=== PATIENT | male | born 1940 | race African-American/Black ===

== ENCOUNTER 2016-06-29 18:22 | Observation (INO) | payer OTHER ==
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
[2016-06-29] MEDS ORDERED: ALBUTEROL SO4 2.5/IPRATROPIUM 0.5 INH SOL 3 ML VIAL.NEB. NEB ONE ×6 (20:17→21:43)
[2016-06-29 20:39] LABS: BASOPHIL 0.9 % (0-2.0); EOSINOPHIL 2.6 % (0-4.5); MCH 33.5 pg (25.7-33.7); MEAN CELL VOLUME 101.6 fl (80-96); MEAN PLT VOLUME 7.7 fl (7.5-11.1); NEUTROPHILS 57.2 % (42.8-82.8); PLATELET COUNT 296 K/MM3 (134-434); RDW 13.7 % (11.9-15.9); WHITE BLOOD COUNT 5.4 K/mm3 (4.0-10.0)
[2016-06-29 21:01] LABS: INR 1.53 (0.82-1.09)
[2016-06-29 21:35] LABS: ALBUMIN 3.2 g/dl (3.4-5.0); CALCIUM 9.1 mg/dL (8.5-10.1); CREATININE 1.5 mg/dL (0.7-1.3)
[2016-06-29 21:36] LABS: BILIRUBIN,TOTAL 0.4 mg/dL (0.2-1.0); TOT PROT 6.7 g/dl (6.4-8.2)
[2016-06-29] MEDS ORDERED: DOXYCYCLINE INJECTION 100 MG in DEXTROSE 5%-WATER - 100 ML IVPB ONE (21:36)
[2016-06-29] MEDS ORDERED: predniSONE 20 MG TABLET (UD) PO ONE (21:36)
[2016-06-29] MEDS ORDERED: predniSONE 20 MG TABLET (UD) ONE (21:42)
[2016-06-29] MEDS ORDERED: DOXYCYCLINE HYCLATE 100 MG VIAL ONE (21:43)
[2016-06-29 22:36] LABS: HIV 1 & 2 AB NEGATIVE; HIV 1 AGp24 NEGATIVE
--- NOTE | 2016-06-30 00:31 | PN ---
<AnaNoelle beltran - Last Filed: 06/30/16 00:31> Teaching Attending Note Name of Resident: Janey Woodard <KalebamandaRosario townsend - Last Filed: 06/30/16 02:19> Teaching Attending Note Name of Resident: Janey Woodard ATTENDING PHYSICIAN STATEMENT I saw and evaluated the patient. I reviewed the resident's note and discussed the case with the resident. I agree with the resident's findings and plan as documented. SUBJECTIVE: 76 year old male, complaining of a productive cough with yellow sputum, loss of appetite and chills for 4 days. The patient had flu vaccine in March and pneumococcal vaccine. The patient smokes 1-2 cigarettes daily but hasn't smoked in the last 2 weeks. The patient denies wheezing, chest pain, palpitations, nausea, vomiting, diarrhea, dysuria, or sick contacts. PMH: History significant for asthma/COPD, DVT (LLE, 2013), colon CA, enlarged prostate and cigarette use (2 daily, 40 year use). OBJECTIVE: Last Vital Signs Temp Pulse Resp BP Pulse Ox 99.2 F 129 H 24 101/60 95 06/29/16 18:24 06/29/16 23:04 06/29/16 23:04 06/29/16 23:09 06/29/16 23:04 GENERAL: Awake, alert, and fully oriented, in no acute distress, cachectic, talking in full sentences HEENT: Atraumatic. PERRLA, EOMI. Moist mucosa. No JVD LUNGS: No distress, speaks full sentences, clear to auscultation bilaterally HEART: Regular rate and rhythm, normal S1 and S2, no murmurs, rubs or gallops, peripheral pulses normal and equal bilaterally. ABDOMEN: Soft, nontender, normoactive bowel sounds. No guarding, no rebound. No masses EXTREMITIES: Normal inspection, Normal range of motion, no edema. No clubbing or cyanosis. NEUROLOGICAL: Cranial nerves II through XII grossly intact. Normal speech, normal gait, no focal sensorimotor deficits SKIN: Warm, Dry, normal turgor, no rashes or lesions noted, no cyanosis CBCD WBC 5.4 K/mm3 (4.0-10.0) D 06/29/16 19:53 RBC 3.72 M/mm3 (4.00-5.60) L 06/29/16 19:53 Hgb 12.5 GM/dL (11.7-16.9) 06/29/16 19:53 Hct 37.8 % (35.4-49) 06/29/16 19:53 MCV 101.6 fl (80-96) H 06/29/16 19:53 MCHC 33.0 g/dl (32.0-35.9) 06/29/16 19:53 RDW 13.7 % (11.9-15.9) 06/29/16 19:53 Plt Count 296 K/MM3 (134-434) D 06/29/16 19:53 MPV 7.7 fl (7.5-11.1) 06/29/16 19:53 CMP Sodium 141 mmol/L (136-145) 06/29/16 19:53 Potassium 4.5 mmol/L (3.5-5.1) 06/29/16 19:53 Chloride 104 mmol/L (98-107) 06/29/16 19:53 Carbon Dioxide 30 mmol/L (21-32) 06/29/16 19:53 Anion Gap 7 (8-16) L 06/29/16 19:53 BUN 19 mg/dL (7-18) H 06/29/16 19:53 Creatinine 1.5 mg/dL (0.7-1.3) H D 06/29/16 19:53 Creat Clearance w eGFR 45.62 (>60) 06/29/16 19:53 Calcium 9.1 mg/dL (8.5-10.1) 06/29/16 19:53 Total Bilirubin 0.4 mg/dL (0.2-1.0) 06/29/16 19:53 AST 17 U/L (15-37) 06/29/16 19:53 ALT 19 U/L (12-78) 06/29/16 19:53 Alkaline Phosphatase 86 U/L (45-117) 06/29/16 19:53 Total Protein 6.7 g/dl (6.4-8.2) 06/29/16 19:53 Albumin 3.2 g/dl (3.4-5.0) L 06/29/16 19:53 Chest X-Ray Impression: No significant interval change or acute lung disease is present. ASSESSMENT AND PLAN: 1.) COPD exacerbation -prednisone 40 mg daily -duoneb Q 6 hours PRN -Ceftriaxone 1 g daily 2.) Chronic smoking -smoking cessation counseling given -continue home meds Documentation prepared by Rosario Cartagena, acting as medical donation professional for Noelle Ellison M.D.
[2016-06-30] MEDS ORDERED: ALBUTEROL SO4 0.083% IH SOL 2.5 MG/3 ML VIAL.NEB. NEB PRN (01:30)
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
[2016-06-30] MEDS ORDERED: methylPREDNISolone NA SUCC 40 MG/1 ML VIAL IVPB SCH (06:00)
[2016-06-30] MEDS: ALBUTEROL SO4 2.5/IPRATROPIUM 0.5 INH SOL 3 ML VIAL.NEB. NEB SCH ×3 (07:55→23:35)
[2016-06-30] MEDS: TAMSULOSIN HCL 0.4 MG CAP.ER.24H (FP) PO SCH (08:57)
[2016-06-30] MEDS: SODIUM CHLORIDE 1,000 ML IV SCH ×2 (08:57→16:52)
[2016-06-30] MEDS: predniSONE 20 MG TABLET (UD) PO SCH (09:05)
[2016-06-30] MEDS ORDERED: predniSONE 20 MG TABLET (UD) ONE (09:45)
[2016-06-30] MEDS ORDERED: CEFTRIAXONE 50 ML ONE (09:52)
[2016-06-30] MEDS ORDERED: CEFTRIAXONE 1 GM in DEXTROSE 5%-WATER - 50 ML IVPB SCH (10:00)
[2016-06-30] MEDS ORDERED: RIVAROXABAN 15 MG TABLET PO SCH (10:00)
[2016-06-30] MEDS ORDERED: predniSONE 10 MG TABLET (UD) PO SCH (10:00)
[2016-06-30] MEDS ORDERED: cefTRIAXone 1 GM/50 ML BAG (PRE-DOCKED) IVPB SCH (10:00)
--- NOTE | 2016-06-30 10:58 | EKG ---
Test Reason : Blood Pressure : / mmHG Vent. Rate : 118 BPM Atrial Rate : 118 BPM P-R Int : 124 ms QRS Dur : 072 ms QT Int : 314 ms P-R-T Axes : 080 082 080 degrees QTc Int : 440 ms SINUS TACHYCARDIA BIATRIAL ENLARGEMENT POOR R WAVE PROGRESSION PULMONARY DISEASE PATTERN ABNORMAL ECG WHEN COMPARED WITH ECG OF 31-DEC-2013 10:15, VENT. RATE HAS INCREASED BY 54 BPM Confirmed by ADDISON RIVAS MD ([id number]) on 06/30/2016 10:58:20 AM Referred By: Confirmed By:ADDISON RIVAS MD
[2016-06-30 12:20] VITALS: BMI 17.2
[2016-06-30] MEDS ORDERED: ALBUTEROL SO4 2.5/IPRATROPIUM 0.5 INH SOL 3 ML VIAL.NEB. NEB ONE (12:21)
--- NOTE | 2016-06-30 13:38 | MSN ---
Progress Note (SOAP) - Subjective Chief Complaint: Productive cough for 3-4 Days History of Present Illness: Patient has had a productive cough for the past 3-4 days. He is Complaining that he is coughing up yellow sputum and that he has had chills and sweats for the past 3-4 days. He states that he had a fever in the last 3-4 days but did not measure the temperature. he has tried taking OTC ibuprofen and cough suppressant to no avail. He came to the ED and when he heard he had an irregular EKG he felt as though he could not breathe. the SOB came on suddenly and dissipated slowly. He has had a headache and some dizziness due to his coughing spells, and has felt some Shortness of breath going less than 20 ft this week, however prior to this week he was not having these complaints. He has no CP, NVD, Constipation, or edema. - Current Medications Current Medications: Active Medications Albuterol/Ipratropium (Duoneb -) 1 amp NEB QIDR [facility] Last Admin: 06/30/16 12:24 Dose: 1 amp Ceftriaxone Sodium (Rocephin 1gm Ivpb (Pre-Docked)) 1 gm IVPB DAILY [facility] Last Admin: 06/30/16 10:00 Dose: 1 gm Sodium Chloride (Normal Saline -) 1,000 mls @ 75 mls/hr IV ASDIR [facility] Last Admin: 06/30/16 08:57 Dose: 75 mls/hr Prednisone (Deltasone -) 40 mg PO DAILY [facility] Last Admin: 06/30/16 09:05 Dose: 40 mg Rivaroxaban (Xarelto -) 15 mg PO BID [facility] Last Admin: 06/30/16 09:05 Dose: 15 mg Tamsulosin HCl (Flomax -) 0.4 mg PO DAILY@0830 [facility] Last Admin: 06/30/16 08:57 Dose: 0.4 mg - Objective Vital Signs: Vital Signs Temperature 98.2 F 06/30/16 12:09 Pulse Rate 86 06/30/16 12:09 Respiratory Rate 18 06/30/16 12:09 Blood Pressure 113/67 06/30/16 12:09 O2 Sat by Pulse Oximetry (%) 98 06/30/16 12:09 Constitutional: Yes: Well Nourished, No Distress, Calm Eyes: Yes: WNL, Conjunctiva Clear, EOM Intact HENT: Yes: WNL, Atraumatic, Normocephalic Neck: Yes: WNL, Supple, Trachea Midline Cardiovascular: Yes: Tachycardia, S1, S2 Respiratory: Yes: Cough, Wheezes Gastrointestinal: Yes: WNL, Normal Bowel Sounds, Soft Musculoskeletal: Yes: WNL Extremities: Yes: WNL Peripheral Pulses WNL: Yes Peripheral Pulses: Left Radial: 2+, Right Radial: 2+, Left Doralis Pedis: 2+, Right Dorsalis Pedis: 2+ Edema: No Integumentary: Yes: WNL Neurological: Yes: WNL, Alert, Oriented ...Motor Strength: Yes: WNL Psychiatric: Yes: WNL Assessment/Plan 76 year old man w/ hx of COPD, asthma, colon cancer, DVT and BPH presents with acute COPD exacerbation being admitted for observation. COPD/asthma -Nebulizer, O2 PRN -ceftriaxone -prednisone -IV fluids -EKG -PFTs -Incentive Spirometry MAYANK -Fluids -UA -Follow FeNa BPH -Cont. Flomax Smoking -Quit 2 weeks ago -Patches prn DVT -Cont. Xarelto
[2016-06-30] MEDS ORDERED: ALBUTEROL SO4 2.5/IPRATROPIUM 0.5 INH SOL 3 ML VIAL.NEB. NEB PRN (14:20)
--- NOTE | 2016-06-30 14:47 | PN ---
Teaching Attending Note Name of Resident: Tavares Gandhi ATTENDING PHYSICIAN STATEMENT I saw and evaluated the patient. I reviewed the resident's note and discussed the case with the resident. I agree with the resident's findings and plan as documented. SUBJECTIVE: no fever or chills, wheezing is better , denies SOB . cough has improved . OBJECTIVE: NAD , AAOx3 CV : RRR. Lungs : scattered wheezes , no crackles . ABd :soft, NT, ND , nl BS , old surgical scars Ext : no edema or erythema ASSESSMENT AND PLAN: 76 y/o man with h/o COPD , DVT in 2013 , and other medical problems who presented with SOB and was found to have acute COPD exacerbation. 1- Acute COPD exacerbation: rapid flu NEg . sx imporved after Nebs but pt became slightly tachycardic . - cont NEbs , Add PRN Nebs - cont prednisone , can swallow - resume advair - no evidence of PNA on cxray , Abx for anti-inflammatory effect . will change ctx to Amoxi 2- MAYANK : probably pre-renal in etiology due to decreased po intake and resp loss - cont gentle hydration - FENA 3- Sinus tachycardia : likely due to volume depletion, resp distress and ALbuterol Nebs - IVF hydration - monitor 4- h/o DVT: will clarify why he has been on xarelto since 2013. ? recurrent , ? unprovoked. - tty to reach his PCP 5- DVT px : on xarelto need to confirm his home meds
--- NOTE | 2016-06-30 15:49 | PN ---
Physical Exam: SUBJECTIVE: Patient seen and examined. Feels better than when he arrived. continues to cough and have shortness of breath. Denies chest pain, fevers, difficulty breathing. OBJECTIVE: Vital Signs Period Temp Pulse Resp BP Sys/Valdes Pulse Ox Last 24 Hr 98.2 F-98.4 F 78-90 18-20 109-130/67-80 97-99 GENERAL: The patient is awake, alert, and fully oriented, in no acute distress. HEAD: Normal with no signs of trauma. EYES: extraocular movements intact, sclera anicteric, conjunctiva clear. ENT: Ears normal, nares patent, oropharynx clear without exudates, moist mucous membranes. NECK: Trachea midline, full range of motion, supple. no LAD LUNGS: Breath sounds equal, bilateral wheezes, no crackles, no accessory muscle use. HEART: S1, S2 without murmur ABDOMEN: Soft, nontender. EXTREMITIES: no edema. NEUROLOGICAL: Normal speech, able to speak in full sentences without difficulty PSYCH: Normal mood, normal affect. Active Medications Generic Name Dose Route Start Last Admin Trade Name Freq PRN Reason Stop Dose Admin Albuterol/Ipratropium 1 amp 06/30/16 06:00 06/30/16 12:24 Duoneb - NEB 1 amp QIDR BRANDY Administration Albuterol/Ipratropium 1 amp 06/30/16 14:20 Duoneb - NEB Q4H PRN SHORTNESS OF BREATH Azithromycin 500 mg 07/01/16 10:00 Zithromax - PO DAILY BRANDY Sodium Chloride 1,000 mls @ 75 mls/hr 06/30/16 01:45 06/30/16 16:52 Normal Saline - IV 75 mls/hr ASDIR BRANDY Administration Prednisone 40 mg 06/30/16 10:00 06/30/16 09:05 Deltasone - PO 40 mg DAILY BRANDY Administration Rivaroxaban 20 mg 07/01/16 10:00 Xarelto - PO DAILY BRANDY Fluticasone/Salmeterol 1 puff 06/30/16 22:00 Advair 100mcg/50mcg - IH BID BRANDY Tamsulosin HCl 0.4 mg 06/30/16 08:30 06/30/16 08:57 Flomax - PO 0.4 mg DAILY@0830 BRANDY Administration Microbiology 06/30/16 19:53 Nasopharyngeal Swab Respiratory Virus Panel - Preliminary - pending 06/29/16 19:53 Nasopharyngeal Swab Influenza Types A,B Antigen (HORACE) - Final (negative) 06/29/2016 Blood cultures pending. CBC, BMP 06/29/16 19:53 06/29/16 19:53 Home medications confirmed from [facility], fax of list in chart. ASSESSMENT/PLAN: 76 yr old man with COPD, history of smoking, history of DVT presents with shortness of breath placed in observation for COPD exacerbation. - likley COPD exacerbation triggered by viral syndrome. - chest xray 06/29 without infiltrate or effusion, afebrile, without leukocytosis unlikley to be pna. #Acute COPD exacerbation - Prednisone 40 mg qdaily po --start 06/30, day 1 - Duonebs 1 amp 4hrn PRN/ ASDR - advair 1 puff BID - Zithromax 500mg po daily -- start 06/30, day 1 # Acute kidney injury (Cr elevated to 1.5, baseline 1.2) - FeNa 0.3, lubna prerenal due to poor po intake and insensible loss of increased respiration - NS @ 75ml/hr - repeat BMP in the morning #History of DVT(2013) - obtain further history - Xarelto 20mg po daily #history of smoking - offer nicotine patch if craving to smoke - offer counseling on smoking cessation and information at discharge #Diet - regular #DVT prophylaxis - on xarelto #Dispo: if symptomatically improved tomorrow, likely d/c home with prednisone taper and f/u with PCP. Visit type - Emergency Visit Emergency Visit: No - New Patient This patient is new to me today: Yes Date on this admission: 06/30/16 - Critical Care Critical Care patient: No - Discharge Referral Referred to [facility] No
[2016-06-30] MEDS ORDERED: PT OWN MED DRAWER 7, Y5N ONE (22:39)
[2016-06-30] MEDS: FLUTICASONE/SALMETEROL 100 MCG/50 MCG DISKUS IH SCH (22:52)
[2016-07-01] MEDS: SODIUM CHLORIDE 1,000 ML IV SCH (06:32)
[2016-07-01] MEDS: ALBUTEROL SO4 2.5/IPRATROPIUM 0.5 INH SOL 3 ML VIAL.NEB. NEB SCH ×2 (06:50→11:08)
[2016-07-01] MEDS ORDERED: AMOXICILLIN 500 MG CAPSULE (FP) PO SCH (08:00)
[2016-07-01] MEDS: TAMSULOSIN HCL 0.4 MG CAP.ER.24H (FP) PO SCH (08:40)
[2016-07-01] MEDS ORDERED: AZITHROMYCIN 250 MG TABLET (FP) PO SCH (10:00)
[2016-07-01] MEDS ORDERED: RIVAROXABAN 20 MG TABLET PO SCH (10:00)
[2016-07-01] MEDS: FLUTICASONE/SALMETEROL 100 MCG/50 MCG DISKUS IH SCH (10:22)
[2016-07-01] MEDS: predniSONE 20 MG TABLET (UD) PO SCH (10:23)
[2016-07-01 12:02] LABS: CALCIUM 8.6 mg/dL (8.5-10.1); CREATININE 0.8 mg/dL (0.7-1.3)
--- NOTE | 2016-07-01 13:08 | DS ---
Physical Examination Vital Signs: Vital Signs Temperature 98.3 F 07/01/16 09:00 Pulse Rate 90 07/01/16 09:00 Respiratory Rate 20 07/01/16 09:00 Blood Pressure 133/78 07/01/16 09:00 O2 Sat by Pulse Oximetry (%) 94 L 07/01/16 08:00 Findings/Remarks: No fever or chills, no CP. SOB is better. cough this am which resolved Constitutional: Yes: No Distress, Thin HENT: Yes: Atraumatic, Normocephalic Cardiovascular: Yes: Regular Rate and Rhythm, S1, S2 Respiratory: Yes: Regular, Other (scattered wheezing , imporved form before , good air entry) Gastrointestinal: Yes: Normal Bowel Sounds, Soft Extremities: No: Erythema Edema: No Labs: CBC, BMP 07/01/16 08:20 Discharge Summary Reason For Visit: ACUTE EXACERBATION COPD Current Active Problems Acute exacerbation of chronic obstructive pulmonary disease (COPD) (Acute) Hospital Course: D/C diagnoses : 1- acute COPD exacerbation 2- MAYANK : pr-erenal Hospital course 76 y/o man with h/o COPD , DVT in 2013 , and other medical problems who presented with SOB and was found to have acute COPD exacerbation on admission due to wheezing . he had no evidence of PNA on cxray . he was admitted and treated with breathing treatments and po steroids . his sx improved . he had RVP sent and the results are still pending he is to be dc on steroids taper and to resume his home inhalers which he has and needed no refills . he was also found to have MAYANK , probably prerenal due to volume depletion. he was given IVF and his Cr and BUM improved . He was found slightly tachy, due to his respo distress but thie resolved with treatment He was asked to chek with his PCP as he has been on xarelto x 2 yrs for DVT . Microbiology 06/29/16 19:53 Blood Culture - Preliminary Blood - Peripheral Venous NO GROWTH OBTAINED AFTER 24 HOURS, INCUBATION TO CONTINUE FOR 4 DAYS. 06/29/16 19:53 Blood Culture - Preliminary Blood - Peripheral Venous NO GROWTH OBTAINED AFTER 24 HOURS, INCUBATION TO CONTINUE FOR 4 DAYS. 06/30/16 19:53 Respiratory Virus Panel - Preliminary Nasopharyngeal Swab dc home today f/u With PCP Condition: Improved - Instructions Diet, Activity, Other Instructions: please follow with your primary care doctor in 1 week take prednisone taper as prescribed use your inhalers Check with your PCP on the reason behind xarelto for prolonged period of time keep hydrated Referrals: Margo Felipe MD [Primary Care Provider] - 1 Week Disposition: HOME - Home Medications Comprehensive Discharge Medication List: Ambulatory Orders Albuterol Sulfate Inhaler - [Ventolin HFA Inhaler -] 2 inh PO Q4H PRN 06/30/16 Alfuzosin HCl [Alfuzosin HCl ER] 10 mg PO DAILY 06/30/16 Fluticasone/Salmeterol [Advair 250-50 Diskus] 1 each IH BID 06/30/16 Ipratropium/Albuterol Sulfate [Combivent Respimat Inhal [place]] 4 gm IH BID 06/30 Montelukast Na [Singulair -] 10 mg PO HS 06/30/16 Rivaroxaban [Xarelto -] 20 mg PO DAILY 06/30/16 Prednisone [Deltasone -] 40 mg PO ASDIR #26 tablet 07/01/16 This patient is new to me today: No Emergency Visit: Yes ED Registration Date: 06/30/16 Care time: The patient presented to the Emergency Department on the above date and was hospitalized for further evaluation of their emergent condition. Critical Care patient: No - Discharge Referral Referred to [facility] No
[2016-07-01 15:20] VITALS: BP 137/88; PULSE 109; TEMP 97.4
== END 2016-07-01 15:35 | disposition home or self-care (01) ==
LOC: JER 18:22 → JERBED 06-30 01:13 → J5S 06-30 15:24
PROVIDERS: ADMIT Internal Medicine; ATTEND Internal Medicine
DX: J44.1 Chronic obstructive pulmonary disease with (acute) exacerbation (principal); N17.9 Acute kidney failure, unspecified; N40.0 Benign prostatic hyperplasia without lower urinary tract symptoms; R00.0 Tachycardia, unspecified; F17.200 Nicotine dependence, unspecified, uncomplicated; Z86.718 Personal history of other venous thrombosis and embolism; Z85.038 Personal history of other malignant neoplasm of large intestine
CPT/HCPCS: 36415; 71020-TC; 80048; 80053; 82570; 84300; 85025; 85610; 87040; 87254; 87389; 87804; 93005; 93010; 94640; 99285-25; G0378

== ENCOUNTER 2016-12-12 07:05 | Day surgery (SDC) | payer OTHER ==
[2016-12-08 17:12] VITALS: BMI 18.6
--- NOTE | 2016-12-12 05:56 | HP ---
History & Physical Update - History History: No Change - Physical Physical: No Change - Assessment Assessment: No Change - Plan Plan: No Change
[2016-12-12 06:56] VITALS: TEMP 98.2
[~2016-12-12 07:05] MED LIST: CYCLOPENTOLATE HCL 1% OPHTH SOLN 2 ML BOTTLE OD ONE; CYCLOPENTOLATE HCL 1% OPHTH SOLN 2 ML BOTTLE OP SCH; MOXIFLOXACIN HCL 0.5% OPHTHALMIC 3 ML BOTTLE OD ONE; MOXIFLOXACIN HCL 0.5% OPHTHALMIC 3 ML BOTTLE OP SCH; PHENYLEPHRINE 2.5% OPHTH SOLN 15 ML BOTTLE OD ONE; PHENYLEPHRINE 2.5% OPHTH SOLN 15 ML BOTTLE OP SCH; TOBRAMYCIN/DEXAMETHASONE OPHTH. OINTMENT 1 TUBE TP ONE; TROPICAMIDE 1% OPHTH SOLN 15 ML BOTTLE OD ONE; TROPICAMIDE 1% OPHTH SOLN 15 ML BOTTLE OP SCH
[2016-12-12] MEDS ORDERED: TROPICAMIDE 1% OPHTH SOLN 15 ML BOTTLE OD ONE ×2 (07:10→07:15)
[2016-12-12] MEDS ORDERED: PHENYLEPHRINE 2.5% OPHTH SOLN 15 ML BOTTLE OD ONE ×2 (07:10→07:15)
[2016-12-12] MEDS ORDERED: CYCLOPENTOLATE HCL 1% OPHTH SOLN 2 ML BOTTLE OD ONE ×2 (07:10→07:15)
[2016-12-12] MEDS ORDERED: MOXIFLOXACIN HCL 0.5% OPHTHALMIC 3 ML BOTTLE OD ONE ×2 (07:10→07:15)
[2016-12-12] MEDS ORDERED: TOBRAMYCIN/DEXAMETHASONE OPHTH. OINTMENT 1 TUBE ONE (07:21)
[2016-12-12] MEDS ORDERED: EPINEPHrine/PF 1 MG/1 ML (1:1,000) AMPULE ONE (07:21)
[2016-12-12] MEDS ORDERED: BSS (NA/CA/MG/K) BALANCED SALT SOLUTION OPHTH SOLN 15 ML BOTTLE ONE (07:22)
[2016-12-12] MEDS ORDERED: POVIDONE-IODINE 5% OPHTHALMIC PREP 30 ML SOLUTION ONE (07:22)
[2016-12-12] MEDS ORDERED: LIDOCAINE HCL/PF 2% SDV 5ML VIAL ONE ×2 (07:22→07:53)
[2016-12-12] MEDS ORDERED: LIDOCAINE HCL/PF 1% SDV 5ML VIAL ONE (07:22)
[2016-12-12] MEDS ORDERED: BUPIVACAINE HCL/PF 0.75% 10 ML VIAL ONE (07:24)
[2016-12-12] MEDS ORDERED: TETRACAINE 0.5% OPHTH SOLN 2 ML BOTTLE ONE (07:24)
[2016-12-12] MEDS ORDERED: PROPOFOL 20 ML ONE (07:53)
[2016-12-12] MEDS ORDERED: SUCCINYLCHOLINE CHLORIDE 200 MG/10 ML VIAL ONE (07:54)
[2016-12-12] MEDS ORDERED: MIDAZOLAM HCL 2 MG/2 ML SINGLE DOSE VIAL ONE (07:54)
[2016-12-12] MEDS ORDERED: TETRACAINE 0.5% HCL 0.6ML DROPPER.BOTTLE TP ONE (08:00)
[2016-12-12] MEDS ORDERED: LIDOCAINE HCL/PF 2% SDV 5ML VIAL PNB ONE (08:08)
[2016-12-12] MEDS ORDERED: BUPIVACAINE HCL/PF 0.75% 10 ML VIAL RB ONE (08:10)
[2016-12-12] MEDS ORDERED: LIDOCAINE HCL 1% PRESERVATIVE FREE - 30ML VIAL IO ONE (08:22)
[2016-12-12] MEDS ORDERED: CHONDROITIN SU A/HYALUR SOD 1 KIT IO ONE (08:23)
[2016-12-12] MEDS ORDERED: TRYPAN BLUE 0.5 ML DISP.SYRIN IO ONE (08:25)
[2016-12-12] MEDS ORDERED: ACETYLCHOLINE 1:100 INTRA-OCUL 20 MG/2 ML KIT IO ONE (08:52)
[2016-12-12] MEDS ORDERED: TOBRAMYCIN/DEXAMETHASONE OPHTH. OINTMENT 1 TUBE TP ONE (08:57)
[2016-12-12] MEDS ORDERED: FLUMAZENIL 0.5 MG/5 ML VIAL ONE (08:59)
[2016-12-12] MEDS ORDERED: TRYPAN BLUE 0.5 ML DISP.SYRIN ONE (09:08)
[2016-12-12] MEDS ORDERED: ACETYLCHOLINE 1:100 INTRA-OCUL 20 MG/2 ML KIT ONE (09:09)
[2016-12-12 09:55] VITALS: BP 114/67; PULSE 88
--- NOTE | 2016-12-12 15:11 | OP ---
DATE OF OPERATION: 12/12/2016 SURGEON: Selvin Diallo MD PREOPERATIVE DIAGNOSIS: Cataract, right eye. OPERATION: Phacoemulsification and intraocular lens implantation, right eye. POSTOPERATIVE DIAGNOSIS: Cataract, right eye. ANESTHESIA: Local with intravenous sedation. COMPLICATIONS: None. BLOOD LOSS: None. SPECIMEN: None. BRIEF HISTORY: The patient is a 76-year-old man with a past medical history of COPD, who presented with decreased vision in the right eye down to 20/50+ due to a 1+ nuclear sclerotic lens with dense anterior cortical changes. After the risks, benefits, and alternatives to cataract surgery were discussed with the patient, he presented to surgery for the right eye. DESCRIPTION OF PROCEDURE: The patient was brought to the operating room and administered retrobulbar block after receiving intravenous sedation. He was then prepped and draped in the usual sterile fashion. An eyelid speculum was inserted in the right eye. A paracentesis made in the anterior chamber was inflated with nonpreserved lidocaine. This was followed by injection of air, trypan blue dye, and Viscoat due to the poor red reflex due to the dense anterior cortical changes. A groove was made in the temporal clear cornea which was tunneled forward with a crescent blade. The anterior chamber was entered with a 2.75 keratome. The cystotome was used to make an incision in the center of the capsule, and a continuous curvilinear capsulorrhexis was created. The lens was hydrodissected until it was found to rotate freely within the capsular bag. After hydrodissection, there was significant constriction of the pupil and along with iris prolapse due to the constriction of the pupil down to less than 4 mm and the iris determined to place iris hooks around the iris in order to enlarge and stabilize the iris. This was done with 5 iris hooks without incident. Phacoemulsification was then used to remove the lens in its entirety. Irrigation and aspiration were used to remove residual cortical material. The anterior chamber and capsular bag were re-inflated with Provisc, and an 18.5-diopter SN60WF AcrySof intraocular lens was injected into the capsular bag using the Martin injector. The lens was dialed into place using a [place] hook. Irrigation and aspiration were used to remove residual Viscoelastic. The wound was stromally hydrated. The 5 previously placed iris hooks were removed without incident. Miochol was injected into the eye due to persistent iris adherence to the wound. The pupil was found to constrict round. There was no further iris prolapse and no iris at the wound. The eyelid speculum was removed from the eye, and TobraDex ointment and a patch and shield were placed over the right eye. The patient was transferred to the recovery room in stable condition and will follow up tomorrow. Kari WILHELM/[id number]
== END 2016-12-12 09:58 | disposition home or self-care (01) ==
LOC: JASU-SURG 07:05
PROVIDERS: ATTEND Ophthalmology
PROC: 08RJ3JZ Replacement of Right Lens with Synthetic Substitute, Percutaneous Approach (ICD-10-PCS; principal; 2016-12-12 08:00)
DX: H25.11 Age-related nuclear cataract, right eye (principal); R29.2 Abnormal reflex

== ENCOUNTER 2017-02-13 08:40 | Day surgery (SDC) | payer OTHER ==
[2017-02-12 13:36] VITALS: BMI 18.3
[~2017-02-13 08:40] MED LIST changes: -CYCLOPENTOLATE HCL 1% OPHTH SOLN 2 ML BOTTLE OD ONE; -CYCLOPENTOLATE HCL 1% OPHTH SOLN 2 ML BOTTLE OP SCH; -MOXIFLOXACIN HCL 0.5% OPHTHALMIC 3 ML BOTTLE OD ONE; -PHENYLEPHRINE 2.5% OPHTH SOLN 15 ML BOTTLE OD ONE; -PHENYLEPHRINE 2.5% OPHTH SOLN 15 ML BOTTLE OP SCH; -TROPICAMIDE 1% OPHTH SOLN 15 ML BOTTLE OD ONE; -TROPICAMIDE 1% OPHTH SOLN 15 ML BOTTLE OP SCH
[2017-02-13 08:58] VITALS: TEMP 97.5
[2017-02-13] MEDS ORDERED: LIDOCAINE HCL/PF 2% SDV 5ML VIAL ONE (08:59)
[2017-02-13] MEDS ORDERED: LIDOCAINE HCL/PF 1% SDV 5ML VIAL ONE (08:59)
[2017-02-13] MEDS: CYCLOPENTOLATE HCL 1% OPHTH SOLN 2 ML BOTTLE OP SCH ×3 (09:00→09:30)
[2017-02-13] MEDS: TROPICAMIDE 1% OPHTH SOLN 15 ML BOTTLE OP SCH ×3 (09:00→09:30)
[2017-02-13] MEDS ORDERED: TRYPAN BLUE 0.5 ML DISP.SYRIN ONE (09:00)
[2017-02-13] MEDS: PHENYLEPHRINE 2.5% OPHTH SOLN 15 ML BOTTLE OP SCH ×3 (09:00→09:30)
[2017-02-13] MEDS ORDERED: MIDAZOLAM HCL 2 MG/2 ML SINGLE DOSE VIAL ONE (10:47)
[2017-02-13] MEDS ORDERED: TETRACAINE 0.5% OPHTH SOLN 2 ML BOTTLE OS ONE (10:50)
[2017-02-13] MEDS ORDERED: BUPIVACAINE HCL/PF 0.75% 10 ML VIAL RB ONE (10:57)
[2017-02-13] MEDS ORDERED: LIDOCAINE HCL/PF 2% SDV 5ML VIAL INF ONE (10:57)
[2017-02-13] MEDS ORDERED: POVIDONE-IODINE 5% OPHTHALMIC PREP 30 ML SOLUTION OS ONE (10:59)
[2017-02-13] MEDS ORDERED: LIDOCAINE HCL 1% PRESERVATIVE FREE - 30ML VIAL IO ONE (11:09)
[2017-02-13] MEDS ORDERED: BSS (NA/CA/MG/K) BALANCED SALT SOLUTION OPHTH SOLN 15 ML BOTTLE OS ONE (11:09)
[2017-02-13] MEDS ORDERED: TRYPAN BLUE 0.5 ML DISP.SYRIN IO ONE (11:09)
[2017-02-13] MEDS ORDERED: CHONDROITIN SU A/HYALUR SOD 1 KIT IO ONE (11:09)
[2017-02-13] MEDS ORDERED: EPINEPHrine/PF 1 MG/1 ML (1:1,000) AMPULE SQ ONE (11:16)
[2017-02-13] MEDS ORDERED: TOBRAMYCIN/DEXAMETHASONE OPHTH. OINTMENT 1 TUBE TP ONE (11:31)
[2017-02-13 12:44] VITALS: BP 133/75; PULSE 79
--- NOTE | 2017-02-13 17:17 | OP ---
DATE OF OPERATION: 02/13/2017 SURGEON: Selvin Dang MD PREOPERATIVE DIAGNOSIS: Cataract, left eye. OPERATION: Phacoemulsification and intraocular lens implantation, left eye. POSTOPERATIVE DIAGNOSIS: Cataract, left eye. ANESTHESIA: Local with intravenous sedation. COMPLICATIONS: None. BLOOD LOSS: None. SPECIMEN: None. BRIEF HISTORY: The patient is a 76-year-old man with a past medical history of asthma, who presented with decreased vision in the left eye down to 20/40 due to a 1+ nuclear sclerotic lens with dense anterior cortical changes and a posterior subcapsular cataract. After the risks, benefits, and alternatives to cataract surgery were discussed with the patient, he consented to surgery for the left eye. DESCRIPTION OF PROCEDURE: The patient was brought to the operating room and administered retrobulbar block after receiving intravenous sedation. He was then prepped and draped in the usual sterile fashion, and an eyelid speculum was inserted in the left eye. A paracentesis was made, and the anterior chamber was inflated with nonpreserved lidocaine. This was followed by injection of air, trypan blue dye, and Viscoat due to the dense anterior cortical changes. A groove was made in the superotemporal clear cornea which was tunneled forward with a crescent blade. The anterior chamber was entered with a 2.75 keratome. The cystotome was used to make an incision in the center of the capsule, and a continuous curvilinear capsulorrhexis was created. The lens was hydrodissected until it was found to rotate freely within the capsular bag. Phacoemulsification was then used to remove the lens in its entirety. Irrigation and aspiration were used to remove residual cortical material. The anterior chamber and capsular bag were re-inflated with Provisc, and a 19.0-diopter SN60WF AcrySof intraocular lens was injected into the capsular bag using the [place] injector. The lens was dialed into place using a Sinskey hook. Irrigation and aspiration were used to remove residual Viscoelastic. The wound was stromally hydrated until it was found to be watertight and the eye was at an appropriate pressure. The eyelid speculum was removed from the eye, and TobraDex ointment and a patch and shield were placed over the left eye. The patient was transferred to the recovery room in stable condition and will follow up tomorrow. SELVIN DANG M.D. [id number]
== END 2017-02-13 12:44 | disposition home or self-care (01) ==
LOC: JASU-SURG 08:40
PROVIDERS: ATTEND Ophthalmology
PROC: 08RK3JZ Replacement of Left Lens with Synthetic Substitute, Percutaneous Approach (ICD-10-PCS; principal; 2017-02-13 10:30)
DX: H25.12 Age-related nuclear cataract, left eye (principal)

== ENCOUNTER 2017-08-19 10:54 | Emergency (ER) | payer OTHER ==
[2017-08-19 11:03] VITALS: BP 135/77; PULSE 94; TEMP 97.8; BMI 18.3
--- NOTE | 2017-08-19 12:03 | PDOC ---
History of Present Illness - General Chief Complaint: Edema Stated Complaint: SWOLLEN LEG Time Seen by Provider: 08/19/17 11:42 History Source: Patient Exam Limitations: No Limitations - History of Present Illness Initial Comments: 77 yo M history COPD/asthma, prior DVT presents with LLE swelling x2 weeks. Denies fever, chills. He has been trying to elevate the leg for some relief, but when it did not resolve, he presented for evaluation. No recent trauma. No cp, SOB. Past History - Past Medical History Allergies/Adverse Reactions: Allergies Allergy/AdvReac Type Severity Reaction Status Date / Time No Known Drug Allergies Allergy Verified 08/19/17 10:59 Home Medications: Ambulatory Orders Ipratropium/Albuterol Sulfate [Combivent Respimat Inhal [place]] 4 gm IH PRN PRN 06/30/16 Montelukast Na [Singulair -] 10 mg PO HS 06/30/16 Ascorbic Acid [Vitamin C -] 1 tab PO DAILY 02/12/17 Budesonide/Formeterol Fumarate [SYMBICORT 80/4.5mcg -] 1 inh PO PRN PRN Multivit-Min36/Iron/Folic Acid [Geritol Complete Tablet] 1 tab PO DAILY Rivaroxaban [Xarelto -] 15 mg PO BID #42 tab 08/19/17 Rivaroxaban [Xarelto -] 20 mg PO DAILY #7 tablet 08/19/17 Anemia: No Asthma: Yes Cancer: Yes (Yes - Colon cancer 11 y ago) Cardiac Disorders: No CVA: No COPD: Yes CHF: No Dementia: No Diabetes: No GI Disorders: No Disorders: Yes (ENLARGED PROSTATE) HTN: No Hypercholesterolemia: No Liver Disease: No Seizures: No Thyroid Disease: No Other medical history: dvt lle - Surgical History Abdominal Surgery: Yes (Benign tumor removed from stomach) - Immunization History Immunization Up to Date: Yes - Suicide/Smoking/Psychosocial Hx Smoking History: Former smoker Have you smoked in the past 12 months: Yes Number of Cigarettes Smoked Daily: 2 Information on smoking cessation initiated: No 'Breaking Loose' booklet given: 06/30/16 Hx Alcohol Use: Yes (social) Drug/Substance Use Hx: No Substance Use Type: Alcohol Hx Substance Use Treatment: No Review of Systems - Review of Systems Able to Perform ROS?: Yes Comments:: GENERAL/CONSTITUTIONAL: No fever or chills. No weakness. HEAD, EYES, EARS, NOSE AND THROAT: No change in vision. No ear pain or discharge. No sore throat. CARDIOVASCULAR: No chest pain or shortness of breath. RESPIRATORY: No cough, wheezing, or hemoptysis. GASTROINTESTINAL: No nausea, vomiting, diarrhea or constipation. GENITOURINARY: No dysuria, frequency, or change in urination. MUSCULOSKELETAL: No joint or muscle swelling or pain. No neck or back pain. +L ankle swelling. SKIN: No rash NEUROLOGIC: No headache, vertigo, loss of consciousness, or change in strength/ sensation. ENDOCRINE: No increased thirst. No abnormal weight change. HEMATOLOGIC/LYMPHATIC: No anemia, easy bleeding, or history of blood clots. ALLERGIC/IMMUNOLOGIC: No hives or skin allergy. *Physical Exam - Vital Signs Last Vital Signs Temp Pulse Resp BP Pulse Ox 97.8 F 94 H 18 135/77 97 08/19/17 11:00 08/19/17 11:00 08/19/17 11:00 08/19/17 11:08/19/17 11:00 - Physical Exam Comments: GENERAL: Awake, alert, and fully oriented, in no acute distress HEAD: No signs of trauma EYES: PERRLA, EOMI, sclera anicteric, conjunctiva clear ENT: Auricles normal inspection, hearing grossly normal, nares patent, oropharynx clear without exudates. Moist mucosa NECK: Normal ROM, supple, no lymphadenopathy, JVD, or masses LUNGS: Breath sounds equal, clear to auscultation bilaterally. No wheezes, and no crackles HEART: Regular rate and rhythm, normal S1 and S2, no murmurs, rubs or gallops ABDOMEN: Soft, nontender, normoactive bowel sounds. No guarding, no rebound. No masses EXTREMITIES: Normal range of motion, 2+ pitting edema to L mid-vogt. No clubbing or cyanosis. No cords, erythema, or tenderness NEUROLOGICAL: Cranial nerves II through XII grossly intact. Normal speech, normal gait SKIN: Warm, Dry, normal turgor, no rashes or lesions noted. Medical Decision Making - Medical Decision Making 08/19/17 12:03 Pt with prior history of DVT, was treated with Xarelto. Will obtain doppler and reassess. 08/19/17 13:13 Discussed sono results with patient at bedside. He states he is unsure how long he was on Xarelto previously, but that his PMD eventually took him off because he had been on it "too long". He has appointment with PMD on 09/07. I advised him that he will have to f/u for continued prescription, as he will have to be on the xarelto for at least a few months, but may need to be on it long-term due to second DVT. *DC/Admit/Observation/Transfer Diagnosis at time of Disposition: DVT (deep venous thrombosis) Qualifiers: DVT location: lower extremity Affected thrombotic vein of extremity: unspecified vein of extremity Chronicity: acute Laterality: left Qualified Code( s): I82.402 - Acute embolism and thrombosis of unspecified deep veins of left lower extremity - Discharge Dispostion Disposition: HOME Condition at time of disposition: Stable Admit: No - Prescriptions Prescriptions: Rivaroxaban [Xarelto -] 15 mg PO BID #42 tab Rivaroxaban [Xarelto -] 20 mg PO DAILY #7 tablet - Referrals Referrals: Ruby Dinero [Primary Care Provider] - - Patient Instructions - Post Discharge Activity
[2017-08-19] MEDS ORDERED: RIVAROXABAN 15 MG TABLET PO ONE (13:13)
== END 2017-08-19 13:40 | disposition home or self-care (01) ==
LOC: JER 10:54
DX: I82.402 Acute embolism and thrombosis of unspecified deep veins of left lower extremity (principal); J45.909 Unspecified asthma, uncomplicated; J44.9 Chronic obstructive pulmonary disease, unspecified; N40.0 Benign prostatic hyperplasia without lower urinary tract symptoms; Z86.718 Personal history of other venous thrombosis and embolism; Z87.891 Personal history of nicotine dependence; Z85.038 Personal history of other malignant neoplasm of large intestine
CPT/HCPCS: 93971-TC; 99281-25

== ENCOUNTER 2017-11-24 16:17 | Emergency (ER) | payer OTHER ==
[2017-11-24 16:23] VITALS: TEMP 98; BMI 17.8
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
[2017-11-24] MEDS ORDERED: SODIUM CHLORIDE 1,000 ML IV STA (17:09)
--- NOTE | 2017-11-24 17:10 | PDOC ---
History of Present Illness - General Chief Complaint: Urinary Problem Stated Complaint: PAIN Time Seen by Provider: 11/24/17 17:06 - History of Present Illness Initial Comments: 11/24/17 17:22 77 year old male with a hx of asthma, COPD, colorectal cancer, DVT on xarelto ( 2 weeks) presents to the ED for hematuria. He reports going to [facility] on (2 days ago) for urinary retention and being discharged with a workman catheter. He reports that he woke up this morning with suprapubic pain and blood in his workman bag. He was told to see his PCP for evaluation for workman removal but has not yet gone. Denies chest pain, SOB, nausea, vomiting, diarrhea. PMD: Dr. Mueller at [address] [place] [address] SMOKE: none DRINK: none DRUGS: none Allergies: NKDA 11/24/17 17:27 Past History - Past Medical History Allergies/Adverse Reactions: Allergies Allergy/AdvReac Type Severity Reaction Status Date / Time No Known Drug Allergies Allergy Verified 11/24/17 16:23 Home Medications: Ambulatory Orders Ipratropium/Albuterol Sulfate [Combivent Respimat 20-100 Mcg] 4 gm IH PRN PRN Montelukast Na [Singulair -] 10 mg PO HS 06/30/16 Ascorbic Acid [Vitamin C -] 1 tab PO DAILY 02/12/17 Budesonide/Formeterol Fumarate [SYMBICORT 80/4.5mcg -] 1 inh PO PRN PRN Multivit-Min36/Iron/Folic Acid [Geritol Complete Tablet] 1 tab PO DAILY Rivaroxaban [Xarelto -] 15 mg PO BID #42 tab 08/19/17 Rivaroxaban [Xarelto -] 20 mg PO DAILY #7 tablet 08/19/17 Cephalexin [Keflex] 500 mg PO Q12H 5 Days #10 capsule 11/24/17 Anemia: No Asthma: Yes Cancer: Yes (Yes - Colon cancer 11 y ago) Cardiac Disorders: No CVA: No COPD: Yes CHF: No Dementia: No Diabetes: No GI Disorders: No Disorders: Yes (ENLARGED PROSTATE) HTN: No Hypercholesterolemia: No Liver Disease: No Seizures: No Thyroid Disease: No - Surgical History Abdominal Surgery: Yes (Benign tumor removed from stomach) - Immunization History Immunization Up to Date: Yes - Suicide/Smoking/Psychosocial Hx Smoking History: Former smoker Have you smoked in the past 12 months: Yes Number of Cigarettes Smoked Daily: 2 If you are a former smoker, when did you quit?: 2017 Information on smoking cessation initiated: No 'Breaking Loose' booklet given: 06/30/16 Hx Alcohol Use: Yes (social) Drug/Substance Use Hx: No Substance Use Type: Alcohol Hx Substance Use Treatment: No Review of Systems - Review of Systems Able to Perform ROS?: Yes Constitutional: No: Fever, Weakness Respiratory: No: Shortness of Breath Cardiac (ROS): No: Chest Pain ABD/GI: No: Abdominal Distended, Constipated, Diarrhea, Nausea, Vomiting : Yes: Hematuria *Physical Exam - Vital Signs Last Vital Signs Temp Pulse Resp BP Pulse Ox 98 F 111 H 20 140/102 97 11/24/17 16:19 11/24/17 16:19 11/24/17 16:19 11/24/17 16:19 11/24/17 16:19 - Physical Exam Comments: GENERAL: A&Ox3, no acute distress EYES: PERRLA, EOMI ENT: Moist mucus membranes NECK: No JVD LUNGS: CTA, no wheezes HEART: RRR, no murmurs ABDOMEN: Soft, nontender, BS present : suprapubic tenderness noted, workman bag in place draining dark blood urine MUSCULOSKELETAL: No CVA Tenderness EXTREMITIES: 2+ pulses, no edema. NEUROLOGICAL: Cranial nerves II-XII intact. ED Treatment Course - LABORATORY CBC & Chemistry Diagram: 11/24/17 18:13 11/24/17 18:55 Medical Decision Making - Medical Decision Making 11/24/17 18:05 77 year old male with a hx of asthma, COPD, colorectal cancer, DVT on xarelto ( 2 weeks) presents to the ED for hematuria. Assessment/Plan: patient likely has clots in bladder causing discomfort - likely bleeding 2/2 xarelto + trauma vs BPH -CBC to r/o anemia -CMP to r/o postobstructive uropathy -1x fluid bolus -replace workman and attach bladder irrigation -collect UA/Uculture after CBI finishes Dispo -if bleeding resolves post-CBI and there is no renal dysfunction + H&H stable, can likely D/C home vs observation 11/24/17 19:32 -patient re-evaluated after 1 bag of CBI finished. Feels slightly improved compared to initial presentation -will close CBI, let urine naturally drain and collect UA/U culture before restarting CBI -will continue to observe 11/24/17 20:55 -CBI clamped, draining light pink urine, unlikely overtly bleeding -Patient feels clinically improved -labs wnl -will observe for 1 hour and likely DC home *DC/Admit/Observation/Transfer Diagnosis at time of Disposition: Hematuria - Discharge Dispostion Disposition: HOME Condition at time of disposition: Improved Decision to Admit order: No - Prescriptions Prescriptions: Cephalexin [Keflex] 500 mg PO Q12H 5 Days #10 capsule - Referrals Referrals: Mehdi Kc MD., MD [Staff Physician] - 2 Days - Patient Instructions Additional Instructions: You were seen in the emergency department for blood in your urine. We have replaced your workman catheter and irrigated your bladder. Please continue your home medications as before Prescriptions -Cephalexin 500mg every 12 hours (twice a day) for 5 days Please pick this up from [facility] Referrals -Please make an appointment with Dr. Kc, the urologist on Sunday for further evaluation -Please make an appointment with your primary care physician within 1 week of discharge If you experience fevers, chills, nausea, vomiting, diarrhea, or increased bleeding in your urine, please return to the emergency room for evaluation - Post Discharge Activity
[2017-11-24] MEDS ORDERED: ACETAMINOPHEN 500 MG TABLET (FP) PO ONE (17:12)
[2017-11-24] MEDS ORDERED: LIDOCAINE HCL 2% JELLY 10 ML CARTRIDGE UR ONE (17:23)
[2017-11-24] MEDS ORDERED: LIDOCAINE HCL 2% JELLY 10 ML CARTRIDGE ONE (17:26)
[2017-11-24 18:20] LABS: WHITE BLOOD COUNT 5.1 K/mm3 (4.0-10.0)
[2017-11-24 18:26] LABS: BASO % 0.8 % (0-2.0); EOS % 4.4 % (0-4.5); HEMATOCRIT 41.3 % (35.4-49); HEMOGLOBIN 13.8 GM/dL (11.7-16.9); LYMPH % 37.9 % (8-40); MCH 34.1 pg (25.7-33.7); MCHC 33.5 g/dl (32.0-35.9); MEAN CELL VOLUME 101.9 fl (80-96); MEAN PLT VOLUME 8.5 fl (7.5-11.1); MONO % 8.5 % (3.8-10.2); NEUT % 48.4 % (42.8-82.8); PLATELET COUNT 217 K/MM3 (134-434); RBC 4.05 M/mm3 (4.00-5.60); RDW 14.7 % (11.9-15.9)
[2017-11-24 18:31] LABS: INR 1.62 (0.82-1.09); PROTHROMBIN TIME (PATIENT) 18.3 SEC (9.7-13.0)
[2017-11-24] MEDS ORDERED: ACETAMINOPHEN 325 MG TABLET (FP) ONE (19:04)
[2017-11-24 20:27] LABS: ALBUMIN 3.5 g/dl (3.4-5.0); ANION GAP 9 (8-16); BLOOD UREA NITROGEN 17 mg/dL (7-18); CALCIUM 9.1 mg/dL (8.5-10.1); CHLORIDE 113 mmol/L (98-107); CO2 25 mmol/L (21-32); CREATININE 1.2 mg/dL (0.7-1.3); GLUCOSE,RANDOM 98 mg/dL (74-106); SGOT/AST 20 U/L (15-37); SGPT/ALT 22 U/L (12-78); SODIUM 147 mmol/L (136-145)
[2017-11-24 20:29] LABS: ALK PHOS 83 U/L (45-117); BILIRUBIN,TOTAL 0.5 mg/dL (0.2-1.0); TOT PROT 6.8 g/dl (6.4-8.2)
[2017-11-24] MEDS ORDERED: CEPHALEXIN MONOHYDRATE 500 MG CAPSULE (UD) PO ONE (22:18)
[2017-11-24] MEDS ORDERED: CEPHALEXIN MONOHYDRATE 500 MG CAPSULE (UD) ONE (22:29)
[2017-11-24 23:05] LABS: URINE APPEARANCE SLCLOUDY; URINE BILIRUBIN NEGATIVE (<2.0 mg/dL); URINE BLOOD 3+ (NEGATIVE); URINE COLOR YELLOW; URINE GLUCOSE (UA) NEGATIVE (NEGATIVE); URINE KETONE NEGATIVE (NEGATIVE); URINE LEUK ESTERASE 2+ (NEGATIVE); URINE NITRITE NEGATIVE (NEGATIVE); URINE PROTEIN 2+ (NEGATIVE); URINE UROBILINOGEN NEGATIVE mg/dL (0.2-1.0)
[2017-11-24 23:12] LABS: URINE HYALINE CAST 2 /lpf; URINE MUCUS RARE; YEAST RARE
[2017-11-24 23:26] VITALS: BP 147/91; PULSE 81
== END 2017-11-24 23:52 | disposition home or self-care (01) ==
LOC: JER 16:17
PROC: 3E0337Z Introduction of Electrolytic and Water Balance Substance into Peripheral Vein, Percutaneous Approach (ICD-10-PCS; principal; 2017-11-24)
PROC: 0T2BX0Z Change Drainage Device in Bladder, External Approach (ICD-10-PCS; 2017-11-24)
DX: R31.9 Hematuria, unspecified (principal); J44.9 Chronic obstructive pulmonary disease, unspecified; I82.4Z9 Acute embolism and thrombosis of unspecified deep veins of unspecified distal lower extremity; N40.0 Benign prostatic hyperplasia without lower urinary tract symptoms; Z85.038 Personal history of other malignant neoplasm of large intestine; Z87.891 Personal history of nicotine dependence
CPT/HCPCS: 36415; 80053; 81003; 81015; 85025; 85610; 86850; 86900; 86901; 87086; 99283-25; J7030

== ENCOUNTER 2017-11-26 10:40 | Emergency (ER) | payer OTHER ==
[2017-11-26 10:46] VITALS: BMI 18.1
[2017-11-26 12:53] LABS: BASO % 0.8 % (0-2.0); EOS % 2.6 % (0-4.5); HEMATOCRIT 37.3 % (35.4-49); HEMOGLOBIN 12.4 GM/dL (11.7-16.9); MCH 33.9 pg (25.7-33.7); MCHC 33.2 g/dl (32.0-35.9); MEAN CELL VOLUME 101.9 fl (80-96); MEAN PLT VOLUME 8.1 fl (7.5-11.1); NEUT % 68.6 % (42.8-82.8); PLATELET COUNT 212 K/MM3 (134-434); RBC 3.66 M/mm3 (4.00-5.60); RDW 14.3 % (11.9-15.9); WHITE BLOOD COUNT 5.2 K/mm3 (4.0-10.0)
[2017-11-26 13:08] LABS: URINE APPEARANCE CLOUDY; URINE BILIRUBIN NEGATIVE (<2.0 mg/dL); URINE BLOOD 3+ (NEGATIVE); URINE COLOR AMBER; URINE GLUCOSE (UA) 1+ (NEGATIVE); URINE KETONE 1+ (NEGATIVE); URINE LEUK ESTERASE TRACE (NEGATIVE); URINE NITRITE NEGATIVE (NEGATIVE); URINE PROTEIN 2+ (NEGATIVE); URINE UROBILINOGEN NEGATIVE mg/dL (0.2-1.0)
[2017-11-26 13:22] LABS: ALBUMIN 3.3 g/dl (3.4-5.0); ANION GAP 7 (8-16); BILIRUBIN,TOTAL 0.6 mg/dL (0.2-1.0); BLOOD UREA NITROGEN 16 mg/dL (7-18); CALCIUM 8.8 mg/dL (8.5-10.1); CHLORIDE 111 mmol/L (98-107); CO2 26 mmol/L (21-32); GLUCOSE,RANDOM 85 mg/dL (74-106); SGOT/AST 17 U/L (15-37); SGPT/ALT 22 U/L (12-78); SODIUM 144 mmol/L (136-145); TOT PROT 6.5 g/dl (6.4-8.2)
[2017-11-26 13:23] LABS: ALK PHOS 77 U/L (45-117)
[2017-11-26 13:23] LABS: URINE MUCUS RARE; YEAST MODERATE
--- NOTE | 2017-11-26 13:27 | PDOC ---
"History of Present Illness - General Chief Complaint: Urinary Problem Stated Complaint: URINARY PROBLEM Time Seen by Provider: 11/26/17 11:29 Past History - Past Medical History Allergies/Adverse Reactions: Allergies Allergy/AdvReac Type Severity Reaction Status Date / Time No Known Drug Allergies Allergy Verified 11/26/17 10:46 Home Medications: Ambulatory Orders Ipratropium/Albuterol Sulfate [Combivent Respimat 20-100 Mcg] 2 puff IH QID Montelukast Na [Singulair -] 10 mg PO HS 06/30/16 Ascorbic Acid [Vitamin C -] 1 tab PO DAILY 02/12/17 Budesonide/Formeterol Fumarate [SYMBICORT 80/4.5mcg -] 2 inh PO QID 02/12/17 Multivit-Min36/Iron/Folic Acid [Geritol Complete Tablet] 1 tab PO DAILY Rivaroxaban [Xarelto -] 15 mg PO BID #42 tab 08/19/17 Cephalexin [Keflex] 500 mg PO Q12H 5 Days #10 capsule 11/24/17 Alfuzosin HCl [Uroxatral] 10 mg PO DAILY 11/26/17 Tamsulosin HCl [Flomax] 0.4 mg PO DAILY 11/26/17 Anemia: No Asthma: Yes Cancer: Yes (Yes - Colon cancer 11 y ago) Cardiac Disorders: No CVA: No COPD: Yes CHF: No Dementia: No Diabetes: No GI Disorders: No Disorders: Yes (ENLARGED PROSTATE) HTN: No Hypercholesterolemia: No Liver Disease: No Seizures: No Thyroid Disease: No - Surgical History Abdominal Surgery: Yes (Benign tumor removed from stomach) - Immunization History Immunization Up to Date: Yes - Suicide/Smoking/Psychosocial Hx Smoking History: Unknown if ever smoked Have you smoked in the past 12 months: No Number of Cigarettes Smoked Daily: 2 If you are a former smoker, when did you quit?: 2017 Information on smoking cessation initiated: No 'Breaking Loose' booklet given: 06/30/16 Hx Alcohol Use: No Drug/Substance Use Hx: No Substance Use Type: Alcohol Hx Substance Use Treatment: No *Physical Exam - Vital Signs Last Vital Signs Temp Pulse Resp BP Pulse Ox 97.7 F 105 H 19 140/91 98 11/26/17 10:43 11/26/17 10:43 11/26/17 10:43 11/26/17 10:43 11/26/17 10:43 ED Treatment Course - LABORATORY CBC & Chemistry Diagram: 11/26/17 12:40 11/26/17 12:40 - ADDITIONAL ORDERS Additional order review: Laboratory Results 11/26/17 11/26/17 12:45 12:40 Sodium 144 Potassium 4.0 Chloride 111 H Carbon Dioxide 26 Anion Gap 7 L BUN 16 Creatinine 1.0 Creat Clearance w eGFR > 60 Random Glucose 85 Calcium 8.8 Total Bilirubin 0.6 AST 17 ALT 22 Alkaline Phosphatase 77 Total Protein 6.5 Albumin 3.3 L Urine Color Bing Urine Appearance Cloudy Urine pH 6.0 Ur Specific Arjay 1.024 Urine Protein 2+ H Urine Glucose (UA) 1+ H Urine Ketones 1+ H Urine Blood 3+ H Urine Nitrite Negative Urine Bilirubin Negative Urine Urobilinogen Negative Ur Leukocyte Esterase Trace Urine WBC (Auto) 728 Urine RBC (Auto) 4005 Urine Mucus Rare Urine Yeast Moderate 11/26/17 12:40 RBC 3.66 L MCV 101.9 H MCHC 33.2 RDW 14.3 MPV 8.1 Neutrophils % 68.6 D Lymphocytes % 21.0 D Monocytes % 7.0 Eosinophils % 2.6 Basophils % 0.8 *DC/Admit/Observation/Transfer Diagnosis at time of Disposition: DVT (deep venous thrombosis) Qualifiers: DVT location: lower extremity Affected thrombotic vein of extremity: unspecified lower extremity distal vein Chronicity: unspecified Laterality: right Qualified Code(s): I82.4Z1 - Acute embolism and thrombosis of unspecified deep veins of right distal lower extremity Hematuria Qualifiers: Hematuria type: gross Qualified Code(s): R31.0 - Gross hematuria UTI (urinary tract infection) Qualifiers: Urinary tract infection type: acute cystitis Hematuria presence: with hematuria Qualified Code(s): N30.01 - Acute cystitis with hematuria - Discharge Dispostion Disposition: HOME Condition at time of disposition: Stable Decision to Admit order: No - Referrals Referrals: Ruben Floyd MD [Staff Physician] - Hernando Fowler MD [Staff Physician] - Mely Pyle MD [Staff Physician] - Kraig Schuster MD [Staff Physician] - - Patient Instructions Printed Discharge Instructions: DI for Hematuria, DI for Urinary Tract Infection (UTI) Additional Instructions: You have a urinary tract infection as well as blood in the urine. Please drink plenty of fluids. Continue to take your Xaralto as previously prescribed for your blood clot in your leg. You may still have blood in the urine, however, it is more important that you take the medication so the blood clot doesn't move. Please picker/puller the Keflex that was prescribed to on your last visit and start taking it. Please follow-up with your primary care doctor. Please follow up with urology multiple phone numbers provided for you below is the [facility] outpatient clinic Return to the emergency department if you have a blocked catheter, fevers, chills, lightheadedness, weakness or any changes in your symptoms. Location | Hours of Operation Sunday through Sunday from 8 AM to 5 PM [facility] ([facility]) [address] [place] [id number] (Directions) - Post Discharge Activity"
[2017-11-26] MEDS ORDERED: CEFTRIAXONE 1 GM/50 ML BAG ONE (13:43)
[2017-11-26] MEDS ORDERED: ACETAMINOPHEN INJECTION 100 ML IVPB ONE (13:43)
[2017-11-26] MEDS ORDERED: CEFTRIAXONE 1,000 MG in DEXTROSE 5%-WATER - 50 ML IVPB ONE (13:59)
[2017-11-26] MEDS ORDERED: ACETAMINOPHEN 1000 MG/100 ML VIAL (NON FORMULARY) IVPB ONE (13:59)
[2017-11-26 16:20] VITALS: TEMP 98
[2017-11-26 17:26] VITALS: BP 134/75; PULSE 84
== END 2017-11-26 17:26 | disposition home or self-care (01) ==
LOC: JER 10:40
PROC: 3E03329 Introduction of Other Anti-infective into Peripheral Vein, Percutaneous Approach (ICD-10-PCS; principal; 2017-11-26)
PROC: 3E033NZ Introduction of Analgesics, Hypnotics, Sedatives into Peripheral Vein, Percutaneous Approach (ICD-10-PCS; 2017-11-26)
DX: N39.0 Urinary tract infection, site not specified (principal); R31.0 Gross hematuria; I82.4Z1 Acute embolism and thrombosis of unspecified deep veins of right distal lower extremity
CPT/HCPCS: 36415; 80053; 81003; 81015; 85025; 87086; 96365; 96375; 99282-25; J0131

== ENCOUNTER 2017-12-01 11:19 | Emergency (ER) | payer OTHER ==
[2017-12-01 11:23] VITALS: BP 136/93; PULSE 113; BMI 18.1
--- NOTE | 2017-12-01 12:06 | PDOC ---
History of Present Illness - General Chief Complaint: Urinary Problem Stated Complaint: BLEEDING Time Seen by Provider: 12/01/17 11:42 Past History - Past Medical History Allergies/Adverse Reactions: Allergies Allergy/AdvReac Type Severity Reaction Status Date / Time No Known Drug Allergies Allergy Verified 12/01/17 11:23 Home Medications: Ambulatory Orders Ipratropium/Albuterol Sulfate [Combivent Respimat 20-100 Mcg] 2 puff IH QID Montelukast Na [Singulair -] 10 mg PO HS 06/30/16 Ascorbic Acid [Vitamin C -] 1 tab PO DAILY 02/12/17 Budesonide/Formeterol Fumarate [SYMBICORT 80/4.5mcg -] 2 inh PO QID 02/12/17 Multivit-Min36/Iron/Folic Acid [Geritol Complete Tablet] 1 tab PO DAILY Rivaroxaban [Xarelto -] 15 mg PO BID #42 tab 08/19/17 Cephalexin [Keflex] 500 mg PO Q12H 5 Days #10 capsule 11/24/17 Alfuzosin HCl [Uroxatral] 10 mg PO DAILY 11/26/17 Tamsulosin HCl [Flomax] 0.4 mg PO DAILY 11/26/17 Anemia: No Asthma: Yes Cancer: Yes (Yes - Colon cancer 11 y ago) Cardiac Disorders: No CVA: No COPD: Yes CHF: No DVT: No Dementia: No Diabetes: No GI Disorders: No Disorders: Yes (ENLARGED PROSTATE) HTN: No Hypercholesterolemia: No Liver Disease: No Seizures: No Thyroid Disease: No - Surgical History Abdominal Surgery: Yes (Benign tumor removed from stomach) - Immunization History Immunization Up to Date: Yes - Suicide/Smoking/Psychosocial Hx Smoking History: Unknown if ever smoked Have you smoked in the past 12 months: No Number of Cigarettes Smoked Daily: 2 If you are a former smoker, when did you quit?: 2017 'Breaking Loose' booklet given: 06/30/16 Hx Alcohol Use: No Drug/Substance Use Hx: No Substance Use Type: Alcohol Hx Substance Use Treatment: No *Physical Exam - Vital Signs Last Vital Signs Temp Pulse Resp BP Pulse Ox 113 H 20 136/93 99 12/01/17 11:21 12/01/17 11:21 12/01/17 11:21 12/01/17 11:21 ED Treatment Course - LABORATORY CBC & Chemistry Diagram: 12/01/17 13:30 12/01/17 13:30 *DC/Admit/Observation/Transfer Diagnosis at time of Disposition: Hematuria Qualifiers: Hematuria type: unspecified type Qualified Code(s): R31.9 - Hematuria, unspecified - Discharge Dispostion Disposition: HOME Condition at time of disposition: Stable Decision to Admit order: No - Referrals Referrals: Karin Flood MD [Primary Care Provider] - - Patient Instructions Printed Discharge Instructions: DI for Hematuria Additional Instructions: Please drink plenty of fluids. Continue your antibiotics as prescribed. Continue to take your Xaralto as previously prescribed for your blood clot in your leg. You may still have blood in the urine, however, it is more important that you take the medication so the blood clot doesn't move. Keep your appointment with your urologist for Sunday Please follow-up with your primary care doctor. Return to the emergency department if you have a blocked catheter, fevers, chills, lightheadedness, weakness or any changes in your symptoms. - Post Discharge Activity
--- NOTE | 2017-12-01 12:21 | PDOC ---
*Physical Exam - Vital Signs Last Vital Signs Temp Pulse Resp BP Pulse Ox 113 H 20 136/93 99 12/01/17 11:21 12/01/17 11:21 12/01/17 11:21 12/01/17 11:21 ED Treatment Course - LABORATORY CBC & Chemistry Diagram: 12/01/17 13:30 12/01/17 13:30 Medical Decision Making - Medical Decision Making 12/01/17 12:20 Pt seen by the Advanced Practice Provider under my direct supervision Ancillary studies reviewed I agree with plan as outlined by the Advanced Practice Provider ADRIA Barragan *DC/Admit/Observation/Transfer Diagnosis at time of Disposition: Hematuria - Discharge Dispostion Disposition: HOME Condition at time of disposition: Stable - Referrals Referrals: Karin Flood MD [Primary Care Provider] - - Patient Instructions Printed Discharge Instructions: DI for Hematuria Additional Instructions: Please drink plenty of fluids. Continue your antibiotics as prescribed. Continue to take your Xaralto as previously prescribed for your blood clot in your leg. You may still have blood in the urine, however, it is more important that you take the medication so the blood clot doesn't move. Keep your appointment with your urologist for Sunday Please follow-up with your primary care doctor. Return to the emergency department if you have a blocked catheter, fevers, chills, lightheadedness, weakness or any changes in your symptoms. - Post Discharge Activity
[2017-12-01 14:27] LABS: BASO % 1.2 % (0-2.0); EOS % 4.9 % (0-4.5); HEMATOCRIT 36.7 % (35.4-49); HEMOGLOBIN 12.5 GM/dL (11.7-16.9); LYMPH % 35.2 % (8-40); MCH 34.4 pg (25.7-33.7); MCHC 33.9 g/dl (32.0-35.9); MEAN CELL VOLUME 101.3 fl (80-96); MEAN PLT VOLUME 8.7 fl (7.5-11.1); MONO % 7.9 % (3.8-10.2); NEUT % 50.8 % (42.8-82.8); PLATELET COUNT 259 K/MM3 (134-434); RBC 3.62 M/mm3 (4.00-5.60); RDW 13.8 % (11.9-15.9)
[2017-12-01 14:40] LABS: URINE APPEARANCE TURBID; URINE BILIRUBIN NEGATIVE (<2.0 mg/dL); URINE GLUCOSE (UA) 1+ (NEGATIVE); URINE KETONE TRACE (NEGATIVE); URINE LEUK ESTERASE NEGATIVE (NEGATIVE); URINE NITRITE NEGATIVE (NEGATIVE); URINE UROBILINOGEN NEGATIVE mg/dL (0.2-1.0)
[2017-12-01 14:41] LABS: INR 1.97 (0.82-1.09); PROTHROMBIN TIME (PATIENT) 22.3 SEC (9.7-13.0)
[2017-12-01 14:52] LABS: URINE COLOR RED; URINE PROTEIN 2+ (NEGATIVE)
[2017-12-01 14:56] LABS: ALBUMIN 3.5 g/dl (3.4-5.0); ALK PHOS 81 U/L (45-117); ANION GAP 6 (8-16); BILIRUBIN,TOTAL 0.4 mg/dL (0.2-1.0); BLOOD UREA NITROGEN 13 mg/dL (7-18); CALCIUM 9.2 mg/dL (8.5-10.1); CHLORIDE 105 mmol/L (98-107); CO2 30 mmol/L (21-32); GLUCOSE,RANDOM 81 mg/dL (74-106); POTASSIUM 3.7 mmol/L (3.5-5.1); SGOT/AST 26 U/L (15-37); SGPT/ALT 30 U/L (12-78); SODIUM 141 mmol/L (136-145)
== END 2017-12-01 18:56 | disposition home or self-care (01) ==
LOC: JER 11:19
DX: R31.9 Hematuria, unspecified (principal); N40.0 Benign prostatic hyperplasia without lower urinary tract symptoms; J44.9 Chronic obstructive pulmonary disease, unspecified; J45.909 Unspecified asthma, uncomplicated; Z85.038 Personal history of other malignant neoplasm of large intestine
CPT/HCPCS: 36415; 76856-TC; 80053; 81003; 81015; 85025; 85610; 99281-25

== ENCOUNTER 2018-10-16 05:30 | Observation (INO) | payer OTHER ==
[2018-10-16] MEDS ORDERED: ALBUTEROL SO4 2.5/IPRATROPIUM 0.5 INH SOL 3 ML VIAL.NEB. NEB ONE ×4 (05:33→16:13)
[2018-10-16] MEDS ORDERED: RAPID SEQUENCE INTUBATION KIT NR ONE (05:35)
--- NOTE | 2018-10-16 05:54 | PDOC ---
History of Present Illness - General Chief Complaint: Respiratory Distress Stated Complaint: DIFFICULTY BREATHING Time Seen by Provider: 10/16/18 05:51 - History of Present Illness Initial Comments: 10/16/18 05:51 The patient is a 78 year old male with a PMH of COPD, Asthma, [place] CA, DVT ( on Xarelto) who was BIBEMS for shortness of breath after running out of his home oxygen tank. As per EMS patient was discharged from [facility] for COPD exacerbation earlier today. At presentation patient is on CPAP, breathing with accessory muscle use and history taking is limited. NKDA PMD: Dr. Baker Past History - Past Medical History Allergies/Adverse Reactions: Allergies Allergy/AdvReac Type Severity Reaction Status Date / Time No Known Drug Allergies Allergy Verified 10/16/18 05:48 Home Medications: Ambulatory Orders Ipratropium/Albuterol Sulfate [Combivent Respimat 20-100 Mcg] 2 puff IH QID Montelukast Na [Singulair -] 10 mg PO HS 06/30/16 Budesonide/Formeterol Fumarate [SYMBICORT 80/4.5mcg -] 2 inh PO QID 02/12/17 Rivaroxaban [Xarelto] 15 mg PO BID #42 tab 08/19/17 Tamsulosin HCl [Flomax] 0.4 mg PO BID 11/26/17 Anemia: No Asthma: Yes Cancer: Yes (Yes - Colon cancer 11 y ago) Cardiac Disorders: No CVA: No COPD: Yes CHF: No DVT: No Dementia: No Diabetes: No GI Disorders: No Disorders: Yes (ENLARGED PROSTATE) HTN: No Hypercholesterolemia: No Liver Disease: No Seizures: No Thyroid Disease: No - Surgical History Abdominal Surgery: Yes (Benign tumor removed from stomach) - Immunization History Immunization Up to Date: Yes - Suicide/Smoking/Psychosocial Hx Smoking History: Never smoked Have you smoked in the past 12 months: No Number of Cigarettes Smoked Daily: 2 If you are a former smoker, when did you quit?: 2017 Information on smoking cessation initiated: No 'Breaking Loose' booklet given: 06/30/16 Hx Alcohol Use: No Drug/Substance Use Hx: No Substance Use Type: Alcohol Hx Substance Use Treatment: No Review of Systems - Review of Systems Able to Perform ROS?: Yes Constitutional: No: Chills, Fever HEENTM: No: Blurred Vision, Recent change in vision Respiratory: Yes: Shortness of Breath Cardiac (ROS): No: Chest Pain, Lightheadedness, Palpitations, Syncope ABD/GI: No: Constipated, Diarrhea, Nausea, Vomiting *Physical Exam - Vital Signs Last Vital Signs Temp Pulse Resp BP Pulse Ox 96.5 F L 139 H 42 H 174/116 H 91 L 10/16/18 05:30 10/16/18 05:30 10/16/18 05:30 10/16/18 05:30 10/16/18 05:30 - Physical Exam Comments: 10/16/18 19:24 Awake, alert, on CPAP, speaking full sentences Respiratory: Scattered rhonci, accessory muscle use CV: S1, S2, no M/R/G Abdomen: midline abdominal scar, soft, no TTP Extremity: 2+ DP pulses, no edema ED Treatment Course - LABORATORY CBC & Chemistry Diagram: 10/16/18 06:00 10/16/18 06:00 Medical Decision Making - Medical Decision Making 10/16/18 05:53 78 year old male in respiratory distress following no home O2. Tachypneic (42) , Tachycardic (139), Hypertensive (174/116) at presentation. Patient speaking full sentences however accessory muscle use. Will treat as COPD exacerbation vs. Asthma. Also consider PNA. Consider DVT, PE as patient has h/o DVT, however less likely will refrain from CTA at this time. 10/16/18 05:55 Respiratory @ bedside. Bipap. Solumedrol, Duo-Nebs 10/16/18 09:11 Labs, CXR, ABG pending Patient signed out to Dr. Carranza (Attending) for further evaluation. *DC/Admit/Observation/Transfer Diagnosis at time of Disposition: COPD exacerbation - Discharge Dispostion Condition at time of disposition: Stable - Referrals - Patient Instructions - Post Discharge Activity
[2018-10-16 06:11] LABS: HEMATOCRIT 39.1 % (35.4-49); HEMOGLOBIN 13.1 GM/dL (11.7-16.9); MCH 33.8 pg (25.7-33.7); MCHC 33.5 g/dl (32.0-35.9); PLATELET COUNT 328 K/MM3 (134-434); RBC 3.87 M/mm3 (4.00-5.60); RDW 14.1 % (11.9-15.9)
[2018-10-16 06:24] LABS: INR 1.71 (0.83-1.09); PROTHROMBIN TIME (PATIENT) 20.3 SEC (9.7-13.0)
[2018-10-16 06:56] LABS: ALBUMIN 3.1 g/dl (3.4-5.0); ALK PHOS 83 U/L (45-117); ANION GAP 5 MMOL/L (8-16); BILIRUBIN,TOTAL 0.4 mg/dL (0.2-1); BLOOD UREA NITROGEN 22 mg/dL (7-18); CALCIUM 9.3 mg/dL (8.5-10.1); CHLORIDE 102 mmol/L (98-107); CO2 31 mmol/L (21-32); CREATININE 0.9 mg/dL (0.55-1.3); GLUCOSE,RANDOM 122 mg/dL (74-106); MAGNESIUM 2.3 mg/dL (1.8-2.4); N-TERMINAL BNP 123.5 pg/ml (5-450); PHOSPHOROUS 2.7 mg/dL (2.5-4.9); POTASSIUM 4.5 mmol/L (3.5-5.1); SGOT/AST 27 U/L (15-37); SGPT/ALT 37 U/L (13-61); SODIUM 138 mmol/L (136-145); TOT PROT 7.1 g/dl (6.4-8.2)
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
[2018-10-16 07:23] LABS: ARTERIAL BLD GAS O2 SATURATION 92.7 % (95-98); ARTERIAL BLOOD GAS BASE EXCESS 7.1 meq/l (-2-2); ARTERIAL BLOOD GAS PCO2 41.2 mmHg (35-45); ARTERIAL BLOOD GAS PO2 63.9 mmHg (80-105); ARTERIAL BLOOD GAS pH 7.49 (7.35-7.45)
[2018-10-16] MEDS ORDERED: methylPREDNISolone NA SUCC 125 MG/2 ML VIAL IVPUSH ONE (07:32)
[2018-10-16] MEDS ORDERED: SODIUM CHLORIDE 0.9% 500 ML INFUS.BAG IV ONE (07:37)
--- NOTE | 2018-10-16 07:37 | PDOC ---
*Physical Exam - Vital Signs Last Vital Signs Temp Pulse Resp BP Pulse Ox 98.1 F 107 H 22 H 120/95 99 10/16/18 06:38 10/16/18 06:38 10/16/18 06:38 10/16/18 06:38 10/16/18 06:38 ED Treatment Course - LABORATORY CBC & Chemistry Diagram: 10/16/18 06:00 10/16/18 06:00 - ADDITIONAL ORDERS Additional order review: Laboratory Results 10/16/18 10/16/18 10/16/18 07:00 06:00 06:00 WBC RBC Hgb Hct MCV MCH MCHC RDW Plt Count MPV PT with INR INR Anticoagulation Therapy No Result Required. Puncture Site Right radial ABG pH 7.49 H ABG pCO2 at Pt Temp 41.2 ABG pO2 at Pt Temp 63.9 L ABG HCO3 30.8 H ABG O2 Sat (Measured) 92.7 L ABG O2 Content 18.6 ABG Base Excess 7.1 H Emmanuel Test No Result Required. O2 Delivery Device Bipap Oxygen Flow Rate 35% Vent Mode S/t Vent Rate No Result Required. Mechanical Rate No Result Required. Pressure Support Vent 14/7 Sodium Potassium Chloride Carbon Dioxide Anion Gap BUN Creatinine Creat Clearance w eGFR Random Glucose Lactic Acid 2.2 H* Calcium Phosphorus Magnesium Total Bilirubin AST ALT Alkaline Phosphatase Troponin I < 0.02 B-Natriuretic Peptide Total Protein Albumin 10/16/18 10/16/18 10/16/18 06:00 06:00 06:00 WBC 6.0 RBC 3.87 L Hgb 13.1 Hct 39.1 MCV 101.0 H MCH 33.8 H MCHC 33.5 RDW 14.1 Plt Count 328 D MPV 8.0 PT with INR 20.30 H INR 1.71 H Anticoagulation Therapy Puncture Site ABG pH ABG pCO2 at Pt Temp ABG pO2 at Pt Temp ABG HCO3 ABG O2 Sat (Measured) ABG O2 Content ABG Base Excess Emmanuel Test O2 Delivery Device Oxygen Flow Rate Vent Mode Vent Rate Mechanical Rate Pressure Support Vent Sodium 138 Potassium 4.5 Chloride 102 Carbon Dioxide 31 Anion Gap 5 L BUN 22 H Creatinine 0.9 Creat Clearance w eGFR 81.82 Random Glucose 122 H Lactic Acid Calcium 9.3 Phosphorus 2.7 Magnesium 2.3 Total Bilirubin 0.4 AST 27 ALT 37 Alkaline Phosphatase 83 Troponin I B-Natriuretic Peptide 123.5 Total Protein 7.1 Albumin 3.1 L 10/16/18 06:00 RBC 3.87 L MCV 101.0 H MCHC 33.5 RDW 14.1 MPV 8.0 - Medications Given in the ED: ED Medications Discontinued Medications Generic Name Dose Route Start Last Admin Trade Name Bart PRN Reason Stop Dose Admin Albuterol/Ipratropium 3 amp 10/16/18 05:44 10/16/18 05:53 Duoneb - NEB 10/16/18 05:45 3 amp ONCE ONE Administration Medical Decision Making - Medical Decision Making 10/16/18 07:36 78 y/o M with PMH of DVT on Xaralto, hematuria, BPH, asthma, COPD, colorectal ca , presenting with SOB c/w COPD exacerbation, s/p running out of his home O2. PCP: Dr. Luna initial VS reviewed, hypoxic, tachycardic and mildly hypertensive. Patient arrived on CPAP via EMS in moderate to severe distress On reevaluation by previous attending after therapy patient is much calmer, with decreased work of breathing Signed out at 7AM from Dr Lloyd pending labs/ABG and CXR s/p DuoNebs x3, additional Iv solumedrol for COPD Remains on bipap 35% O2, much more comfortable, no respiratory distress repeat VS normalizing, downtrending HR and RR, SpO2 99% on the bipap Labs reviewed, wnl ABG normal PH and mild Co2 retention c/w baseline Copd without acute derangements and appropriate compensation. Trop neg, EKG_as documented, sinus tachy at 121bpm, rate related changes, nonspecific T wave abnormalities. CXR_copd findings, no edema, ptx effusion or infiltrate Lactic mildly elevated 2.2, give gentle fluids. This is most likely from Albuterol administration and demand admit tele for copd [facility] hospitalist, admit to Dr Farnsworth 10/16/18 07:37 10/16/18 08:49 10/16/18 08:52 10/16/18 09:21 *DC/Admit/Observation/Transfer Diagnosis at time of Disposition: COPD exacerbation - Discharge Dispostion Condition at time of disposition: Guarded Decision to Admit order: Yes Decision to Admit order Date/Time: 10/16/18 08:55 Decision to Admit Order Category Date Time Status Decision to Admit to Hospital Routine Admission 10/16/18 08:55 Active 10/16/18 08:56 - Referrals Referrals: Karin Flood MD [Primary Care Provider] - - Patient Instructions - Post Discharge Activity
[2018-10-16] MEDS ORDERED: methylPREDNISolone NA SUCC 125 MG/2 ML VIAL ONE (07:41)
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
[2018-10-16 10:31] LABS: EPI CELLS 1.4 /HPF (0-5/HPF); PH,URINE 6.5 (5.0-8.0); URINE APPEARANCE CLEAR; URINE BACTERIA 11.8 /hpf (NEGATIVE); URINE BILIRUBIN NEGATIVE (NEGATIVE); URINE CASTS 1 /lpf (0-8); URINE COLOR YELLOW; URINE GLUCOSE (UA) NEGATIVE (NEGATIVE); URINE KETONE 1+ (NEGATIVE); URINE LEUK ESTERASE NEGATIVE (NEGATIVE); URINE NITRITE NEGATIVE (NEGATIVE); URINE PROTEIN NEGATIVE (NEGATIVE); URINE RBC 2 /hpf (0-4); URINE WBC 1 /hpf (0-5)
--- NOTE | 2018-10-16 10:34 | EKG ---
Test Reason : Blood Pressure : / mmHG Vent. Rate : 121 BPM Atrial Rate : 121 BPM P-R Int : 126 ms QRS Dur : 066 ms QT Int : 298 ms P-R-T Axes : 084 083 079 degrees QTc Int : 423 ms SINUS TACHYCARDIA RIGHT ATRIAL ENLARGEMENT BORDERLINE ECG WHEN COMPARED WITH ECG OF 29-JUN-2016 22:26, NO SIGNIFICANT CHANGE WAS FOUND Confirmed by MUKESH MAHARAJ, BRITTANY ([id number]) on 10/16/2018 10:33:54 AM Referred By: Dusty RODRIGUEZ Confirmed By:BRITTANY MAYORGA MD
[2018-10-16 11:08] LABS: ARTERIAL BLD GAS O2 SATURATION 95.6 % (95-98); ARTERIAL BLOOD GAS BASE EXCESS 4.9 meq/l (-2-2); ARTERIAL BLOOD GAS PCO2 40.8 mmHg (35-45); ARTERIAL BLOOD GAS PO2 95.8 mmHg (80-105); ARTERIAL BLOOD GAS pH 7.46 (7.35-7.45)
[2018-10-16 11:14] LABS: ALLENS TEST POSITIVE
[2018-10-16] MEDS ORDERED: TAMSULOSIN HCL 0.4 MG CAP ONE (11:20)
[2018-10-16] MEDS: TAMSULOSIN HCL 0.4 MG CAP PO SCH ×2 (11:27→23:00)
[2018-10-16] MEDS: ALBUTEROL SO4 2.5/IPRATROPIUM 0.5 INH SOL 3 ML VIAL.NEB. NEB SCH ×2 (11:33→16:17)
[2018-10-16] MEDS: BUDESONIDE/FORMETEROL FUMARATE 80/4.5 mcg INHALER IH SCH (11:54)
[2018-10-16] MEDS: RIVAROXABAN 15 MG TABLET PO SCH ×2 (11:55→23:00)
--- NOTE | 2018-10-16 14:58 | PN ---
Teaching Attending Note Name of Resident: Caren Foster ATTENDING PHYSICIAN STATEMENT I saw and evaluated the patient. I reviewed the resident's note and discussed the case with the resident. I agree with the resident's findings and plan as documented. SUBJECTIVE:78yo M [facility] PMH DVT on xarelto, BPH, colorectal ca and COPD recently started on home O2 presenting with SOB after running out of his home O2. he felt tachypnic at home and called 911. he was discharged yesterday from [facility] with new oxygen tank after being treated for PNA. is unclear how the tank works and how much supplemental oxygen he was supposed to be getting. denies Cp,SOB, fver, chills, cough, N/v/C/D he was at [facility] for 5 days and treated with abx and steroids but not discharged on any new medications. was given only oxygen. has long standing COPD which he is following a pulmonogist in [place] OBJECTIVE: Last Vital Signs Temp Pulse Resp BP Pulse Ox 98.1 F 93 H 21 H 111/72 99 10/16/18 06:38 10/16/18 14:49 10/16/18 14:49 10/16/18 14:49 10/16/18 14:49 General tachypnic CV S1 S2 RRR no murmur Lungs decreased breth sounds,. no wheezing or crackles. poor inspiratory effort ABdomen soft NT/ND Extremiteis no pedal edema ASSESSMENT AND PLAN: 78yo M [facility] PMH DVT on xarelto, BPH, colorectal ca and COPD recently started on home O2 presenting with SOB after running out of his home O2 1. Acute on chronic respiratory failure- due to running out of supplemental oxygen. currently 91% on bipap. received solumedrol 125mcg and breathing treatments. ABG done. will titrate down to nasal cannula as tolerated. nothing seen on CXR. will hold any further steroids or abx treatment. cont home inhalers /singulair. check pre and post to determine oxygen requirements. d/w SW about setting up home O2 2. DVT on xarelto- had DVT 2013 and placed on intermediate anticoagulation however pt is currently on treatment dosing (BID) and not maintenance will need to confirm with PMD 3. BPH- flomax 4. colorectal cancer 5. DVT ppx- xarelto 6. will monitor overnight if remains stable will d/c in AM
[2018-10-16] MEDS ORDERED: MONTELUKAST NA 10 MG TABLET PO SCH (22:00)
[2018-10-17] MEDS: ALBUTEROL SO4 2.5/IPRATROPIUM 0.5 INH SOL 3 ML VIAL.NEB. NEB SCH ×3 (07:03→16:04)
[2018-10-17 07:45] LABS: BASO % 0.4 % (0-2.0); EOS % 0.5 % (0-4.5); HEMATOCRIT 35.8 % (35.4-49); LYMPH % 33.3 % (8-40); MCHC 33.6 g/dl (32.0-35.9); MEAN CELL VOLUME 101.2 fl (80-96); MEAN PLT VOLUME 7.9 fl (7.5-11.1); MONO % 10.1 % (3.8-10.2); NEUT % 55.7 % (42.8-82.8); PLATELET COUNT 268 K/MM3 (134-434); RBC 3.54 M/mm3 (4.00-5.60); WHITE BLOOD COUNT 5.3 K/mm3 (4.0-10.0)
[2018-10-17 07:48] LABS: INR 1.99 (0.83-1.09); PROTHROMBIN TIME (PATIENT) 23.6 SEC (9.7-13.0)
[2018-10-17 07:51] LABS: ACTIVATED PTT 32.1 SECONDS (25.2-36.5)
[2018-10-17] MEDS ORDERED: ALBUTEROL SO4 2.5/IPRATROPIUM 0.5 INH SOL 3 ML VIAL.NEB. NEB SCH (08:00)
[2018-10-17 08:17] LABS: ALBUMIN 2.8 g/dl (3.4-5.0); ALK PHOS 69 U/L (45-117); ANION GAP 4 MMOL/L (8-16); BILIRUBIN,TOTAL 0.4 mg/dL (0.2-1); BLOOD UREA NITROGEN 21 mg/dL (7-18); CALCIUM 8.9 mg/dL (8.5-10.1); CHLORIDE 105 mmol/L (98-107); CO2 33 mmol/L (21-32); CREATININE 0.9 mg/dL (0.55-1.3); GLUCOSE,RANDOM 93 mg/dL (74-106); MAGNESIUM 2.4 mg/dL (1.8-2.4); PHOSPHOROUS 2.6 mg/dL (2.5-4.9); POTASSIUM 4.5 mmol/L (3.5-5.1); SGOT/AST 21 U/L (15-37); SGPT/ALT 34 U/L (13-61); SODIUM 142 mmol/L (136-145); TOT PROT 6.2 g/dl (6.4-8.2)
[2018-10-17] MEDS: BUDESONIDE/FORMETEROL FUMARATE 80/4.5 mcg INHALER IH SCH ×2 (10:03)
[2018-10-17] MEDS: RIVAROXABAN 15 MG TABLET PO SCH (10:04)
[2018-10-17] MEDS: TAMSULOSIN HCL 0.4 MG CAP PO SCH (10:04)
[2018-10-17] MEDS ORDERED: PT OWN MED DRAWER 7, Y5N ONE (11:07)
--- NOTE | 2018-10-17 11:35 | PN ---
Teaching Attending Note Name of Resident: Alvarez Mina ATTENDING PHYSICIAN STATEMENT I saw and evaluated the patient. I reviewed the resident's note and discussed the case with the resident. I agree with the resident's findings and plan as documented. SUBJECTIVE:c/o tachypnea after ambulating with PT. states at rest he had no issues and slept well over night. denies Cp, SOB, fever, chills, cough, N/V/C/D states he was doing pulmonary Rehab earlier this year at a [facility] facility OBJECTIVE: Last Vital Signs Temp Pulse Resp BP Pulse Ox 98.6 F 93 H 22 H 104/67 96 10/17/18 10:00 10/17/18 10:00 10/17/18 10:00 10/17/18 10:10/17/18 08:00 General tachypnic CV S1 S2 RRR no murmur Lungs decreased breath sounds,. no wheezing or crackles. poor inspiratory effort ABdomen soft NT/ND Extremiteis no pedal edema ASSESSMENT AND PLAN: 78yo M wtih PMH DVT on xarelto, BPH, colorectal ca and COPD recently started on home O2 presenting with SOB after running out of his home O2 1. Acute on chronic respiratory failure- due to running out of supplemental oxygen. remains tachypnea after exertion. will give solumedrol 60mg and breathing treatment and re-assess. may require slow steroid taper. will get records from hospital to see what was treated. no infiltrate on CXR. will need to consider CT chest if remains tachypnic. low concern for PE given already on anticoagulation. cont home inhalers/singulair. check pre and post to determine oxygen requirements. d/w SW about setting up home O2 2. DVT on xarelto- had DVT 2013 and placed on [employer] anticoagulation however pt is currently on treatment dosing (BID) and not maintenance will need to confirm with PMD 3. BPH- flomax 4. colorectal cancer 5. DVT ppx- xarelto
[2018-10-17] MEDS ORDERED: methylPREDNISolone NA SUCC 40 MG/1 ML VIAL IVPUSH ONE (11:45)
--- NOTE | 2018-10-17 14:47 | DS ---
Physical Exam: SUBJECTIVE: Patient seen and examined at bedside this morning. He endorses improvement of his shortness of breath with nasal canula. He denies subjective fevers, chills, shortness of breath, cough, chest pain, palpitations, abdominal pain, nausea, vomiting. OBJECTIVE: Vital Signs Period Temp Pulse Resp BP Sys/Valdes Pulse Ox Last 24 Hr 97.2 F-98.7 F 72-110 20-24 97-129/65-75 94-99 PHYSICAL EXAM GENERAL: The patient is awake, alert, and fully oriented, in no acute distress. HEAD: Normal with no signs of trauma. EYES: PERRL, extraocular movements intact, sclera anicteric, conjunctiva clear. ENT: Ears normal, nares patent, oropharynx clear without exudates, moist mucous membranes. NECK: Trachea midline, full range of motion, supple. LUNGS: Breath sounds equal, clear to auscultation bilaterally. No wheezes, no crackles. No accessory muscle use. HEART: Regular rate and rhythm, S1, S2 without murmur, rub or gallop. ABDOMEN: Soft, nontender, nondistended, normoactive bowel sounds x4 quadrants. No guarding, no rebound. no hepatomegaly palpated. EXTREMITIES: 2+ radial ,dorsalis pedis pulses, warm, well-perfused. No lower extremity edema. NEUROLOGICAL: Cranial nerves II through XII grossly intact. Normal speech. PSYCH: Normal mood, normal affect upon my encounter. SKIN: Warm, dry. LABS Laboratory Results - last 24 hr 10/17/18 10/17/18 10/17/18 06:38 06:38 06:38 WBC 5.3 RBC 3.54 L Hgb 12.0 Hct 35.8 MCV 101.2 H MCH 34.0 H MCHC 33.6 RDW 14.0 Plt Count 268 MPV 7.9 Absolute Neuts (auto) 3.0 Neutrophils % 55.7 Lymphocytes % 33.3 Monocytes % 10.1 Eosinophils % 0.5 D Basophils % 0.4 Nucleated RBC % 0 PT with INR 23.60 H INR 1.99 H PTT (Actin FS) 32.1 Sodium 142 Potassium 4.5 Chloride 105 Carbon Dioxide 33 H Anion Gap 4 L BUN 21 H Creatinine 0.9 Creat Clearance w eGFR 81.82 Random Glucose 93 Calcium 8.9 Phosphorus 2.6 Magnesium 2.4 Total Bilirubin 0.4 AST 21 ALT 34 Alkaline Phosphatase 69 Total Protein 6.2 L Albumin 2.8 L TSH 0.74 HOSPITAL COURSE: Date of Admission:10/16/18 Date of Discharge: 10/17/18 Patient is a 78 year old male with history of COPD (recently started on home oxygen) DVT on xarelto, colorectal cancer, presented with complaint of shortness of breath. Patient endorsed that he ran out of his home oxygen leading to his shortness of breath. ABG upon admission showed patient was alkalotic, without CO2 retention. Lactic acidosis of 2.2 resolved to 1.8. Repeat ABG showed improvement of alkalosis, and improved oxygen saturation. Patient was discharged home with home oxygen. Provided contact information of surgical supply to obtain refill of oxygen supply. Patient discharged home to follow up with primary care provider. Minutes to complete discharge: 37 Discharge Summary Reason For Visit: CHRONIC OBST COPD W ACUTE EXACERBATION Current Active Problems COPD exacerbation (Acute) Condition: Stable - Instructions Diet, Activity, Other Instructions: You were admitted to the hospital due to shortness of breath. You were reinstated on your home oxygen, and your oxygen saturation was monitored closely. You are being discharged home. Continue taking your home medications as directed. We have worked closely with the renal social worker to ensure you will have home oxygen upon discharge. Take Medrol dose pack as directed: Day 1: 8mg before breakfast, 4mg after lunch, 4mg after dinner, and 8mg at bedtime Day 2: 4mg before breakfast, 4mg after lunch, 4mg after dinner, and 8mg at bedtime Day 3: 4mg before breakfast, 4mg after lunch, 4mg after dinner, and 4mg at bedtime Day 4: 4mg before breakfast, 4mg after lunch, and 4mg at bedtime Day 5: 4mg before breakfast, and 4mg at bedtime Day 6: 4mg before breakfast. Follow up with your primary care physician within two- three days after discharge. Discuss your Xarelto dose with your primary care physician at your appointment. Return to the nearest Emergency Department if you experience worsening symptoms , subjective fevers, chills, shortness of breath, chest pain, palpitations, abdominal pain, nausea, vomiting. Referrals: Karin Flood MD [Primary Care Provider] - 10/18/18 Disposition: HOME - Home Medications Comprehensive Discharge Medication List: Ambulatory Orders Ipratropium/Albuterol Sulfate [Combivent Respimat 20-100 Mcg] 2 puff IH QID Montelukast Na [Singulair -] 10 mg PO HS 06/30/16 Budesonide/Formeterol Fumarate [SYMBICORT 80/4.5mcg -] 2 inh PO QID 02/12/17 Rivaroxaban [Xarelto] 15 mg PO BID #42 tab 08/19/17 Tamsulosin HCl [Flomax] 0.4 mg PO BID 11/26/17 Methylprednisolone [Medrol Dose Bro] 4 mg PO ASDIR #21 tablet 10/17/18 This patient is new to me today: Yes Date on this admission: 10/17/18 Emergency Visit: No Critical Care patient: No - Discharge Referral [facility]erred to [facility] No
[2018-10-17 18:06] VITALS: BP 112/72; PULSE 94; TEMP 98.6
== END 2018-10-17 18:35 | disposition home or self-care (01) ==
LOC: JER 05:30 → JERBED 08:55 → J4W 17:44
PROVIDERS: ADMIT Internal Medicine; ATTEND Internal Medicine
PROC: 3E033NZ Introduction of Analgesics, Hypnotics, Sedatives into Peripheral Vein, Percutaneous Approach (ICD-10-PCS; principal; 2018-10-16)
PROC: 3E0337Z Introduction of Electrolytic and Water Balance Substance into Peripheral Vein, Percutaneous Approach (ICD-10-PCS; 2018-10-16)
PROC: 3E0F7GC Introduction of Other Therapeutic Substance into Respiratory Tract, Via Natural or Artificial Opening (ICD-10-PCS; 2018-10-16)
DX: J96.21 Acute and chronic respiratory failure with hypoxia (principal); E87.2 Acidosis; J44.1 Chronic obstructive pulmonary disease with (acute) exacerbation; N40.0 Benign prostatic hyperplasia without lower urinary tract symptoms; I82.409 Acute embolism and thrombosis of unspecified deep veins of unspecified lower extremity; Z85.038 Personal history of other malignant neoplasm of large intestine; Z99.81 Dependence on supplemental oxygen
CPT/HCPCS: 36415; 36600; 71045-TC-FY; 80053; 81003; 82803; 83605; 83735; 83880; 84100; 84443; 84484; 85025; 85027; 85610; 85730; 87040; 93005; 93010; 94640; 94660; 94761; 96374; 96376; 97116-GP; 97161-GP; 99285-25; G0378

== ENCOUNTER 2018-10-17 19:25 | Observation (INO) | payer OTHER ==
[2018-10-17] MEDS ORDERED: ALBUTEROL SO4 2.5/IPRATROPIUM 0.5 INH SOL 3 ML VIAL.NEB. NEB ONE ×2 (19:37→19:39)
--- NOTE | 2018-10-17 19:50 | PDOC ---
History of Present Illness - General Stated Complaint: SHORTNESS OF BREATH Time Seen by Provider: 10/17/18 19:27 History Source: Patient Exam Limitations: No Limitations - History of Present Illness Initial Comments: 10/17/18 19:47 78M with PMH of COPD (started home oxygen yesterday), PNA, DVT (LL-2013), Colon cancer, BPH, benign gastric mass, who presents after being recently discharged for worsening SOB. The patient states that he was supposed to receive a home O2 tank and was not discharged in time to pick it up. When he got to his house, he felt panicked and became SOB. He denies CP, fever, chills, worsening cough or sputum production, nausea, or vomiting. Past History - Past Medical History Allergies/Adverse Reactions: Allergies Allergy/AdvReac Type Severity Reaction Status Date / Time No Known Drug Allergies Allergy Verified 10/16/18 05:48 Home Medications: Ambulatory Orders Ipratropium/Albuterol Sulfate [Combivent Respimat 20-100 Mcg] 2 puff IH QID Montelukast Na [Singulair -] 10 mg PO HS 06/30/16 Budesonide/Formeterol Fumarate [SYMBICORT 80/4.5mcg -] 2 inh PO QID 02/12/17 Rivaroxaban [Xarelto] 15 mg PO BID #42 tab 08/19/17 Tamsulosin HCl [Flomax] 0.4 mg PO BID 11/26/17 Methylprednisolone [Medrol Dose Bro] 4 mg PO ASDIR #21 tablet 10/17/18 Anemia: No Asthma: Yes Cancer: Yes (Yes - Colon cancer 11 y ago) Cardiac Disorders: No CVA: No COPD: Yes CHF: No DVT: No Dementia: No Diabetes: No GI Disorders: No Disorders: Yes (ENLARGED PROSTATE) HTN: No Hypercholesterolemia: No Liver Disease: No Seizures: No Thyroid Disease: No - Surgical History Abdominal Surgery: Yes (Benign tumor removed from stomach) - Immunization History Td Vaccination: Yes TDAP Vaccination: Yes Immunization Up to Date: Yes - Suicide/Smoking/Psychosocial Hx Smoking History: Never smoked Have you smoked in the past 12 months: No Number of Cigarettes Smoked Daily: 2 If you are a former smoker, when did you quit?: 2016 'Breaking Loose' booklet given: 01/13/17 Hx Alcohol Use: No Drug/Substance Use Hx: No Substance Use Type: Alcohol Hx Substance Use Treatment: No Review of Systems - Review of Systems Able to Perform ROS?: Yes Comments:: 10/17/18 21:13 GENERAL/CONSTITUTIONAL: No fever or chills. No weakness. HEAD, EYES, EARS, NOSE AND THROAT: No change in vision. No ear pain or discharge. No sore throat. CARDIOVASCULAR: No chest pain, palpitations, or lightheadedness. RESPIRATORY: + for SOB. No cough, wheezing, or hemoptysis. GASTROINTESTINAL: No nausea, vomiting, diarrhea, constipation, or abdominal pain. GENITOURINARY: No dysuria, frequency, hematuria, or change in urination. MUSCULOSKELETAL: No joint or muscle swelling or pain. No neck or back pain. SKIN: No rash or lesions. NEUROLOGIC: No headache, numbness, tingling, focal weakness, loss of consciousness, or change in strength/sensation. Is the patient limited Khmer proficient: No *Physical Exam - Physical Exam Comments: 10/17/18 21:18 GENERAL: Well developed, well nourished. Awake and alert. In moderate distress. HEENT: Normocephalic, atraumatic. Hearing grossly normal. Moist mucous membranes. PERRLA, EOMI. No conjunctival pallor. Sclera are non-icteric. NECK: Supple. Full ROM. No JVD. Retractions present. CARDIOVASCULAR: Tachycardic with regular rhythm. No murmurs, rubs, or gallops. PULMONARY: Moderate respiratory distress with suprasternal retractions. Diffuse rales in all lung narvaez. ABDOMINAL: Soft. Non-tender. Non-distended. No rebound or guarding. GENITOURINARY: No CVA tenderness bilaterally. MUSCULOSKELETAL: Normal range of motion at all joints. No bony deformities or tenderness. EXTREMITIES: No cyanosis. No clubbing. No edema. No calf tenderness or swelling. SKIN: Warm and dry. Normal capillary refill. No rashes. No jaundice. NEUROLOGICAL: Alert, awake, appropriate. Cranial nerves 2-12 grossly intact. Normal speech. Gait is normal without ataxia. PSYCHIATRIC: Cooperative. Good eye contact. Appropriate mood and affect. ED Treatment Course - LABORATORY CBC & Chemistry Diagram: 10/17/18 20:09 10/17/18 20:09 - RADIOLOGY Radiology Studies Ordered: Category Date Time Status CHEST X-RAY PORTABLE* [RAD] Stat Radiology 10/17/18 19:37 Ordered Medical Decision Making - Medical Decision Making 10/17/18 21:19 78M with a PMH of COPD, recently discharged from our facility, presenting in respiratory distress with diffuse rales and retractions. Pt started on bipap with nebs and steroids. Treating for COPD exacerbation. Trop negative. WBC negative but neutrophilia noted. Will admit for COPD exacerbation with close f/ u with social work. Hospitalist microblogged for admission. 10/17/18 21:[address] Millan for admission. *DC/Admit/Observation/Transfer Diagnosis at time of Disposition: Acute exacerbation of chronic obstructive pulmonary disease (COPD) - Discharge Dispostion Condition at time of disposition: Guarded Decision to Admit order: Yes - Referrals - Patient Instructions - Post Discharge Activity
[2018-10-17] MEDS ORDERED: methylPREDNISolone NA SUCC 125 MG/2 ML VIAL IVPUSH ONE (20:01)
[2018-10-17 20:09] VITALS: BMI 47.4
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
[2018-10-17 20:32] LABS: BASO % 0.3 % (0-2.0); HEMATOCRIT 38.5 % (35.4-49); HEMOGLOBIN 12.5 GM/dL (11.7-16.9); LYMPH % 10.9 % (8-40); MCH 33.4 pg (25.7-33.7); MCHC 32.6 g/dl (32.0-35.9); MEAN CELL VOLUME 102.7 fl (80-96); MEAN PLT VOLUME 7.7 fl (7.5-11.1); MONO % 3.7 % (3.8-10.2); NEUT % 85.1 % (42.8-82.8); PLATELET COUNT 309 K/MM3 (134-434); RBC 3.75 M/mm3 (4.00-5.60); RDW 14.3 % (11.9-15.9); WHITE BLOOD COUNT 4.4 K/mm3 (4.0-10.0)
[2018-10-17] MEDS ORDERED: methylPREDNISolone NA SUCC 125 MG/2 ML VIAL ONE (20:33)
[2018-10-17 20:52] LABS: VENOUS PC02 60.2 mmHg (41-51); VENOUS PH 7.36 (7.31-7.41)
[2018-10-17 20:53] LABS: INR 1.35 (0.83-1.09); VENOUS PO2 28.7 mmHg (30-40)
[2018-10-17 20:58] LABS: ALBUMIN 3.1 g/dl (3.4-5.0); ALK PHOS 81 U/L (45-117); ANION GAP 5 MMOL/L (8-16); BILIRUBIN,TOTAL 0.3 mg/dL (0.2-1); BLOOD UREA NITROGEN 22 mg/dL (7-18); CALCIUM 9.3 mg/dL (8.5-10.1); CHLORIDE 103 mmol/L (98-107); CO2 33 mmol/L (21-32); GLUCOSE,RANDOM 173 mg/dL (74-106); POTASSIUM 5.1 mmol/L (3.5-5.1); SGOT/AST 38 U/L (15-37); SGPT/ALT 55 U/L (13-61); SODIUM 141 mmol/L (136-145); TOT PROT 6.9 g/dl (6.4-8.2)
[2018-10-17 21:28] LABS: ANISOCYTOSIS 1+; MACROCYTOSIS 1+; PLATELET ESTIMATE ADEQUATE
--- NOTE | 2018-10-17 21:47 | PN ---
Teaching Attending Note Name of Resident: Derrek Khan ATTENDING PHYSICIAN STATEMENT I saw and evaluated the patient. I reviewed the resident's note and discussed the case with the resident. I agree with the resident's findings and plan as documented. SUBJECTIVE: Seen and examined; please see resident note for further historical documentation. Briefly, this is a 78 y/o male who was discharged from the medicine service yesterday. Per DCS, he was sent home on a steroid taper after recieving IV steroids for acute hypoxic respiratory failure; he was recently started on O2 when he washosptalized in [place] and treated for PNA; he was seen here shortly after. During that admit there was mention in note of maybe needing CT scan done if dyspnea persists so will order. Was in pulmonary rehab before. He states that he was supposed to receive a home O2 tank and was not discharged in time to pick it up; he developed shortness of breath at home and thus comes in here. Was initially on BiPap and was weaned to NC while in the ER. He is afebrile without a white count; there are infiltrates on his CXR but given that he was recently treated for pneumonia this could be residual findings so we should compare to the old studies. 10 sys ROS done and negative aside from HPI PMH, PSH, FH, SH reviewed Home Medications Medication Instructions Recorded Ipratropium/Albuterol Sulfate 2 puff IH QID 06/30/16 [Combivent Respimat 20-100 Mcg] Montelukast Na [Singulair -] 10 mg PO HS 06/30/16 Budesonide/Formeterol Fumarate 2 inh PO QID 02/12/17 [SYMBICORT 80/4.5mcg -] Rivaroxaban [Xarelto] 15 mg PO BID #42 tab 08/19/17 Tamsulosin HCl [Flomax] 0.4 mg PO BID 11/26/17 Methylprednisolone [Medrol Dose 4 mg PO ASDIR #21 tablet 10/17/18 Bro] OBJECTIVE: VS, labs, imaging reviewed NAD, AAO, resting comfortably in bed NC AT EOMI PERRLA Diffuse wheezes with prolonged E time; w/ sym exp RRR to slight tachy with no linnea mgr NT ND +BS CN2-12 wnl, no fnd Normal mood, appropriate behavior CT reviewed and old studies from previous hospitalization pending to compare the anatomy of the infiltrates; he is seen to have acute bronchial inflammation and interval development of posterior bibasilar infiltrates EKG reviewed CXR reviewed ASSESSMENT AND PLAN: Patient presents 24 hours after discharge for shortness of breath; he was discharged home on O2 but it was not available when he got home so he came back to the hospital with SOB and appears to be in a COPD exacerbation 1) Acute COPD Exacerbation with documented history of asthma -Off BiPap; on O2 via NC. Titrate as needed; approaching 2L. -ATC duonebs with PRN albuterol; consider pulmonary consult -Got IV steroids in ER. He is at his baseline now. Should he decompensate further can switch back to IV but will keep him on his taper for now. -Followup OP for PFTs. Consider referral to pulmonary rehab. -Given the hx Asthma in chart can give a Mg infusion and continue monteleukast. 2) BPH -Continue flomax 3) DVT on Xarelto -Continue home meds; no acute issues 4) Benign Gastric Mass -Followup OP 5) Infiltrates on CT -Compare to old studies from his prior OSH hospitalization before treating for PNA; he was recently treated for pneumonia and these infiltrates can take some time to clear Full Code
[2018-10-17] MEDS ORDERED: ALBUTEROL SO4 0.083% IH SOL 2.5 MG/3 ML VIAL.NEB. NEB PRN (22:21)
[2018-10-17] MEDS ORDERED: AZITHROMYCIN IVPB 500 MG in DEXTROSE 5%-WATER - 250 ML IVPB SCH (22:23)
[2018-10-17] MEDS ORDERED: RIVAROXABAN 15 MG TABLET PO SCH (22:30)
--- NOTE | 2018-10-17 22:45 | HP ---
CHIEF COMPLAINT: SOB PCP: HISTORY OF PRESENT ILLNESS: Patient is a 78 y/o M w/ PMHx COPD (started on home O2 this week), DVT on Xarelto, colon Ca, BPH, benign gastric mass, had been d/c earlier today after resolution of COPD exacerbation, p/w severe dyspnea. Had arrived home following discharge too late to obtain home O2, at which point he became panicked and developed SOB, then called EMS. Has no complaints otherwise. HR 199 RR 25 on arrival in ED; ED provider via signout states patient had severe diffuse retraction, wheezes, rales upon initial evaluation. Labs unremarkable. Ed provided duonebs x 5, flomax, solumedrol 125, and Xarelto. Placed on BiPAP and stabilized, transitioned to O2 by NC by time of encounter and saturating to 97% Recent Travel: None PAST MEDICAL HISTORY: As per HPI PAST SURGICAL HISTORY: colon resection Social History: Smokin-30 pack year history quit at least 10 years ago Alcohol: socially Drugs: no Family History: Allergies No Known Drug Allergies Allergy (Verified 10/16/18 05:48) HOME MEDICATIONS: Home Medications Medication Instructions Recorded Ipratropium/Albuterol Sulfate 2 puff IH QID 06/30/16 [Combivent Respimat 20-100 Mcg] Montelukast Na [Singulair -] 10 mg PO HS 06/30/16 Budesonide/Formeterol Fumarate 2 inh PO QID 02/12/17 [SYMBICORT 80/4.5mcg -] Rivaroxaban [Xarelto] 15 mg PO BID #42 tab 08/19/17 Tamsulosin HCl [Flomax] 0.4 mg PO BID 11/26/17 Methylprednisolone [Medrol Dose 4 mg PO ASDIR #21 tablet 10/17/18 Bro] REVIEW OF SYSTEMS As per HPI PHYSICAL EXAMINATION Vital Signs - 24 hr 10/17/18 10/17/18 20:00 20:03 Temperature 98.9 F Pulse Rate 119 H Respiratory 25 H Rate Blood Pressure 138/86 O2 Sat by Pulse 98 Oximetry (%) GENERAL: A@Ox3, NAD, slightly cachectic HEENT: NC/AT, EOMI, PERRLA, MMM, temporal wasting NECK: Normal range of motion, supple without lymphadenopathy, JVD, or masses. LUNGS: diffuse wheezing, minimal bibasilar coarse rales HEART: tachycardic no m/r/g ABDOMEN: +bs, soft, NT, ND EXTREMITIES: 2+ pulses, warm, well-perfused. No calf tenderness. No peripheral edema. NEUROLOGICAL: office director, motor, sensory systems w/o focal deficit PSYCHIATRIC: Cooperative. Good eye contact. Appropriate mood and affect. SKIN: Warm, dry, normal turgor, no rashes or lesions noted, normal capillary refill. Laboratory Results - last 24 hr 10/17/18 10/17/18 10/17/18 20:09 20:09 20:09 WBC 4.4 RBC 3.75 L Hgb 12.5 Hct 38.5 MCV 102.7 H MCH 33.4 MCHC 32.6 RDW 14.3 Plt Count 309 MPV 7.7 Absolute Neuts (auto) 3.7 Neutrophils % 85.1 H D Neutrophils % (Manual) 86.0 H Lymphocytes % 10.9 D Lymphocytes % (Manual) 10.0 Monocytes % 3.7 L Monocytes % (Manual) 4 Eosinophils % 0.0 D Basophils % 0.3 Nucleated RBC % 0 Hypochromia 1+ Platelet Estimate Adequate Platelet Comment Slt plt clumping Anisocytosis 1+ Macrocytosis 1+ PT with INR 16.00 H INR 1.35 H VBG pH 7.36 POC VBG pCO2 60.2 H POC VBG pO2 28.7 L VBG HCO3 33.1 H VBG O2 Sat (Nevaeh) 44.3 L VBG Base Excess 6.4 H Sodium Potassium Chloride Carbon Dioxide Anion Gap BUN Creatinine Creat Clearance w eGFR Random Glucose Calcium Total Bilirubin AST ALT Alkaline Phosphatase Creatine Kinase Troponin I Total Protein Albumin 10/17/18 20:09 WBC RBC Hgb Hct MCV MCH MCHC RDW Plt Count MPV Absolute Neuts (auto) Neutrophils % Neutrophils % (Manual) Lymphocytes % Lymphocytes % (Manual) Monocytes % Monocytes % (Manual) Eosinophils % Basophils % Nucleated RBC % Hypochromia Platelet Estimate Platelet Comment Anisocytosis Macrocytosis PT with INR INR VBG pH POC VBG pCO2 POC VBG pO2 VBG HCO3 VBG O2 Sat (Nevaeh) VBG Base Excess Sodium 141 Potassium 5.1 Chloride 103 Carbon Dioxide 33 H Anion Gap 5 L BUN 22 H Creatinine 1.0 Creat Clearance w eGFR 72.46 Random Glucose 173 H Calcium 9.3 Total Bilirubin 0.3 AST 38 H ALT 55 Alkaline Phosphatase 81 Creatine Kinase 46 Troponin I < 0.02 Total Protein 6.9 Albumin 3.1 L ASSESSMENT/PLAN: 78 y/o M w/ PMHx COPD (started on home O2 this week), DVT on Xarelto, colon Ca, BPH, benign gastric mass, had been d/c earlier today after resolution of COPD exacerbation, p/w severe dyspnea #A: -COPD exacerbation -unclear how respiratory status declined from AM discharge #P -consider pulmonary consult -solumedrol 60 q6 -duonebs standing, albuterol PRN -azithromycin -incentive spirometer -O2 by NC, titrate to maintain saturation appropriately -f/u chest CT -will need PFTs and assessment for pulmonary rehab upon d/c -restarted home symbicort, Xarelto, singulair, flomax -no IVF -f/u BMP, Mg, Phos -regular diet -Xarelto for DVT PPx -IV PTx for GI PPx -full code -observe on telemetry Visit type - Emergency Visit Emergency Visit: Yes ED Registration Date: 10/17/18 Care time: The patient presented to the Emergency Department on the above date and was hospitalized for further evaluation of their emergent condition. - New Patient This patient is new to me today: Yes Date on this admission: 10/17/18 - Critical Care Critical Care patient: No
[2018-10-17] MEDS ORDERED: AZITHROMYCIN IVPB 500 MG/250 ML BAG IVPB ONE ×2 (23:29→23:31)
[2018-10-18] MEDS ORDERED: MAGNESIUM SULF 50% (8.12 MEQ/2 ML-1 GM VIAL) IVPB ONE (00:08)
[2018-10-18] MEDS ORDERED: ALBUTEROL SO4 0.083% IH SOL 2.5 MG/3 ML VIAL.NEB. NEB ONE (03:11)
[2018-10-18] MEDS ORDERED: methylPREDNISolone NA SUCC 125 MG/2 ML VIAL IVPUSH SCH (04:00)
[2018-10-18] MEDS ORDERED: ALBUTEROL SO4 2.5/IPRATROPIUM 0.5 INH SOL 3 ML VIAL.NEB. NEB ONE ×3 (04:01→16:10)
[2018-10-18] MEDS: ALBUTEROL SO4 2.5/IPRATROPIUM 0.5 INH SOL 3 ML VIAL.NEB. NEB SCH ×4 (05:30→16:12)
[2018-10-18 05:43] LABS: BASO % 0.5 % (0-2.0); HEMATOCRIT 34.3 % (35.4-49); HEMOGLOBIN 11.5 GM/dL (11.7-16.9); LYMPH % 14.6 % (8-40); MCH 33.9 pg (25.7-33.7); MCHC 33.4 g/dl (32.0-35.9); MEAN CELL VOLUME 101.5 fl (80-96); MEAN PLT VOLUME 7.6 fl (7.5-11.1); MONO % 3.4 % (3.8-10.2); NEUT % 81.5 % (42.8-82.8); PLATELET COUNT 282 K/MM3 (134-434); RBC 3.38 M/mm3 (4.00-5.60); WHITE BLOOD COUNT 4.8 K/mm3 (4.0-10.0)
[2018-10-18 06:07] LABS: ANION GAP 4 MMOL/L (8-16); BLOOD UREA NITROGEN 20 mg/dL (7-18); CALCIUM 8.5 mg/dL (8.5-10.1); CHLORIDE 106 mmol/L (98-107); CO2 30 mmol/L (21-32); CREATININE 0.8 mg/dL (0.55-1.3); GLUCOSE,RANDOM 168 mg/dL (74-106); MAGNESIUM 2.7 mg/dL (1.8-2.4); PHOSPHOROUS 2.7 mg/dL (2.5-4.9); POTASSIUM 4.4 mmol/L (3.5-5.1); SODIUM 140 mmol/L (136-145)
[2018-10-18] MEDS ORDERED: TAMSULOSIN HCL 0.4 MG CAP PO SCH (08:30)
[2018-10-18] MEDS ORDERED: TAMSULOSIN HCL 0.4 MG CAP ONE (08:40)
[2018-10-18] MEDS ORDERED: methylPREDNISolone 4 MG TABLET PO SCH (10:00)
[2018-10-18] MEDS ORDERED: BUDESONIDE/FORMETEROL FUMARATE 80/4.5 mcg INHALER IH SCH (10:00)
[2018-10-18] MEDS ORDERED: RIVAROXABAN 20 MG TABLET PO SCH (10:00)
--- NOTE | 2018-10-18 10:43 | EKG ---
Test Reason : Blood Pressure : / mmHG Vent. Rate : 116 BPM Atrial Rate : 116 BPM P-R Int : 120 ms QRS Dur : 066 ms QT Int : 298 ms P-R-T Axes : 084 083 085 degrees QTc Int : 414 ms SINUS TACHYCARDIA BIATRIAL ENLARGEMENT ABNORMAL ECG WHEN COMPARED WITH ECG OF 16-OCT-2018 06:01, NO SIGNIFICANT CHANGE WAS FOUND Confirmed by ADDISON RIVAS MD ([id number]) on 10/18/2018 10:42:29 AM Referred By: Confirmed By:ADDISON RIVAS MD
[2018-10-18 11:34] LABS: ANISOCYTOSIS 0; MACROCYTOSIS 1+; PLATELET ESTIMATE NORMAL
--- NOTE | 2018-10-18 13:05 | PN ---
Teaching Attending Note Name of Resident: Alvarez Mina ATTENDING PHYSICIAN STATEMENT I saw and evaluated the patient. I reviewed the resident's note and discussed the case with the resident. I agree with the resident's findings and plan as documented. SUBJECTIVE:asymptomatic. denies CP, SOB, fever, chills, cough, N/V/C/D OBJECTIVE: Last Vital Signs Temp Pulse Resp BP Pulse Ox 97.6 F 98 H 20 113/77 97 10/18/18 11:34 10/18/18 11:34 10/18/18 11:34 10/18/18 11:34 10/18/18 11:34 General NAD, bitemporal wasting, prominent clavicles and ribs, thin extremiteis CV S1 S2 RRR no murmur Lungs decreased breath sounds,. no wheezing or crackles. ABdomen soft NT/ND Extremiteis no pedal edema ASSESSMENT AND PLAN: 78yo M wtih PMH DVT on xarelto, BPH, colorectal ca and COPD recently started on home O2 presenting with SOB after running out of his home O2 1. Acute on chronic respiratory failure- due to running out of supplemental oxygen. when he returned home yesterday panicked about his oxygen and . reports from [facility] obtained and was d/c on azithromycin which appears he was not taking. reviewed CT chest here and although has infiltrates has nothing that suggest PNA (afebrile, no leukocytosis or change in cough). will d/c on azithromycin and steroid taper. supplemental oxygen to be given prior to discharge with concentrator. discussed with him going for pulmonary rehab. agreeable to outpaient facility but does not want LIA. encouraged close pulm follow up. 2. DVT on xarelto- had DVT 2013. will reduce to 20mg daily. follow up with PMD on dosing change. 3. BPH- flomax 4. colorectal cancer 5. DVT ppx- xarelto 6. d/c home with VNS and pulm rehab as outpatient
--- NOTE | 2018-10-18 13:13 | DS ---
Physical Exam: SUBJECTIVE: Patient seen and examined at bedside this morning. Patient states he was unable to get in contact with oxygen supply company yesterday evening. He endorses improvement of his shortness of breath with nasal canula. He denies subjective fevers, chills, shortness of breath, cough, chest pain, palpitations , abdominal pain, nausea, vomiting. OBJECTIVE: Vital Signs Period Temp Pulse Resp BP Sys/Valdes Pulse Ox Last 24 Hr 97.6 F-98.9 F 83-119 16-25 112-138/71-86 97-100 PHYSICAL EXAM GENERAL: The patient is awake, alert, and fully oriented, in no acute distress. HEAD: Normal with no signs of trauma. EYES: PERRL, extraocular movements intact, sclera anicteric, conjunctiva clear. ENT: Oropharynx clear without exudates, moist mucous membranes. NECK: Trachea midline, full range of motion, supple. LUNGS: Breath sounds equal, clear to auscultation bilaterally. No wheezes, no crackles. No accessory muscle use. HEART: Regular rate and rhythm, S1, S2 without murmur, rub or gallop. ABDOMEN: Soft, nontender, nondistended, normoactive bowel sounds x4 quadrants. No guarding, no rebound. no hepatomegaly palpated. EXTREMITIES: 2+ radial, dorsalis pedis pulses, warm, well-perfused. No lower extremity edema. NEUROLOGICAL: Cranial nerves II through XII grossly intact. Normal speech. PSYCH: Normal mood, normal affect upon my encounter. SKIN: Warm, dry. LABS Laboratory Results - last 24 hr 10/17/18 10/17/18 10/17/18 20:09 20:09 20:09 WBC 4.4 RBC 3.75 L Hgb 12.5 Hct 38.5 MCV 102.7 H MCH 33.4 MCHC 32.6 RDW 14.3 Plt Count 309 MPV 7.7 Absolute Neuts (auto) 3.7 Neutrophils % 85.1 H D Neutrophils % (Manual) 86.0 H Band Neutrophils % Lymphocytes % 10.9 D Lymphocytes % (Manual) 10.0 Monocytes % 3.7 L Monocytes % (Manual) 4 Eosinophils % 0.0 D Eosinophils % (Manual) Basophils % 0.3 Basophils % (Manual) Myelocytes % (Man) Promyelocytes % (Man) Blast Cells % (Manual) Nucleated RBC % 0 Metamyelocytes Hypochromia 1+ Platelet Estimate Adequate Platelet Comment Slt plt clumping Polychromasia Poikilocytosis Anisocytosis 1+ Microcytosis Macrocytosis 1+ PT with INR 16.00 H INR 1.35 H VBG pH 7.36 POC VBG pCO2 60.2 H POC VBG pO2 28.7 L VBG HCO3 33.1 H VBG O2 Sat (Nevaeh) 44.3 L VBG Base Excess 6.4 H Sodium Potassium Chloride Carbon Dioxide Anion Gap BUN Creatinine Creat Clearance w eGFR Random Glucose Calcium Phosphorus Magnesium Total Bilirubin AST ALT Alkaline Phosphatase Creatine Kinase Troponin I Total Protein Albumin Influenza A (Rapid) Influenza B (Rapid) 10/17/18 10/18/18 10/18/18 20:09 00:21 05:30 WBC 4.8 RBC 3.38 L Hgb 11.5 L Hct 34.3 L MCV 101.5 H MCH 33.9 H MCHC 33.4 RDW 14.0 Plt Count 282 MPV 7.6 Absolute Neuts (auto) 3.9 Neutrophils % 81.5 Neutrophils % (Manual) 84.9 H Band Neutrophils % 2.0 Lymphocytes % 14.6 D Lymphocytes % (Manual) 11.1 Monocytes % 3.4 L Monocytes % (Manual) 2 L Eosinophils % 0.0 Eosinophils % (Manual) 0.0 Basophils % 0.5 Basophils % (Manual) 0.0 Myelocytes % (Man) 0 Promyelocytes % (Man) 0 Blast Cells % (Manual) 0 Nucleated RBC % 0 Metamyelocytes 0 Hypochromia 0 Platelet Estimate Normal Platelet Comment Polychromasia 0 Poikilocytosis 0 Anisocytosis 0 Microcytosis 0 Macrocytosis 1+ PT with INR INR VBG pH POC VBG pCO2 POC VBG pO2 VBG HCO3 VBG O2 Sat (Nevaeh) VBG Base Excess Sodium 141 Potassium 5.1 Chloride 103 Carbon Dioxide 33 H Anion Gap 5 L BUN 22 H Creatinine 1.0 Creat Clearance w eGFR 72.46 Random Glucose 173 H Calcium 9.3 Phosphorus Magnesium Total Bilirubin 0.3 AST 38 H ALT 55 Alkaline Phosphatase 81 Creatine Kinase 46 Troponin I < 0.02 Total Protein 6.9 Albumin 3.1 L Influenza A (Rapid) Negative Influenza B (Rapid) Negative 10/18/18 05:30 WBC RBC Hgb Hct MCV MCH MCHC RDW Plt Count MPV Absolute Neuts (auto) Neutrophils % Neutrophils % (Manual) Band Neutrophils % Lymphocytes % Lymphocytes % (Manual) Monocytes % Monocytes % (Manual) Eosinophils % Eosinophils % (Manual) Basophils % Basophils % (Manual) Myelocytes % (Man) Promyelocytes % (Man) Blast Cells % (Manual) Nucleated RBC % Metamyelocytes Hypochromia Platelet Estimate Platelet Comment Polychromasia Poikilocytosis Anisocytosis Microcytosis Macrocytosis PT with INR INR VBG pH POC VBG pCO2 POC VBG pO2 VBG HCO3 VBG O2 Sat (Nevaeh) VBG Base Excess Sodium 140 Potassium 4.4 Chloride 106 Carbon Dioxide 30 Anion Gap 4 L BUN 20 H Creatinine 0.8 Creat Clearance w eGFR 93.74 Random Glucose 168 H Calcium 8.5 Phosphorus 2.7 Magnesium 2.7 H Total Bilirubin AST ALT Alkaline Phosphatase Creatine Kinase Troponin I Total Protein Albumin Influenza A (Rapid) Influenza B (Rapid) HOSPITAL COURSE: Date of Admission:10/17/18 Date of Discharge: 10/18/18 Patient is a 78 year old male with history of COPD (recently started on home oxygen) DVT on xarelto, colorectal cancer, presented with complaint of shortness of breath. Patient was discharged the day prior with home oxygen, however upon arriving home, he states that he was unable to get in contact with oxygen supply company which prompted him to return to the hospital. He was treated with steroids, nebulizer treatments, and supplemental oxygen. CT chest showed mild concentric wall thickening, with bibasilar infiltrates. His home Xarelto was decreased to 20mg daily. Portable oxygen tank was delivered to hospital, and transport arranged for patient to go home with portable oxygen. Patient was provided with contact information for oxygen supply company. Patient discharged home with Azithromycin, and Medrol dose pack. To follow up with his primary care physician, and hub cutter apprentice. Discussed regarding pulmonary rehab. Minutes to complete discharge: 35 Discharge Summary Reason For Visit: ACUTE EXACERBATION OF CHRONIC OBSTRUCTIVE Condition: Improved - Instructions Diet, Activity, Other Instructions: You were admitted to the hospital due to shortness of breath. You were given oxygen, breathing treatment, and steroids which significantly improved your breathing. You are being discharged home with home oxygen. Be sure to call the medical supply ([facility] ext [phone]. Ivis Bautista) to request additional delivery of your oxygen supply. Continue taking your home medications as directed. You were previously started on antibiotic Azithromycin. Continue taking Azithromycin 500mg daily for 5 days. We have changed your Xarelto dose to 20mg daily. Continue taking your steroid taper (Medrol dose- pack) as directed: Day 1: 8mg before breakfast, 4mg after lunch, 4mg after dinner, and 8mg at bedtime Day 2: 4mg before breakfast, 4mg after lunch, 4mg after dinner, and 8mg at bedtime Day 3: 4mg before breakfast, 4mg after lunch, 4mg after dinner, and 4mg at bedtime Day 4: 4mg before breakfast, 4mg after lunch, and 4mg at bedtime Day 5: 4mg before breakfast, and 4mg at bedtime Day 6: 4mg before breakfast. Follow up with your primary care physician within two- three days after discharge. Discuss your medication changes with your primary care physician at your follow up appointment. Follow up with pulmonary rehab as outpatient. Please see provided information. In addition, follow up with your hub cutter apprentice. A referral has been provided. Maintain your home oxygen at 2-3 Liters. Return to the nearest Emergency Department if you experience worsening symptoms , subjective fevers, chills, shortness of breath, chest pain, palpitations, abdominal pain, nausea, vomiting, lightheadedness, loss of consciousness, fall, or trauma. Referrals: [facility] [Provider Group] Timothy Wilburn MD [Staff Physician] - Disposition: HOME - Home Medications Comprehensive Discharge Medication List: Ambulatory Orders Ipratropium/Albuterol Sulfate [Combivent Respimat 20-100 Mcg] 2 puff IH QID Montelukast Na [Singulair -] 10 mg PO HS 06/30/16 Budesonide/Formeterol Fumarate [SYMBICORT 80/4.5mcg -] 2 inh PO QID 02/12/17 Tamsulosin HCl [Flomax -] 0.4 mg PO BID 11/26/17 Azithromycin [Zithromax] 500 mg PO DAILY 5 Days #5 tablet 10/18/18 Methylprednisolone [Medrol Dose Bro] 4 mg PO ASDIR #21 tablet 10/18/18 Rivaroxaban [Xarelto -] 20 mg PO DAILY 30 Days #30 tablet 10/18/18 This patient is new to me today: No Emergency Visit: Yes ED Registration Date: 10/17/18 Care time: The patient presented to the Emergency Department on the above date and was hospitalized for further evaluation of their emergent condition. Critical Care patient: No - Discharge Referral Referred to [facility] No
[2018-10-18 15:48] VITALS: BP 108/77; PULSE 92; TEMP 98
[2018-10-18] MEDS ORDERED: MONTELUKAST NA 10 MG TABLET PO SCH (22:00)
== END 2018-10-18 17:20 | disposition home or self-care (01) ==
LOC: JER 19:25 → JERBED 21:28
PROVIDERS: ADMIT Internal Medicine; ATTEND Internal Medicine
PROC: 3E03329 Introduction of Other Anti-infective into Peripheral Vein, Percutaneous Approach (ICD-10-PCS; principal; 2018-10-17)
PROC: 3E0333Z Introduction of Anti-inflammatory into Peripheral Vein, Percutaneous Approach (ICD-10-PCS; 2018-10-17)
PROC: 3E033GC Introduction of Other Therapeutic Substance into Peripheral Vein, Percutaneous Approach (ICD-10-PCS; 2018-10-17)
PROC: 3E0F7GC Introduction of Other Therapeutic Substance into Respiratory Tract, Via Natural or Artificial Opening (ICD-10-PCS; 2018-10-17)
DX: J44.1 Chronic obstructive pulmonary disease with (acute) exacerbation (principal); J96.20 Acute and chronic respiratory failure, unspecified whether with hypoxia or hypercapnia; N40.0 Benign prostatic hyperplasia without lower urinary tract symptoms; Z99.81 Dependence on supplemental oxygen; I82.409 Acute embolism and thrombosis of unspecified deep veins of unspecified lower extremity; Z85.038 Personal history of other malignant neoplasm of large intestine; R91.8 Other nonspecific abnormal finding of lung field
CPT/HCPCS: 36415; 71045-TC-FY; 71250-TC; 80048; 80053; 82550; 82803; 83735; 84100; 84484; 85025; 85610; 87633; 87804; 93005; 93010; 94640; 96374; 96375; 99283-25; G0378

== ENCOUNTER 2019-05-29 07:09 | Emergency (ER) | payer OTHER ==
--- NOTE | 2019-05-29 07:36 | PDOC ---
Attending Attestation - Resident Resident Name: Doug Skelton - HPI HPI: 05/29/19 08:40 Pt presents to the ED complaining of urinary retentiuon since 12 am this morning. Denies fever, nausea or vomiting or abdominal pain. - Physicial Exam PE: 05/29/19 08:49 Agree with residnt exam. patient is alert and oriented and in no acute distress. Lungs are clear. Abodmen is soft, non tender, non distended without guarding or rebound. Workman in place with 350 cc clear urine. - Medical Decision Making 05/29/19 08:54 Pt presents to the ED complaining of urinary retention. Resolved after placement of the workman. Will discharge home with leg bag and urology follow up.
[2019-05-29 08:00] VITALS: TEMP 97.7; BMI 17.6
[2019-05-29] MEDS ORDERED: ALBUTEROL SO4 2.5/IPRATROPIUM 0.5 INH SOL 3 ML VIAL.NEB. NEB ONE ×2 (08:34→08:53)
--- NOTE | 2019-05-29 08:34 | PDOC ---
History of Present Illness - General Chief Complaint: Urinary Problem Stated Complaint: URINARY RETENTION,DEHYDRATION Time Seen by Provider: 05/29/19 07:35 History Source: Patient Exam Limitations: No Limitations - History of Present Illness Initial Comments: 05/29/19 08:33 78M with a PMH of COPD (started home oxygen yesterday), PNA, DVT (LL-2013), Colon cancer, BPH, benign gastric mass who presents to the ER with complaints of inability to urinate. Pt states he last urinated at 0030 today. He denies dysuria, hematuria, when he urinated last. Admits to suprapubic abdominal pain and states he had this before and needed a catheter. Denies fever, chills, nausea, vomiting. Past History - Past Medical History Allergies/Adverse Reactions: Allergies Allergy/AdvReac Type Severity Reaction Status Date / Time No Known Drug Allergies Allergy Verified 05/29/19 07:30 Home Medications: Ambulatory Orders Ipratropium/Albuterol Sulfate [Combivent Respimat 20-100 Mcg] 2 puff IH QID Budesonide/Formeterol Fumarate [SYMBICORT 160/4.5mcg -] 1 inh PO BID 05/29/19 Montelukast Sodium [Singulair] 10 mg PO HS 05/29/19 Primidone 1 tab PO DAILY 05/29/19 Rivaroxaban [Xarelto] 1 tab PO ASDIR 05/29/19 Anemia: No Asthma: Yes Cancer: Yes (Yes - Colon cancer 11 y ago) Cardiac Disorders: No CVA: No COPD: Yes CHF: No DVT: No Dementia: No Diabetes: No GI Disorders: No Disorders: Yes (ENLARGED PROSTATE) HTN: No Hypercholesterolemia: No Liver Disease: No Seizures: No Thyroid Disease: No - Surgical History Abdominal Surgery: Yes (Benign tumor removed from stomach) - Immunization History Td Vaccination: Yes TDAP Vaccination: Yes Immunization Up to Date: Yes - Psycho Social/Smoking Cessation Hx Smoking History: Unknown if ever smoked Have you smoked in the past 12 months: No Number of Cigarettes Smoked Daily: 2 If you are a former smoker, when did you quit?: 2016 'Breaking Loose' booklet given: 06/30/16 Hx Alcohol Use: No Drug/Substance Use Hx: No Substance Use Type: Alcohol Hx Substance Use Treatment: No Review of Systems - Review of Systems Able to Perform ROS?: Yes Comments:: 05/29/19 08:35 GENERAL/CONSTITUTIONAL: No fever or chills. No weakness. HEAD, EYES, EARS, NOSE AND THROAT: No change in vision. No ear pain or discharge. No sore throat. CARDIOVASCULAR: No chest pain, palpitations, or lightheadedness. RESPIRATORY: No cough, wheezing, shortness of breath, or hemoptysis. GASTROINTESTINAL: No abdominal pain, nausea, vomiting, diarrhea, or constipation. GENITOURINARY: + for urinary retention. No dysuria, frequency, or hematuria. MUSCULOSKELETAL: No joint or muscle swelling or pain. No neck or back pain. SKIN: No rash or lesions. NEUROLOGIC: No headache, numbness, tingling, focal weakness, loss of consciousness, or change in strength/sensation. Is the patient limited Tajik proficient: No *Physical Exam - Vital Signs Last Vital Signs Temp Pulse Resp BP Pulse Ox 97.7 F 103 H 22 H 155/78 95 05/29/19 07:28 05/29/19 07:28 05/29/19 07:28 05/29/19 07:28 05/29/19 07:28 - Physical Exam 05/29/19 08:35 GENERAL: Well developed, well nourished. Awake and alert. No acute distress. HEENT: Normocephalic, atraumatic. Hearing grossly normal. Moist mucous membranes. PERRLA, EOMI. No conjunctival pallor. Sclera are non-icteric. NECK: Supple. Full ROM. CARDIOVASCULAR: Regular rate and rhythm. No murmurs, rubs, or gallops. PULMONARY: No evidence of respiratory distress. Coarse lung sounds bilaterally. ABDOMINAL: Soft. Non-tender. Non-distended. No rebound or guarding. GENITOURINARY: No CVA tenderness bilaterally. MUSCULOSKELETAL: Normal range of motion at all joints. No bony deformities or tenderness. EXTREMITIES: No cyanosis. No clubbing. No edema. No calf tenderness or swelling. SKIN: Warm and dry. Normal capillary refill. No rashes. No jaundice. NEUROLOGICAL: Alert, awake, appropriate. Cranial nerves 2-12 grossly intact. Normal speech. Gait is normal without ataxia. PSYCHIATRIC: Cooperative. Good eye contact. Appropriate mood and affect. Medical Decision Making - Medical Decision Making 05/29/19 08:35 78M with a PMH of BPH, hematuria, DVT, who presents to the ER with urinary retention since around midnight last night. Cunningham placed with 400cc's of urine drained. Will give duonebs for coarse lung sounds and reassess. 05/29/19 08:53 Pt requesting a different urologist. Will give referral to Dr. Floyd and d/c with PCP f/u. Discharge - Discharge Information Problems reviewed: Yes Clinical Impression/Diagnosis: Urinary retention due to benign prostatic hyperplasia Condition: Good Disposition: HOME - Admission No - Follow up/Referral Referrals: Karin Flood MD [Primary Care Provider] - Mely Pyle MD [Staff Physician] - - Patient Discharge Instructions Patient Printed Discharge Instructions: How to Care for Your Cunningham Catheter -- Male Additional Instructions: Please follow up with your primary care doctor and urologist within the week. Please return to the ER if you have any signs or symptoms of chest pain, shortness of breath, uncontrollable fever, chills, nausea, vomiting, numbness, tingling, or weakness in any part of your body, changes in vision, or slurred speech. Please return to the ER if symptoms persist, worsen, or new symptoms arise. - Post Discharge Activity
[2019-05-29 09:10] LABS: EPI CELLS 0.7 /HPF (0-5/HPF); HYALINE CASTS 0 /lpf (0-8); PH,URINE 5.5 (5.0-8.0); URINE APPEARANCE CLEAR; URINE BACTERIA 0.5 /hpf (NEGATIVE); URINE BILIRUBIN NEGATIVE (NEGATIVE); URINE COLOR YELLOW; URINE GLUCOSE (UA) NEGATIVE (NEGATIVE); URINE KETONE NEGATIVE (NEGATIVE); URINE LEUK ESTERASE NEGATIVE (NEGATIVE); URINE NITRITE NEGATIVE (NEGATIVE); URINE PROTEIN NEGATIVE (NEGATIVE); URINE RBC 1 /hpf (0-4); URINE UROBILINOGEN 0.2 mg/dL (0.2-1.0); URINE WBC 1 /hpf (0-5)
[2019-05-29 09:44] VITALS: BP 115/78; PULSE 78
== END 2019-05-29 09:44 | disposition home or self-care (01) ==
LOC: JER 07:09
PROC: 0T9B70Z Drainage of Bladder with Drainage Device, Via Natural or Artificial Opening (ICD-10-PCS; principal; 2019-05-29)
PROC: 3E0F7GC Introduction of Other Therapeutic Substance into Respiratory Tract, Via Natural or Artificial Opening (ICD-10-PCS; 2019-05-29)
DX: N40.1 Benign prostatic hyperplasia with lower urinary tract symptoms (principal); R33.8 Other retention of urine; R31.9 Hematuria, unspecified; Z86.718 Personal history of other venous thrombosis and embolism; J44.9 Chronic obstructive pulmonary disease, unspecified; Z85.038 Personal history of other malignant neoplasm of large intestine
CPT/HCPCS: 81003; 87086; 99282-25

== ENCOUNTER 2019-06-01 12:46 | Emergency (ER) | payer OTHER ==
[2019-06-01 13:25] VITALS: TEMP 98.4; BMI 17.9
--- NOTE | 2019-06-01 14:44 | PDOC ---
History of Present Illness - General Chief Complaint: Shortness of Breath Stated Complaint: SOB/URINARY RETENTION Time Seen by Provider: 06/01/19 14:27 - History of Present Illness Initial Comments: 06/01/19 14:43 HPI: 78 y/o M with a PMH of COPD (recently started home O2), DVT (), Colon cancer s/p partial bowel resection, BPH w/ urinary retention, benign gastric mass who presents to the ER with problems with his workman. Patient initially presented 4 days ago with acute urinary retention and had a 16 Fr workman placed. He reports that a 1 day after it was placed, he started noticing himself urinating around the workman. He states that he had a similar issue with a workman 2 -3 yrs ago and he "came into the ED and got it fixed". He also reports some discomfort when he urinates, but denies hematuria. Denies any abdominal pain, flank pain, n/v. PMHx: as noted above ROS: as noted SHx: Denies tobacco use; occasional alcohol use; no rec drugs Allergies: NKDA ROS: GENERAL/CONSTITUTIONAL: No fever or chills. No weakness. HEAD, EYES, EARS, NOSE AND THROAT: No change in vision. No ear pain or discharge. No sore throat. CARDIOVASCULAR: No chest pain RESPIRATORY: No cough, wheezing, or hemoptysis. GASTROINTESTINAL: No nausea, vomiting, diarrhea or constipation. GENITOURINARY: +dysuria; no frequency, or change in urination. MUSCULOSKELETAL: No joint or muscle swelling or pain. No neck or back pain. SKIN: No rash NEUROLOGIC: No headache, vertigo, loss of consciousness, or change in strength/ sensation. ENDOCRINE: No increased thirst. No abnormal weight change HEMATOLOGIC/LYMPHATIC: No anemia, easy bleeding, or history of blood clots. ALLERGIC/IMMUNOLOGIC: No hives or skin allergy. PE: GENERAL: Awake, alert, and fully oriented, no acute distress HEAD: No signs of trauma, normocephalic, atraumatic EYES: EOMI, sclera anicteric, conjunctiva clear ENT: Auricles normal inspection, hearing grossly normal, nares patent, oropharynx clear without exudates. Moist mucosa NECK: Normal ROM, no lymphadenopathy LUNGS: No increased work of breathing, symmetrical chest rise, clear to auscultation bilaterally, no wheezes, crackles or rhonchi HEART: Regular rate and rhythm, normal S1 and S2, no murmurs, peripheral pulses 2+ and equal bilaterally. ABDOMEN: Soft, nondistended, nontender, normoactive bowel sounds. No guarding, no rebound. No masses. No CVAT : workman in place, no blood at the meatus, workman integrity intact MUSCULOSKELETAL: Normal inspection, FROM NEUROLOGICAL: Cranial nerves II through XII grossly intact. Normal speech, normal gait, no focal sensorimotor deficits SKIN: Warm, Dry, normal turgor, no rashes or lesions noted Past History - Past Medical History Allergies/Adverse Reactions: Allergies Allergy/AdvReac Type Severity Reaction Status Date / Time No Known Drug Allergies Allergy Verified 06/01/19 18:50 Home Medications: Ambulatory Orders Ipratropium/Albuterol Sulfate [Combivent Respimat 20-100 Mcg] 2 puff IH QID Budesonide/Formeterol Fumarate [SYMBICORT 160/4.5mcg -] 1 inh PO BID 05/29/19 Montelukast Sodium [Singulair] 10 mg PO HS 05/29/19 Primidone 1 tab PO DAILY 05/29/19 Rivaroxaban [Xarelto] 1 tab PO ASDIR 05/29/19 Sulfamethoxazole/Trimethoprim [Bactrim Ds -] 1 tab PO BID #20 tablet 06/01/19 Anemia: No Asthma: Yes Cancer: Yes (Yes - Colon cancer 11 y ago) Cardiac Disorders: No CVA: No COPD: Yes CHF: No DVT: No Dementia: No Diabetes: No GI Disorders: No Disorders: Yes (ENLARGED PROSTATE) HTN: No Hypercholesterolemia: No Liver Disease: No Seizures: No Thyroid Disease: No - Surgical History Abdominal Surgery: Yes (Benign tumor removed from stomach) - Immunization History Td Vaccination: Yes TDAP Vaccination: Yes Immunization Up to Date: Yes - Psycho Social/Smoking Cessation Hx Smoking History: Never smoked Have you smoked in the past 12 months: No Number of Cigarettes Smoked Daily: 2 If you are a former smoker, when did you quit?: 2017 Information on smoking cessation initiated: No 'Breaking Loose' booklet given: 06/30/16 Hx Alcohol Use: No Drug/Substance Use Hx: No Substance Use Type: Alcohol Hx Substance Use Treatment: No *Physical Exam - Vital Signs Last Vital Signs Temp Pulse Resp BP Pulse Ox 98.4 F 110 H 22 H 145/99 98 06/01/19 13:22 06/01/19 13:28 06/01/19 13:28 06/01/19 13:22 06/01/19 13:28 Medical Decision Making - Medical Decision Making 06/01/19 16:46 78 y/o M with a PMH of COPD (recently started home O2), DVT (), Colon cancer s/p partial bowel resection, BPH w/ urinary retention, benign gastric mass who presents to the ER with urinating around the workman tube. Initial HR 110 , AF. PE with intact workman in the meatus, no evidence of trauma, no blood at the meatus, large meatal opening. -ua, ucx -will upsize workman 06/01/19 18:59 UA positive; will treat with bactrim x10 days script sent to pharmacy discussed with patient results and emphasized need for followup with urologist; he understands and will take abx; questions answered 06/01/19 19:05 initial reports of SOB with patient were discussed and patient reports he is not having SOB. He is SOB at baseline and he denies any change or increase in symptoms. Denies any fever, chest pain, palpitations, change in chronic cough. He reports taking his COPD meds prior to arrival to ED. Discharge - Discharge Information Problems reviewed: Yes Clinical Impression/Diagnosis: UTI (urinary tract infection), Workman catheter problem Condition: Improved Disposition: HOME - Additional Discharge Information Prescriptions: Sulfamethoxazole/Trimethoprim [Bactrim Ds -] 1 tab PO BID #20 tablet - Follow up/Referral - Patient Discharge Instructions Patient Printed Discharge Instructions: DI for Urinary Tract Infection (UTI), How to Care for Your Workman Catheter -- Male Additional Instructions: Additional Instructions: Please return to the emergency department with any new or worsening symptoms or concerns. Please follow up with your primary care physician and your urologist this week. Call the office tomorrow morning and schedule an appointment for workman followup. It is vital that you see your urologist in a timely fashion because prolonged workman use may carry risks. Please take Bactrim twice a day for 10 days; a script has been sent to your pharmacy - Post Discharge Activity
[2019-06-01 18:31] LABS: HYALINE CASTS 29 /lpf (0-8); URINE APPEARANCE TURBID; URINE BILIRUBIN NEGATIVE (NEGATIVE); URINE COLOR YELLOW; URINE GLUCOSE (UA) NEGATIVE (NEGATIVE); URINE KETONE NEGATIVE (NEGATIVE); URINE LEUK ESTERASE 2+ (NEGATIVE); URINE NITRITE POSITIVE (NEGATIVE); URINE PROTEIN 1+ (NEGATIVE); URINE RBC 479 /hpf (0-4); URINE WBC 254 /hpf (0-5)
[2019-06-01] MEDS ORDERED: CEPHALEXIN MONOHYDRATE 500 MG CAPSULE (UD) PO ONE (18:51)
[2019-06-01 18:52] VITALS: BP 142/88; PULSE 102
[2019-06-01] MEDS ORDERED: SULFAMETHOXAZOLE/TRIMETHOPRIM 800MG/160MG D.S. TABLET PO ONE (18:57)
--- NOTE | 2019-06-01 22:52 | PDOC ---
Documentation entered by Rico Harris SCRIBE, acting as scribe for Prince Arriaga MD. Prince Arriaga MD: This documentation has been prepared by the Steven ch Nirvannie, SCRIBE, under my direction and personally reviewed by me in its entirety. I confirm that the documentation accurately reflects all work, treatment, procedures, and medical decision making performed by me. Attending Attestation - Resident Resident Name: WyattJovani - ED Attending Attestation I have performed the following: I have examined & evaluated the patient, The case was reviewed & discussed with the resident, I agree w/resident's findings & plan, Exceptions are as noted - HPI HPI: 06/01/19 16:38 The patient is a 78 year old male, with a significant past medical history of COPD (on home O2), BPH, DVT (LLE, 14), colon cancer, benign gastric mass, pneumonia, who presents to the emergency department with leaking around his workman catheter. Pt was seen here for urinary retention 05/29 and had a workman placed. He has not followed up with urology yet, did not call for appt yet. Of note, pt also reported SOB to triage nurse for 2 days but states he has been SOB for many years with recent improvement in sxs 2/2 recent availability of home O2. Denies cough, pleuritic CP, LE edema or calf pain. He denies any recent dysuria or hematuria. He denies any recent fevers, chills, headache or dizziness. He denies any recent nausea, vomiting, diarrhea or constipation. Allergies: NKDA - Physicial Exam PE: 06/01/19 22:45 AGree with resident exam - Medical Decision Making 06/01/19 22:46 78yo M recent placement of iindwelling workman 2/2 retention presents to the ED with leaking of urine around workman catheter. Workman sized up to 18F with resolution of leaking Pt later reporting dysuria, so UA sent to lab, consistent with possible UTI WIll treat with bactrim BID Initial vitals with tachycardia, hypoxia, but pt was off home O2 during check While on 2.5L (home O2) HR and O2 sat normalized Pt reports feeling well. Will call urology for f/u appt He is clinically stable and well appearing for DC home I discussed the physical exam findings, ancillary test results and final diagnoses with the patient. I answered all of the patient's questions. The patient was satisfied with the care received and felt comfortable with the discharge plan and treatment plan. The patient will call their primary care physician within 24 hours to arrange follow-up and will return to the Emergency Department with any new, persistent or worsening symptoms.
== END 2019-06-01 19:10 | disposition home or self-care (01) ==
LOC: JER 12:46
DX: T83.9XXA Unspecified complication of genitourinary prosthetic device, implant and graft, initial encounter (principal); N39.0 Urinary tract infection, site not specified; J44.9 Chronic obstructive pulmonary disease, unspecified; Z86.718 Personal history of other venous thrombosis and embolism; Z85.038 Personal history of other malignant neoplasm of large intestine; Z87.891 Personal history of nicotine dependence; K92.9 Disease of digestive system, unspecified; N40.0 Benign prostatic hyperplasia without lower urinary tract symptoms
CPT/HCPCS: 81003; 87086; 87186; 99282-25

== ENCOUNTER 2019-06-03 13:23 | Emergency (ER) | payer OTHER ==
--- NOTE | 2019-06-03 13:29 | PDOC ---
Rapid Medical Evaluation Time Seen by Provider: 06/03/19 13:27 Medical Evaluation: Allergies Allergy/AdvReac Type Severity Reaction Status Date / Time No Known Drug Allergies Allergy Verified 06/01/19 18:50 06/03/19 13:27 I have performed a brief in-person evaluation of this patient. The patient presents with a chief complaint of: leaking workman, placed 2 days ago Pertinent physical exam findings: well appearing I have ordered the following: nothing The patient will proceed to the ED for further evaluation. Discharge Disposition - Diagnosis Workman catheter problem - Referrals - Patient Instructions - Post Discharge Activity
[2019-06-03 13:31] VITALS: TEMP 98; BMI 18.6
--- NOTE | 2019-06-03 14:24 | PDOC ---
History of Present Illness - General Chief Complaint: Urinary Catheter Problem Stated Complaint: workman cateter problem Time Seen by Provider: 06/03/19 13:27 History Source: Patient Exam Limitations: Clinical Condition - History of Present Illness Travel History: No Initial Comments: 06/03/19 14:24 Patient with past medical history of BPH, urinary retention multiple comorbidities presented with complaint of leaking around urinary catheter. Patient had multiple visit with catheter problem in the past few weeks and replaced every time and patient come back few days later with complaint of leaking. Patient was advised to follow-up with urology but has not followed up with urology and reporting he could not get appointment urology until June. Patient reported every time he urinates, he feels leaking around the catheter. Patient also reports tingling sensation with urination. Patient was diagnosed with a UTI 2 days ago last visit with catheter problem and discharged home with Bactrim antibiotics but patient reportedly has not picked up from the pharmacy yet. Denies fevers, chills, body aches or back pains. Denies nausea or vomiting. Denies any other symptoms Timing/Duration: reports: intermittent Quality: reports: other (urinary leaking from catheter) Alleviating Factors: improves with: Voiding Past History - Past Medical History Allergies/Adverse Reactions: Allergies Allergy/AdvReac Type Severity Reaction Status Date / Time No Known Drug Allergies Allergy Verified 06/01/19 18:50 Home Medications: Ambulatory Orders Ipratropium/Albuterol Sulfate [Combivent Respimat 20-100 Mcg] 2 puff IH QID Budesonide/Formeterol Fumarate [SYMBICORT 160/4.5mcg -] 1 inh PO BID 05/29/19 Montelukast Sodium [Singulair] 10 mg PO HS 05/29/19 Primidone 1 tab PO DAILY 05/29/19 Rivaroxaban [Xarelto] 1 tab PO ASDIR 05/29/19 Sulfamethoxazole/Trimethoprim [Bactrim Ds -] 1 tab PO BID #20 tablet 06/01/19 Anemia: No Asthma: Yes Cancer: Yes (Yes - Colon cancer 11 y ago) Cardiac Disorders: No CVA: No COPD: Yes CHF: No DVT: No Dementia: No Diabetes: No GI Disorders: No Disorders: Yes (ENLARGED PROSTATE) HTN: No Hypercholesterolemia: No Liver Disease: No Seizures: No Thyroid Disease: No - Surgical History Abdominal Surgery: Yes (Benign tumor removed from stomach) - Immunization History Td Vaccination: Yes TDAP Vaccination: Yes Immunization Up to Date: Yes - Psycho Social/Smoking Cessation Hx Smoking History: Never smoked Have you smoked in the past 12 months: No Number of Cigarettes Smoked Daily: 2 If you are a former smoker, when did you quit?: 2017 'Breaking Loose' booklet given: 06/30/16 Hx Alcohol Use: No Drug/Substance Use Hx: No Substance Use Type: Alcohol Hx Substance Use Treatment: No Review of Systems - Review of Systems Able to Perform ROS?: Yes Is the patient limited [place] proficient: No Constitutional: No: Chills, Fever, Malaise HEENTM: No: Symptoms Reported, See HPI, Eye Pain, Blurred Vision, Tearing, Recent change in vision, Double Vision, Cataracts, Ear Pain, Ocular Prothesis, Ear Discharge, Nose Pain, Nose Congestion, Tinnitus, Nose Bleeding, Hearing Loss , Throat Pain, Throat Swelling, Mouth Pain, Dental Problems, Difficulty Swallowing, Mouth Swelling, Other Respiratory: No: Symptoms reported, See HPI, Cough, Orthopnea, Shortness of Breath, SOB with Exertion, SOB at Rest, Stridor, Wheezing, Productive cough, Hemoptysis, Other Cardiac (ROS): No: Symptoms Reported, See HPI, Chest Pain, Edema, Irregular Heart Rate, Lightheadedness, Palpitations, Syncope, Chest Tightness, Other ABD/GI: No: Symptoms Reported, Nausea, Vomiting, Abdominal cramping : Yes: Symptoms Reported, See HPI, Incontinence (leaking around urinary catheter). No: Hematuria, Testicular Mass, Testicular Swelling, Testicular Pain , Other Musculoskeletal: No: Symptoms Reported All Other Systems: Reviewed and Negative *Physical Exam - Vital Signs Last Vital Signs Temp Pulse Resp BP Pulse Ox 98 F 117 H 18 117/77 98 06/03/19 13:26 06/03/19 13:26 06/03/19 13:26 06/03/19 13:26 06/03/19 13:26 - Physical Exam General Appearance: Yes: Nourished, Appropriately Dressed. No: Apparent Distress HEENT: positive: Normal ENT Inspection Respiratory/Chest: negative: Respiratory Distress, Accessory Muscle Use Gastrointestinal/Abdominal: positive: Normal Bowel Sounds. negative: Tender Male Genitalia: positive: normal genitalia, other (small opening to lower gland of penis with 18 gauge workman cathether in place. mild moisture to scrotum from wet urine. no active leaking from catheter. small amount of urine in workman bag) . negative: discharge, testicular tenderness, testicular mass, epididymus tender, hematuria Musculoskeletal: positive: Normal Inspection. negative: CVA Tenderness Extremity: positive: Normal Inspection Integumentary: positive: Normal Color Neurologic: positive: Fully Oriented, Normal Mood/Affect, Normal Response Medical Decision Making - Medical Decision Making 06/03/19 14:26 Patient with past medical of BPH, urinary retention multiple comorbidities presented with complaint of leaking around urinary catheter. Patient had multiple visit with catheter problem in the past few weeks and replaced every time and patient come back few days later with complaint of leaking. Patient was advised to follow-up with urology but has not followed up with urology and reporting he could not get appointment urology until June. Patient reported every time he urinates, he feels leaking around the catheter. Patient also reports tingling sensation with urination. Patient was diagnosed with a UTI 2 days ago last visit with catheter problem and discharged home with Bactrim antibiotics but patient reportedly has not picked up from the pharmacy yet. Denies fevers, chills, body aches or back pains. Denies nausea or vomiting. Denies any other symptoms Exam significant for small physiological opening to lower aspect of glans of penis with Workman catheter in place and small amount of urine in catheter bag. Small amount of clear moisture to scrotum and lower shaft of penis with urine smell which is indication of urine leak. 18-gauge catheter in place and draining well. Patient urinary leak likely caused by abnormal opening to lower glans of penis. Urinary catheter will be replaced with a 20-gauge catheter to see if will solve the problem with urology follow-up 06/03/19 14:43 Called and spoke to urologist front desk manager Dr. Stratton who advised patient needs to be followed up in the clinic for suprapubic catheter. Plan discussed with patient and patient agrees with plan and 20-gauge catheter placed under sterile condition. Patient stable for discharge 06/03/19 15:25 Patient able to pass swallow voiding without urinary catheter as attempt to replace 20-gauge catheter had no drawback and was removed. Patient able to void twice without catheter. Patient stable for discharge with urology follow- up Discharge - Discharge Information Problems reviewed: Yes Clinical Impression/Diagnosis: Urinary retention due to benign prostatic hyperplasia Workman catheter problem Qualifiers: Encounter type: subsequent encounter Qualified Code(s): T83.9XXD - Unspecified complication of genitourinary prosthetic device, implant and graft, subsequent encounter Condition: Stable Disposition: HOME - Admission No - Follow up/Referral Referrals: Hernando Fowler MD [Staff Physician] - Ruben Floyd MD [Staff Physician] - - Patient Discharge Instructions Patient Printed Discharge Instructions: DI for Urinary Retention in Men Additional Instructions: Keep using Workman. Take prescribed antibiotics from last visit. Follow-up with referring urology as he might be able to give you an early appointment or you can called Dr. Floyd office who agrees to see you to fix the problem - Post Discharge Activity
[2019-06-03] MEDS ORDERED: LIDOCAINE HCL 2% JELLY 10 ML CARTRIDGE ONE (15:08)
[2019-06-03 16:09] VITALS: BP 116/74; PULSE 110
== END 2019-06-03 15:36 | disposition home or self-care (01) ==
LOC: JERFT 13:23
PROC: 0T9B70Z Drainage of Bladder with Drainage Device, Via Natural or Artificial Opening (ICD-10-PCS; principal; 2019-06-03)
DX: T83.9XXD Unspecified complication of genitourinary prosthetic device, implant and graft, subsequent encounter (principal); N40.0 Benign prostatic hyperplasia without lower urinary tract symptoms; R33.9 Retention of urine, unspecified; Z87.891 Personal history of nicotine dependence; J44.9 Chronic obstructive pulmonary disease, unspecified; I25.2 Old myocardial infarction
CPT/HCPCS: 99282-25

== ENCOUNTER 2019-06-07 00:32 | Emergency (ER) | payer OTHER ==
[2019-06-07 00:43] VITALS: TEMP 98.7; BMI 21.4
--- NOTE | 2019-06-07 01:01 | PDOC ---
History of Present Illness - General Chief Complaint: Urinary Problem Stated Complaint: UNABLE TO URINATE Time Seen by Provider: 06/07/19 01:00 - History of Present Illness Initial Comments: 06/07/19 01:01 78 y/o M with a PMH of COPD (recently started home O2), DVT (LL-2013), Colon cancer s/p partial bowel resection, BPH w/ urinary retention, benign gastric mass who presents to the ER with urinary retention. He reports that yesterday he has urinary incontinence and now has urinary retention.The patient has presented repeatedly with the same complaints over the past few weeks because his workman repeatedly leaks. He follows with Dr. Floyd and will be seeing him in June for suprapubic catheter placement. The patient has also had a recent UTI. ROS GENERAL/CONSTITUTIONAL: No fever or chills. No weakness. CARDIOVASCULAR: No chest pain or shortness of breath RESPIRATORY: No cough, wheezing, or hemoptysis. GASTROINTESTINAL: No nausea, vomiting, diarrhea or constipation. GENITOURINARY: + change in urination. MUSCULOSKELETAL: No joint or muscle swelling or pain. No neck or back pain. SKIN: No rash NEUROLOGIC: No headache, vertigo, loss of consciousness, or change in strength/ sensation. ENDOCRINE: No increased thirst. No abnormal weight change PE GENERAL: Awake, alert, and fully oriented, in no acute distress HEAD: No signs of trauma, normocephalic, atraumatic EYES: EOMI, sclera anicteric, conjunctiva clear ENT: oropharynx clear without exudates. Moist mucosa NECK: Normal ROM, supple LUNGS: No distress, speaks full sentences, clear to auscultation bilaterally HEART: Regular rate and rhythm, normal S1 and S2, no murmurs, rubs or gallops, peripheral pulses normal and equal bilaterally. ABDOMEN: Soft, nontender. No guarding, no rebound. No masses EXTREMITIES : Normal inspection, Normal range of motion, no edema. No clubbing or cyanosis. NEUROLOGICAL: Cranial nerves II through XII grossly intact. Normal speech, no focal sensorimotor deficits SKIN: Warm, Dry, normal turgor, no rashes or lesions noted MDM DDX including but not limited to: urinary retnetion 2/2 BPH vs uti ED Course: Plan to place workman catheter ua, ucx - treat as indicated Encourage patient to follow up with Dr. Mariel Palmer, PGY2 Emergency Medicine Past History - Past Medical History Allergies/Adverse Reactions: Allergies Allergy/AdvReac Type Severity Reaction Status Date / Time No Known Drug Allergies Allergy Verified 06/07/19 00:41 Home Medications: Ambulatory Orders Ipratropium/Albuterol Sulfate [Combivent Respimat 20-100 Mcg] 2 puff IH QID Budesonide/Formeterol Fumarate [SYMBICORT 160/4.5mcg -] 1 inh PO BID 05/29/19 Montelukast Sodium [Singulair] 10 mg PO HS 05/29/19 Primidone 1 tab PO DAILY 05/29/19 Rivaroxaban [Xarelto] 1 tab PO ASDIR 05/29/19 Sulfamethoxazole/Trimethoprim [Bactrim Ds -] 1 tab PO BID #20 tablet 06/01/19 Cephalexin [Keflex] 500 mg PO BID #14 capsule 06/04/19 Anemia: No Asthma: Yes Cancer: Yes (Yes - Colon cancer 11 y ago) Cardiac Disorders: No CVA: No COPD: Yes CHF: No DVT: No Dementia: No Diabetes: No GI Disorders: No Disorders: Yes (ENLARGED PROSTATE) HTN: No Hypercholesterolemia: No Liver Disease: No Seizures: No Thyroid Disease: No - Surgical History Abdominal Surgery: Yes (Benign tumor removed from stomach) - Immunization History Td Vaccination: Yes TDAP Vaccination: Yes Immunization Up to Date: Yes - Psycho Social/Smoking Cessation Hx Smoking History: Unknown if ever smoked Have you smoked in the past 12 months: No Number of Cigarettes Smoked Daily: 2 If you are a former smoker, when did you quit?: 2017 Information on smoking cessation initiated: No 'Breaking Loose' booklet given: 06/30/16 Hx Alcohol Use: No Drug/Substance Use Hx: No Substance Use Type: Alcohol Hx Substance Use Treatment: No *Physical Exam - Vital Signs Last Vital Signs Temp Pulse Resp BP Pulse Ox 98.7 F 111 H 22 H 163/96 99 06/07/19 00:41 06/07/19 00:41 06/07/19 00:41 06/07/19 00:41 06/07/19 00:41 Discharge - Discharge Information Problems reviewed: Yes Clinical Impression/Diagnosis: Urinary retention due to benign prostatic hyperplasia Condition: Stable Disposition: HOME - Admission No - Follow up/Referral - Patient Discharge Instructions Patient Printed Discharge Instructions: DI for Urinary Retention in Men Additional Instructions: You were seen in the ED for complaints of urinary retention In the ED you were provided a workman and had a urine test which showed There does not appear to be an acute need for immediate hospitalization. You are advised to follow up with your Primary Care Physician within 1 week. Please follow up with Dr. Floyd within 1 week. Return to the ED immediately if you experience worsening retention, abdominal pain, fevers, blood in the urine or any other concerning symptoms. - Post Discharge Activity
--- NOTE | 2019-06-07 01:11 | PDOC ---
Documentation entered by Rico Harris SCRIBE, acting as scribe for Liberty Carranza MD. Liberty Carranza MD: This documentation has been prepared by the Steven ch Nirvannie, SCRIBE, under my direction and personally reviewed by me in its entirety. I confirm that the documentation accurately reflects all work, treatment, procedures, and medical decision making performed by me. Attending Attestation - Resident Resident Name: Katherine Palmer - ED Attending Attestation I have performed the following: I have examined & evaluated the patient, The case was reviewed & discussed with the resident, I agree w/resident's findings & plan, Exceptions are as noted - HPI HPI: 06/07/19 01:25 PMH of COPD (recently started home O2), DVT (), Colon cancer s/p partial bowel resection, BPH w/ urinary retention, benign gastric mass who presents to the ER with urinary retention x 1 day starting yesterday / h/o frequent urinary retention requiring workman and c/b leaking around site planned for management, suprapubic catheter with Dr Justus Lopez on 06/27/19 - Physicial Exam PE: 06/07/19 01:10 Agree with the resident's HPI and PE as documented in the electronic medical record. NAD, well appearing, EOMI, PERRL, nl conjunctiva, anicteric; neck supple. lungs clear, RRR, abdomen soft, midline surg scar, +suprapubic tenderness and fullness palp bladder. external genitalia wnl, normal testicular lie, no scrotal swelling or tenderness.. no rebound, guarding. Back nontender. MCCABE x4, no focal neuro deficits. No peripheral edema. normal color for ethnicity, WWP. 06/07/19 01:26 - Medical Decision Making 06/07/19 01:10 Vital Signs Temp Pulse Resp BP Pulse Ox 98.7 F 111 H 22 H 163/96 99 06/07/19 00:41 06/07/19 00:41 06/07/19 00:41 06/07/19 00:41 06/07/19 00:41 Vital signs notable for tachycardia, mildly hypertensive likely due to the urinary retention. Workman catheter to be placed. check UA/culture leg bag recheck vitals after workman placement f/u urology, Dr Corcoran for definitive management of BPH and frequent urinary retention. 06/07/19 01:27 06/07/19 01:28
--- NOTE | 2019-06-07 01:45 | PDOC ---
Medical Decision Making - Medical Decision Making Pt signed out to me by Dr. Palmer, see prior note. 78 y/o M with a PMH of COPD (recently started home O2), DVT (), Colon cancer s/p partial bowel resection, BPH w/ urinary retention, benign gastric mass who presented to the ED for urinary retention. He reports that yesterday he has urinary incontinence and now has urinary retention. The patient has presented repeatedly with the same complaints over the past few weeks because his workman repeatedly leaks. He follows with Dr. Floyd and will be seeing him in June for suprapubic catheter placement. The patient has also had a recent UTI. Initial Vital Signs Temp Pulse Resp BP Pulse Ox 98.7 F 111 H 22 H 163/96 99 06/07/19 00:41 06/07/19 00:41 06/07/19 00:41 06/07/19 00:41 06/07/19 00:41 Afebrile. Tachycardic. Tachypneic. Hypertensive. No hypoxia on room air. Labs ordered: UA/UC Imaging ordered: none Medications ordered: none Workman replaced. 06/07/19 02:41 Laboratory Last Values Urine Color Yellow 06/07/19 01:35 Urine Appearance Clear 06/07/19 01:35 Urine pH 5.0 (5.0-8.0) 06/07/19 01:35 Ur Specific [place] 1.011 (1.010-1.035) 06/07/19 01:35 Urine Protein Negative (NEGATIVE) 06/07/19 01:35 Urine Glucose (UA) Negative (NEGATIVE) 06/07/19 01:35 Urine Ketones 1+ (NEGATIVE) H 06/07/19 01:35 Urine Blood Trace (NEGATIVE) 06/07/19 01:35 Urine Nitrite Negative (NEGATIVE) 06/07/19 01:35 Urine Bilirubin Negative (NEGATIVE) 06/07/19 01:35 Urine Urobilinogen 0.2 mg/dL (0.2-1.0) 06/07/19 01:35 Ur Leukocyte Esterase Trace (NEGATIVE) 06/07/19 01:35 Urine WBC (Auto) 2 /hpf (0-5) 06/07/19 01:35 Urine RBC (Auto) 7 /hpf (0-4) 06/07/19 01:35 Urine Casts (Auto) 4 /lpf (0-8) 06/07/19 01:35 U Epithel Cells (Auto) 1.9 /HPF (0-5/HPF) 06/07/19 01:35 Urine Bacteria (Auto) 0.3 /hpf (NEGATIVE) 06/07/19 01:35 Negative for UTI. WBC <5 Pt is already on treatment, to continue. Pt discharged with leg bag, advised to F/U with urology. Discharge - Discharge Information Problems reviewed: Yes Clinical Impression/Diagnosis: Urinary retention due to benign prostatic hyperplasia Condition: Improved Disposition: HOME - Admission No - Follow up/Referral - Patient Discharge Instructions Patient Printed Discharge Instructions: DI for Urinary Retention in Men, How to Care for Your Workman Catheter -- Male Additional Instructions: You were seen in the ED for complaints of urinary retention In the ED you were provided a workman and had a urine test which showed no urinary tract infection. Continue taking the medications prescribed to you. There does not appear to be an acute need for immediate hospitalization. You are advised to follow up with your Primary Care Physician within 1 week. Please follow up with Dr. Floyd within 3 days. Return to the ED immediately if you experience worsening retention, abdominal pain, fevers, blood in the urine or any other concerning symptoms. - Post Discharge Activity
[2019-06-07 01:56] LABS: EPI CELLS 1.9 /HPF (0-5/HPF); HYALINE CASTS 4 /lpf (0-8); URINE APPEARANCE CLEAR; URINE BACTERIA 0.3 /hpf (NEGATIVE); URINE BILIRUBIN NEGATIVE (NEGATIVE); URINE COLOR YELLOW; URINE GLUCOSE (UA) NEGATIVE (NEGATIVE); URINE KETONE 1+ (NEGATIVE); URINE LEUK ESTERASE TRACE (NEGATIVE); URINE NITRITE NEGATIVE (NEGATIVE); URINE PROTEIN NEGATIVE (NEGATIVE); URINE RBC 7 /hpf (0-4); URINE UROBILINOGEN 0.2 mg/dL (0.2-1.0); URINE WBC 2 /hpf (0-5)
[2019-06-07 03:18] VITALS: BP 157/89; PULSE 100
== END 2019-06-07 03:15 | disposition home or self-care (01) ==
LOC: JER 00:32
PROC: 0T9B70Z Drainage of Bladder with Drainage Device, Via Natural or Artificial Opening (ICD-10-PCS; principal; 2019-06-07)
DX: N40.1 Benign prostatic hyperplasia with lower urinary tract symptoms (principal); R33.8 Other retention of urine; J44.9 Chronic obstructive pulmonary disease, unspecified; Z99.81 Dependence on supplemental oxygen; J45.998 Other asthma; Z85.038 Personal history of other malignant neoplasm of large intestine; Z86.718 Personal history of other venous thrombosis and embolism; Z79.01 Long term (current) use of anticoagulants
CPT/HCPCS: 81003; 87086; 99283-25

== ENCOUNTER 2020-01-02 09:04 | Inpatient (IN) | payer OTHER ==
[2020-01-02 09:10] VITALS: BMI 16.5
--- NOTE | 2020-01-02 09:25 | PDOC ---
History of Present Illness - General Chief Complaint: Wound Stated Complaint: Wound Time Seen by Provider: 01/02/20 09:14 History Source: Patient, Old Records - History of Present Illness Initial Comments: 01/02/20 09:26 79y M with PMH of COPD (on 2L O2), DVT on Xarelto, colon Ca, BPH, benign gastric mass presenting to the ER today for L great toe pain. Pt states he noticed "a black spot" on the toe nail around 1 week ago. He picked the spot off and since then the top half of the nail fell off and he noticed drainage. He has pain to the area and cannot put pressure on the plantar aspect of the toe. Foot is more swollen. Denies fever, chills, chest pain, sob, n/v/d, abdominal pain, back pain, injury, IV drug use. He went to his PMD today and was told to come to the ER. 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 Dr. Rush PMD: PMH: see hpi PSH: Meds: see med rec Allergies: nkda Social: quit smoking 8y ago Past History - Medical History Allergies/Adverse Reactions: Allergies Allergy/AdvReac Type Severity Reaction Status Date / Time No Known Drug Allergies Allergy Verified 01/02/20 09:10 Home Medications: Ambulatory Orders Budesonide/Formeterol Fumarate [SYMBICORT 160/4.5mcg -] 1 inh PO BID 05/29/19 Rivaroxaban [Xarelto] 1 tab PO BID 05/29/19 Ipratropium/Albuterol Sulfate [Combivent Respimat 20-100 Mcg] 2 inh IN BID 01/02/20 Tamsulosin HCl 0.4 mg PO DAILY 01/02/20 Tiotropium Lanexa [Spiriva Respimat] 1 inh IN BID 01/02/20 Anemia: No Asthma: Yes Cancer: Yes (Yes - Colon cancer 11 y ago) Cardiac Disorders: No CVA: No COPD: Yes CHF: No DVT: No Dementia: No Diabetes: No GI Disorders: No Disorders: Yes (ENLARGED PROSTATE) HTN: No Hypercholesterolemia: No Liver Disease: No Seizures: No Thyroid Disease: No - Surgical History Abdominal Surgery: Yes (Benign tumor removed from stomach) - Immunization History Td Vaccination: Yes TDAP Vaccination: Yes Immunization Up to Date: Yes - Psycho-Social/Smoking History Smoking History: Former smoker Have you smoked in the past 12 months: No Number of Cigarettes Smoked Daily: 2 If you are a former smoker, when did you quit?: 2017 Information on smoking cessation initiated: No 'Breaking Loose' booklet given: 06/30/16 - Substance Abuse Hx (Audit-C & DAST Scrn) How often the patient has a drink containing alcohol: Never Score: In Men: 4 or > Positive; In Women: 3 or > Positive: 0 Screen Result (Pos requires Nsg. Audit-10AR): Negative In the last yr the pt used illegal drug/Rx for NonMed reason: No Score: Yes response is considered Positive: 0 Screen Result (Positive result requires Nsg. DAST-10): Negative Review of Systems - Review of Systems Constitutional: No: Symptoms Reported HEENTM: No: Symptoms Reported Respiratory: No: Symptoms reported Cardiac (ROS): No: Symptoms Reported ABD/GI: No: Symptoms Reported : No: Symptoms Reported Musculoskeletal: Yes: See HPI Integumentary: Yes: See HPI *Physical Exam - Vital Signs Last Vital Signs Temp Pulse Resp BP Pulse Ox 98.1 F 105 H 26 H 133/89 99 01/02/20 09:06 01/02/20 09:06 01/02/20 09:06 01/02/20 09:06 01/02/20 09:06 - Physical Exam General Appearance: Yes: Appropriately Dressed, Thin. No: Apparent Distress HEENT: positive: EOMI, FRANKIE. negative: Scleral Icterus (R), Scleral Icterus (L) Neck: positive: Trachea midline. negative: Supple, Lymphadenopathy (L) Respiratory/Chest: positive: Lungs Clear, Normal Breath Sounds Cardiovascular: positive: Regular Rhythm, Regular Rate, S1, S2. negative: Edema, JVD, Murmur Vascular Pulses: Dorsalis-Pedis (R): 1+, Doralis-Pedis (L): 1+ Gastrointestinal/Abdominal: positive: Normal Bowel Sounds, Flat, Soft. negative: Tender Musculoskeletal: negative: CVA Tenderness, Vertebral Tenderness Extremity: positive: Normal Capillary Refill, Tender (L great toe tenderness), Other (L great toe nail has distal half removed, with underlying redness and area of expressed purulence. swelling around toe and foot. mild erythema, no warmth, no crepitus. R foot normal. 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 vitals show tachycardia, afebrile exam notable for L great toe with distal half of nail removed, swelling of foot. mild erythema, no warmth, not cold. R foot normal, no swelling. concern for infection given tenderness and swelling. ddx also includes venous inufficiency, arterial occlusion. although pt is on Xarelto -labs, cultures, esr, crp -abx. cxr does not show any subq air or fb. will admit for possible osteomyelitis. Discharge - Discharge Information Problems reviewed: Yes Clinical Impression/Diagnosis: Foot infection Condition: Good - Admission Yes - Follow up/Referral - Patient Discharge Instructions - Post Discharge Activity
[2020-01-02] MEDS ORDERED: ACETAMINOPHEN 325 MG TABLET (FP) PO ONE (09:45)
[2020-01-02 10:25] LABS: INR 2.04 (0.83-1.09); PROTHROMBIN TIME (PATIENT) 24.2 SEC (9.7-13.0)
[2020-01-02 10:27] LABS: ACTIVATED PTT 44.7 SECONDS (25.2-36.5)
[2020-01-02] MEDS ORDERED: ACETAMINOPHEN 325 MG TABLET (FP) ONE (10:31)
[2020-01-02 10:53] LABS: ALBUMIN 3.6 g/dl (3.4-5.0); ALK PHOS 92 U/L (45-117); ANION GAP 2 MMOL/L (8-16); BILIRUBIN,TOTAL 0.4 mg/dL (0.2-1); BLOOD UREA NITROGEN 17.2 mg/dL (7-18); CALCIUM 9.8 mg/dL (8.5-10.1); CHLORIDE 106 mmol/L (98-107); CO2 33 mmol/L (21-32); CREATININE 1.1 mg/dL (0.55-1.3); GLUCOSE,RANDOM 101 mg/dL (74-106); SGOT/AST 29 U/L (15-37); SGPT/ALT 30 U/L (13-61); SODIUM 141 mmol/L (136-145); TOT PROT 7.3 g/dl (6.4-8.2)
--- NOTE | 2020-01-02 11:06 | PDOC ---
Documentation entered by Rico Harris SCRIBE, acting as scribe for Ernesto Ortiz MD. Ernesto Ortiz MD: This documentation has been prepared by the Steven ch Nirvannie, SCRIBE, under my direction and personally reviewed by me in its entirety. I confirm that the documentation accurately reflects all work, treatment, procedures, and medical decision making performed by me. Attending Attestation - Resident Resident Name: LucretiaRadha - ED Attending Attestation I have performed the following: I have examined & evaluated the patient, The case was reviewed & discussed with the resident, I agree w/resident's findings & plan, Exceptions are as noted - HPI HPI: 01/02/20 10:50 The patient is a 79 year old male with a significant past medical history of COPD (2L supplemental O2), DVT (on Xarelto), colon cancer, BPH, benign gastric mass who presents to the ED with 1.5 weeks of pain and swelling to the left great toe. As per patient, his symptoms onset as a black spot to the toe the progressed to the nail falling off with minimal drainage to the dorsum of the left great toe. Patient notes decreased ability to walk secondary to pain. He denies any fevers, chills, nausea, or vomiting. Allergies: NKDA Primary Care Physician: Dr. Flood - Physicial Exam PE: 01/02/20 10:50 Exam: Vitals: Triage Vital signs reviewed General Appearance: no acute distress, well nourished well developed, Head: Atraumatic, normocephalic Cardiac: Regular rate and rhythm, no murmurs, no rubs, no gallops, Lungs: Clear to auscultation bilateral, good air movement bilaterally, Extremities: Full range of motion to all extremities, no cyanosis or clubbing. Skin: +Warmth and edema to the left great toe with 1/2 nail bed fallen off. Warm and dry, no petechiae Neuro: AOX3; Cranial Nerves 2-12 grossly intact Psych: normal mood, normal affect - Medical Decision Making 01/02/20 13:25 Moderate to severe left toe pain COPD or chronically on steroids partially immunocompromised concern for underlying osteomyelitis We will treat with Vanco Zolisandran admit to medicine for further work-up and management. Discharge - Discharge Information Problems reviewed: Yes Clinical Impression/Diagnosis: Foot infection - Follow up/Referral - Patient Discharge Instructions - Post Discharge Activity
[2020-01-02 11:26] LABS: BASO % 1.2 % (0-2.0); EOS % 6.8 % (0-4.5); HEMATOCRIT 38.4 % (35.4-49); HEMOGLOBIN 12.6 GM/dL (11.7-16.9); LYMPH % 31.6 % (8-40); MCH 32.3 pg (25.7-33.7); MCHC 32.8 g/dl (32.0-35.9); MEAN CELL VOLUME 98.3 fl (80-96); MEAN PLT VOLUME 9.4 fl (7.5-11.1); MONO % 7.8 % (3.8-10.2); NEUT % 52.6 % (42.8-82.8); PLATELET COUNT 214 K/MM3 (134-434); RDW 15.1 % (11.9-15.9); WHITE BLOOD COUNT 3.2 K/mm3 (4.0-10.0)
[2020-01-02] MEDS ORDERED: VANCOMYCIN 1 GM in D5W (PRE-DOCKED) 1,000 MG/250 ML IVPB ONE (11:50)
[2020-01-02] MEDS ORDERED: PIPERACILLIN/TAZOB 3.375 GM 3.375 GM in DEXTROSE 5%-WATER - 50 ML IVPB ONE (11:50)
[2020-01-02] MEDS ORDERED: PIPERACILLIN/TAZOB 3.375 GM 3.375 GM/50 ML BAG IVPB ONE (12:24)
[2020-01-02] MEDS ORDERED: VANCOMYCIN 1 GRAM (PRE-DOCKED) 1,000 MG/250 ML BAG IVPB ONE (12:24)
--- NOTE | 2020-01-02 13:02 | PN ---
Teaching Attending Note Name of Resident: Everardo West ATTENDING PHYSICIAN STATEMENT I saw and evaluated the patient. I reviewed the resident's note and discussed the case with the resident. I agree with the resident's findings and plan as documented. SUBJECTIVE: Left foot pain and swelling OBJECTIVE: Vital Signs Temperature 98.1 F 01/02/20 09:06 Pulse Rate 105 H 01/02/20 09:06 Respiratory Rate 26 H 01/02/20 09:06 Blood Pressure 133/89 01/02/20 09:06 O2 Sat by Pulse Oximetry (%) 99 01/02/20 09:06 General: Elderly man, comfortable, not in distress HEENT mucous membranes moist, no anemia, no jaundice, PERRLA, no nystagmus Neck: No JVD, supple, no bruit, thyroid palpably normal, normal carotid pulsations. Chest: Nontender, clear to auscultation bilaterally/bilateral wheezing/bilateral basal rales. CVS: S1-S2 regular no murmur/gallop/rub Abdomen: Nondistended, soft, bowel sounds present. 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 , no gross motor sensory deficit CBC,CMP WBC 3.2 K/mm3 (4.0-10.0) L 01/02/20 09:46 RBC 3.90 M/mm3 (4.00-5.60) L 01/02/20 09:46 Hgb 12.6 GM/dL (11.7-16.9) 01/02/20 09:46 Hct 38.4 % (35.4-49) 01/02/20 09:46 MCV 98.3 fl (80-96) H 01/02/20 09:46 MCH 32.3 pg (25.7-33.7) 01/02/20 09:46 MCHC 32.8 g/dl (32.0-35.9) 01/02/20 09:46 RDW 15.1 % (11.9-15.9) 01/02/20 09:46 Plt Count 214 K/MM3 (134-434) D 01/02/20 09:46 MPV 9.4 fl (7.5-11.1) D 01/02/20 09:46 Absolute Neuts (auto) 1.7 K/mm3 (1.5-8.0) 01/02/20 09:46 Neutrophils % 52.6 % (42.8-82.8) D 01/02/20 09:46 Lymphocytes % 31.6 % (8-40) D 01/02/20 09:46 Monocytes % 7.8 % (3.8-10.2) D 01/02/20 09:46 Eosinophils % 6.8 % (0-4.5) H D 01/02/20 09:46 Basophils % 1.2 % (0-2.0) 01/02/20 09:46 Nucleated RBC % 0 % (0-0) 01/02/20 09:46 ESR 67 mm/hr (0-20) H 01/02/20 09:46 Sodium 141 mmol/L (136-145) 01/02/20 09:46 Potassium 5.0 mmol/L (3.5-5.1) 01/02/20 09:46 Chloride 106 mmol/L (98-107) 01/02/20 09:46 Carbon Dioxide 33 mmol/L (21-32) H 01/02/20 09:46 Anion Gap 2 MMOL/L (8-16) L 01/02/20 09:46 BUN 17.2 mg/dL (7-18) 01/02/20 09:46 Creatinine 1.1 mg/dL (0.55-1.3) 01/02/20 09:46 Est GFR (CKD-EPI)AfAm 74.13 01/02/20 09:46 Est GFR (CKD-EPI)NonAf 63.96 01/02/20 09:46 Random Glucose 101 mg/dL (74-106) 01/02/20 09:46 Calcium 9.8 mg/dL (8.5-10.1) 01/02/20 09:46 Total Bilirubin 0.4 mg/dL (0.2-1) 01/02/20 09:46 AST 29 U/L (15-37) 01/02/20 09:46 ALT 30 U/L (13-61) 01/02/20 09:46 Alkaline Phosphatase 92 U/L (45-117) 01/02/20 09:46 Troponin I < 0.02 ng/ml (0.00-0.05) 01/02/20 09:46 C-Reactive Protein 0.5 MG/DL (0.00-0.3) H 01/02/20 09:46 Total Protein 7.3 g/dl (6.4-8.2) 01/02/20 09:46 Albumin 3.6 g/dl (3.4-5.0) 01/02/20 09:46 Chest x-ray: No acute pathology X-ray left foot 3 view: No fracture or dislocation, bunion formation first MTP ASSESSMENT AND PLAN: 79 years old man friend history of COPD emphysema on home O2 2 L home CA colon, DVT on Xarelto, benign gastric mass protruding to ED for evaluation of left great toe pain and swelling and redness that he started 1 week ago greatly worsen Active issues: 1. Left foot cellulitis less osteomyelitis: ESR 67, podiatry consult, continue cefazolin 1 g q. 8 hourly follow-up wound and blood cultures. Wound culture 2. COPD: Chronic hypercarbia/on home O2 continue oxygen inhalation continue Symbicort and Spiriva Combivent 2 puffs as needed for shortness of breath. 3 history of DVT: Continue Xarelto. 4. Severe malnutrition: BMI 16.5 most likely due to chronic COPD nutrition consult 5. History of colon cancer in remission 6. Bilateral lower extremity poor circulation we will follow-up lower extremity arterial ultrasound to rule out, consider vascular consult. Patient is on full dose anticoagulation Discussed with resident
--- NOTE | 2020-01-02 13:09 | HP ---
CHIEF COMPLAINT: persistent Left first toe pain PCP: Aleena HISTORY OF PRESENT ILLNESS: 79M w/ pmh of COPD(home 2L O2), h/o LLE DVT(2ys prior; on Xarelto), colorectal CA(resolved 20ys prior), BPH, ?gastric mass(benign) presents to [facility] with complaint of persistent Left first toe pain. States that 2 1/2 weeks prior, noticed a black discoloration of the tip of the nail Left first toe. After a few days that part of the nail fell off without any manipulation. He went to his regular Screen Printing Supervisor(Dr Ellis, which he sees for chronic plantar calluses) on 12/30/2019. Was given Augmentin and instructed to go the hospital if the pain does not resolve. Thinks pain is 9/10, sharp in nature. Has had scant clear drainage. Denies pus. Has not tried to smell the wound. Pain has inhibited some of his walking. Usually walks 1-2 blocks before getting tired. Denies cramping in BLE when walking. Denies fever, chills. ER course was notable for: (1) Tmax 98.1F, HR 105 (2) WBC 3.2, CRP 0.5, ESR 67 (3) CXR: negative acute pathology (4) XR foot: negative fracture, neg subluxation (5) acetaminophen, zosyn, vancomycin Recent Travel: denies PAST MEDICAL HISTORY: as above PAST SURGICAL HISTORY: colon ca surgery 20ys prior Social History: Smoking: stopped 8ys prior(used to smoke 1/2 ppd) Alcohol: wine with dinner Drugs: denies Allergies No Known Drug Allergies Allergy (Verified 01/02/20 09:10) HOME MEDICATIONS: Home Medications Medication Instructions Recorded Budesonide/Formeterol Fumarate 1 inh PO BID 05/29/19 [SYMBICORT 160/4.5mcg -] Rivaroxaban [Xarelto] 1 tab PO ASDIR 05/29/19 Ipratropium/Albuterol Sulfate 2 inh IN BID 01/02/20 [Combivent Respimat 20-100 Mcg] Tiotropium [place] [Spiriva 1 inh IN BID 01/02/20 Respimat] REVIEW OF SYSTEMS CONSTITUTIONAL: Absent: fever, chills, diaphoresis, generalized weakness, malaise, loss of appetite, weight change HEENT: Absent: rhinorrhea, nasal congestion, throat pain, throat swelling, difficulty swallowing, mouth swelling, ear pain, eye pain, visual changes CARDIOVASCULAR: Absent: chest pain, syncope, palpitations, irregular heart rate, li ghtheadedness, peripheral edema RESPIRATORY: Absent: cough, shortness of breath, dyspnea with exertion, orthopnea, wheezing, stridor, hemoptysis GASTROINTESTINAL: Absent: abdominal pain, abdominal distension, nausea, vomiting, diarrhea, constipation, melena, hematochezia GENITOURINARY: Absent: dysuria, frequency, urgency, hesitancy, hematuria, flank pain, genital pain MUSCULOSKELETAL: LLE foot first toe wound, Foot swelling Absent: myalgia, arthralgia, joint swelling, back pain, neck pain SKIN: Absent: rash, itching, pallor HEMATOLOGIC/IMMUNOLOGIC: Absent: easy bleeding, easy bruising, lymphadenopathy, frequent infections ENDOCRINE: Absent: unexplained weight gain, unexplained weight loss, heat intolerance, cold intolerance NEUROLOGIC: Absent: headache, focal weakness or paresthesias, dizziness, unsteady gait, seizure, mental status changes, bladder or bowel incontinence PSYCHIATRIC: Absent: anxiety, depression, suicidal or homicidal ideation, hallucinations. PHYSICAL EXAMINATION Vital Signs - 24 hr 01/01/ 09:06 Temperature 98.1 F Pulse Rate 105 H Respiratory 26 H Rate Blood Pressure 133/89 O2 Sat by Pulse 99 Oximetry (%) GENERAL: Awake, alert, and fully oriented. Thin-appearing HEAD: NC/AT EYES: sclera anicteric, conjunctiva clear. No lid lag. EARS, NOSE, THROAT: Moist mucous membranes. NECK: Normal range of motion, supple without lymphadenopathy, JVD, or masses. LUNGS: Breath sounds equal, mild crackles bilaterally. No accessory muscle use. Uses 2L NC HEART: Regular rate and rhythm, normal S1 and S2 without murmur, rub or gallop. ABDOMEN: Midline well-healed surgical scar. Soft, nontender, nondistended, no guarding, no rebound. MUSCULOSKELETAL: Normal range of motion at all joints. No bony deformities or tenderness. UPPER EXTREMITIES: 2+ pulses, warm, well-perfused. No cyanosis. No clubbing. No peripheral edema. LOWER EXTREMITIES: weak 1+ pulses of DPs and PTs. Cool extremities. No peripheral edema. Left first toe with half nail bed exposed, with tender bed. No active drainage. Tenderness in distal half of L first toe. Mild purpura mottling of 5th digits b/l. Sensation intact throughout b/l feet. Nail beds are slightly clubbed NEUROLOGICAL: Normal speech. PSYCHIATRIC: Cooperative. Good eye contact. Appropriate mood and affect. SKIN: Warm, dry, normal turgor, no rashes or lesions noted, normal capillary refill. Laboratory Results - last 24 hr 01/02/20 01/02/20 01/02/20 09:46 09:46 09:46 WBC RBC Hgb Hct MCV MCH MCHC RDW Plt Count MPV Absolute Neuts (auto) Neutrophils % Lymphocytes % Monocytes % Eosinophils % Basophils % Nucleated RBC % ESR 67 H PT with INR 24.20 H INR 2.04 H PTT (Actin FS) 44.7 H Sodium 141 Potassium 5.0 Chloride 106 Carbon Dioxide 33 H Anion Gap 2 L BUN 17.2 Creatinine 1.1 Est GFR (CKD-EPI)AfAm 74.13 Est GFR (CKD-EPI)NonAf 63.96 Random Glucose 101 Calcium 9.8 Total Bilirubin 0.4 AST 29 ALT 30 Alkaline Phosphatase 92 Troponin I < 0.02 C-Reactive Protein 0.5 H Total Protein 7.3 Albumin 3.6 01/02/20 09:46 WBC 3.2 L RBC 3.90 L Hgb 12.6 Hct 38.4 MCV 98.3 H MCH 32.3 MCHC 32.8 RDW 15.1 Plt Count 214 D MPV 9.4 D Absolute Neuts (auto) 1.7 Neutrophils % 52.6 D Lymphocytes % 31.6 D Monocytes % 7.8 D Eosinophils % 6.8 H D Basophils % 1.2 Nucleated RBC % 0 ESR PT with INR INR PTT (Actin FS) Sodium Potassium Chloride Carbon Dioxide Anion Gap BUN Creatinine Est GFR (CKD-EPI)AfAm Est GFR (CKD-EPI)NonAf Random Glucose Calcium Total Bilirubin AST ALT Alkaline Phosphatase Troponin I C-Reactive Protein Total Protein Albumin ASSESSMENT/PLAN: 79M w/ pmh of COPD(home 2L O2), h/o LLE DVT(2ys prior; on Xarelto), colorectal CA(resolved 20ys prior), BPH, ?gastric mass(benign) presents to [facility] with complaint of persistent Left first toe pain. States that 2 1/2 weeks prior, noticed a black discoloration of the tip of the left foot first nail which eventually fell off. Patient had a wound with persistent pain so he presented to the ED. ED wanted patient admitted for Left foot, first toe cellulitis with possible osteomyelitis. Physical Exam w/o signs of obvious infection(warmth, redness), but notable for cool extremities. Admitted for toe cellulitis, w/ probable underlying PAD. #Left foot First toe nail bed wound --possible cellulitis; unlikely OM as wound is very superficial #cool BLE --possible > Tmax 98.1F, HR 105 > WBC 3.2, CRP 0.5, ESR 67 > XR foot: negative fracture, neg subluxation - PT eval - BLE arterial doppler --pending - pain control: acetaminophen, and tramadol PRN - abx regimen: --ED: sp zosyn + vanc --current: cefazolin d1 - Podiatry Consult(Sandro): --recs pending - consider vascular consult if significant PAD from arterial dopplers #h/o LLE DVT - cw xarelto #COPD - cw home 2L O2 - cw symbicort, spiriva, combivent - duonebs prn FEN - no mIVF - regular diet DVT PPX - xarelto Family Medical History Family Hx Cancer: Mother (colon cancer) Visit type - Emergency Visit Emergency Visit: Yes ED Registration Date: 01/02/20 Care time: The patient presented to the Emergency Department on the above date and was hospitalized for further evaluation of their emergent condition. - New Patient This patient is new to me today: Yes Date on this admission: 01/03/20 - Critical Care Critical Care patient: No ATTENDING PHYSICIAN STATEMENT I saw and evaluated the patient. I reviewed the resident's note and discussed the case with the resident. I agree with the resident's findings and plan as documented. SUBJECTIVE: OBJECTIVE: ASSESSMENT AND PLAN:
[2020-01-02] MEDS ORDERED: CEFAZOLIN 1 GM/D5W 1 GM/50 ML BAG IVPB SCH (14:45)
[2020-01-02] MEDS ORDERED: ALBUTEROL SO4 2.5/IPRATROPIUM 0.5 INH SOL 3 ML VIAL.NEB. NEB PRN (17:13)
[2020-01-02] MEDS ORDERED: RIVAROXABAN 15 MG TABLET PO SCH (18:00)
[2020-01-02] MEDS ORDERED: ceFAZolin SODIUM 1 GM VIAL ONE (21:48)
[2020-01-02] MEDS ORDERED: DEXTROSE 5%-WATER - 50 ML IVPB ONE (21:48)
[2020-01-02] MEDS: BUDESONIDE/FORMETEROL FUMARATE 160/4.5 mcg INHALER IH SCH (21:50)
[2020-01-02] MEDS: RIVAROXABAN 15 MG TABLET PO SCH (21:50)
[2020-01-02] MEDS: CEFAZOLIN 1 GM in DEXTROSE 5%-WATER - 50 ML IVPB SCH (21:50)
[2020-01-02] MEDS ORDERED: IPRATROPIUM IN SCH (22:00)
[2020-01-02] MEDS ORDERED: ALBUTEROL SULFATE IN SCH (22:00)
[2020-01-02] MEDS: traMADol HCL 50 MG TABLET PO PRN (22:11)
[2020-01-03] MEDS: ACETAMINOPHEN 325 MG TABLET (FP) PO PRN ×3 (01:29→21:47)
[2020-01-03] MEDS ORDERED: DEXTROSE 5%-WATER - 50 ML IVPB ONE ×3 (06:00→21:09)
[2020-01-03] MEDS ORDERED: ceFAZolin SODIUM 1 GM VIAL ONE ×3 (06:00→21:09)
[2020-01-03] MEDS: CEFAZOLIN 1 GM in DEXTROSE 5%-WATER - 50 ML IVPB SCH ×3 (06:26→21:46)
[2020-01-03 07:39] LABS: HEMATOCRIT 33.5 % (35.4-49); HEMOGLOBIN 10.9 GM/dL (11.7-16.9); MCHC 32.4 g/dl (32.0-35.9); MEAN CELL VOLUME 98.6 fl (80-96); MEAN PLT VOLUME 8.7 fl (7.5-11.1); PLATELET COUNT 182 K/MM3 (134-434); RDW 14.9 % (11.9-15.9); WHITE BLOOD COUNT 3.9 K/mm3 (4.0-10.0)
[2020-01-03 08:18] LABS: BILIRUBIN,TOTAL 0.4 mg/dL (0.2-1); BLOOD UREA NITROGEN 15.6 mg/dL (7-18); CALCIUM 8.9 mg/dL (8.5-10.1); MAGNESIUM 1.9 mg/dL (1.8-2.4); PHOSPHOROUS 3.4 mg/dL (2.5-4.9); POTASSIUM 4.5 mmol/L (3.5-5.1); TOT PROT 5.9 g/dl (6.4-8.2)
[2020-01-03] MEDS: traMADol HCL 50 MG TABLET PO PRN ×2 (08:19→16:56)
[2020-01-03] MEDS: TAMSULOSIN HCL 0.4 MG CAP PO SCH (10:00)
[2020-01-03] MEDS ORDERED: TIOTROPIUM BROMIDE 2.5 MCG (SPIRIVA) RESPIMAT INHALER IH SCH (10:00)
[2020-01-03] MEDS: RIVAROXABAN 15 MG TABLET PO SCH ×2 (10:00→21:46)
[2020-01-03] MEDS: BUDESONIDE/FORMETEROL FUMARATE 160/4.5 mcg INHALER IH SCH ×2 (10:00→21:48)
[2020-01-03] MEDS ORDERED: ENOXAPARIN NA (PORCINE) 40 MG/0.4 ML DISP.SYRIN SQ SCH (10:00)
--- NOTE | 2020-01-03 13:15 | CONSULT ---
Consult - text type - Consultation Consultation Note: 79M w/ pmh of COPD(home 2L O2), h/o LLE DVT(2ys prior; on Xarelto), colorectal CA(resolved 20ys prior), BPH, ?gastric mass(benign) presents to [facility] with complaint of persistent Left first toe pain. States that 2 1/2 weeks prior, noticed a black discoloration of the tip of the nail Left first toe. After a few days that part of the nail fell off without any manipulation. He went to his regular Instrument Tech(Dr Ellis, which he sees for chronic plantar calluses) on 12/16. Was given Augmentin and instructed to go the hospital if the pain does not resolve. Pain has continued; is not relieved by pain medication. Smoked 1/2 PPD x 20 + years; does not smoke anymorem. Vasc: Feet cool to touch, non palp pedal pulses derm; rigth foot 5th digit duskiness noted, left hallux minimal duskiness noted, no open wounds, no erythema, no edema, POP to the left hallux, no sigsn of acute infection A: 79 y/o male with PAD and likely small vessel disease. Evaluated and reviewed no podiatric intervention at this time needs vascular f/u possible HBOT to help improve oxygenation is early stages of ischemia Will loosely follow; can likely follow as outpatient
--- NOTE | 2020-01-03 15:07 | EKG ---
Test Reason : Blood Pressure : / mmHG Vent. Rate : 088 BPM Atrial Rate : 088 BPM P-R Int : 140 ms QRS Dur : 068 ms QT Int : 338 ms P-R-T Axes : 084 083 082 degrees QTc Int : 408 ms NORMAL SINUS RHYTHM BIATRIAL ENLARGEMENT EARLY REPOLARIZATION ABNORMAL ECG WHEN COMPARED WITH ECG OF 17-OCT-2018 19:38, EARLY REPOL PATTERN NOW PRESENT Confirmed by RANDY RODRIGUEZ MD ([id number]) on 01/03/2020 3:07:18 PM Referred By: Confirmed By:RANDY RODRIGUEZ MD
--- NOTE | 2020-01-03 17:30 | PN ---
Teaching Attending Note Name of Resident: Jay Jovel ATTENDING PHYSICIAN STATEMENT I saw and evaluated the patient. I reviewed the resident's note and discussed the case with the resident. I agree with the resident's findings and plan as documented. SUBJECTIVE: Complains of L great toe discomfort and discoloration R 5th toe. No fever/chills. OBJECTIVE: Afebrile, Hemodynamically Stable. Last Vital Signs Temp Pulse Resp BP Pulse Ox 98.2 F 67 20 142/72 100 01/03/20 10:01/03/20 10:01/03/20 10:00 01/03/20 10:01/03/20 10:00 HEENT - Atraumatic, Normocephalic. Heart - S1, S2, RRR Lungs - clear to auscultation Abdomen - Soft, non-tender. Bowel Sounds normal. Extremities - L Great Toe nail bed ulcer with surrounding erythema/tenderness. R 5th toe discoloration. Extremities cool, weak pulses. Neuro - AAO x 3. Tone/Power normal. Laboratory Results - last 24 hr 01/03/20 01/03/20 06:38 06:38 WBC 3.9 L RBC 3.40 L Hgb 10.9 L Hct 33.5 L MCV 98.6 H MCH 32.0 MCHC 32.4 RDW 14.9 Plt Count 182 MPV 8.7 Sodium 140 Potassium 4.5 Chloride 108 H Carbon Dioxide 28 Anion Gap 4 L BUN 15.6 Creatinine 1.0 Est GFR (CKD-EPI)AfAm 83.18 Est GFR (CKD-EPI)NonAf 71.77 Random Glucose 93 Calcium 8.9 Phosphorus 3.4 Magnesium 1.9 Total Bilirubin 0.4 AST 17 ALT 21 Alkaline Phosphatase 72 Total Protein 5.9 L Albumin 3.0 L TSH 0.80 D Current Medications Generic Name Dose Route Start Last Admin Trade Name Freq PRN Reason Stop Dose Admin Acetaminophen 650 mg 01/02/20 22:01 01/03/20 10:09 Tylenol - PO 650 mg Q6H PRN Administration PAIN LEVEL 4 - 6 Budesonide/Formoterol Fumarate 2 puff 01/02/20 22:00 01/03/20 10:00 Symbicort 160/4.5mcg - IH 2 puff BID BRANDY Administration Cefazolin Sodium 1 gm/ 50 mls @ 100 mls/hr 01/02/20 22:00 01/03/20 14:31 Dextrose IVPB 100 mls/hr Q8H BRANDY Administration Non-Formulary Medication 2 inh 01/02/20 22:00 Ipratropium/Albuterol Sulfate IN BID BRANDY Rivaroxaban 15 mg 01/02/20 22:00 01/03/20 10:00 Xarelto PO 15 mg BID BRANDY Administration Tamsulosin HCl 0.4 mg 01/03/20 10:00 01/03/20 10:00 Flomax - PO 0.4 mg DAILY BRANDY Administration Tramadol HCl 50 mg 01/02/20 22:01 01/03/20 16:56 Ultram - PO 50 mg Q8H PRN Administration PAIN LEVEL 7 - 10 Home Medications Medication Instructions Recorded Budesonide/Formeterol Fumarate 1 inh PO BID 05/29/19 [SYMBICORT 160/4.5mcg -] Rivaroxaban [Xarelto] 1 tab PO BID 05/29/19 Ipratropium/Albuterol Sulfate 2 inh IN BID 01/02/20 [Combivent Respimat 20-100 Mcg] Tamsulosin HCl 0.4 mg PO DAILY 01/02/20 Tiotropium [place] [Spiriva 1 inh IN BID 01/02/20 Respimat] ASSESSMENT AND PLAN: 79 year old male with history of CRF sec to COPD (on 2L home O2), Hx LLE DVT (on Xarelto), remote Hx Colorectal Ca, BPH, presented with L great toe pain/ulcer/tenderness, referred to ED by Podiatry if no improvement on Augmentin. 1. Acute Cellulitis L Great toe (associated with nailbed ulcer ?malignancy) No acute findings on Foot Xray Blood Cx pending Afebrile Started on Cefazolin ID/Podiatry/Vascular Sx consulted. 2. PAD Bilateral foot coolness and R 5th toe discoloration - Arterial Duplex LEs shos decreased biphasic flow. Vascular Surgery consulted. 3. Hx LLE DVT - on Xarelto. Will hold in event Podiatry recommends acute intervention. 4. CRF sec to COPD on 2L O2 no evidence of acute exacerbation Continue Spiriva, Synbicort, DuoNebs PRN. 5. BPH - continue Tamsulosin. 6. Mild Macrocytosis - will send B12/Folate levels DVT Px - Xarelto.
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
--- NOTE | 2020-01-04 04:45 | PN ---
Physical Exam: SUBJECTIVE: Patient seen and examined at bedside. The patient reported 9/10 sharp pain from his left 1st toe with no pus. The patient also denies any fever/chills. The patient also reported that his right 5th toe is significantly gucci than the other toes. OBJECTIVE: Vital Signs Period Temp Pulse Resp BP Sys/Valdes Pulse Ox Last 24 Hr 98.0 F-98.2 F 67-100 18-20 102-142/60-72 97-100 GENERAL: The patient is awake, alert, and fully oriented, in no acute distress. HEAD: Normal with no signs of trauma. EYES: Extraocular movements intact. No ptosis. ENT: Ears normal, nares patent, oropharynx clear without exudates, moist mucous membranes. NECK: Trachea midline, full range of motion, supple. LUNGS: Breath sounds equal, clear to auscultation bilaterally, no wheezes, no crackles, no accessory muscle use. HEART: Regular rate and rhythm, S1, S2 without murmur, rub or gallop. ABDOMEN: Soft, nontender, nondistended, normoactive bowel sounds, no guarding, no rebound, no masses. EXTREMITIES: weak pulses in his feet, mildly cold, no edema. Left 1st big toe with an ulcer and distal half of the toenail fallen off. Right 5th toe significantly gucci than the other toes on the foot. NEUROLOGICAL: Normal speech, gait not observed. PSYCH: Normal mood, normal affect. SKIN: Warm, dry, normal turgor, no rashes or lesions noted Laboratory Results - last 24 hr 01/02/20 01/03/20 01/03/20 12:00 06:38 06:38 WBC 3.9 L RBC 3.40 L Hgb 10.9 L Hct 33.5 L MCV 98.6 H MCH 32.0 MCHC 32.4 RDW 14.9 Plt Count 182 MPV 8.7 Sodium 140 Potassium 4.5 Chloride 108 H Carbon Dioxide 28 Anion Gap 4 L BUN 15.6 Creatinine 1.0 Est GFR (CKD-EPI)AfAm 83.18 Est GFR (CKD-EPI)NonAf 71.77 Random Glucose 93 Calcium 8.9 Phosphorus 3.4 Magnesium 1.9 Total Bilirubin 0.4 AST 17 ALT 21 Alkaline Phosphatase 72 Total Protein 5.9 L Albumin 3.0 L TSH 0.80 D COVID-19 (YANNICK) Not detected Active Medications Generic Name Dose Route Start Last Admin Trade Name Freq PRN Reason Stop Dose Admin Acetaminophen 650 mg 01/02/20 22:01 01/03/20 21:47 Tylenol - PO 650 mg Q6H PRN Administration PAIN LEVEL 4 - 6 Budesonide/Formoterol Fumarate 2 puff 01/02/20 22:00 01/03/20 21:48 Symbicort 160/4.5mcg - IH 2 puff BID BRANDY Administration Cefazolin Sodium 1 gm/ 50 mls @ 100 mls/hr 01/02/20 22:00 01/03/20 21:46 Dextrose IVPB 100 mls/hr Q8H BRANDY Administration Non-Formulary Medication 2 inh 01/02/20 22:00 Ipratropium/Albuterol Sulfate IN BID BRANDY Rivaroxaban 15 mg 01/02/20 22:00 01/03/20 21:46 Xarelto PO 15 mg BID BRANDY Administration Tamsulosin HCl 0.4 mg 01/03/20 10:00 01/03/20 10:00 Flomax - PO 0.4 mg DAILY BRANDY Administration Tramadol HCl 50 mg 01/02/20 22:01 01/03/20 16:56 Ultram - PO 50 mg Q8H PRN Administration PAIN LEVEL 7 - 10 ASSESSMENT/PLAN: 79 year old male patient with past medical history of COPD on 2 lpm home oxygen, History of DVT in LLE, BPH, who presented to the ED with significant pain from his left 1st toe. 1. Cellulitis of Left 1st toe with ulcer vs cancer - The patient is taking Cefazolin - ID, Podiatry, and Vascular surgery consulted - WBC 3.9 - Temp 98.0F - Blood cultures pending 2. Possible avascular necrosis of right 5th toe secondary to Peripheral Artery Disease - right 5th toe looks significantly gucci than the other toes - Vascular surgery consulted 3. Macrocytosis - MCV 98.6 - Vitamin B12 and Folate Labs 4. BPH - The patient is taking Tamsulosin 5. COPD on 2 lpm home oxygen - The patient is taking Ipratropium/Albuterol and Symbicort DVT PPx - Xarelto Visit type - Emergency Visit Emergency Visit: Yes ED Registration Date: 01/02/20 Care time: The patient presented to the Emergency Department on the above date and was hospitalized for further evaluation of their emergent condition. - New Patient This patient is new to me today: Yes Date on this admission: 01/04/20 - Critical Care Critical Care patient: No - Discharge Referral Referred to [facility] No ATTENDING PHYSICIAN STATEMENT I saw and evaluated the patient. I reviewed the resident's note and discussed the case with the resident. I agree with the resident's findings and plan as documented. SUBJECTIVE: OBJECTIVE: ASSESSMENT AND PLAN:
[2020-01-04] MEDS ORDERED: ceFAZolin SODIUM 1 GM VIAL ONE ×3 (06:17→21:20)
[2020-01-04] MEDS ORDERED: DEXTROSE 5%-WATER - 50 ML IVPB ONE ×3 (06:18→21:20)
[2020-01-04] MEDS: CEFAZOLIN 1 GM in DEXTROSE 5%-WATER - 50 ML IVPB SCH ×3 (06:54→21:43)
[2020-01-04 09:06] LABS: HEMATOCRIT 36.7 % (35.4-49); HEMOGLOBIN 11.9 GM/dL (11.7-16.9); MCHC 32.4 g/dl (32.0-35.9); MEAN CELL VOLUME 98.7 fl (80-96); MEAN PLT VOLUME 9.4 fl (7.5-11.1); PLATELET COUNT 202 K/MM3 (134-434); RBC 3.72 M/mm3 (4.00-5.60); WHITE BLOOD COUNT 4.4 K/mm3 (4.0-10.0)
[2020-01-04] MEDS: RIVAROXABAN 15 MG TABLET PO SCH ×2 (09:06→21:43)
[2020-01-04] MEDS: traMADol HCL 50 MG TABLET PO PRN ×2 (09:06→17:01)
[2020-01-04] MEDS: TAMSULOSIN HCL 0.4 MG CAP PO SCH (09:06)
[2020-01-04] MEDS: BUDESONIDE/FORMETEROL FUMARATE 160/4.5 mcg INHALER IH SCH ×2 (09:08→21:43)
[2020-01-04 09:34] LABS: PHOSPHOROUS 3.4 mg/dL (2.5-4.9)
[2020-01-04 11:10] LABS: BLOOD UREA NITROGEN 13.2 mg/dL (7-18); CALCIUM 9.2 mg/dL (8.5-10.1); CREATININE 1.1 mg/dL (0.55-1.3); POTASSIUM 4.3 mmol/L (3.5-5.1)
[2020-01-04] MEDS: ACETAMINOPHEN 325 MG TABLET (FP) PO PRN ×2 (11:31→20:14)
--- NOTE | 2020-01-04 15:44 | PN ---
Progress Note (short form) - Note Progress Note: SUBJECTIVE: Some improvement in L great toe discomfort. Ongoing discoloration R 5th toe. No fever/chills. OBJECTIVE: Afebrile, Hemodynamically Stable. Last Vital Signs Temp Pulse Resp BP Pulse Ox 97.8 F 73 18 107/65 100 01/04/20 12:00 01/04/20 12:00 01/04/20 12:00 01/04/20 12:00 01/04/20 12:00 Heart - S1, S2, RRR Lungs - clear to auscultation Abdomen - Soft, non-tender. Bowel Sounds normal. Extremities - Small L Great Toe nail bed ulcer with surrounding erythema/tenderness. R 5th toe discoloration. Extremities cool, weak pulses. Neuro - AAO x 3. Tone/Power normal. Laboratory Results - last 24 hr 01/02/20 01/04/20 01/04/20 12:00 07:03 07:03 WBC 4.4 RBC 3.72 L Hgb 11.9 Hct 36.7 MCV 98.7 H MCH 32.0 MCHC 32.4 RDW 15.0 Plt Count 202 MPV 9.4 Sodium 139 Potassium 4.3 Chloride 105 Carbon Dioxide 29 Anion Gap 5 L BUN 13.2 Creatinine 1.1 Est GFR (CKD-EPI)AfAm 74.13 Est GFR (CKD-EPI)NonAf 63.96 POC Glucometer Random Glucose 92 Calcium 9.2 Phosphorus 3.4 Magnesium 2.0 Vitamin B12 360 COVID-19 (YANNICK) Not detected 01/04/20 10:49 WBC RBC Hgb Hct MCV MCH MCHC RDW Plt Count MPV Sodium Potassium Chloride Carbon Dioxide Anion Gap BUN Creatinine Est GFR (CKD-EPI)AfAm Est GFR (CKD-EPI)NonAf POC Glucometer 136 Random Glucose Calcium Phosphorus Magnesium Vitamin B12 COVID-19 (YANNICK) Current Medications Generic Name Dose Route Start Last Admin Trade Name Freq PRN Reason Stop Dose Admin Acetaminophen 650 mg 01/02/20 22:01 01/04/20 11:31 Tylenol - PO 650 mg Q6H PRN Administration PAIN LEVEL 4 - 6 Budesonide/Formoterol Fumarate 2 puff 01/02/20 22:00 01/04/20 09:08 Symbicort 160/4.5mcg - IH 2 puff BID BRANDY Administration Cefazolin Sodium 1 gm/ 50 mls @ 100 mls/hr 01/02/20 22:00 01/04/20 13:52 Dextrose IVPB 100 mls/hr Q8H BRANDY Administration Non-Formulary Medication 2 inh 01/02/20 22:00 Ipratropium/Albuterol Sulfate IN BID BRANDY Rivaroxaban 15 mg 01/02/20 22:00 01/04/20 09:06 Xarelto PO 15 mg BID BRANDY Administration Tamsulosin HCl 0.4 mg 01/03/20 10:00 01/04/20 09:06 Flomax - PO 0.4 mg DAILY BRANDY Administration Tramadol HCl 50 mg 01/02/20 22:01 01/04/20 09:06 Ultram - PO 50 mg Q8H PRN Administration PAIN LEVEL 7 - 10 Home Medications Medication Instructions Recorded Budesonide/Formeterol Fumarate 1 inh PO BID 05/29/19 [SYMBICORT 160/4.5mcg -] Rivaroxaban [Xarelto] 1 tab PO BID 05/29/19 Ipratropium/Albuterol Sulfate 2 inh IN BID 01/02/20 [Combivent Respimat 20-100 Mcg] Tamsulosin HCl 0.4 mg PO DAILY 01/02/20 Tiotropium [place] [Spiriva 1 inh IN BID 01/02/20 Respimat] ASSESSMENT AND PLAN: 79 year old male with history of CRF sec to COPD (on 2L home O2), Hx LLE DVT (on Xarelto), remote Hx Colorectal Ca, BPH, presented with L great toe pain/ulcer/tenderness, referred to ED by Podiatry if no improvement on Augmentin. 1. Acute Cellulitis L Great toe (associated with nailbed ulcer) No acute findings on Foot Xray Blood Cx negative Afebrile Seen by ID - recommend continuing Cefazolin Seen by Podiatry - recommend no intervention/Vascular evaluation/possible HBOT. 2. PAD Bilateral foot coolness and R 5th toe discoloration - Arterial Duplex LEs shows decreased biphasic flow. Discussed with Dr. Valdez (Vascular Surgery) - recommend CTA Aorta with runoff, requested. 3. Hx LLE DVT - on Xarelto. Resumed. 4. CRF sec to COPD on 2L O2 No evidence of acute exacerbation Continue Spiriva, Synbicort, DuoNebs PRN. 5. BPH - continue Tamsulosin. 6. Mild Macrocytosis - B12 borderline at 360. Supplemented. Folate requested. DVT Px - Xarelto. Visit type - Emergency Visit Emergency Visit: Yes ED Registration Date: 01/02/20 Care time: The patient presented to the Emergency Department on the above date and was hospitalized for further evaluation of their emergent condition. - New Patient This patient is new to me today: No - Critical Care Critical Care patient: No - Discharge Referral Referred to [facility] No
--- NOTE | 2020-01-04 21:27 | PN ---
Progress Note, Physician History of Present Illness: Pt is alert, afebrile. Without new complaints. Has toe pain but less swelling. - Current Medication List Current Medications: Active Medications Acetaminophen (Tylenol -) 650 mg PO Q6H PRN PRN Reason: PAIN LEVEL 4 - 6 Last Admin: 01/04/20 20:14 Dose: 650 mg Documented by: Budesonide/Formoterol Fumarate (Symbicort 160/4.5mcg -) 2 puff IH BID [facility] Last Admin: 01/04/20 09:08 Dose: 2 puff Documented by: Cyanocobalamin (Vitamin B12 -) 1,000 mcg PO DAILY [facility] Cefazolin Sodium 1 gm/ (Dextrose) 50 mls @ 100 mls/hr IVPB Q8H [facility] Last Admin: 01/04/20 13:52 Dose: 100 mls/hr Documented by: Non-Formulary Medication (Ipratropium/Albuterol Sulfate) 2 inh IN BID [facility] Rivaroxaban (Xarelto) 15 mg PO BID [facility] Last Admin: 01/04/20 09:06 Dose: 15 mg Documented by: Tamsulosin HCl (Flomax -) 0.4 mg PO DAILY [facility] Last Admin: 01/04/20 09:06 Dose: 0.4 mg Documented by: Tramadol HCl (Ultram -) 50 mg PO Q8H PRN PRN Reason: PAIN LEVEL 7 - 10 Last Admin: 01/04/20 17:01 Dose: 50 mg Documented by: - Objective Vital Signs: Vital Signs Temperature 98.5 F 01/04/20 17:53 Pulse Rate 74 01/04/20 17:53 Respiratory Rate 20 01/04/20 17:53 Blood Pressure 112/65 01/04/20 17:53 O2 Sat by Pulse Oximetry (%) 100 01/04/20 12:00 Constitutional: Yes: No Distress, Calm Cardiovascular: Yes: Regular Rate and Rhythm Respiratory: Yes: Regular Gastrointestinal: Yes: Normal Bowel Sounds, Soft Wound/Incision: Yes: Other (Lt 1st toe less swollen/no erythema, no d/c Rt 5th toe dark b/l feet cool to touch) Neurological: Yes: Alert, Oriented Labs: CBC, BMP 01/04/20 07:03 01/04/20 07:03 INR, PTT INR 2.04 (0.83-1.09) H 01/02/20 09:46 Laboratory Last Values WBC 4.4 K/mm3 (4.0-10.0) 01/04/20 07:03 RBC 3.72 M/mm3 (4.00-5.60) L 01/04/20 07:03 Hgb 11.9 GM/dL (11.7-16.9) 01/04/20 07:03 Hct 36.7 % (35.4-49) 01/04/20 07:03 MCV 98.7 fl (80-96) H 01/04/20 07:03 MCH 32.0 pg (25.7-33.7) 01/04/20 07:03 MCHC 32.4 g/dl (32.0-35.9) 01/04/20 07:03 RDW 15.0 % (11.9-15.9) 01/04/20 07:03 Plt Count 202 K/MM3 (134-434) 01/04/20 07:03 MPV 9.4 fl (7.5-11.1) 01/04/20 07:03 Absolute Neuts (auto) 1.7 K/mm3 (1.5-8.0) 01/02/20 09:46 Neutrophils % 52.6 % (42.8-82.8) D 01/02/20 09:46 Lymphocytes % 31.6 % (8-40) D 01/02/20 09:46 Monocytes % 7.8 % (3.8-10.2) D 01/02/20 09:46 Eosinophils % 6.8 % (0-4.5) H D 01/02/20 09:46 Basophils % 1.2 % (0-2.0) 01/02/20 09:46 Nucleated RBC % 0 % (0-0) 01/02/20 09:46 ESR 67 mm/hr (0-20) H 01/02/20 09:46 PT with INR 24.20 SEC (9.7-13.0) H 01/02/20 09:46 INR 2.04 (0.83-1.09) H 01/02/20 09:46 PTT (Actin FS) 44.7 SECONDS (25.2-36.5) H 01/02/20 09:46 Sodium 139 mmol/L (136-145) 01/04/20 07:03 Potassium 4.3 mmol/L (3.5-5.1) 01/04/20 07:03 Chloride 105 mmol/L (98-107) 01/04/20 07:03 Carbon Dioxide 29 mmol/L (21-32) 01/04/20 07:03 Anion Gap 5 MMOL/L (8-16) L 01/04/20 07:03 BUN 13.2 mg/dL (7-18) 01/04/20 07:03 Creatinine 1.1 mg/dL (0.55-1.3) 01/04/20 07:03 Est GFR (CKD-EPI)AfAm 74.13 01/04/20 07:03 Est GFR (CKD-EPI)NonAf 63.96 01/04/20 07:03 POC Glucometer 136 UNITS (80-120) 01/04/20 10:49 Random Glucose 92 mg/dL (74-106) 01/04/20 07:03 Calcium 9.2 mg/dL (8.5-10.1) 01/04/20 07:03 Phosphorus 3.4 mg/dL (2.5-4.9) 01/04/20 07:03 Magnesium 2.0 mg/dL (1.8-2.4) 01/04/20 07:03 Total Bilirubin 0.4 mg/dL (0.2-1) 01/03/20 06:38 AST 17 U/L (15-37) 01/03/20 06:38 ALT 21 U/L (13-61) 01/03/20 06:38 Alkaline Phosphatase 72 U/L (45-117) 01/03/20 06:38 Troponin I < 0.02 ng/ml (0.00-0.05) 01/02/20 09:46 C-Reactive Protein 0.5 MG/DL (0.00-0.3) H 01/02/20 09:46 Total Protein 5.9 g/dl (6.4-8.2) L 01/03/20 06:38 Albumin 3.0 g/dl (3.4-5.0) L 01/03/20 06:38 Vitamin B12 360 pg/ml (193-986) 01/04/20 07:03 TSH 0.80 uIU/ml (0.358-3.74) D 01/03/20 06:38 COVID-19 (YANNICK) Not detected (Not Detected) 01/02/20 12:00 Microbiology 01/02/20 09:46 Blood - Peripheral Venous Blood Culture - Preliminary NO GROWTH OBTAINED AFTER 48 HOURS, INCUBATION TO CONTINUE FOR 3 DAYS. 01/02/20 09:46 Blood - Peripheral Venous Blood Culture - Preliminary NO GROWTH OBTAINED AFTER 48 HOURS, INCUBATION TO CONTINUE FOR 3 DAYS. - ....Imaging Other: Pending Assessment/Plan Lt toe pain/ swelling/cellulitis PAD - toes on feet tender/cool to touch COPD Ex-Smoker BPH Hx of Colon CA s/p resection -- cont. Cefazolin, plan switch to PO antibiotics if continues to improve -- CTA done- f/u results -- Vascular following
[2020-01-05] MEDS: traMADol HCL 50 MG TABLET PO PRN ×3 (04:18→22:33)
[2020-01-05] MEDS ORDERED: DEXTROSE 5%-WATER - 50 ML IVPB ONE ×3 (06:33→21:14)
[2020-01-05] MEDS ORDERED: ceFAZolin SODIUM 1 GM VIAL ONE ×3 (06:33→21:13)
[2020-01-05] MEDS: CEFAZOLIN 1 GM in DEXTROSE 5%-WATER - 50 ML IVPB SCH ×3 (06:53→22:34)
[2020-01-05] MEDS: RIVAROXABAN 15 MG TABLET PO SCH ×2 (09:31→22:34)
[2020-01-05] MEDS: CYANOCOBALAMIN 1,000 MCG TABLET (FP) PO SCH (09:32)
[2020-01-05] MEDS: ACETAMINOPHEN 325 MG TABLET (FP) PO PRN (09:32)
[2020-01-05] MEDS: TAMSULOSIN HCL 0.4 MG CAP PO SCH (09:32)
[2020-01-05] MEDS: BUDESONIDE/FORMETEROL FUMARATE 160/4.5 mcg INHALER IH SCH ×2 (09:38→22:34)
--- NOTE | 2020-01-05 10:55 | PN ---
Progress Note, Physician History of Present Illness: patient doing well leg looking better - Current Medication List Current Medications: Active Medications Acetaminophen (Tylenol -) 650 mg PO Q6H PRN PRN Reason: PAIN LEVEL 4 - 6 Last Admin: 01/05/20 09:32 Dose: 650 mg Documented by: Budesonide/Formoterol Fumarate (Symbicort 160/4.5mcg -) 2 puff IH BID [facility] Last Admin: 01/05/20 09:38 Dose: 2 puff Documented by: Cyanocobalamin (Vitamin B12 -) 1,000 mcg PO DAILY [facility] Last Admin: 01/05/20 09:32 Dose: 1,000 mcg Documented by: Cefazolin Sodium 1 gm/ (Dextrose) 50 mls @ 100 mls/hr IVPB Q8H [facility] Last Admin: 01/05/20 06:53 Dose: 100 mls/hr Documented by: Non-Formulary Medication (Ipratropium/Albuterol Sulfate) 2 inh IN BID [facility] Rivaroxaban (Xarelto) 15 mg PO BID [facility] Last Admin: 01/05/20 09:31 Dose: 15 mg Documented by: Tamsulosin HCl (Flomax -) 0.4 mg PO DAILY [facility] Last Admin: 01/05/20 09:32 Dose: 0.4 mg Documented by: Tramadol HCl (Ultram -) 50 mg PO Q8H PRN PRN Reason: PAIN LEVEL 7 - 10 Last Admin: 01/05/20 04:18 Dose: 50 mg Documented by: - Objective Vital Signs: Vital Signs Temperature 98.5 F 01/05/20 09:00 Pulse Rate 76 01/05/20 09:00 Respiratory Rate 20 01/05/20 09:00 Blood Pressure 112/75 01/05/20 09:00 O2 Sat by Pulse Oximetry (%) 100 01/05/20 09:00 Constitutional: Yes: No Distress, Calm Cardiovascular: Yes: S1, S2 Respiratory: Yes: Regular, CTA Bilaterally Gastrointestinal: Yes: Normal Bowel Sounds, Soft Musculoskeletal: Yes: WNL Extremities: Yes: Erythema (improved), Other ((Lt 1st toe less swollen/no erythema, no d/c Rt 5th toe dark b/l feet cool to touch)) Wound/Incision: Yes: Clean/Dry Neurological: Yes: Alert, Oriented Psychiatric: Yes: Alert, Oriented Labs: CBC, BMP 01/04/20 07:03 01/04/20 07:03 INR, PTT INR 2.04 (0.83-1.09) H 01/02/20 09:46 Assessment/Plan Assessment/Plan Lt toe pain/ swelling/cellulitis PAD - toes on feet tender/cool to touch COPD Ex-Smoker BPH Hx of Colon CA s/p resection vascular has seen the patient if cleared from vascular can switch to oral augmentin for 5 ralf days 500 mg po bid
--- NOTE | 2020-01-05 12:54 | PN ---
Progress Note (short form) - Note Progress Note: Vascular Surgery Pt seen and examined. Cellulitis of left great toe getting better. pt has palpable pulses in both feet. CTA shows mild disease in both legs. Pt can follow up in vascular clinic. No need for any intervention right now. Van Valdez DO
[2020-01-05 13:17] LABS: HEMATOCRIT 37.4 % (35.4-49); HEMOGLOBIN 12.2 GM/dL (11.7-16.9); MCH 32.4 pg (25.7-33.7); MCHC 32.6 g/dl (32.0-35.9); MEAN CELL VOLUME 99.4 fl (80-96); MEAN PLT VOLUME 8.5 fl (7.5-11.1); PLATELET COUNT 220 K/MM3 (134-434); RBC 3.76 M/mm3 (4.00-5.60); WHITE BLOOD COUNT 4.7 K/mm3 (4.0-10.0)
[2020-01-05 14:01] LABS: BLOOD UREA NITROGEN 17.7 mg/dL (7-18); CALCIUM 9.7 mg/dL (8.5-10.1); PHOSPHOROUS 3.6 mg/dL (2.5-4.9); POTASSIUM 3.8 mmol/L (3.5-5.1)
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
--- NOTE | 2020-01-05 16:58 | ECHO ---
Version: 1 Name: GEOFFREY GARCÍA Exam: Adult Echocardiogram Study Date: 01/05/2020, 4:09 PM Age: 79 Years MMode/2D Measurements & Calculations IVSd: 1.14 cm LVIDs: 2.6 cm LVIDd: 3.9 cm LVPWd: 1.17 cm LVOT diam: 1.83 cm Ao root diam: 2.21 cm LA dimension: 3.1 cm Doppler Measurements & Calculations TR max dagmar: 209.6 cm/sec TR max P.6 mmHg Left Ventricle The left ventricle is not well visualized. The left ventricle is normal in size. The left ventricula r ejection fraction is normal. Ejection Fraction = 60-65%. Right Ventricle The right ventricle is not well visualized. The right ventricular systolic function is normal. Atria The left atrium is not well visualized. Right atrium not well visualized. Mitral Valve The mitral valve is not well visualized. Tricuspid Valve The tricuspid valve is not well visualized. Aortic Valve The aortic valve is not well visualized. Great Vessels The aortic root is not well visualized. Tech Comments TDS and limited study. Patient very thin. All views obtained from subcostal position. Summary Statements Technically limited. Only subcostal views Grossly normal LV systolic function.RV likely normal function, Nodular calcification of AV. Myla Quintanilla 01/05/2020, 4:57 PM Ordering Physician: Chance Maldonado Referring Physician: CHANCE MALDONADO Performed By: Dafne Cespedes
--- NOTE | 2020-01-05 18:09 | PN ---
Physical Exam: SUBJECTIVE: Patient seen and examined at bedside. The patient reports that his whole foot hurts. He denies chest pain, palpitations, shortness of breath, or abdominal pain. The left 1st big toe and right 5th toe does not appear significantly better or worse compared to yesterday. OBJECTIVE: Vital Signs Period Temp Pulse Resp BP Sys/Valdes Pulse Ox Last 24 Hr 98.3 F-98.5 F 76-95 20-20 98-151/61-96 96-100 GENERAL: The patient is awake, alert, and fully oriented, in no acute distress. HEAD: Normal with no signs of trauma. EYES: Extraocular movements intact. No ptosis. ENT: Ears normal, nares patent, oropharynx clear without exudates, moist mucous membranes. NECK: Trachea midline, full range of motion, supple. LUNGS: Breath sounds equal, clear to auscultation bilaterally, no wheezes, no crackles, no accessory muscle use. HEART: Regular rate and rhythm, S1, S2 without murmur, rub or gallop. ABDOMEN: Soft, nontender, nondistended, normoactive bowel sounds, no guarding, no rebound, no masses. EXTREMITIES: weak but palpable pulses in both feet, warm, well-perfused, no edema. NEUROLOGICAL: Normal speech, gait not observed. PSYCH: Normal mood, normal affect. SKIN: Warm, dry, normal turgor, no rashes or lesions noted Laboratory Results - last 24 hr 01/05/20 01/05/20 13:05 13:05 WBC 4.7 RBC 3.76 L Hgb 12.2 Hct 37.4 MCV 99.4 H MCH 32.4 MCHC 32.6 RDW 16.0 H Plt Count 220 MPV 8.5 Sodium 140 Potassium 3.8 Chloride 102 Carbon Dioxide 33 H Anion Gap 5 L BUN 17.7 Creatinine 1.0 Est GFR (CKD-EPI)AfAm 83.18 Est GFR (CKD-EPI)NonAf 71.77 Random Glucose 102 Calcium 9.7 Phosphorus 3.6 Magnesium 2.0 Serum Folate 9 Active Medications Generic Name Dose Route Start Last Admin Trade Name Freq PRN Reason Stop Dose Admin Acetaminophen 650 mg 01/02/20 22:01 01/05/20 09:32 Tylenol - PO 650 mg Q6H PRN Administration PAIN LEVEL 4 - 6 Budesonide/Formoterol Fumarate 2 puff 01/02/20 22:00 01/05/20 09:38 Symbicort 160/4.5mcg - IH 2 puff BID BRANDY Administration Cyanocobalamin 1,000 mcg 01/05/20 10:00 01/05/20 09:32 Vitamin B12 - PO 1,000 mcg DAILY BRANDY Administration Cefazolin Sodium 1 gm/ 50 mls @ 100 mls/hr 01/02/20 22:00 01/05/20 14:06 Dextrose IVPB 100 mls/hr Q8H BRANDY Administration Non-Formulary Medication 2 inh 01/02/20 22:00 Ipratropium/Albuterol Sulfate IN BID BRANDY Rivaroxaban 15 mg 01/02/20 22:00 01/05/20 09:31 Xarelto PO 15 mg BID BRANDY Administration Tamsulosin HCl 0.4 mg 01/03/20 10:00 01/05/20 09:32 Flomax - PO 0.4 mg DAILY BRANDY Administration Tramadol HCl 50 mg 01/02/20 22:01 01/05/20 14:32 Ultram - PO 50 mg Q8H PRN Administration PAIN LEVEL 7 - 10 ASSESSMENT/PLAN: 79 year old male patient with past medical history of COPD on 2 lpm home oxygen, History of DVT in LLE, BPH, who presented to the ED with significant pain from his left 1st toe. 1. Cellulitis of Left 1st toe with ulcer vs cancer - The patient is taking Cefazolin - WBC 4.7 - Temp 98.5F - Blood cultures pending but still show no growth - Vascular recommended no intervention right now. 2. 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 Cardiology responded will follow up with TTE, but no further plan for inpatient intervention. - The patient is already on Xarelto for a DVT. - Vascular recommended no intervention right now. 3. Macrocytosis - MCV 98.6 - Vitamin B12 normal at 360 - Folate Labs normal at 9 4. BPH - The patient is taking Tamsulosin 5. COPD on 2 lpm home oxygen - The patient is taking Ipratropium/Albuterol and Symbicort DVT PPx - Xarelto Visit type - Emergency Visit Emergency Visit: Yes ED Registration Date: 01/02/20 Care time: The patient presented to the Emergency Department on the above date and was hospitalized for further evaluation of their emergent condition. - New Patient This patient is new to me today: No - Critical Care Critical Care patient: No - Discharge Referral Referred to [facility] Med P.C.: No - Medication Review Med list reviewed for High Risk Meds patients 65 and older: Yes ATTENDING PHYSICIAN STATEMENT I saw and evaluated the patient. I reviewed the resident's note and discussed the case with the resident. I agree with the resident's findings and plan as documented. SUBJECTIVE: OBJECTIVE: ASSESSMENT AND PLAN:
--- NOTE | 2020-01-05 18:31 | PN ---
Teaching Attending Note Name of Resident: Jay Jovel ATTENDING PHYSICIAN STATEMENT I saw and evaluated the patient. I reviewed the resident's note and discussed the case with the resident. I agree with the resident's findings and plan as documented. SUBJECTIVE: Some improvement in L great toe discomfort. Ongoing discoloration R 5th toe. No fever/chills. No CP/palpitations OBJECTIVE: Afebrile, Hemodynamically Stable. Cachectic.Muscle wasting. Last Vital Signs Temp Pulse Resp BP Pulse Ox 98.5 F 95 H 20 151/96 96 01/05/20 17:45 01/05/20 17:45 01/05/20 17:45 01/05/20 17:45 01/05/20 17:45 Heart - S1, S2, RRR Lungs - clear to auscultation Abdomen - Soft, non-tender. Bowel Sounds normal. Extremities - Small L Great Toe nail bed ulcer with surrounding erythema/tenderness. R 5th toe discoloration. Extremities cool, weak pulses. Neuro - AAO x 3. Tone/Power normal. Laboratory Results - last 24 hr 01/05/20 01/05/20 13:05 13:05 WBC 4.7 RBC 3.76 L Hgb 12.2 Hct 37.4 MCV 99.4 H MCH 32.4 MCHC 32.6 RDW 16.0 H Plt Count 220 MPV 8.5 Sodium 140 Potassium 3.8 Chloride 102 Carbon Dioxide 33 H Anion Gap 5 L BUN 17.7 Creatinine 1.0 Est GFR (CKD-EPI)AfAm 83.18 Est GFR (CKD-EPI)NonAf 71.77 Random Glucose 102 Calcium 9.7 Phosphorus 3.6 Magnesium 2.0 Serum Folate 9 Current Medications Generic Name Dose Route Start Last Admin Trade Name Freq PRN Reason Stop Dose Admin Acetaminophen 650 mg 01/02/20 22:01 01/05/20 09:32 Tylenol - PO 650 mg Q6H PRN Administration PAIN LEVEL 4 - 6 Budesonide/Formoterol Fumarate 2 puff 01/02/20 22:00 01/05/20 09:38 Symbicort 160/4.5mcg - IH 2 puff BID BRANDY Administration Cyanocobalamin 1,000 mcg 01/05/20 10:00 01/05/20 09:32 Vitamin B12 - PO 1,000 mcg DAILY BRANDY Administration Cefazolin Sodium 1 gm/ 50 mls @ 100 mls/hr 01/02/20 22:00 01/05/20 14:06 Dextrose IVPB 100 mls/hr Q8H BRANDY Administration Non-Formulary Medication 2 inh 01/02/20 22:00 Ipratropium/Albuterol Sulfate IN BID BRANDY Rivaroxaban 15 mg 01/02/20 22:00 01/05/20 09:31 Xarelto PO 15 mg BID BRANDY Administration Tamsulosin HCl 0.4 mg 01/03/20 10:00 01/05/20 09:32 Flomax - PO 0.4 mg DAILY BRANDY Administration Tramadol HCl 50 mg 01/02/20 22:01 01/05/20 14:32 Ultram - PO 50 mg Q8H PRN Administration PAIN LEVEL 7 - 10 Home Medications Medication Instructions Recorded Budesonide/Formeterol Fumarate 1 inh PO BID 05/29/19 [SYMBICORT 160/4.5mcg -] Rivaroxaban [Xarelto] 1 tab PO BID 05/29/19 Ipratropium/Albuterol Sulfate 2 inh IN BID 01/02/20 [Combivent Respimat 20-100 Mcg] Tamsulosin HCl 0.4 mg PO DAILY 01/02/20 Tiotropium [place] [Spiriva 1 inh IN BID 01/02/20 Respimat] Cefpodoxime Proxetil [Vantin -] 200 mg PO BID 7 Days #14 tablet 01/05/20 ASSESSMENT AND PLAN: 79 year old male with history of 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 1. Acute Cellulitis L Great toe (associated with nailbed ulcer) No acute findings on Foot Xray Blood Cx negative Afebrile Seen by ID - recommend transitioning from Cefazolin to Augmentin 500mg BID on discharge for 5 additional days. Seen by Podiatry - recommend no intervention/Vascular evaluation/possible HBOT. Seen by Vascular Surgery - recommend out-patient follow up at Vascular Clinic. 2. PAD Bilateral foot coolness and R 5th toe discoloration - Arterial Duplex LEs shows decreased biphasic flow. CTA wth Runoff shows moderate diffuse atherosclerosis, 3.5cm distal AAA, focal stenosis celiac trunk, Hepatic Steatosis, Dilated Pancreatic Duct, Multifocal mild stenosis bilateral LEs. Discussed with Dr. Valdez (Vascular Surgery) - recommend no immediate intervention, for out-patient follow up. Awaiting Echo to exclude LV thrombus as source of emboli to R 5th toe causing discoloration. Continue Eliquis Cardiology consulted for eval regarding possibility of cardiac origin of emboli. Discharge pending Echo and Cardio eval. 3. Hx LLE DVT - on Xarelto. 4. CRF sec to COPD on 2L O2 No evidence of acute exacerbation Continue Spiriva, Synbicort, DuoNebs PRN. 5. BPH - continue Tamsulosin. 6. Mild Macrocytosis - B12 borderline at 360 - Supplemented. 7. 3.5cm distal AAA, incidental finding on CT - for out-patient Vascular sx follow up. 8. Dilated Pancreatic Duct. Asymptomatic. LFTs ok. For out-patient GI referral. 9. Moderate Protein Calorie Malnutrition - low BMI, cachectic. Recommend Ensure supplementation. DVT Px - Xarelto.
[2020-01-05] MEDS ORDERED: TIOTROPIUM BROMIDE 2.5 MCG (SPIRIVA) RESPIMAT INHALER IH ONE (21:31)
[2020-01-06] MEDS: ACETAMINOPHEN 325 MG TABLET (FP) PO PRN ×2 (03:35→14:54)
[2020-01-06] MEDS ORDERED: DEXTROSE 5%-WATER - 50 ML IVPB ONE ×2 (05:29→14:51)
[2020-01-06] MEDS ORDERED: ceFAZolin SODIUM 1 GM VIAL ONE ×2 (05:29→14:51)
[2020-01-06] MEDS: CEFAZOLIN 1 GM in DEXTROSE 5%-WATER - 50 ML IVPB SCH ×2 (05:48→14:53)
[2020-01-06] MEDS: traMADol HCL 50 MG TABLET PO PRN (08:15)
[2020-01-06 08:18] VITALS: TEMP 98.2
[2020-01-06 08:49] LABS: HEMATOCRIT 34.2 % (35.4-49); HEMOGLOBIN 11.3 GM/dL (11.7-16.9); MCH 32.9 pg (25.7-33.7); MEAN CELL VOLUME 99.8 fl (80-96); PLATELET COUNT 191 K/MM3 (134-434); RBC 3.42 M/mm3 (4.00-5.60); RDW 15.3 % (11.9-15.9); WHITE BLOOD COUNT 3.7 K/mm3 (4.0-10.0)
[2020-01-06 09:22] LABS: BLOOD UREA NITROGEN 16.3 mg/dL (7-18); CALCIUM 9.3 mg/dL (8.5-10.1); POTASSIUM 4.2 mmol/L (3.5-5.1)
[2020-01-06] MEDS: CYANOCOBALAMIN 1,000 MCG TABLET (FP) PO SCH (09:52)
[2020-01-06] MEDS: RIVAROXABAN 15 MG TABLET PO SCH (09:52)
[2020-01-06] MEDS: TAMSULOSIN HCL 0.4 MG CAP PO SCH (09:52)
[2020-01-06] MEDS: BUDESONIDE/FORMETEROL FUMARATE 160/4.5 mcg INHALER IH SCH (09:53)
--- NOTE | 2020-01-06 10:21 | PN ---
Progress Note, Physician History of Present Illness: pt seen and examined today in nad. no overnight events. no new complaints. cont discomfort LLE. No pain or numbness RLE - Current Medication List Current Medications: Active Medications Acetaminophen (Tylenol -) 650 mg PO Q6H PRN PRN Reason: PAIN LEVEL 4 - 6 Last Admin: 01/06/20 03:35 Dose: 650 mg Documented by: Budesonide/Formoterol Fumarate (Symbicort 160/4.5mcg -) 2 puff IH BID [facility] Last Admin: 01/06/20 09:53 Dose: 2 puff Documented by: Cyanocobalamin (Vitamin B12 -) 1,000 mcg PO DAILY [facility] Last Admin: 01/06/20 09:52 Dose: 1,000 mcg Documented by: Cefazolin Sodium 1 gm/ (Dextrose) 50 mls @ 100 mls/hr IVPB Q8H [facility] Last Admin: 01/06/20 05:48 Dose: 100 mls/hr Documented by: Non-Formulary Medication (Ipratropium/Albuterol Sulfate) 2 inh IN BID [facility] Rivaroxaban (Xarelto) 15 mg PO BID [facility] Last Admin: 01/06/20 09:52 Dose: 15 mg Documented by: Tamsulosin HCl (Flomax -) 0.4 mg PO DAILY [facility] Last Admin: 01/06/20 09:52 Dose: 0.4 mg Documented by: Tramadol HCl (Ultram -) 50 mg PO Q8H PRN PRN Reason: PAIN LEVEL 7 - 10 Last Admin: 01/06/20 08:15 Dose: 50 mg Documented by: - Objective Vital Signs: Vital Signs Temperature 98.2 F 01/06/20 08:17 Pulse Rate 76 01/06/20 08:17 Respiratory Rate 20 01/06/20 09:00 Blood Pressure 127/77 01/06/20 08:17 O2 Sat by Pulse Oximetry (%) 98 01/06/20 09:00 Constitutional: Yes: No Distress, Calm Eyes: Yes: Conjunctiva Clear, EOM Intact, PERRL HENT: Yes: Atraumatic, Normocephalic Neck: Yes: Supple, Trachea Midline Cardiovascular: Yes: Regular Rate and Rhythm, S1, S2. No: Bradycardia, Tachycardia, Pulse Irregular, Bruit, JVD, Gallop, Murmur, Rub, S3, S4, Varicosities Respiratory: Yes: Regular, CTA Bilaterally. No: Rales, Rhonchi, Wheezes Gastrointestinal: Yes: Normal Bowel Sounds, Soft. No: Distention, Tenderness Extremities: Yes: Cool Edema: No Peripheral Pulses WNL: No Neurological: Yes: Alert, Oriented Psychiatric: Yes: Alert, Oriented Labs: CBC, BMP 01/06/20 06:28 01/06/20 06:28 INR, PTT INR 2.04 (0.83-1.09) H 01/02/20 09:46 - ....Imaging Chest X-ray: Report Reviewed, Image Reviewed EKG: Report Reviewed, Image Reviewed Other: Report Reviewed, Image Reviewed Assessment/Plan 79 year old man with pmh COPD on home O2, LLE DVT on Xarelto, h/o colon cancer, bph admitted with LLE toe pain and ulcer treated for cellulitis. during admission noted to have discoloration and coolness of R 5th toe which raised suspicion of possible embolic events. 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 Vascular evaluated pt but felt no inpatient intervention was need. denies any history of arrhythmia. no chest pain or sob. no palpitations. PAD -concern raised for possible embolic events -CTA aorta noted with both soft and calcified plaque involving infrarenal aorta as well as thoracoabdominal aortic aneursym -if indeed an embolic event, more likely it is from this plaque than from an intracardiac thrombus -additionally pt is already on Xarelto for history of DVT -a [place] would be low yield as it would be unlikely to identify a thrombus and it would not change the treatment plan as pt is already on Xarelto -Vascular evaluation appreciated, no plan for further inpatient intervention -echo was TDS, grossly normal LV/RV -no additional inpatient cardiac work up is needed at this time.
--- NOTE | 2020-01-06 11:37 | PN ---
Progress Note, Physician History of Present Illness: stable main complaint leg pain says 01/25 - Current Medication List Current Medications: Active Medications Acetaminophen (Tylenol -) 650 mg PO Q6H PRN PRN Reason: PAIN LEVEL 4 - 6 Last Admin: 01/06/20 03:35 Dose: 650 mg Documented by: Budesonide/Formoterol Fumarate (Symbicort 160/4.5mcg -) 2 puff IH BID [facility] Last Admin: 01/06/20 09:53 Dose: 2 puff Documented by: Cyanocobalamin (Vitamin B12 -) 1,000 mcg PO DAILY [facility] Last Admin: 01/06/20 09:52 Dose: 1,000 mcg Documented by: Cefazolin Sodium 1 gm/ (Dextrose) 50 mls @ 100 mls/hr IVPB Q8H [facility] Last Admin: 01/06/20 05:48 Dose: 100 mls/hr Documented by: Non-Formulary Medication (Ipratropium/Albuterol Sulfate) 2 inh IN BID [facility] Rivaroxaban (Xarelto) 15 mg PO BID [facility] Last Admin: 01/06/20 09:52 Dose: 15 mg Documented by: Tamsulosin HCl (Flomax -) 0.4 mg PO DAILY [facility] Last Admin: 01/06/20 09:52 Dose: 0.4 mg Documented by: Tramadol HCl (Ultram -) 50 mg PO Q8H PRN PRN Reason: PAIN LEVEL 7 - 10 Last Admin: 01/06/20 08:15 Dose: 50 mg Documented by: - Objective Vital Signs: Vital Signs Temperature 98.2 F 01/06/20 08:17 Pulse Rate 76 01/06/20 08:17 Respiratory Rate 20 01/06/20 09:00 Blood Pressure 127/77 01/06/20 08:17 O2 Sat by Pulse Oximetry (%) 98 01/06/20 09:00 Constitutional: Yes: Calm, Mild Distress, Thin Cardiovascular: Yes: S1, S2 Respiratory: Yes: Regular, CTA Bilaterally Gastrointestinal: Yes: Normal Bowel Sounds, Soft Musculoskeletal: Yes: WNL Extremities: Yes: Other Wound/Incision: Yes: Other (cellulitis improving) Neurological: Yes: Alert, Oriented Psychiatric: Yes: Alert, Oriented Labs: CBC, BMP 01/06/20 06:28 01/06/20 06:28 INR, PTT INR 2.04 (0.83-1.09) H 01/02/20 09:46 Assessment/Plan Assessment/Plan Lt toe pain/ swelling/cellulitis PAD - toes on feet tender/cool to touch COPD Ex-Smoker BPH Hx of Colon CA s/p resection continue current mgmt abx as planned
--- NOTE | 2020-01-06 14:10 | PN ---
Teaching Attending Note Name of Resident: Everardo West ATTENDING PHYSICIAN STATEMENT I saw and evaluated the patient. I reviewed the resident's note and discussed the case with the resident. I agree with the resident's findings and plan as documented. SUBJECTIVE: Seen and examined at bedside. Patient reports pain in toe is greatly improved. Patient is able to walk. Be switched to Augmentin 500 mg twice daily for an additional 5 days of treatment. Patient can follow-up with podiatry and vascular as an outpatient for further management. OBJECTIVE: Last Vital Signs Temp Pulse Resp BP Pulse Ox 98.2 F 76 20 127/77 98 01/06/20 08:17 01/06/20 08:17 01/06/20 09:00 01/06/20 08:17 01/06/20 09:00 PE: per resident note Labs/Imaging: reviewed ASSESSMENT AND PLAN: 79 year old male with history of 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 Patient was found to have acute cellulitis of the left great toe associated with a nailbed ulcer. Patient was treated with IV cefazolin with improvement will be discharged on p.o. Augmentin for an additional 5 days. Vascular work-up of the right lower extremity showed 3.5 cm distal AAA, focal stenosis of the celiac trunk, and an echocardiogram which did not show a cardiac origin of emboli. Patient can continue his home Xarelto and will follow-up with podiatry and vascular surgery for additional evaluation and management. He is medically cleared for discharge.
--- NOTE | 2020-01-06 14:23 | DS ---
Physical Exam: SUBJECTIVE: Patient seen and examined at bedside. The patient reports that his left big toe still hurts, and that the pain extends to his whole left foot. The patient's right 5th toe is still discolored. The patient denies fever/chills, shortness of breath, diarrhea, and constipation. OBJECTIVE: Vital Signs Period Temp Pulse Resp BP Sys/Valdes Pulse Ox Last 24 Hr 98.2 F-98.5 F 74-95 20-22 97-151/59-96 96-100 PHYSICAL EXAM GENERAL: The patient is awake, alert, and fully oriented, in no acute distress. HEAD: Normal with no signs of trauma. EYES: Extraocular movements intact. ENT: Ears normal, nares patent, oropharynx clear without exudates, moist mucous membranes. NECK: Trachea midline, full range of motion, supple. LUNGS: Breath sounds equal, clear to auscultation bilaterally, no wheezes, no crackles, no accessory muscle use. HEART: Regular rate and rhythm, S1, S2 without murmur, rub or gallop. ABDOMEN: Soft, nontender, nondistended, normoactive bowel sounds, no guarding, no rebound, no masses. EXTREMITIES: Weak but palpable pulses in both feet. Feet mildly cold. Right 5th toe discolored. Left 1st toe with only half a toe nail and an ulcer under the nail. NEUROLOGICAL: Normal speech, gait not observed. PSYCH: Normal mood, normal affect. SKIN: Right 5th toe discolored. Left 1st toe with only half a toe nail and an ulcer under the nail. LABS Laboratory Results - last 24 hr 01/06/20 01/06/20 06:28 06:28 WBC 3.7 L RBC 3.42 L Hgb 11.3 L Hct 34.2 L MCV 99.8 H MCH 32.9 MCHC 33.0 RDW 15.3 Plt Count 191 MPV 9.0 Sodium 139 Potassium 4.2 Chloride 102 Carbon Dioxide 31 Anion Gap 5 L BUN 16.3 Creatinine 1.0 Est GFR (CKD-EPI)AfAm 83.18 Est GFR (CKD-EPI)NonAf 71.77 Random Glucose 90 Calcium 9.3 HOSPITAL COURSE: Date of Admission:01/02/20 79 year old male patient with past medical history of COPD on 2 lpm home oxygen, History of DVT in LLE, BPH, who presented to the ED referred from Podiatry with significant pain from his left 1st toe and black discoloration of his right 5th toe. The patient was first given IV Zosyn and IV Vancomycin when he was in the ED. He was then placed on IV Cefazolin from 01/01 until discharge on 01/05 with improvement, and then discharged with PO Augmentin for 5 more days. Vascular workup during the patient's hospital stay revealed a 3.5 cm distal AAA and focal stenosis of the celiac trunk. An ECHO did not find an embolic source for the patient's condition. A Duplex Arterial Ultrasound found decreased bilateral flow bilaterally. The patient was instructed to follow up with vascular surgery and podiatry outpatient. A CT scan also found a dilated pancreatic duct, and the patient was instructed to follow up regarding this finding with outpatient gastroenterology. Date of Discharge: 01/06/20 Minutes to complete discharge: 41 Discharge Summary Problems reviewed: Yes Reason For Visit: FOOT SWELLING,CELLULITIS,OSTEMYELITIS Condition: Stable - Instructions Diet, Activity, Other Instructions: You were admitted to the hospital with left big toe pain. While you were in the hospital, you were evaluated with lab work, blood work, and imaging including x- rays. You were found to have some narrow blood vessels in your leg and an infection of your left big toe. You were treated with medications including antibiotics. Imaging Findings While you were at the hospital, we found the following: A CAT scan of your abdomen found an outpouching of the big blood vessel in your belly called the abdominal aorta. Please follow up with the vascular surgeon regarding this finding. The CAT scan of your abdomen also found that the duct of your pancreas is big. Please follow up with the olive picker regarding this finding. There were no notable abnormal findings in your echocardiogram. Medications Please take all of your medications as prescribed. Please START taking the antibiotic Amoxicillin-Clavunate[AUGMENTIN] 500mg every 12 hours (twice a day) for five days from 01/06/2020 to 01/10/2020 for your left big toe infection. Follow ups Please follow up with your primary care physician Dr. Karin Arango within 1 week. Please follow up with the product inspection coordinator Dr. Naun Prado within 1 week regarding your feet. Please follow up with the vascular surgeon Dr. Van Valdez within 1 week regarding your narrow blood vessels in your foot, and increased size of the aorta. Please follow up with the olive picker Dr. Kit Bo within 1 week regarding the duct of your pancreas that is big. If you experience worsening symptoms, chest pain, difficulty breathing, abdominal pain, or worsening of your condition, please come to the emergency room or call 911. Referrals: Naun Prado MD [Staff Physician] - 1 Week (possible HBOT to improve oxygenation per Dr. Waldrop's note) Kit Bo MD [Staff Physician] - 1 Week (Pancreatic duct borderline size 3mm on Aorta w/ Runoff CTA) Karin Flood MD [Primary Care Provider] - aVn Valdez MD [Non Staff, Medical] - 1 Week (Peripheral Artery Disease. 3.8cm Fusiform Aneurysm on CT A/P.) Disposition: HOME - Home Medications Comprehensive Discharge Medication List: Ambulatory Orders Budesonide/Formeterol Fumarate [SYMBICORT 160/4.5mcg -] 1 inh PO BID 05/29/19 Rivaroxaban [Xarelto] 1 tab PO BID 05/29/19 Ipratropium/Albuterol Sulfate [Combivent Respimat 20-100 Mcg] 2 inh IN BID 01/02/20 Tamsulosin HCl 0.4 mg PO DAILY 01/02/20 Tiotropium [place] [Spiriva Respimat] 1 inh IN BID 01/02/20 Amoxicillin/Potassium Clav [Augmentin 500-125 Tablet] 1 each PO BID #10 tablet 01/06/20 This patient is new to me today: No Emergency Visit: Yes ED Registration Date: 01/02/20 Care time: The patient presented to the Emergency Department on the above date and was hospitalized for further evaluation of their emergent condition. Critical Care patient: No - Discharge Referral Referred to [facility] Med P.C.: No ATTENDING PHYSICIAN STATEMENT I saw and evaluated the patient. I reviewed the resident's note and discussed the case with the resident. I agree with the resident's findings and plan as documented. SUBJECTIVE: OBJECTIVE: ASSESSMENT AND PLAN:
[2020-01-06 15:20] VITALS: BP 112/70; PULSE 82
[2020-01-06] MEDS ORDERED: TIOTROPIUM BROMIDE 2.5 MCG (SPIRIVA) RESPIMAT INHALER IH ONE (21:31)
== END 2020-01-06 15:57 | disposition home or self-care (01) | DRG 603 ==
LOC: JER 09:04 → JERBED 11:52 → J8W 16:50
PROVIDERS: ADMIT Internal Medicine; ATTEND Internal Medicine
DX: L03.116 Cellulitis of left lower limb (principal); E44.0 Moderate protein-calorie malnutrition; J96.10 Chronic respiratory failure, unspecified whether with hypoxia or hypercapnia; R64 Cachexia; I73.9 Peripheral vascular disease, unspecified; J44.9 Chronic obstructive pulmonary disease, unspecified; N40.0 Benign prostatic hyperplasia without lower urinary tract symptoms; D75.89 Other specified diseases of blood and blood-forming organs
CPT/HCPCS: 36415; 71045-TC-FY; 73630-TC-LT; 75635-TC; 80048; 80053; 82607; 82746; 82962; 83735; 84100; 84443; 84484; 85025; 85027; 85610; 85651; 85730; 86140; 87040; 93005; 93010; 93306-TC; 93925-TC; 97116-GP; 97161-GP; 99285-25; Q9967; U0003

== ENCOUNTER 2020-02-03 10:15 | Inpatient (IN) | payer OTHER ==
--- NOTE | 2020-02-03 10:34 | PDOC ---
History of Present Illness - General Chief Complaint: Wound Stated Complaint: WOUND CARE Time Seen by Provider: 02/03/20 10:33 History Source: Patient Exam Limitations: No Limitations - History of Present Illness Initial Comments: 02/03/20 10:34 HPI: This is a 79 y/o male with a PMH of COPD on 2L home o2, LLE DVT on xarelto, and wound care for LLE great toe ulcer and discoloration presenting to the ED for admission from wound care because of increased pain in his toe. He was supposed to follow-up with Dr. Valdez for an outpatient angio. Dr. Valdez will see him while hes in the hospital instead. Patient denies fever/chills, N/V, chest pain, SOB, abdominal pain. ROS: GENERAL/CONSTITUTIONAL: No fever/chills. No weakness. CARDIOVASCULAR: No chest pain or shortness of breath. RESPIRATORY: No cough, wheezing, or hemoptysis. GASTROINTESTINAL: No nausea, vomiting, diarrhea or constipation. MUSCULOSKELETAL: Pain in left great toe. NEUROLOGIC: No headache, loss of consciousness, or change in strength/sensation. HEMATOLOGIC/LYMPHATIC: No anemia, easy bleeding, or history of blood clots. ALLERGIC/IMMUNOLOGIC: No hives or skin allergy. PMH: COPD on 2L home o2, LLE DVT on xarelto, and wound care for LLE great toe ulcer Meds: Xarelto, Allergies: KNDA PE: GENERAL: Awake, alert, and fully oriented, in no acute distress. Patient laying in bed conversing normally. On nasal cannula. HEAD: No signs of trauma EYES: PERRLA, EOMI NECK: Normal ROM, supple, no lymphadenopathy, JVD, or masses LUNGS: Breath sounds equal, expiratory wheezes bilaterally. HEART: Regular rate and rhythm, normal S1 and S2, no murmurs, rubs or gallops ABDOMEN: Soft, nontender, normoactive bowel sounds. No guarding EXTREMITIES: Left great toe discolored and missing half of nail, left leg and foot cold. NEUROLOGICAL: Cranial nerves II through XII grossly intact. Normal speech. No focal neurological deficits. SKIN: Warm, Dry, normal turgor, no rashes or lesions noted. MDM: 02/03/20 15:14 This is a 79 y/o male with a PMH of COPD on 2L home o2, LLE DVT on xarelto, and wound care for LLE great toe ulcer and discoloration presenting to the ED due to increased pain in toe. He will be admitted for pre-op labs and a vascular procedure tomorrow with Dr. Valdez. - CBC - CMP - Type and screen - PT/PTT - CXR - Covid - Left foot Xray 02/03/20 15:40 - Hb 8.3 down from ~11 at the end of december - Will do guiac - Guiac negative - Tylenol for pain 02/03/20 16:31 - Spoke with Dr. Valdez who will evaluate patient while hes in the hospital - Pt admitted to med/surg Past History - Medical History Allergies/Adverse Reactions: Allergies Allergy/AdvReac Type Severity Reaction Status Date / Time No Known Drug Allergies Allergy Verified 02/03/20 10:19 Home Medications: Ambulatory Orders Budesonide/Formeterol Fumarate [SYMBICORT 160/4.5mcg -] 1 inh PO BID 05/29/19 Rivaroxaban [Xarelto] 15 mg PO BID 05/29/19 Ipratropium/Albuterol Sulfate [Combivent Respimat 20-100 Mcg] 2 inh IN BID 01/02/20 Tamsulosin HCl 0.4 mg PO DAILY 01/02/20 Montelukast Sodium [Singulair] 10 mg PO DAILY 02/04/20 Primidone [Mysoline -] 100 mg PO DAILY 02/04/20 Anemia: No Asthma: Yes Cancer: Yes (Yes - Colon cancer 11 y ago) Cardiac Disorders: No CVA: No COPD: Yes CHF: No DVT: No Dementia: No Diabetes: No GI Disorders: No Disorders: Yes (ENLARGED PROSTATE) HTN: No Hypercholesterolemia: No Liver Disease: No Seizures: No Thyroid Disease: No - Surgical History Abdominal Surgery: Yes (Benign tumor removed from stomach) Appendectomy: No Cardiac Surgery: No Cholecystectomy: No Lung Surgery: No Neurologic Surgery: No - Immunization History Td Vaccination: Yes TDAP Vaccination: Yes Immunization Up to Date: Yes - Psycho-Social/Smoking History Smoking History: Never smoked Have you smoked in the past 12 months: No Number of Cigarettes Smoked Daily: 2 If you are a former smoker, when did you quit?: 8 yesrs ago 'Breaking Loose' booklet given: 06/30/16 - Substance Abuse Hx (Audit-C & DAST Scrn) How often the patient has a drink containing alcohol: Never Score: In Men: 4 or > Positive; In Women: 3 or > Positive: 0 Screen Result (Pos requires Nsg. Audit-10AR): Negative In the last yr the pt used illegal drug/Rx for NonMed reason: No Score: Yes response is considered Positive: 0 Screen Result (Positive result requires Nsg. DAST-10): Negative *Physical Exam - Vital Signs Last Vital Signs Temp Pulse Resp BP Pulse Ox 97.5 F L 96 H 20 134/88 100 02/03/20 10:19 02/03/20 10:19 02/03/20 10:19 02/03/20 10:19 02/03/20 10:19 ED Treatment Course - LABORATORY CBC & Chemistry Diagram: 02/04/20 17:10 02/04/20 07:00 Discharge - Discharge Information Problems reviewed: Yes Clinical Impression/Diagnosis: Toe ulcer Qualifiers: Laterality: left Non-pressure ulcer stage: unspecified non-pressure ulcer stage Qualified Code(s): L97.529 - Non-pressure chronic ulcer of other part of left foot with unspecified severity - Follow up/Referral - Patient Discharge Instructions - Post Discharge Activity
[2020-02-03] MEDS ORDERED: ACETAMINOPHEN 1000 MG/100 ML VIAL (NON FORMULARY) IVPB ONE (12:43)
[2020-02-03] MEDS ORDERED: ACETAMINOPHEN INJECTION 100 ML IVPB ONE (12:53)
--- NOTE | 2020-02-03 13:39 | PDOC ---
Documentation entered by Monique Grajeda SCRIBE, acting as scribe for Ernesto Ortiz MD. Ernesto Ortiz MD: This documentation has been prepared by the Taras ch Brenda, SCRIBE, under my direction and personally reviewed by me in its entirety. I confirm that the documentation accurately reflects all work, treatment, procedures, and medical decision making performed by me. Attending Attestation - Resident Resident Name: Shilpi Aly - ED Attending Attestation I have performed the following: I have examined & evaluated the patient, The case was reviewed & discussed with the resident, I agree w/resident's findings & plan, Exceptions are as noted - HPI HPI: 02/03/20 17:32 This is a 79 y/o male with a PMH of COPD on 2L home o2, LLE DVT on xarelto, and wound care for LLE great toe ulcer and discoloration presenting to the ED for admission for a vascular procedure tomorrow with Dr. Valdez. Patient denies fever/chills, N/V, chest pain, SOB, abdominal pain. - Physicial Exam PE: 02/03/20 17:32 Vitals: Triage Vital signs reviewed General Appearance: No acute distress, well nourished well developed, Head: Atraumatic, Cardiac: Regular rate and rhythym, no murmurs, no rubs, no gallops, Lungs: Clear to auscultation bilateral, good air movement bilaterally, Abdomen: Soft, non distended, normal bowel sounds, non tender to palpation Extremities: Left toe with necrotic ulcer surrounding redness warm to touch Psych: Normal mood, normal affect - Medical Decision Making 02/03/20 17:32 toe ulcer with dark eschar Sent to ED for admission We will start Estee Jackson Admit to medicine for further management with vascular consultation Discharge - Discharge Information Problems reviewed: Yes Clinical Impression/Diagnosis: Toe ulcer Qualifiers: Laterality: left Non-pressure ulcer stage: unspecified non-pressure ulcer stage Qualified Code(s): L97.529 - Non-pressure chronic ulcer of other part of left foot with unspecified severity - Follow up/Referral - Patient Discharge Instructions - Post Discharge Activity
[2020-02-03] MEDS ORDERED: VANCOMYCIN 1,000 MG in DEXTROSE 5%-WATER - 250 ML IVPB ONE (13:41)
[2020-02-03] MEDS ORDERED: PIPERACILLIN/TAZOB 3.375 GM 3.375 GM in DEXTROSE 5%-WATER - 50 ML IVPB ONE (13:41)
[2020-02-03] MEDS ORDERED: VANCOMYCIN 1 GRAM (PRE-DOCKED) 1,000 MG/250 ML BAG IVPB ONE (13:51)
[2020-02-03] MEDS ORDERED: PIPERACILLIN/TAZOB 3.375 GM 3.375 GM/50 ML BAG IVPB ONE ×2 (13:51→23:13)
--- NOTE | 2020-02-03 15:08 | EKG ---
Test Reason : Blood Pressure : / mmHG Vent. Rate : 112 BPM Atrial Rate : 112 BPM P-R Int : 128 ms QRS Dur : 068 ms QT Int : 308 ms P-R-T Axes : 087 085 082 degrees QTc Int : 420 ms SINUS TACHYCARDIA BIATRIAL ENLARGEMENT SEPTAL INFARCT , AGE UNDETERMINED ABNORMAL ECG WHEN COMPARED WITH ECG OF 02-JAN-2020 10:35, NO SIGNIFICANT CHANGE WAS FOUND Confirmed by Antelmo Yuan MD ([id number]) on 02/03/2020 3:07:30 PM Referred By: Confirmed By:Antelmo Yuan MD
[2020-02-03 15:24] LABS: BASO % 0.9 % (0-2.0); EOS % 9.9 % (0-4.5); HEMATOCRIT 25.1 % (35.4-49); HEMOGLOBIN 8.3 GM/dL (11.7-16.9); LYMPH % 26.9 % (8-40); MCH 32.4 pg (25.7-33.7); MEAN CELL VOLUME 98.2 fl (80-96); MEAN PLT VOLUME 7.9 fl (7.5-11.1); MONO % 8.9 % (3.8-10.2); NEUT % 53.4 % (42.8-82.8); PLATELET COUNT 296 K/MM3 (134-434); RBC 2.56 M/mm3 (4.00-5.60); RDW 14.7 % (11.9-15.9)
[2020-02-03 15:28] LABS: INR 2.19 (0.83-1.09)
[2020-02-03 15:31] LABS: ACTIVATED PTT 45.2 SECONDS (25.2-36.5)
[2020-02-03 15:42] LABS: BLOOD UREA NITROGEN 17.8 mg/dL (7-18); CREATININE 1.3 mg/dL (0.55-1.3); POTASSIUM 3.6 mmol/L (3.5-5.1)
[2020-02-03 15:43] LABS: BILIRUBIN,TOTAL 0.6 mg/dL (0.2-1); TOT PROT 6.1 g/dl (6.4-8.2)
--- NOTE | 2020-02-03 16:44 | PN ---
Teaching Attending Note Name of Resident: Jessica Torres ATTENDING PHYSICIAN STATEMENT I saw and evaluated the patient. I reviewed the resident's note and discussed the case with the resident. I agree with the resident's findings and plan as documented. SUBJECTIVE: 79 year old AAM with known history of PAD, COPD on 2L home oxygen, LLE DVT on xarelto, and wound care for LLE great toe ulcer and discoloration presenting to the ED for admission for a vascular procedure tomorrow with Dr. Valdez. OBJECTIVE: Ext; left great toe with blackish eschar at the tip of the left great toe and extending to the posterior and superior portion of the left great toe. There is mild soft tissue discoloration of skin surrounding the eschar. ASSESSMENT AND PLAN: 1. Painful and Ischemic left great toe - antibiotics IV - to consider ID consultation - cautious use of narcotics (if needed) for pain control - MRI vs. triple phase bone scan to assess for osteo - consult Dr Valdez (vascular) - need to determine from Vascular surgery if need hold Xarelto in near future for a procedure 2. COPD, stable - cont home oxygen 3. LLE DVT on Xarelto 4. DVT prophylaxis - on Xarelto (#3) DW Dr Almendarez. Agree with history, exam and plans of care.
--- NOTE | 2020-02-03 18:15 | HP ---
CHIEF COMPLAINT: Black Toe PCP: Cait Stern HISTORY OF PRESENT ILLNESS: 79 y/o M PMHx PAD, COPD (2L Home O2), LLE DVT (on Xarelto), Colorectal Ca (in remission for 20 years), BPH Presents from home with worsening pain over Left great toe wound. Patient was recently discharged in December from [facility] with 5 days of PO Augmentin for the same wound after completing a course of IV Cefazolin, At this time an arterial Duplex found decreased b/l Flow. Since then patient has followed with wound care however today the Left Great toe became intense. He is unable to describe it but says it was 10/10 prompting him to vist [facility]. The ED started the patient on IV Vanco/Zosyn and discussed the case with Dr. Valdez who is aware and will come see the patient. PHYSICAL EXAMINATION Vital Signs - 24 hr 02/03/20 02/03/20 10:19 13:06 Temperature 97.5 F L 98.2 F Pulse Rate 96 H Pulse Rate [ 52 L Left] Respiratory 20 Rate Blood Pressure 134/88 Blood Pressure 130/61 [Left] O2 Sat by Pulse 100 96 Oximetry (%) GENERAL: A&Ox3, NAD HEAD: NCAT EYES: PERRL, EOMI ENT: MMM NECK: No JVD LUNGS: Diminished breath sounds at the bases, Wheezes in the upper lobes, no crackles HEART: RRR S1, S2 ABDOMEN: Soft, nontender, nondistended, + bowel sounds, no guarding, no rebound EXTREMITIES: B/L feet mildly cold. Left great toe with black eschar on the tip extending to the superior aspects under the nail bed with surrounding soft tissue discoloration, No active drainage, no surrounding erythema NEUROLOGICAL: Cranial nerves II-XII intact. SKIN: Warm, dry Laboratory Results - last 24 hr 02/03/20 02/03/20 02/03/20 15:00 15:00 15:00 WBC 5.0 RBC 2.56 L Hgb 8.3 L Hct 25.1 L D MCV 98.2 H MCH 32.4 MCHC 33.0 RDW 14.7 Plt Count 296 D MPV 7.9 D Absolute Neuts (auto) 2.7 Neutrophils % 53.4 Lymphocytes % 26.9 Monocytes % 8.9 Eosinophils % 9.9 H Basophils % 0.9 Nucleated RBC % 0 PT with INR 26.00 H INR 2.19 H PTT (Actin FS) 45.2 H Sodium 140 Potassium 3.6 Chloride 107 Carbon Dioxide 25 Anion Gap 8 BUN 17.8 Creatinine 1.3 Est GFR (CKD-EPI)AfAm 60.57 Est GFR (CKD-EPI)NonAf 52.26 Random Glucose 74 Calcium 9.0 Total Bilirubin 0.6 AST 21 ALT 20 Alkaline Phosphatase 80 Total Protein 6.1 L Albumin 3.0 L Stool Occult Blood Blood Type Antibody Screen 02/03/20 02/03/20 15:00 15:02 WBC RBC Hgb Hct MCV MCH MCHC RDW Plt Count MPV Absolute Neuts (auto) Neutrophils % Lymphocytes % Monocytes % Eosinophils % Basophils % Nucleated RBC % PT with INR INR PTT (Actin FS) Sodium Potassium Chloride Carbon Dioxide Anion Gap BUN Creatinine Est GFR (CKD-EPI)AfAm Est GFR (CKD-EPI)NonAf Random Glucose Calcium Total Bilirubin AST ALT Alkaline Phosphatase Total Protein Albumin Stool Occult Blood Negative Blood Type O POSITIVE Antibody Screen Negative ASSESSMENT/PLAN: 79 y/o M PMHx PAD, COPD (2L Home O2), LLE DVT (on Xarelto), Colorectal Ca (in remission for 20 years), BPH Presents from home with worsening pain over Left great toe wound. #PAD with recent Arterial Duplex, CTA concerning for small vessel disease #Acute Drop in H&H #Hx of COPD (2L Home O2) #Hx of LLE DVT (on Xarelto) -Case discussed with Vascular surgery (Dr. Valdez) who recommends Covid testing, Cardiac Clearance for possible angiogram on Sunday -Follow ESR/CRP, Blood Cx -IV abx--Vanco, Zosyn -ID and Cardio consult -Wound care -Repeat CBC Stat, Check Hemolysis studies including LDH, Retic count, Haptoglobin, Direct Suresh, Repeat FOBT and INR -Home dose Bronchodilators -Supplemental O2 -VTE PPx via DOAC -WIll consider GI and Heme consult pending above workup Visit type - Medication Review Med list reviewed for High Risk Meds patients 65 and older: Yes - Emergency Visit Emergency Visit: Yes Care time: The patient presented to the Emergency Department on the above date and was hospitalized for further evaluation of their emergent condition. - New Patient This patient is new to me today: Yes Date on this admission: 02/03/20 - Critical Care Critical Care patient: No ATTENDING PHYSICIAN STATEMENT I saw and evaluated the patient. I reviewed the resident's note and discussed the case with the resident. I agree with the resident's findings and plan as documented. SUBJECTIVE: OBJECTIVE: ASSESSMENT AND PLAN:
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
[2020-02-03] MEDS ORDERED: ACETAMINOPHEN 325 MG TABLET (FP) ONE ×2 (20:36→23:53)
[2020-02-03] MEDS: ACETAMINOPHEN 325 MG TABLET (FP) PO PRN ×2 (20:42→23:57)
--- NOTE | 2020-02-03 21:08 | PN ---
Progress Note (short form) - Note Progress Note: Vascular surgery Pt seen and examined Left great toe gangrene. CTA done last month on December 24 shows normal arterial runoff in both legs. No occlusions or stenosis. Pt most probably has small vessel disease in foot. Needs angiogram to confirm. Pt went to cardiology -- dr. salgado for workup. Pt has dopplerable dp and Pt pulses. Will do angiogram once cleared by cardiology. Van Valdez DO
[2020-02-03] MEDS ORDERED: IPRATROPIUM IN SCH (22:00)
[2020-02-03] MEDS ORDERED: RIVAROXABAN 15 MG TABLET PO SCH ×3 (22:00)
[2020-02-03] MEDS ORDERED: ALBUTEROL SULFATE IN SCH (22:00)
[2020-02-03] MEDS: BUDESONIDE/FORMETEROL FUMARATE 160/4.5 mcg INHALER IH SCH (22:55)
[2020-02-03] MEDS: PIPERACILLIN/TAZOB 3.375 GM 3.375 GM in DEXTROSE 5%-WATER - 50 ML IVPB SCH (23:14)
[2020-02-04 01:58] LABS: BASO % 0.8 % (0-2.0); HEMATOCRIT 24.1 % (35.4-49); LYMPH % 24.9 % (8-40); MCH 32.6 pg (25.7-33.7); MEAN CELL VOLUME 98.8 fl (80-96); MEAN PLT VOLUME 7.8 fl (7.5-11.1); MONO % 8.7 % (3.8-10.2); NEUT % 55.6 % (42.8-82.8); PLATELET COUNT 302 K/MM3 (134-434); RBC 2.44 M/mm3 (4.00-5.60); RDW 14.7 % (11.9-15.9); WHITE BLOOD COUNT 5.9 K/mm3 (4.0-10.0)
[2020-02-04 02:08] LABS: INR 1.34 (0.83-1.09); PROTHROMBIN TIME (PATIENT) 15.8 SEC (9.7-13.0)
[2020-02-04 02:24] LABS: RETICULOCYTES 1.6 % (0.5-1.5)
[2020-02-04 02:28] LABS: ALBUMIN 2.8 g/dl (3.4-5.0); BILIRUBIN,TOTAL 0.3 mg/dL (0.2-1); BLOOD UREA NITROGEN 14.7 mg/dL (7-18); CALCIUM 8.5 mg/dL (8.5-10.1); CREATININE 1.3 mg/dL (0.55-1.3); POTASSIUM 3.5 mmol/L (3.5-5.1); TOT PROT 5.8 g/dl (6.4-8.2)
[2020-02-04] MEDS ORDERED: MORPHINE SULFATE 2 MG/ML VIAL IVPUSH ONE ×2 (02:59→04:00)
[2020-02-04] MEDS ORDERED: PIPERACILLIN/TAZOBACTAM 3.375 GM VIAL IVPB ONE ×2 (03:39→09:03)
[2020-02-04] MEDS ORDERED: DEXTROSE 5%-WATER - 50 ML IVPB ONE ×2 (03:39→09:03)
[2020-02-04] MEDS: PIPERACILLIN/TAZOB 3.375 GM 3.375 GM in DEXTROSE 5%-WATER - 50 ML IVPB SCH ×2 (03:48→09:16)
[2020-02-04 07:49] LABS: HEMATOCRIT 23.7 % (35.4-49); HEMOGLOBIN 7.7 GM/dL (11.7-16.9); MCH 32.5 pg (25.7-33.7); MCHC 32.6 g/dl (32.0-35.9); MEAN CELL VOLUME 99.5 fl (80-96); MEAN PLT VOLUME 8.3 fl (7.5-11.1); PLATELET COUNT 280 K/MM3 (134-434); RBC 2.39 M/mm3 (4.00-5.60); WHITE BLOOD COUNT 5.5 K/mm3 (4.0-10.0)
[2020-02-04 07:55] LABS: INR 1.28 (0.83-1.09); PROTHROMBIN TIME (PATIENT) 15.1 SEC (9.7-13.0)
[2020-02-04] MEDS ORDERED: VANCOMYCIN 1 GRAM (PRE-DOCKED) 1,000 MG/250 ML BAG IVPB ONE (08:00)
[2020-02-04] MEDS: ACETAMINOPHEN 325 MG TABLET (FP) PO PRN ×2 (08:14→22:34)
[2020-02-04] MEDS: TAMSULOSIN HCL 0.4 MG CAP PO SCH (08:14)
[2020-02-04 08:24] LABS: BLOOD UREA NITROGEN 13.6 mg/dL (7-18); CALCIUM 8.5 mg/dL (8.5-10.1); CREATININE 1.3 mg/dL (0.55-1.3); MAGNESIUM 2.1 mg/dL (1.8-2.4); PHOSPHOROUS 2.9 mg/dL (2.5-4.9)
[2020-02-04] MEDS ORDERED: PIPERACILLIN/TAZOB 3.375 GM 3.375 GM in DEXTROSE 5%-WATER - 50 ML IVPB ONE (08:36)
--- NOTE | 2020-02-04 09:12 | CON.CARD ---
Consult Consult Specialty:: Cardiology Referred by:: José Miguel Reason for Consultation:: preop - History of Present Illness Chief Complaint: toe ulcer History of Present Illness: 79 yo male with a history of COPD (home 2L NC), DVT LLE (on xarelto), BPH, colon cancer (20 years ago) PVD with 3.5 cm AAA and recent admission for ulcer now presents with toe ulcer awaiting angiogram. No chest pain, orthopnea, PND or edema. Exercise tolerance is limited. echo 01/05/20: TDS normal EF. 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) Pulmonary: Yes: Asthma, COPD Gastrointestinal: Yes: Cancer (colon 11 yrs ago, last colonscopy 4 years ago) Renal/: Yes: BPH - Past Surgical History Past Surgical History: Yes: Colectomy - Alcohol/Substance Use Hx Alcohol Use: No History of Substance Use: reports: None - Smoking History Smoking history: Never smoked Have you smoked in the past 12 months: No Aproximately how many cigarettes per day: 2 If you are a former smoker, when did you quit?: 8 yesrs ago - Social History ADL: Independent History of Recent Travel: No Home Medications - Allergies Allergies/Adverse Reactions: Allergies Allergy/AdvReac Type Severity Reaction Status Date / Time No Known Drug Allergies Allergy Verified 02/03/20 10:19 - Home Medications Home Medications: Ambulatory Orders Budesonide/Formeterol Fumarate [SYMBICORT 160/4.5mcg -] 1 inh PO BID 05/29/19 Rivaroxaban [Xarelto] 15 mg PO BID 05/29/19 Ipratropium/Albuterol Sulfate [Combivent Respimat 20-100 Mcg] 2 inh IN BID 01/02/20 Tamsulosin HCl 0.4 mg PO DAILY 01/02/20 Tiotropium [place] [Spiriva Respimat] 1 inh IN BID 01/02/20 Family Medical History Family Hx Cancer: Mother (colon cancer) Family Hx Gastrointestinal Disorder: Father, Sister Vital Signs: Vital Signs Temperature 98.6 F 02/04/20 06:00 Pulse Rate 93 H 02/04/20 06:00 Respiratory Rate 22 H 02/04/20 06:00 Blood Pressure 113/64 02/04/20 06:00 O2 Sat by Pulse Oximetry (%) 97 02/04/20 06:00 Constitutional: Yes: No Distress, Calm Eyes: Yes: Conjunctiva Clear, EOM Intact HENT: Yes: Atraumatic, Normocephalic Neck: Yes: Trachea Midline Respiratory: Yes: CTA Bilaterally Gastrointestinal: Yes: Normal Bowel Sounds, Soft Cardiovascular: Yes: Regular Rate and Rhythm JVD: No Carotid Bruit: No PMI: Non-Displaced Heart Sounds: Yes: S1, S2 Musculoskeletal: Yes: WNL Extremities: Yes: Erythema Edema: No - Other Data Labs, Other Data: CBC, BMP 02/04/20 07:00 02/04/20 07:00 INR, PTT INR 1.28 (0.83-1.09) H 02/04/20 07:00 Imaging - Results Chest X-ray: Report Reviewed (farooq) EKG: Report Reviewed (nsr old septal PR) Assessment/Plan 79 yo male with a history of COPD (home 2L NC), DVT LLE (on xarelto), BPH, colon cancer (20 years ago) PVD with 3.5 cm AAA and recent admission for ulcer now presents with toe ulcer awaiting angiogram. No chest pain, orthopnea, PND or edema. Exercise tolerance is limited. echo 01/05/20: TDS normal EF. IMP: -there are no cardiac contraindications to the planned angiogram. He is at low risk for percutaneous procedures, intermediate risk for open revascularization if needed. -continue current medications, hold Xarelto until stable post procedure. If he needs more than 2 days off of Xarelto can bridge with Lovenox otherwise no need. -will follow with you.
[2020-02-04] MEDS: oxyCODONE HCL 5 MG TABLET PO PRN ×2 (09:16→19:45)
[2020-02-04] MEDS ORDERED: TIOTROPIUM BROMIDE 2.5 MCG (SPIRIVA) RESPIMAT INHALER IH SCH (10:00)
[2020-02-04] MEDS ORDERED: RIVAROXABAN 10 MG TABLET PO SCH (10:00)
[2020-02-04] MEDS: BUDESONIDE/FORMETEROL FUMARATE 160/4.5 mcg INHALER IH SCH ×2 (10:30→22:34)
--- NOTE | 2020-02-04 11:15 | CON.ID ---
Consult Consult Specialty:: infectious diseases Referred by:: hospitalist Reason for Consultation:: gangrene of the left foot great toe - History of Present Illness Chief Complaint: pain and erythema of the left leg History of Present Illness: 79 yo male with PMHx asthma and COPD (home 2L NC), DVT LLE (on xarelto), & BPH, hx of colon cancer, and 3.5 cm AAA . Presented with increasing left foot pain and swelling over last few weeks. He describes the pain as constant, shooting, stabbing pain that travels up his 1st left digit. Patient was recently discharged in December from [facility] with 5 days of PO Augmentin for the same wound af ter completing a course of IV Cefazolin. Patient denies any chest pain, increased SOB, fever, n/v/d. 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) Pulmonary: Yes: Asthma, COPD Gastrointestinal: Yes: Cancer (colon 11 yrs ago, last colonscopy 4 years ago) Renal/: Yes: BPH - Past Surgical History Past Surgical History: Yes: Colectomy - Alcohol/Substance Use Hx Alcohol Use: No History of Substance Use: reports: None - Smoking History Smoking history: Never smoked Have you smoked in the past 12 months: No Aproximately how many cigarettes per day: 2 If you are a former smoker, when did you quit?: 8 yesrs ago - Social History ADL: Independent History of Recent Travel: No Home Medications - Allergies Allergies/Adverse Reactions: Allergies Allergy/AdvReac Type Severity Reaction Status Date / Time No Known Drug Allergies Allergy Verified 02/03/20 10:19 - Home Medications Home Medications: Ambulatory Orders Budesonide/Formeterol Fumarate [SYMBICORT 160/4.5mcg -] 1 inh PO BID 05/29/19 Rivaroxaban [Xarelto] 15 mg PO BID 05/29/19 Ipratropium/Albuterol Sulfate [Combivent Respimat 20-100 Mcg] 2 inh IN BID 01/02/20 Tamsulosin HCl 0.4 mg PO DAILY 01/02/20 Tiotropium [place] [Spiriva Respimat] 1 inh IN BID 01/02/20 Family Medical History Family Hx Cancer: Mother (colon cancer) Family Hx Gastrointestinal Disorder: Father, Sister Review of Systems - Review of Systems Constitutional: reports: No Symptoms Eyes: reports: No Symptoms HENT: reports: No Symptoms Neck: reports: No Symptoms Cardiovascular: reports: No Symptoms Respiratory: reports: No Symptoms Gastrointestinal: reports: No Symptoms Genitourinary: reports: No Symptoms Musculoskeletal: reports: Joint Pain, Other Integumentary: reports: Erythema, Other (gangrene) Neurological: reports: No Symptoms Endocrine: reports: No Symptoms Hematology/Lymphatic: reports: No Symptoms Psychiatric: reports: No Symptoms Physical Exam Vital Signs: Vital Signs Temperature 98.6 F 02/04/20 06:00 Pulse Rate 93 H 02/04/20 06:00 Respiratory Rate 22 H 02/04/20 06:00 Blood Pressure 113/64 02/04/20 06:00 O2 Sat by Pulse Oximetry (%) 97 02/04/20 06:00 Constitutional: Yes: Mild Distress, Thin Eyes: Yes: Conjunctiva Clear HENT: Yes: Atraumatic, Normocephalic Neck: Yes: Supple, Trachea Midline Cardiovascular: Yes: Regular Rate and Rhythm Respiratory: Yes: Regular, CTA Bilaterally Gastrointestinal: Yes: Normal Bowel Sounds, Soft Musculoskeletal: Yes: WNL Extremities: Yes: Other Wound/Incision: Yes: Other (gangrene of the toe) Neurological: Yes: Alert, Oriented Psychiatric: Yes: Alert, Oriented Labs: CBC, BMP 02/04/20 07:00 02/04/20 07:00 Imaging - Results Chest X-ray: Report Reviewed, Image Reviewed X-ray: Report Reviewed, Image Reviewed Assessment/Plan this patient with multiple medical issues coming to the hospital with gangrene and painful toe this patient need vascular study and amputation of the toe no abx vascular to see the patient
--- NOTE | 2020-02-04 11:40 | PN ---
Progress Note (short form) - Note Progress Note: VASCULAR SURGERY Scheduled for LLE angio 02/06/20 Cleared by Cardiology. Medical optimization/clearance
--- NOTE | 2020-02-04 13:17 | PN ---
Physical Exam: SUBJECTIVE: Patient seen and examined bedside on 2L NC. Complaining of pain but resting comfortably. Denies light headedness, headaches, dizziness, chest pain, increased SOB. OBJECTIVE: Vital Signs Vital Signs - 8 hr 02/04/20 06:00 Temperature 98.6 F Pulse Rate 93 H Respiratory 22 H Rate Blood Pressure 113/64 O2 Sat by Pulse 97 Oximetry (%) GENERAL: Awake, alert, and fully oriented, in no acute distress. HEAD: Normal with no signs of trauma. EYES: Pupils equal, round and reactive to light, extraocular movements intact, sclera anicteric, conjunctiva clear. ENT: Moist mucous membranes. NECK: no JVD LUNGS: Decreased breath sounds BL, with mild expiratory wheezing HEART: RRR S1 and S2 without murmur, rub or gallop. ABDOMEN: Soft, nontender, not distended MSK: BL pedal pulses, no leg edema BL. Movement intact in feet and legs BL. NEUROLOGICAL: Normal speech SKIN: Black eschar on tip of left 1st digit extending to plantar aspect of big toe. Laboratory Results - last 24 hr 02/03/20 02/03/20 02/03/20 11:30 15:00 15:00 WBC 5.0 RBC 2.56 L Hgb 8.3 L Hct 25.1 L D MCV 98.2 H MCH 32.4 MCHC 33.0 RDW 14.7 Plt Count 296 D MPV 7.9 D Absolute Neuts (auto) 2.7 Neutrophils % 53.4 Lymphocytes % 26.9 Monocytes % 8.9 Eosinophils % 9.9 H Basophils % 0.9 Nucleated RBC % 0 ESR Retic Count PT with INR 26.00 H INR 2.19 H PTT (Actin FS) 45.2 H Sodium Potassium Chloride Carbon Dioxide Anion Gap BUN Creatinine Est GFR (CKD-EPI)AfAm Est GFR (CKD-EPI)NonAf Random Glucose Calcium Phosphorus Magnesium Iron TIBC Iron Saturation Unsaturated IBC Ferritin Total Bilirubin AST ALT Alkaline Phosphatase LD Total C-Reactive Protein Total Protein Albumin Stool Occult Blood COVID-19 (YANNICK) Not detected Blood Type Antibody Screen 02/03/20 02/03/20 02/03/20 15:00 15:00 15:02 WBC RBC Hgb Hct MCV MCH MCHC RDW Plt Count MPV Absolute Neuts (auto) Neutrophils % Lymphocytes % Monocytes % Eosinophils % Basophils % Nucleated RBC % ESR Retic Count PT with INR INR PTT (Actin FS) Sodium 140 Potassium 3.6 Chloride 107 Carbon Dioxide 25 Anion Gap 8 BUN 17.8 Creatinine 1.3 Est GFR (CKD-EPI)AfAm 60.57 Est GFR (CKD-EPI)NonAf 52.26 Random Glucose 74 Calcium 9.0 Phosphorus Magnesium Iron TIBC Iron Saturation Unsaturated IBC Ferritin Total Bilirubin 0.6 AST 21 ALT 20 Alkaline Phosphatase 80 LD Total C-Reactive Protein Total Protein 6.1 L Albumin 3.0 L Stool Occult Blood Negative COVID-19 (YANNICK) Blood Type O POSITIVE Antibody Screen Negative 02/04/20 02/04/20 02/04/20 01:45 01:45 01:45 WBC 5.9 RBC 2.44 L Hgb 8.0 L Hct 24.1 L MCV 98.8 H MCH 32.6 MCHC 33.0 RDW 14.7 Plt Count 302 MPV 7.8 Absolute Neuts (auto) 3.3 Neutrophils % 55.6 Lymphocytes % 24.9 Monocytes % 8.7 Eosinophils % 10.0 H Basophils % 0.8 Nucleated RBC % 0 ESR 95 H Retic Count 1.60 H PT with INR INR PTT (Actin FS) Sodium 142 Potassium 3.5 Chloride 110 H Carbon Dioxide 26 Anion Gap 6 L BUN 14.7 Creatinine 1.3 Est GFR (CKD-EPI)AfAm 60.57 Est GFR (CKD-EPI)NonAf 52.26 Random Glucose 93 Calcium 8.5 Phosphorus Magnesium Iron TIBC Iron Saturation Unsaturated IBC Ferritin Total Bilirubin 0.3 AST 19 ALT 19 Alkaline Phosphatase 81 LD Total 184 C-Reactive Protein 3.9 H Total Protein 5.8 L Albumin 2.8 L Stool Occult Blood COVID-19 (YANNICK) Blood Type Antibody Screen 02/04/20 02/04/20 02/04/20 01:45 07:00 07:00 WBC 5.5 RBC 2.39 L Hgb 7.7 L Hct 23.7 L MCV 99.5 H MCH 32.5 MCHC 32.6 RDW 15.0 Plt Count 280 MPV 8.3 Absolute Neuts (auto) Neutrophils % Lymphocytes % Monocytes % Eosinophils % Basophils % Nucleated RBC % ESR Retic Count PT with INR 15.80 H 15.10 H INR 1.34 H 1.28 H PTT (Actin FS) Sodium Potassium Chloride Carbon Dioxide Anion Gap BUN Creatinine Est GFR (CKD-EPI)AfAm Est GFR (CKD-EPI)NonAf Random Glucose Calcium Phosphorus Magnesium Iron TIBC Iron Saturation Unsaturated IBC Ferritin Total Bilirubin AST ALT Alkaline Phosphatase LD Total C-Reactive Protein Total Protein Albumin Stool Occult Blood COVID-19 (YANNICK) Blood Type Antibody Screen 02/04/20 07:00 WBC RBC Hgb Hct MCV MCH MCHC RDW Plt Count MPV Absolute Neuts (auto) Neutrophils % Lymphocytes % Monocytes % Eosinophils % Basophils % Nucleated RBC % ESR Retic Count PT with INR INR PTT (Actin FS) Sodium 142 Potassium 4.0 Chloride 112 H Carbon Dioxide 26 Anion Gap 4 L BUN 13.6 Creatinine 1.3 Est GFR (CKD-EPI)AfAm 60.57 Est GFR (CKD-EPI)NonAf 52.26 Random Glucose 78 Calcium 8.5 Phosphorus 2.9 Magnesium 2.1 Iron 21 L TIBC 211 L Iron Saturation 9 L Unsaturated IBC 190 L Ferritin 59.4 Total Bilirubin AST ALT Alkaline Phosphatase LD Total C-Reactive Protein Total Protein Albumin Stool Occult Blood COVID-19 (YANNICK) Blood Type Antibody Screen Active Medications Generic Name Dose Route Start Last Admin Trade Name Freq PRN Reason Stop Dose Admin Acetaminophen 650 mg 02/03/20 19:00 02/04/20 08:14 Tylenol - PO 650 mg Q6H PRN Administration PAIN LEVEL 4 - 6 Budesonide/Formoterol Fumarate 1 puff 02/03/20 22:00 02/03/20 22:55 Symbicort 160/4.5mcg - IH 1 pump BID BRANDY Administration Non-Formulary Medication 2 inh 02/03/20 22:00 Ipratropium/Albuterol Sulfate IN BID [facility] Oxycodone HCl 2.5 mg 02/04/20 08:30 02/04/20 09:16 Roxicodone - PO 2.5 mg Q6H PRN Administration PAIN LEVEL 7 - 10 Rivaroxaban 10 mg 02/04/20 10:00 02/04/20 10:53 Xarelto PO Not Given DAILY [facility] Tamsulosin HCl 0.4 mg 02/04/20 08:30 02/04/20 08:14 Flomax - PO 0.4 mg DAILY@0830 [facility] Administration Tiotropium [facility] 2 puff 02/04/20 10:00 Spiriva Respimat IH DAILY [facility] Imaging: BL Artery Duplex 01/04/20 Decreased biphasic flow is noted bilaterally at the level of the lower thirds of the superficial femoral arteries as well as at the level of the popliteal and posterior tibial arteries. Unremarkable triphasic flow is seen bilaterally at the level of the common femoral arteries as well as the upper and middle thirds of the superficial femoral arteries. Impression: Decreased biphasic flow is seen bilaterally as noted above. Prior CTA Abdominal, pelvic, bilateral leg runoff Indication: 01/04/20 Comparison abdominal/pelvic CT available from 12/14/2017. Findings: VESSELS: Distal thoracic aorta is ectatic measuring 2.9 cm. At the diaphragmatic hiatus 3.4 cm. Celiac, SMA, renals are patent. The LUZ is noted to fill via collaterals. Soft and calcified plaque of the aorta is seen. Fusiform aneurysm of the infrarenal aorta is noted measuring 3.8 cm. On prior abdominal CT it measures 3.7 cm. Iliofemoral systems are patent bilaterally. No stenotic lesions seen. 50% stenosis of the left hypogastric artery is noted with calcified plaque noted at the takeoff of the right one. Common femoral arteries are patent bilaterally. Right leg runoff: Common femoral artery bifurcation is patent. Deep femoral artery is patent. Sup erficial femoral artery is patent with minimal calcified plaque distally. Minimal stenosis noted at the adductor canal. Mild disease of the popliteal artery is noted. Infrageniculate popliteal artery is patent. Trifurcation is patent with some calcifications of the tibioperoneal trunk. All 3 vessels are noted to be patent to the ankle with the posterior tibial artery continues into the lateral holly ntar vessels and the anterior tibial artery noted up to the proximal dorsalis pedis. It appears to o cclude at the foot. Left leg runoff: Common femoral artery bifurcation is patent with patency of the deep femoral artery. The superficial femoral artery is noted to be patent. Mild calcified plaque is noted distally with no significant stenosis. Suprageniculate popliteal artery is patent. Continuous into the infrageniculate popliteal artery. Trifurcation is patent. 3 vessels were visualized to the ankle with the dorsalis pedis and posterior tibial artery patent to the foot. Plantar vessels were visualized. Impression: Aneurysmal disease of the thoracoabdominal aorta visualized as discussed above essentially seen previously. There is soft and calcified plaque within the infrarenal aorta with fusiform aneurysm is again identified measuring up to 3.8 cm. Runoff bilaterally 3 vessels as discussed above with minimal disease. Possibly bowel surgery as discussed above. There is no evidence of obstruction. Fluid within the stomach and small bowel as discussed above. If clinically warranted, repeat abdominal/pelvic CT with intravenous and oral contrast is recommended. ASSESSMENT/PLAN: 79 yo male with PMHx asthma and COPD (home 2L NC), DVT LLE (on xarelto), & BPH, and hx of colon cancer (20 years ago) and 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 Presented to ED with increasing left foot pain and swelling over last few weeks. Admitted to hospital for soft tissue infection and r/o ischemia of L foot. Left 1st digit pain: PAD - Vascular consulted (Dr. Valdez) Angio on Monday 02/05 - Cardio consulted (Dr. Ma) cleared for angio - consulted ID (Dr. Quiroz) dry gangrene, no need continue antibiotics - Follow ESR/CRP & Blood Cx - Tylenol PRN for pain - 2.5 mg Oxycodone Q6hr PRN for pain Anemia: Macrocytic - hbg/hct continues to drop - Repeat CBC this afternoon - signed out to night to to follow - Consulted GI for possible bleed on xarelto & hx of colon cancer - repeat FOBT - iron low, TIBC low, ferritin normal, - b12 360 from previous admission 12/2019 - transfuse if Hbg < 7 Possible Dementia? - patient does not remember colonoscopy a few years ago - can't answer most questions about his medical history - given extensive hx of vascular disease, possibly vascular dementia - Sean Cognitive assessment scored 15 (26 is normal) COPD: - continue 2L O2 NC - continue home inhalers Prophylaxis - xarelto 10 mg daily >> held for possible procedure - Was currently on 15 mg BID, unclear why - DVT was in 2013 - PCP could not be reached today - f/u again in morning. It's unclear why patient has been on therapeutic dose for so long FEN - regular diet - replete electrolyte PRN Visit type - Emergency Visit Emergency Visit: Yes ED Registration Date: 02/03/20 Care time: The patient presented to the Emergency Department on the above date and was hospitalized for further evaluation of their emergent condition. - New Patient This patient is new to me today: No - Critical Care Critical Care patient: No - Discharge Referral Referred to [facility] Med [facility] Yes Physician Referral: Van Valdez DO ([facility]) - Medication Review Med list reviewed for High Risk Meds patients 65 and older: Yes ATTENDING PHYSICIAN STATEMENT I saw and evaluated the patient. I reviewed the resident's note and discussed the case with the resident. I agree with the resident's findings and plan as documented. SUBJECTIVE: OBJECTIVE: ASSESSMENT AND PLAN:
--- NOTE | 2020-02-04 13:39 | PN ---
Progress Note (short form) - Note Progress Note: patient states having had EGD/Colonoscopy in [address] Mott's office on [facility]. Advise calling Dr. Mott for further evaluation.
--- NOTE | 2020-02-04 13:50 | PN ---
Teaching Attending Note Name of Resident: Mj Lam ATTENDING PHYSICIAN STATEMENT I saw and evaluated the patient. I reviewed the resident's note and discussed the case with the resident. I agree with the resident's findings and plan as documented. SUBJECTIVE: no fever or chills. limited communication as patient is upset with all this que stioning. he reports pain in toe continued toget worse after his last discharge and also discoloration progressed. denied any fever or chills or discharge from toe. he reports being on xarelto BID for last 2 years after a fall and resultant DVT . he does not know who prescribes it to him, he gets admitted and goes see different providers + OBJECTIVE: NAd , awake, flat affect. . CV: RRR Lungs: CTAB Abd: soft, NT, ND , NL BS , mid line surgical scar Ext: No edema on legs. Dp 1+ b/l. L big toe with purplish discoloration at the tip. tenderness to palpation to all L sided toes. some discoloration to the plantar aspect of the 1st metatarsal head . no discoloratio of the R foot. nl sensation to feet and nl temperature. can move all toes ASSESSMENT AND PLAN: 79 y/o man with h/o PAD, COPD on home O2, remote LLE DVT , Colorectal Ca (in remission for 20 years, sp colectomy ), BPH, recent admission for L big toe pain with w/u including atherosclerotic plaque in aorta, 3.8 cm abdominal aortic aneurysm, who Presents for worsening L big toe and forefoot pain. 1- Possible ischemia of the L foot. LAst CTA did not show big vessel obstruction . ? emboli from atherosclerotic plaque - appreciate card input - angiogram planned - xarelto on hold for possible procedrue. - vascular input - check A1c and lipids - agree with no need for Abx 2- h/o DVT. indication for BID dosing is not clear. also , why he is on it after many years is not clear. per patient has been on BID dose fro 2 years after his DVT ( after fall ) . per older notes in chart, DVT was in 2013. Unclear who prescribes his xarelto. - will try to reach his PCP for clarification - will call his pharmacy and clarify prescribers - I am not sure of compliance as patient does not know much details. 3- MAcrocytic anemia : macrocytosis is chronic but anemia started in 01/04 . FOBT is neg but he reports black stool. has h/o colon cancer . - check B12 , folate - iron studied might suggest multifactorial etiology , but ferritin is low normal and ? iron def - GI consult as has h/o colon cancer and is on xarelto 4-
[2020-02-04] MEDS ORDERED: SODIUM CHLORIDE 1,000 ML IV SCH ×2 (15:45→17:00)
[2020-02-04 17:37] LABS: HEMOGLOBIN 8.3 GM/dL (11.7-16.9); MCHC 33.1 g/dl (32.0-35.9); MEAN CELL VOLUME 99.8 fl (80-96); MEAN PLT VOLUME 8.1 fl (7.5-11.1); PLATELET COUNT 312 K/MM3 (134-434); RDW 14.9 % (11.9-15.9); WHITE BLOOD COUNT 6.2 K/mm3 (4.0-10.0)
[2020-02-04] MEDS: MONTELUKAST NA 10 MG TABLET PO SCH (22:34)
[2020-02-05] MEDS ORDERED: MORPHINE SULFATE 2 MG/ML VIAL IVPUSH ONE (01:30)
[2020-02-05 08:44] LABS: BLOOD UREA NITROGEN 11.7 mg/dL (7-18); CALCIUM 8.5 mg/dL (8.5-10.1); PHOSPHOROUS 2.8 mg/dL (2.5-4.9); POTASSIUM 4.5 mmol/L (3.5-5.1)
[2020-02-05] MEDS ORDERED: oxyCODONE HCL 5 MG TABLET PO PRN (08:54)
[2020-02-05 08:58] LABS: HEMATOCRIT 25.8 % (35.4-49); HEMOGLOBIN 8.4 GM/dL (11.7-16.9); MCH 32.7 pg (25.7-33.7); MCHC 32.6 g/dl (32.0-35.9); MEAN CELL VOLUME 100.3 fl (80-96); MEAN PLT VOLUME 8.6 fl (7.5-11.1); PLATELET COUNT 261 K/MM3 (134-434); RBC 2.57 M/mm3 (4.00-5.60); RDW 15.6 % (11.9-15.9); WHITE BLOOD COUNT 6.2 K/mm3 (4.0-10.0)
[2020-02-05] MEDS ORDERED: PT OWN MED DRAWER 7, Y5N ONE ×2 (09:20→17:23)
[2020-02-05] MEDS: POLYETHYLENE GLYCOL 3350 119 GM BTL PO SCH ×2 (09:28→22:11)
[2020-02-05] MEDS: DOCUSATE SODIUM 100 MG CAPSULE (FP) PO SCH ×2 (09:28→22:11)
[2020-02-05] MEDS: BUDESONIDE/FORMETEROL FUMARATE 160/4.5 mcg INHALER IH SCH ×2 (09:28→23:00)
[2020-02-05] MEDS: TIOTROPIUM BROMIDE 2.5 MCG (SPIRIVA) RESPIMAT INHALER IH SCH (09:28)
[2020-02-05] MEDS: TAMSULOSIN HCL 0.4 MG CAP PO SCH (09:28)
[2020-02-05] MEDS ORDERED: TIOTROPIUM BROMIDE 2.5 MCG (SPIRIVA) RESPIMAT INHALER IH SCH (10:00)
[2020-02-05] MEDS ORDERED: MONTELUKAST NA 10 MG TABLET PO SCH (10:00)
[2020-02-05] MEDS: PIPERACILLIN/TAZOB 3.375 GM 3.375 GM in DEXTROSE 5%-WATER - 50 ML IVPB SCH (10:38)
--- NOTE | 2020-02-05 10:50 | PN ---
Progress Note, Physician Chief Complaint: no complaints History of Present Illness: 79 yo male with a history of COPD (home 2L NC), DVT LLE (on xarelto), BPH, colon cancer (20 years ago) PVD with 3.5 cm AAA and recent admission for ulcer now presents with toe ulcer awaiting angiogram. No chest pain, orthopnea, PND or edema. Exercise tolerance is limited. echo 01/05/20: TDS normal EF. - Current Medication List Current Medications: Active Medications Acetaminophen (Tylenol -) 650 mg PO Q6H PRN PRN Reason: PAIN LEVEL 4 - 6 Last Admin: 02/04/20 22:34 Dose: 650 mg Documented by: Budesonide/Formoterol Fumarate (Symbicort 160/4.5mcg -) 1 puff IH BID [facility] Last Admin: 02/05/20 09:28 Dose: 1 pump Documented by: Docusate Sodium (Colace -) 100 mg PO BID [facility] Last Admin: 02/05/20 09:28 Dose: 100 mg Documented by: Sodium Chloride (Normal Saline -) 1,000 mls @ 50 mls/hr IV ASDIR [facility] Stop: 02/05/20 15:38 Last Admin: 02/04/20 22:35 Dose: 50 mls/hr Documented by: Montelukast Sodium (Singulair -) 10 mg PO HS [facility] Last Admin: 02/04/20 22:34 Dose: 10 mg Documented by: Non-Formulary Medication (Ipratropium/Albuterol Sulfate) 2 inh IN BID [facility] Oxycodone HCl (Roxicodone -) 5 mg PO Q6H PRN PRN Reason: PAIN LEVEL 7 - 10 Polyethylene Glycol (Miralax (For Daily Use) -) 17 gm PO BID [facility] Last Admin: 02/05/20 09:28 Dose: 17 grams Documented by: Rivaroxaban (Xarelto) 10 mg PO DAILY [facility] Last Admin: 02/04/20 10:53 Dose: Not Given Documented by: Tamsulosin HCl (Flomax -) 0.4 mg PO DAILY@0830 [facility] Last Admin: 02/05/20 09:28 Dose: 0.4 mg Documented by: Tiotropium [place] (Spiriva Respimat) 2 puff IH DAILY [facility] Last Admin: 02/05/20 09:28 Dose: 2 puff Documented by: - Objective Vital Signs: Vital Signs Temperature 98.6 F 02/05/20 09:33 Pulse Rate 84 02/05/20 09:33 Respiratory Rate 18 02/05/20 09:33 Blood Pressure 124/76 02/05/20 09:33 O2 Sat by Pulse Oximetry (%) 99 02/05/20 09:33 Constitutional: Yes: No Distress, Calm Eyes: Yes: Conjunctiva Clear, EOM Intact HENT: Yes: Normocephalic Neck: Yes: Trachea Midline Cardiovascular: Yes: Regular Rate and Rhythm Respiratory: Yes: CTA Bilaterally Gastrointestinal: Yes: Normal Bowel Sounds, Soft Extremities: Yes: WNL Edema: No Labs: CBC, BMP 02/05/20 07:00 02/05/20 07:00 INR, PTT INR 1.28 (0.83-1.09) H 02/04/20 07:00 Assessment/Plan 79 yo male with a history of COPD (home 2L NC), DVT LLE (on xarelto), BPH, colon cancer (20 years ago) PVD with 3.5 cm AAA and recent admission for ulcer now presents with toe ulcer awaiting angiogram. No chest pain, orthopnea, PND or edema. Exercise tolerance is limited. echo 01/05/20: TDS normal EF. IMP: -there are no cardiac contraindications to the planned angiogram. He is at low risk for percutaneous procedures, intermediate risk for open revascularization if needed. -continue current medications, hold Xarelto until stable post procedure. If he needs more than 2 days off of Xarelto can bridge with Lovenox otherwise no need. -GI evaluation for anemia pending. -will follow with you.
[2020-02-05] MEDS: ACETAMINOPHEN 325 MG TABLET (FP) PO PRN (11:26)
--- NOTE | 2020-02-05 11:29 | SPA.PREOP ---
- PRE-OP NOTE Dx: left great toe gangrene Planned Procedure: left lower extremity angiogram Surgeon: Dr. Valdez Last Vital Signs Temp Pulse Resp BP Pulse Ox 98.6 F 84 18 124/76 99 02/05/20 09:33 02/05/20 09:33 02/05/20 09:33 02/05/20 09:33 02/05/20 09:33 Lab Results WBC 6.2 K/mm3 (4.0-10.0) 02/05/20 07:00 RBC 2.57 M/mm3 (4.00-5.60) L 02/05/20 07:00 Hgb 8.4 GM/dL (11.7-16.9) L 02/05/20 07:00 Hct 25.8 % (35.4-49) L 02/05/20 07:00 MCV 100.3 fl (80-96) H 02/05/20 07:00 MCHC 32.6 g/dl (32.0-35.9) 02/05/20 07:00 RDW 15.6 % (11.9-15.9) 02/05/20 07:00 Plt Count 261 K/MM3 (134-434) 02/05/20 07:00 INR 1.28 (0.83-1.09) H 02/04/20 07:00 Sodium 143 mmol/L (136-145) 02/05/20 07:00 Potassium 4.5 mmol/L (3.5-5.1) 02/05/20 07:00 Chloride 115 mmol/L (98-107) H 02/05/20 07:00 Carbon Dioxide 17 mmol/L (21-32) L 02/05/20 07:00 Anion Gap 10 MMOL/L (8-16) 02/05/20 07:00 BUN 11.7 mg/dL (7-18) 02/05/20 07:00 Creatinine 1.0 mg/dL (0.55-1.3) 02/05/20 07:00 Random Glucose 79 mg/dL (74-106) 02/05/20 07:00 Calcium 8.5 mg/dL (8.5-10.1) 02/05/20 07:00 Blood Type O POSITIVE 02/03/20 15:00 Antibody Screen Negative 02/03/20 15:00 - ASSESSMENT/PLAN 1. Make NPO after midnight except po meds 2. GI/DVT PPX 3. Clearance from cardiology in chart on 02/03 4. Consent to be obtained by surgeon after risks, benefits and alternatives discussed with patient and or Health Care Proxy.
--- NOTE | 2020-02-05 11:31 | PN ---
Progress Note, Physician History of Present Illness: stable no new issues - Current Medication List Current Medications: Active Medications Acetaminophen (Tylenol -) 650 mg PO Q6H PRN PRN Reason: PAIN LEVEL 4 - 6 Last Admin: 02/05/20 11:26 Dose: 650 mg Documented by: Budesonide/Formoterol Fumarate (Symbicort 160/4.5mcg -) 1 puff IH BID [facility] Last Admin: 02/05/20 09:28 Dose: 1 pump Documented by: Docusate Sodium (Colace -) 100 mg PO BID [facility] Last Admin: 02/05/20 09:28 Dose: 100 mg Documented by: Sodium Chloride (Normal Saline -) 1,000 mls @ 50 mls/hr IV ASDIR [facility] Stop: 02/05/20 15:38 Last Admin: 02/04/20 22:35 Dose: 50 mls/hr Documented by: Montelukast Sodium (Singulair -) 10 mg PO [facility] Last Admin: 02/04/20 22:34 Dose: 10 mg Documented by: Non-Formulary Medication (Ipratropium/Albuterol Sulfate) 2 inh IN BID [facility] Oxycodone HCl (Roxicodone -) 5 mg PO Q6H PRN PRN Reason: PAIN LEVEL 7 - 10 Last Admin: 02/05/20 11:25 Dose: 5 mg Documented by: Polyethylene Glycol (Miralax (For Daily Use) -) 17 gm PO BID [facility] Last Admin: 02/05/20 09:28 Dose: 17 grams Documented by: Rivaroxaban (Xarelto) 10 mg PO DAILY [facility] Last Admin: 02/04/20 10:53 Dose: Not Given Documented by: Tamsulosin HCl (Flomax -) 0.4 mg PO DAILY@0830 [facility] Last Admin: 02/05/20 09:28 Dose: 0.4 mg Documented by: Tiotropium [place] (Spiriva Respimat) 2 puff IH DAILY [facility] Last Admin: 02/05/20 09:28 Dose: 2 puff Documented by: - Objective Vital Signs: Vital Signs Temperature 98.6 F 02/05/20 09:33 Pulse Rate 84 02/05/20 09:33 Respiratory Rate 18 02/05/20 09:33 Blood Pressure 124/76 02/05/20 09:33 O2 Sat by Pulse Oximetry (%) 99 02/05/20 09:33 Constitutional: Yes: No Distress, Calm Cardiovascular: Yes: S1, S2 Respiratory: Yes: Regular, CTA Bilaterally Gastrointestinal: Yes: Normal Bowel Sounds, Soft Musculoskeletal: Yes: WNL Extremities: Yes: WNL Neurological: Yes: Alert, Oriented Psychiatric: Yes: Alert, Oriented Labs: CBC, BMP 02/05/20 07:00 02/05/20 07:00 INR, PTT INR 1.28 (0.83-1.09) H 02/04/20 07:00 Assessment/Plan 79 yo male with PMHx asthma and COPD (home 2L NC), DVT LLE (on xarelto), & BPH, and hx of colon cancer (20 years ago) and 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 Presented to ED with increasing left foot pain and swelling over last few weeks. Admitted to hospital for soft tissue infection and r/o ischemia of L foot. gangrene of the toe anemia copd pvd plan continue as per vascular rest as per the team
[2020-02-05 11:35] VITALS: BMI 15.7
--- NOTE | 2020-02-05 14:01 | PN ---
Physical Exam: SUBJECTIVE: Patient seen and examined this morning. In no acute distress, resting comfortably on 2L NC. Patient reported increased pain overnight requiring IV morphine. Denies fever, increased SOB, n/v/d OBJECTIVE: Vital Signs 02/05/20 02/05/20 09:00 09:33 Temperature 98.6 F Pulse Rate 84 Respiratory 18 18 Rate Blood Pressure 124/76 O2 Sat by Pulse 99 99 Oximetry (%) GENERAL: Awake, alert, and fully oriented, in no acute distress. HEAD: Normal with no signs of trauma. EYES: PERRL ENT: Moist mucous membranes. NECK: no JVD LUNGS: Decreased breath sounds BL, with expiratory wheezing. Coughing HEART: RRR S1 and S2 without murmur, rub or gallop. ABDOMEN: Soft, nontender, not distended MSK: BL pedal pulses, no leg edema BL. Movement intact in feet and legs BL. NEUROLOGICAL: Normal speech SKIN: Black eschar on tip of left 1st digit extending to plantar aspect of big toe. No change. Laboratory Results - last 24 hr 02/04/20 02/04/20 02/04/20 01:45 01:45 07:00 WBC RBC Hgb Hct MCV MCH MCHC RDW Plt Count MPV Haptoglobin 177 Sodium 142 142 Potassium 3.5 4.0 Chloride 110 H 112 H Carbon Dioxide 26 26 Anion Gap 6 L 4 L BUN 14.7 13.6 Creatinine 1.3 1.3 Est GFR (CKD-EPI)AfAm 60.57 60.57 Est GFR (CKD-EPI)NonAf 52.26 52.26 Random Glucose 93 78 Hemoglobin A1c % Calcium 8.5 8.5 Phosphorus 2.9 Magnesium 2.1 Iron 21 L TIBC 211 L Iron Saturation 9 L Unsaturated IBC 190 L Ferritin 59.4 Total Bilirubin 0.3 AST 19 ALT 19 Alkaline Phosphatase 81 LD Total 184 C-Reactive Protein 3.9 H Total Protein 5.8 L Albumin 2.8 L Triglycerides 86 Cholesterol 153 Total LDL Cholesterol 93 HDL Cholesterol 42 Vitamin B12 435 Serum Folate 11 02/04/20 02/04/20 02/05/20 07:00 17:10 07:00 WBC 6.2 6.2 RBC 2.50 L 2.57 L Hgb 8.3 L 8.4 L Hct 25.0 L 25.8 L MCV 99.8 H 100.3 H MCH 33.0 32.7 MCHC 33.1 32.6 RDW 14.9 15.6 Plt Count 312 261 MPV 8.1 8.6 Haptoglobin Sodium Potassium Chloride Carbon Dioxide Anion Gap BUN Creatinine Est GFR (CKD-EPI)AfAm Est GFR (CKD-EPI)NonAf Random Glucose Hemoglobin A1c % < 3.5 L Calcium Phosphorus Magnesium Iron TIBC Iron Saturation Unsaturated IBC Ferritin Total Bilirubin AST ALT Alkaline Phosphatase LD Total C-Reactive Protein Total Protein Albumin Triglycerides Cholesterol Total LDL Cholesterol HDL Cholesterol Vitamin B12 Serum Folate 02/05/20 07:00 WBC RBC Hgb Hct MCV MCH MCHC RDW Plt Count MPV Haptoglobin Sodium 143 Potassium 4.5 Chloride 115 H Carbon Dioxide 17 L Anion Gap 10 BUN 11.7 Creatinine 1.0 Est GFR (CKD-EPI)AfAm 83.18 Est GFR (CKD-EPI)NonAf 71.77 Random Glucose 79 Hemoglobin A1c % Calcium 8.5 Phosphorus 2.8 Magnesium 2.0 Iron TIBC Iron Saturation Unsaturated IBC Ferritin Total Bilirubin AST ALT Alkaline Phosphatase LD Total C-Reactive Protein Total Protein Albumin Triglycerides Cholesterol Total LDL Cholesterol HDL Cholesterol Vitamin B12 Serum Folate Active Medications Generic Name Dose Route Start Last Admin Trade Name Freq PRN Reason Stop Dose Admin Acetaminophen 650 mg 02/03/20 19:00 02/05/20 11:26 Tylenol - PO 650 mg Q6H PRN Administration PAIN LEVEL 4 - 6 Budesonide/Formoterol Fumarate 1 puff 02/03/20 22:00 02/05/20 09:28 Symbicort 160/4.5mcg - IH 1 pump BID BRANDY Administration Docusate Sodium 100 mg 02/05/20 10:00 02/05/20 09:28 Colace - PO 100 mg BID BRANDY Administration Sodium Chloride 1,000 mls @ 50 mls/hr 02/04/20 17:00 02/04/20 22:35 Normal Saline - IV 02/05/20 15:38 50 mls/hr ASDIR BRANDY Administration Montelukast Sodium 10 mg 02/04/20 22:00 02/04/20 22:34 Singulair - PO 10 mg HS BRANDY Administration Non-Formulary Medication 2 inh 02/03/20 22:00 Ipratropium/Albuterol Sulfate IN BID BRANDY Oxycodone HCl 5 mg 02/05/20 08:54 02/05/20 11:25 Roxicodone - PO 5 mg Q6H PRN Administration PAIN LEVEL 7 - 10 Polyethylene Glycol 17 gm 02/05/20 10:00 02/05/20 09:28 Miralax (For Daily Use) - PO 17 grams BID BRANDY Administration Primidone 100 mg 02/05/20 13:30 Mysoline - PO DAILY BRANDY Rivaroxaban 10 mg 02/04/20 10:00 02/04/20 10:53 Xarelto PO Not Given DAILY [facility] Tamsulosin HCl 0.4 mg 02/04/20 08:30 02/05/20 09:28 Flomax - PO 0.4 mg DAILY@0830 BRANDY Administration Tiotropium [place] 2 puff 02/05/20 10:00 02/05/20 09:28 Spiriva Respimat IH 2 puff DAILY BRANDY Administration ASSESSMENT/PLAN: 79 yo male with PMHx asthma and COPD (home 2L NC), DVT LLE (on xarelto), & BPH, and hx of colon cancer (20 years ago) and 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 Presented to ED with increasing left foot pain and swelling over last few weeks. Admitted to hospital for soft tissue infection and r/o ischemia of L foot. Left 1st digit pain: PAD - Vascular consulted (Dr. Valdez) Angio on Monday 02/05 - Cardio consulted (Dr. Ma) cleared for angio - consulted ID (Dr. Quiroz) dry gangrene, no need continue antibiotics - Started IV Tylenol PRN for pain - Increased oxycodone to 5 mg Q4hr PRN for pain Anemia: Macrocytic - hbg/hct stabilized - Consulted GI - believes anemia is due to chronic disease - haptoglobin normal - transfuse if Hbg < 7 Possible Dementia - more alert this morning, maybe patient is worse in afternoons - continue to reassess- consider outpatient neurology wkup - given extensive hx of vascular disease, possibly vascular dementia - Sean Cognitive assessment scored 15 (26 is normal) COPD: - continue 2L O2 NC - continue home inhalers Prophylaxis - xarelto 10 mg daily >> held for possible procedure - Was currently on 15 mg BID, unclear why - DVT was in 2013 FEN - NPO after midnight for Angio - regular diet - replete electrolyte PRN Other: PCP Dr. Dodson still not reachable for xarelto dosage clarification. No one answers office phone. asked Dr. Valdez if he knew anything about Xarelto dose. Dr. Valdez saw patient for toe only, he was already on the xarelto. It's unclear how patient got an ischemic toe given the dose and duration he's been on it. Will continue to investigate. Will make sure patient is discharged on appropriate dose or switch medications. Visit type - Emergency Visit Emergency Visit: Yes ED Registration Date: 02/03/20 Care time: The patient presented to the Emergency Department on the above date and was hospitalized for further evaluation of their emergent condition. - New Patient This patient is new to me today: No - Critical Care Critical Care patient: No - Discharge Referral Referred to [facility] Med [facility].C[facility] Yes Physician Referral: Van Valdez DO ([facility]) - Medication Review Med list reviewed for High Risk Meds patients 65 and older: Yes ATTENDING PHYSICIAN STATEMENT I saw and evaluated the patient. I reviewed the resident's note and discussed the case with the resident. I agree with the resident's findings and plan as documented. SUBJECTIVE: OBJECTIVE: ASSESSMENT AND PLAN:
[2020-02-05] MEDS ORDERED: ACETAMINOPHEN 1000 MG/100 ML VIAL (NON FORMULARY) IVPB PRN (15:21)
[2020-02-05] MEDS ORDERED: PRIMIDONE 50 MG TABLET PO SCH (17:00)
--- NOTE | 2020-02-05 17:35 | CON.GI ---
Consult - History of Present Illness History of Present Illness: 79 y/o M PMHx PAD, COPD (2L Home O2), LLE DVT (on Xarelto), Colorectal Ca (in remission for 20 years), BPH Presents from home with worsening pain over Left great toe wound. Patient was recently discharged in December from [facility] with 5 days of PO Augmentin for the same wound after completing a course of IV Cefazolin, At this time an arterial Duplex found decreased b/l Flow. Since then patient has followed with wound care however today the Left Great toe became intense. He is unable to describe it but says it was 10/10 prompting him to vist [facility]. He is guaiac negative. 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: Peripheral Neuropathy (Shaking in his hands) Pulmonary: Yes: Asthma, COPD Gastrointestinal: Yes: Cancer (colon 11 yrs ago, last colonscopy 4 years ago) Renal/: Yes: BPH - Past Surgical History Past Surgical History: Yes: Colectomy - Alcohol/Substance Use Hx Alcohol Use: No History of Substance Use: reports: None - Smoking History Smoking history: Never smoked Have you smoked in the past 12 months: No Aproximately how many cigarettes per day: 2 If you are a former smoker, when did you quit?: 8 yesrs ago - Social History ADL: Independent History of Recent Travel: No Home Medications - Allergies Allergies/Adverse Reactions: Allergies Allergy/AdvReac Type Severity Reaction Status Date / Time No Known Drug Allergies Allergy Verified 02/03/20 10:19 - Home Medications Home Medications: Ambulatory Orders Budesonide/Formeterol Fumarate [SYMBICORT 160/4.5mcg -] 1 inh PO BID 05/29/19 Rivaroxaban [Xarelto] 15 mg PO BID 05/29/19 Ipratropium/Albuterol Sulfate [Combivent Respimat 20-100 Mcg] 2 inh IN BID 01/02/20 Tamsulosin HCl 0.4 mg PO DAILY 01/02/20 Montelukast Sodium [Singulair] 10 mg PO DAILY 02/04/20 Primidone [Mysoline -] 100 mg PO DAILY 02/04/20 Tiotropium [place] [Spiriva Respimat] 2 puff IN DAILY 02/05/20 Family Medical History Family Hx Cancer: Mother (colon cancer) Family Hx Gastrointestinal Disorder: Father, Sister Physical Exam-GI Vital Signs: Vital Signs Temperature 98.2 F 02/05/20 14:34 Pulse Rate 81 02/05/20 14:34 Respiratory Rate 18 02/05/20 14:34 Blood Pressure 124/58 L 02/05/20 14:34 O2 Sat by Pulse Oximetry (%) 99 02/05/20 09:33 Constitutional: Yes: Well Nourished Eyes: Yes: Conjunctiva Clear HENT: Yes: Atraumatic Neck: Yes: Supple Cardiovascular: Yes: Regular Rate and Rhythm Respiratory: Yes: CTA Bilaterally ...Palpate: Yes: Soft. No: Firm/Rigid, Guarding, Hepatomegaly, Pulsatile Mass, Splenomegaly, Tenderness Labs: CBC, BMP 02/05/20 07:00 02/05/20 07:00 INR, PTT INR 1.28 (0.83-1.09) H 02/04/20 07:00 Problem List - Problems (1) Anemia Assessment/Plan: secondary to chronic disease, possibly intermittent occult gi bleeding R> will hold off gi w/u at this time please recall once vascular w/u is done and medically cleared Code(s): D64.9 - ANEMIA, UNSPECIFIED
--- NOTE | 2020-02-05 17:44 | PN ---
Teaching Attending Note Name of Resident: Ena Tello ATTENDING PHYSICIAN STATEMENT I saw and evaluated the patient. I reviewed the resident's note and discussed the case with the resident. I agree with the resident's findings and plan as documented. SUBJECTIVE: No fever or chills. no MONTERROSO. intermittent pain in foot OBJECTIVE: NAd, awake, flat affect. CV: RRR Lungs: CTAB Abd: soft, NT, ND , NL BS , mid line surgical scar Ext: No edema on legs. Dp 1+ b/l. L big toe with purplish discoloration at the tip. tenderness to palpation to all L sided toes. some discoloration to the plantar aspect of the 1st metatarsal head . no discoloration of the R foot. nl sensation to feet and nl temperature. can move all toes. ASSESSMENT AND PLAN: 79 y/o man with h/o PAD, COPD on home O2, remote LLE DVT , Colorectal Ca (in remission for 20 years, sp colectomy ), BPH, recent admission for L big toe pain with w/u including atherosclerotic plaque in aorta, 3.8 cm abdominal aortic aneurysm, who Presents for worsening L big toe and forefoot pain. 1- Possible ischemia of the L foot. - angiogram planned for tomorrow - xarelto on hold for possible procedure. - vascular input - A1c is < 3.5 . LDL not at goal: add statin 2- h/o DVT. pharmacy clarified the BID dosing of xarelto ( [address] Ryan Valdez is who prescribes it. will confirm with him. 3- MAcrocytic anemia: - B12 , folate nl - GI input noted.
[2020-02-05] MEDS: oxyCODONE HCL 5 MG TABLET PO PRN (17:59)
[2020-02-05] MEDS ORDERED: ATORVASTATIN CA 20 MG TABLET (FP) PO SCH (22:00)
[2020-02-05] MEDS: MONTELUKAST NA 10 MG TABLET PO SCH (22:10)
[2020-02-06] MEDS: oxyCODONE HCL 5 MG TABLET PO PRN ×3 (01:49→20:58)
[2020-02-06] MEDS ORDERED: PT OWN MED DRAWER 7, Y5N ONE ×4 (09:03→11:35)
[2020-02-06] MEDS: TAMSULOSIN HCL 0.4 MG CAP PO SCH (09:07)
[2020-02-06] MEDS: BUDESONIDE/FORMETEROL FUMARATE 160/4.5 mcg INHALER IH SCH ×2 (09:08→22:35)
[2020-02-06] MEDS: TIOTROPIUM BROMIDE 2.5 MCG (SPIRIVA) RESPIMAT INHALER IH SCH (09:08)
[2020-02-06] MEDS: POLYETHYLENE GLYCOL 3350 119 GM BTL PO SCH ×2 (09:09→22:34)
[2020-02-06] MEDS: DOCUSATE SODIUM 100 MG CAPSULE (FP) PO SCH ×2 (09:09→22:33)
[2020-02-06] MEDS ORDERED: PRIMIDONE 50 MG TABLET PO SCH (10:00)
[2020-02-06 10:18] LABS: HEMATOCRIT 27.3 % (35.4-49); HEMOGLOBIN 8.9 GM/dL (11.7-16.9); MCH 32.7 pg (25.7-33.7); MCHC 32.7 g/dl (32.0-35.9); MEAN PLT VOLUME 7.9 fl (7.5-11.1); PLATELET COUNT 340 K/MM3 (134-434); RBC 2.73 M/mm3 (4.00-5.60); RDW 15.1 % (11.9-15.9); WHITE BLOOD COUNT 5.9 K/mm3 (4.0-10.0)
[2020-02-06 10:19] LABS: INR 0.99 (0.83-1.09); PROTHROMBIN TIME (PATIENT) 11.7 SEC (9.7-13.0)
--- NOTE | 2020-02-06 10:30 | PN ---
Progress Note, Physician Chief Complaint: no complaints History of Present Illness: 79 yo male with a history of COPD (home 2L NC), DVT LLE (on xarelto), BPH, colon cancer (20 years ago) PVD with 3.5 cm AAA and recent admission for ulcer now presents with toe ulcer awaiting angiogram. No chest pain, orthopnea, PND or edema. Exercise tolerance is limited. echo 01/05/20: TDS normal EF. - Current Medication List Current Medications: Active Medications Acetaminophen (Ofirmev Injection -) 750 mg IVPB Q6H PRN PRN Reason: PAIN LEVEL 7 - 10 Stop: 02/06/20 15:21 Atorvastatin Calcium (Lipitor -) 20 mg PO HS [facility] Last Admin: 02/05/20 22:11 Dose: 20 mg Documented by: Budesonide/Formoterol Fumarate (Symbicort 160/4.5mcg -) 1 puff IH BID [facility] Last Admin: 02/06/20 09:08 Dose: 1 puff Documented by: Docusate Sodium (Colace -) 100 mg PO BID [facility] Last Admin: 02/06/20 09:09 Dose: Not Given Documented by: Montelukast Sodium (Singulair -) 10 mg PO HS [facility] Last Admin: 02/05/20 22:10 Dose: 10 mg Documented by: Non-Formulary Medication (Ipratropium/Albuterol Sulfate) 2 inh IN BID [facility] Oxycodone HCl (Roxicodone -) 5 mg PO Q4H PRN PRN Reason: PAIN LEVEL 7 - 10 Last Admin: 02/06/20 09:06 Dose: 5 mg Documented by: Polyethylene Glycol (Miralax (For Daily Use) -) 17 gm PO BID [facility] Last Admin: 02/06/20 09:09 Dose: Not Given Documented by: Primidone (Mysoline -) 25 mg PO DAILY [facility] Rivaroxaban (Xarelto) 10 mg PO DAILY [facility] Last Admin: 02/04/20 10:53 Dose: Not Given Documented by: Tamsulosin HCl (Flomax -) 0.4 mg PO DAILY@0830 [facility] Last Admin: 02/06/20 09:07 Dose: 0.4 mg Documented by: Tiotropium [place] (Spiriva Respimat) 2 puff IH DAILY [facility] Last Admin: 02/06/20 09:08 Dose: 2 puff Documented by: - Objective Vital Signs: Vital Signs Temperature 97.6 F 02/06/20 05:55 Pulse Rate 73 02/06/20 05:55 Respiratory Rate 16 02/06/20 05:55 Blood Pressure 117/67 02/06/20 05:55 O2 Sat by Pulse Oximetry (%) 100 02/06/20 05:55 Constitutional: Yes: No Distress, Calm Eyes: Yes: EOM Intact HENT: Yes: Normocephalic Neck: Yes: Trachea Midline Cardiovascular: Yes: Regular Rate and Rhythm Respiratory: Yes: CTA Bilaterally Gastrointestinal: Yes: Normal Bowel Sounds, Soft Musculoskeletal: Yes: Muscle Weakness Edema: No Labs: CBC, BMP 02/06/20 09:12 INR, PTT INR 0.99 (0.83-1.09) 02/06/20 09:12 Assessment/Plan 79 yo male with a history of COPD (home 2L NC), DVT LLE (on xarelto), BPH, colon cancer (20 years ago) PVD with 3.5 cm AAA and recent admission for ulcer now presents with toe ulcer awaiting angiogram. No chest pain, orthopnea, PND or edema. Exercise tolerance is limited. echo 01/05/20: TDS normal EF. IMP: -there are no cardiac contraindications to the planned angiogram. He is at low risk for percutaneous procedures, intermediate risk for open revascularization if needed. -continue current medications, hold Xarelto until stable post procedure. No need for bridging. Resume secondary prevention dosing of Xarelto when stable postop. -will follow with you.
[2020-02-06 10:54] LABS: BLOOD UREA NITROGEN 12.2 mg/dL (7-18); POTASSIUM 4.2 mmol/L (3.5-5.1)
[2020-02-06 11:00] LABS: CALCIUM 9.2 mg/dL (8.5-10.1); CREATININE 0.9 mg/dL (0.55-1.3); PHOSPHOROUS 2.5 mg/dL (2.5-4.9)
--- NOTE | 2020-02-06 12:33 | PN ---
Progress Note, Physician History of Present Illness: pain main issues plan for angio today - Current Medication List Current Medications: Active Medications Acetaminophen (Ofirmev Injection -) 750 mg IVPB Q6H PRN PRN Reason: PAIN LEVEL 7 - 10 Stop: 02/06/20 15:21 Atorvastatin Calcium (Lipitor -) 20 mg PO HS [facility] Last Admin: 02/05/20 22:11 Dose: 20 mg Documented by: Budesonide/Formoterol Fumarate (Symbicort 160/4.5mcg -) 1 puff IH BID [facility] Last Admin: 02/06/20 09:08 Dose: 1 puff Documented by: Docusate Sodium (Colace -) 100 mg PO BID [facility] Last Admin: 02/06/20 09:09 Dose: Not Given Documented by: Montelukast Sodium (Singulair -) 10 mg PO [facility] Last Admin: 02/05/20 22:10 Dose: 10 mg Documented by: Non-Formulary Medication (Ipratropium/Albuterol Sulfate) 2 inh IN BID [facility] Oxycodone HCl (Roxicodone -) 5 mg PO Q4H PRN PRN Reason: PAIN LEVEL 7 - 10 Last Admin: 02/06/20 09:06 Dose: 5 mg Documented by: Polyethylene Glycol (Miralax (For Daily Use) -) 17 gm PO BID [facility] Last Admin: 02/06/20 09:09 Dose: Not Given Documented by: Primidone (Mysoline -) 25 mg PO DAILY [facility] Last Admin: 02/06/20 12:09 Dose: 25 mg Documented by: Rivaroxaban (Xarelto) 10 mg PO DAILY [facility] Last Admin: 02/04/20 10:53 Dose: Not Given Documented by: Tamsulosin HCl (Flomax -) 0.4 mg PO DAILY@0830 [facility] Last Admin: 02/06/20 09:07 Dose: 0.4 mg Documented by: Tiotropium [place] (Spiriva Respimat) 2 puff IH DAILY [facility] Last Admin: 02/06/20 09:08 Dose: 2 puff Documented by: - Objective Vital Signs: Vital Signs Temperature 98.0 F 02/06/20 10:00 Pulse Rate 84 02/06/20 10:00 Respiratory Rate 18 02/06/20 10:00 Blood Pressure 124/71 02/06/20 10:00 O2 Sat by Pulse Oximetry (%) 100 02/06/20 10:00 Constitutional: Yes: Calm, Mild Distress Eyes: Yes: Conjunctiva Clear HENT: Yes: Atraumatic, Normocephalic Neck: Yes: Supple, Trachea Midline Cardiovascular: Yes: S1, S2 Respiratory: Yes: Regular, CTA Bilaterally Gastrointestinal: Yes: Normal Bowel Sounds, Soft Musculoskeletal: Yes: WNL Extremities: Yes: Other (gangrene of the toe) Wound/Incision: Yes: Open to air Neurological: Yes: Alert, Oriented Labs: CBC, BMP 02/06/20 09:12 02/06/20 09:12 INR, PTT INR 0.99 (0.83-1.09) 02/06/20 09:12 Assessment/Plan 79 yo male with PMHx asthma and COPD (home 2L NC), DVT LLE (on xarelto), & BPH, and hx of colon cancer (20 years ago) and 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 Presented to ED with increasing left foot pain and swelling over last few weeks. Admitted to hospital for soft tissue infection and r/o ischemia of L foot. gangrene of the toe anemia copd pvd plan continue as per vascular rest as per the team angio today
[2020-02-06] MEDS ORDERED: LIDOCAINE HCL 1%, 10 MG/ML (20ML VIAL) ONE (14:49)
[2020-02-06] MEDS ORDERED: HEPARIN NA (PORCINE) 5,000 UNITS/ML 1ML VIAL ONE (14:49)
--- NOTE | 2020-02-06 16:16 | PN ---
Teaching Attending Note Name of Resident: Ena Tello ATTENDING PHYSICIAN STATEMENT I saw and evaluated the patient. I reviewed the resident's note and discussed the case with the resident. I agree with the resident's findings and plan as documented. SUBJECTIVE: no fever or chills. pain in foot did not change . not very communicative OBJECTIVE: NAd, awake, flat affect. Ext: L foot with no change and dry gangrene on big toe did not change . DP 2+ . purpulish mottled skin on plantar forefoot . no edema on leg . ASSESSMENT AND PLAN: 79 y/o man with h/o PAD, COPD on home O2, remote LLE DVT , Colorectal Ca (in remission for 20 years, sp colectomy ), BPH, recent admission for L big toe pain with w/u including atherosclerotic plaque in aorta, 3.8 cm abdominal aortic aneurysm, who Presents for worsening L big toe and forefoot pain. 1- Possible ischemia of the L foot. - angiogram today pending - xarelto on hold for possible procedure. d/w dr. Yuan , no need fr bridging - cont statin 2- h/o DVT. team reached out to Dr. bonds who indicated he was not the prescriber. need heme input on the dosing as his DVT happened many years ago. 3- MAcrocytic anemia: - B12 , folate nl - GI input noted heaprin sq fro DVT px inmean time
[2020-02-06] MEDS ORDERED: LACTATED RINGERS SOLUTION 1,000 ML IV SCH ×3 (17:30→19:01)
[2020-02-06] MEDS ORDERED: PROMETHAZINE HCL 25 MG/1 ML VIAL IVPUSH PRN ×2 (17:53→19:01)
[2020-02-06] MEDS ORDERED: ONDANSETRON 4 MG/2 ML VIAL IVPUSH PRN ×2 (17:53→19:01)
[2020-02-06] MEDS ORDERED: MIDAZOLAM HCL 2 MG/2 ML SINGLE DOSE VIAL ONE (18:12)
[2020-02-06] MEDS ORDERED: ceFAZolin 2 GRAM PREMIX BAG IVPB ONE (18:14)
[2020-02-06] MEDS ORDERED: SODIUM CHLORIDE 0.9% P/F 10 ML VIAL IJ ONE (18:17)
[2020-02-06] MEDS ORDERED: ceFAZolin SODIUM 1 GM VIAL ONE (18:17)
[2020-02-06] MEDS ORDERED: HEPARIN NA (PORCINE) 5,000 UNITS/ML 1ML VIAL SQ ONE (18:18)
[2020-02-06] MEDS ORDERED: LIDOCAINE HCL 1%, 10 MG/ML (20ML VIAL) NR ONE (18:18)
--- NOTE | 2020-02-06 18:35 | OP ---
Operative Note - Note: Operative Date: 02/06/20 Pre-Operative Diagnosis: left great toe gangrene Operation: Aortogram, LLE angiogram Findings: all vessels open small vessel disease in foot Pt needs podiatry consultation Post-Operative Diagnosis: Same as Pre-op Surgeon: Van Valdez Anesthesia: MAC Estimated Blood Loss (mls): 10 Operative Report Dictated: Yes
--- NOTE | 2020-02-06 18:39 | PN ---
Progress Note (short form) - Note Progress Note: Vascular Surgery S/P angiogram. all vessels open small vessel disease in foot at toes. No need for any intervention. Heme/Onc on case. Pt has history of DVT in past and was on xarelto. Not sure if he still needs it anymore. Please consult podiatry to evaluate toe. Van Valdez DO
--- NOTE | 2020-02-06 19:18 | PN ---
Physical Exam: SUBJECTIVE: Patient seen and examined bedside. Resting comfortably but reports being in a lot of pain. Denies fever, chest pain, SOB, n/v/d. OBJECTIVE: Vital Signs 02/06/20 15:31 Temperature 97.5 F L Pulse Rate 80 Respiratory 16 Rate Blood Pressure 122/68 O2 Sat by Pulse 100 Oximetry (%) GENERAL: Awake, alert, and fully oriented, in no acute distress. HEAD: Normal with no signs of trauma. EYES: PERRL ENT: Moist mucous membranes. LUNGS: Decreased breath sounds BL, with expiratory wheezing. HEART: RRR S1 and S2 without murmur, rub or gallop. ABDOMEN: Soft, nontender, not distended MSK: BL pedal pulses, no leg edema BL. Movement intact in feet and legs BL. NEUROLOGICAL: Normal speech SKIN: Black eschar on tip of left 1st digit extending to plantar aspect of big toe. Toe feels colder than rest of foot. Laboratory Results - last 24 hr 02/06/20 02/06/20 02/06/20 09:12 09:12 09:12 WBC 5.9 RBC 2.73 L Hgb 8.9 L Hct 27.3 L MCV 100.0 H MCH 32.7 MCHC 32.7 RDW 15.1 Plt Count 340 D MPV 7.9 PT with INR 11.70 INR 0.99 Sodium 140 Potassium 4.2 Chloride 109 H Carbon Dioxide 24 Anion Gap 8 BUN 12.2 Creatinine 0.9 Est GFR (CKD-EPI)AfAm 94.48 Est GFR (CKD-EPI)NonAf 81.52 Random Glucose 92 Calcium 9.2 Phosphorus 2.5 Magnesium 2.0 Active Medications Generic Name Dose Route Start Last Admin Trade Name Freq PRN Reason Stop Dose Admin Atorvastatin Calcium 20 mg 02/05/20 22:00 02/05/20 22:11 Lipitor - PO 20 mg HS BRANDY Administration Budesonide/Formoterol Fumarate 1 puff 02/03/20 22:00 02/06/20 09:08 Symbicort 160/4.5mcg - IH 1 puff BID BRANDY Administration Docusate Sodium 100 mg 02/05/20 10:00 02/06/20 09:09 Colace - PO Not Given BID BRANDY Fentanyl 50 mcg 02/06/20 17:25 Sublimaze Injection - IVPUSH [id number] PRN PAIN-PACU ORDER X 4 DOSES ONLY Fentanyl 50 mcg 02/06/20 17:53 Sublimaze Injection - IVPUSH [id number] PRN PAIN-PACU ORDER X 4 DOSES ONLY Heparin Sodium (Porcine) 5,000 unit 02/06/20 22:00 Heparin - SQ TID BRANDY Lactated Ringer's 1,000 mls @ 125 mls/hr 02/06/20 17:30 Lactated Ringers Solution IV ASDIR BRANDY Montelukast Sodium 10 mg 02/04/20 22:00 02/05/20 22:10 Singulair - PO 10 mg HS BRANDY Administration Ondansetron HCl 4 mg 02/06/20 17:53 Zofran Injection IVPUSH Q6H PRN NAUSEA AND/OR VOMITING Oxycodone HCl 5 mg 02/05/20 15:27 02/06/20 09:06 Roxicodone - PO 5 mg Q4H PRN Administration PAIN LEVEL 7 - 10 Polyethylene Glycol 17 gm 02/05/20 10:00 02/06/20 09:09 Miralax (For Daily Use) - PO Not Given BID [facility] Primidone 25 mg 02/06/20 10:00 02/06/20 12:09 Mysoline - PO 25 mg DAILY BRANDY Administration Promethazine HCl 12.5 mg 02/06/20 17:53 Phenergan Injection - IVPUSH Q6H PRN NAUSEA-FOR RESCUE AFTER 15 MIN Tamsulosin HCl 0.4 mg 02/04/20 08:30 02/06/20 09:07 Flomax - PO 0.4 mg DAILY@0830 BRANDY Administration Tiotropium [place] 2 puff 02/05/20 10:00 02/06/20 09:08 Spiriva Respimat IH 2 puff DAILY BRANDY Administration ASSESSMENT/PLAN: 79 yo male with PMHx asthma and COPD (home 2L NC), DVT LLE (on xarelto), & BPH, and hx of colon cancer (20 years ago) and 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 Presented to ED with increasing left foot pain and swelling over last few weeks. Admitted to hospital for soft tissue infection and r/o ischemia of L foot. Left 1st digit pain: PAD - Vascular consulted (Dr. Valdez) all vessels open, small vessel disease in foot at toes. No need for any intervention Can start plavix for PVD if primary team agrees no need for correction AC - Heme Consulted (Dr. López) defer to vascular for need of AC iron levels low consider venofir 200 mg doses every other day for 5 doses total - Podiatry consulted - IV Tylenol PRN for pain - oxycodone to 5 mg Q4hr PRN for pain Anemia: Macrocytic - hbg/hct stabilized - Consulted GI believes anemia is due to chronic disease/ no acute bleed - Heme recommends venofir tx - transfuse if Hbg < 7 COPD: - continue 2L O2 NC - continue home inhalers Prophylaxis - xarelto 10 mg daily >> held for possible procedure - Was currently on 15 mg BID, unclear why - DVT was in 2013 - consider stopping AC treatment upon discharge FEN - regular diet - replete electrolyte PRN Visit type - Emergency Visit Emergency Visit: Yes ED Registration Date: 02/03/20 Care time: The patient presented to the Emergency Department on the above date and was hospitalized for further evaluation of their emergent condition. - New Patient This patient is new to me today: No - Critical Care Critical Care patient: No - Discharge Referral Referred to [facility] Med P.C[facility] Yes Physician Referral: Van Valdez DO ([facility]) - Medication Review Med list reviewed for High Risk Meds patients 65 and older: Yes ATTENDING PHYSICIAN STATEMENT I saw and evaluated the patient. I reviewed the resident's note and discussed the case with the resident. I agree with the resident's findings and plan as documented. SUBJECTIVE: OBJECTIVE: ASSESSMENT AND PLAN:
[2020-02-06] MEDS ORDERED: HEPARIN NA (PORCINE) 5,000 UNITS/ML 1ML VIAL SQ SCH (22:00)
[2020-02-06] MEDS: ATORVASTATIN CA 20 MG TABLET (FP) PO SCH (22:33)
[2020-02-06] MEDS: MONTELUKAST NA 10 MG TABLET PO SCH (22:34)
[2020-02-06] MEDS: HEPARIN NA (PORCINE) 5,000 UNITS/ML 1ML VIAL SQ SCH (22:34)
[2020-02-07] MEDS: oxyCODONE HCL 5 MG TABLET PO PRN ×4 (00:30→20:29)
[2020-02-07] MEDS ORDERED: ACETAMINOPHEN 1000 MG/100 ML VIAL (NON FORMULARY) IVPB ONE (00:38)
[2020-02-07] MEDS ORDERED: DEXTROSE 50%-WATER - 25 GM/50 ML VIAL IVPUSH ONE (06:28)
[2020-02-07] MEDS: HEPARIN NA (PORCINE) 5,000 UNITS/ML 1ML VIAL SQ SCH ×3 (06:37→21:07)
--- NOTE | 2020-02-07 07:32 | CONSULT ---
Consult - text type - Consultation Consultation Note: Podiatry Consultation: 79 year old PVD male presented to the hospital for admission for left hallux dry gangrene. Patient managed by Dr. Valdez in wound healing center. S/p LLE angiogram, diagnostic, with 2 vessel runoff and small vessel dx. He reports pain to the left foot. Denies F/V/N/C/SOB/CP. Afebrile. 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 There is dry gangrenous changes with eschar noted to the distal tuft of the left hallux. There is no purulent drainage, no fluctuance, no streaking ascending cellulitis, no signs of active infection. Moderate tenderness to palpation. Imp: 79 year old PVD male with left hallux dry gangrene 1. Abx per ID 2. Discussed treatment options with patient. Discussed partial hallux amputation versus conservative care. I did discuss the potential for worsening condition of the great toe if we treat conservatively with local care. He wants to consider his options for now. If agreeable will need hallux amputation next week. 3. Thank you for the courtesy of this consultation. Juana Prado DPM
[2020-02-07] MEDS: TAMSULOSIN HCL 0.4 MG CAP PO SCH (07:58)
[2020-02-07 08:35] LABS: HEMATOCRIT 25.2 % (35.4-49); HEMOGLOBIN 8.4 GM/dL (11.7-16.9); MCH 33.5 pg (25.7-33.7); MCHC 33.4 g/dl (32.0-35.9); MEAN CELL VOLUME 100.2 fl (80-96); MEAN PLT VOLUME 8.4 fl (7.5-11.1); PLATELET COUNT 343 K/MM3 (134-434); RBC 2.52 M/mm3 (4.00-5.60); RDW 15.2 % (11.9-15.9); WHITE BLOOD COUNT 6.2 K/mm3 (4.0-10.0)
[2020-02-07 08:36] LABS: BLOOD UREA NITROGEN 14.9 mg/dL (7-18); CALCIUM 9.3 mg/dL (8.5-10.1); MAGNESIUM 2.1 mg/dL (1.8-2.4); POTASSIUM 4.9 mmol/L (3.5-5.1)
[2020-02-07] MEDS ORDERED: PT OWN MED DRAWER 7, Y5N ONE (08:59)
[2020-02-07] MEDS: DOCUSATE SODIUM 100 MG CAPSULE (FP) PO SCH ×2 (09:14→21:07)
[2020-02-07] MEDS: POLYETHYLENE GLYCOL 3350 119 GM BTL PO SCH ×2 (09:15→21:07)
[2020-02-07] MEDS: PRIMIDONE 50 MG TABLET PO SCH (09:15)
[2020-02-07] MEDS: TIOTROPIUM BROMIDE 2.5 MCG (SPIRIVA) RESPIMAT INHALER IH SCH (09:18)
[2020-02-07] MEDS: BUDESONIDE/FORMETEROL FUMARATE 160/4.5 mcg INHALER IH SCH ×2 (09:19→21:11)
--- NOTE | 2020-02-07 09:55 | PN ---
Progress Note (short form) - Note Progress Note: Post op day#1.S/P Aortogram with left angiogram under MAC uneventful.Patient stable.No any anesthesia related problem.Patient Dc from the anesthesia care.
--- NOTE | 2020-02-07 13:01 | PN ---
Progress Note, Physician History of Present Illness: no new issues - Current Medication List Current Medications: Active Medications Atorvastatin Calcium (Lipitor -) 20 mg PO [facility] Last Admin: 02/06/20 22:33 Dose: 20 mg Documented by: Budesonide/Formoterol Fumarate (Symbicort 160/4.5mcg -) 1 puff IH BID [facility] Last Admin: 02/07/20 09:19 Dose: 1 puff Documented by: Docusate Sodium (Colace -) 100 mg PO BID [facility] Last Admin: 02/07/20 09:14 Dose: 100 mg Documented by: Heparin Sodium (Porcine) (Heparin -) 5,000 unit SQ TID [facility] Last Admin: 02/07/20 06:37 Dose: 5,000 unit Documented by: Montelukast Sodium (Singulair -) 10 mg PO [facility] Last Admin: 02/06/20 22:34 Dose: 10 mg Documented by: Ondansetron HCl (Zofran Injection) 4 mg IVPUSH Q6H PRN PRN Reason: NAUSEA AND/OR VOMITING Oxycodone HCl (Roxicodone -) 5 mg PO Q4H PRN PRN Reason: PAIN LEVEL 7 - 10 Last Admin: 02/07/20 06:38 Dose: 5 mg Documented by: Polyethylene Glycol (Miralax (For Daily Use) -) 17 gm PO BID [facility] Last Admin: 02/07/20 09:15 Dose: Not Given Documented by: Primidone (Mysoline -) 25 mg PO DAILY [facility] Last Admin: 02/07/20 09:15 Dose: 25 mg Documented by: Tamsulosin HCl (Flomax -) 0.4 mg PO DAILY@0830 [facility] Last Admin: 02/07/20 07:58 Dose: 0.4 mg Documented by: Tiotropium [place] (Spiriva Respimat) 2 puff IH DAILY [facility] Last Admin: 02/07/20 09:18 Dose: 2 puff Documented by: - Objective Vital Signs: Vital Signs Temperature 97.9 F 02/07/20 10:15 Pulse Rate 80 02/07/20 10:15 Respiratory Rate 18 02/07/20 10:15 Blood Pressure 121/69 02/07/20 10:15 O2 Sat by Pulse Oximetry (%) 100 02/07/20 10:15 Constitutional: Yes: No Distress, Calm Cardiovascular: Yes: S1, S2 Respiratory: Yes: Regular, CTA Bilaterally Gastrointestinal: Yes: Normal Bowel Sounds, Soft Musculoskeletal: Yes: WNL Extremities: Yes: Other Neurological: Yes: Alert, Oriented Psychiatric: Yes: Alert, Oriented Labs: CBC, BMP 02/07/20 06:39 02/07/20 06:39 INR, PTT INR 0.99 (0.83-1.09) 02/06/20 09:12 Assessment/Plan 79 yo male with PMHx asthma and COPD (home 2L NC), DVT LLE (on xarelto), & BPH, and hx of colon cancer (20 years ago) and 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 Presented to ED with increasing left foot pain and swelling over last few weeks. Admitted to hospital for soft tissue infection and r/o ischemia of L foot. gangrene of the toe anemia copd pvd plan podiatry on case patient needs amputation
--- NOTE | 2020-02-07 13:52 | PN ---
Progress Note, Physician History of Present Illness: seen and examined today in nad. tolerated angiogram without cardiac complications. planned for possible toe resection next week. no overnight events. no new complaints. - Current Medication List Current Medications: Active Medications Atorvastatin Calcium (Lipitor -) 20 mg PO HS [facility] Last Admin: 02/06/20 22:33 Dose: 20 mg Documented by: Budesonide/Formoterol Fumarate (Symbicort 160/4.5mcg -) 1 puff IH BID [facility] Last Admin: 02/07/20 09:19 Dose: 1 puff Documented by: Docusate Sodium (Colace -) 100 mg PO BID [facility] Last Admin: 02/07/20 09:14 Dose: 100 mg Documented by: Heparin Sodium (Porcine) (Heparin -) 5,000 unit SQ TID [facility] Last Admin: 02/07/20 06:37 Dose: 5,000 unit Documented by: Montelukast Sodium (Singulair -) 10 mg PO [facility] Last Admin: 02/06/20 22:34 Dose: 10 mg Documented by: Ondansetron HCl (Zofran Injection) 4 mg IVPUSH Q6H PRN PRN Reason: NAUSEA AND/OR VOMITING Oxycodone HCl (Roxicodone -) 5 mg PO Q4H PRN PRN Reason: PAIN LEVEL 7 - 10 Last Admin: 02/07/20 06:38 Dose: 5 mg Documented by: Polyethylene Glycol (Miralax (For Daily Use) -) 17 gm PO BID [facility] Last Admin: 02/07/20 09:15 Dose: Not Given Documented by: Primidone (Mysoline -) 25 mg PO DAILY [facility] Last Admin: 02/07/20 09:15 Dose: 25 mg Documented by: Tamsulosin HCl (Flomax -) 0.4 mg PO DAILY@0830 [facility] Last Admin: 02/07/20 07:58 Dose: 0.4 mg Documented by: Tiotropium [place] (Spiriva Respimat) 2 puff IH DAILY [facility] Last Admin: 02/07/20 09:18 Dose: 2 puff Documented by: - Objective Vital Signs: Vital Signs Temperature 97.9 F 02/07/20 10:15 Pulse Rate 80 02/07/20 10:15 Respiratory Rate 18 02/07/20 10:15 Blood Pressure 121/69 02/07/20 10:15 O2 Sat by Pulse Oximetry (%) 100 02/07/20 10:15 Constitutional: Yes: No Distress, Calm Eyes: Yes: Conjunctiva Clear, EOM Intact HENT: Yes: Atraumatic, Normocephalic Neck: Yes: Supple, Trachea Midline Cardiovascular: Yes: Regular Rate and Rhythm, S1, S2. No: Bradycardia, Tachycardia, Pulse Irregular, Bruit, JVD, Gallop, Murmur, Rub, S3, S4, Varicosities Respiratory: Yes: Regular. No: Rales, Rhonchi, SOB, Wheezes Gastrointestinal: Yes: Normal Bowel Sounds, Soft Edema: No Peripheral Pulses WNL: No Neurological: Yes: Alert, Oriented Psychiatric: Yes: Alert, Oriented Labs: CBC, BMP 02/07/20 06:39 02/07/20 06:39 INR, PTT INR 0.99 (0.83-1.09) 02/06/20 09:12 - ....Imaging Chest X-ray: Report Reviewed, Image Reviewed EKG: Report Reviewed, Image Reviewed Other: Report Reviewed, Image Reviewed Assessment/Plan 79 yo male with a history of COPD (home 2L NC), DVT LLE (on xarelto), BPH, colon cancer (20 years ago) PVD with 3.5 cm AAA and recent admission for ulcer now presents with toe ulcer awaiting angiogram. No chest pain, orthopnea, PND or edema. Exercise tolerance is limited. echo 01/05/20: TDS normal EF. IMP: - tolerated angiogram without cardiac complications. planned for possible toe resection next week. -there are no cardiac contraindications to toe resection. -continue current medications -Xarelto on hold for possible toe resection. plan to resume Xarelto if no procedure needed or postop -no additional inpatient cardiac work up is needed. will see as needed. please call with any additional questions.
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
--- NOTE | 2020-02-07 17:59 | PN ---
Teaching Attending Note Name of Resident: Mj Lam ATTENDING PHYSICIAN STATEMENT I saw and evaluated the patient. I reviewed the resident's note and discussed the case with the resident. I agree with the resident's findings and plan as documented. SUBJECTIVE: No fever or chills . pain in foot. No N./v. no SOB . No events over night per RN OBJECTIVE: NAd, awake, flat affect. CTAB CV: RRR Ext: L foot with dry gangrene on big toe did not change . DP 2+ . purpulish mottled skin on plantar forefoot with no tenderness . no edema on leg . nl temperature of the foot ASSESSMENT AND PLAN: 79 y/o man with h/o PAD, COPD on home O2, remote LLE DVT , Colorectal Ca (in remission for 20 years, sp colectomy ), BPH, recent admission for L big toe pain with w/u including atherosclerotic plaque in aorta, 3.8 cm abdominal aortic aneurysm, who Presents for worsening L big toe and forefoot pain. 1- L big toe dry gangrene , possible small vessel disease. angio with no big vessel disease - cont statin - will need aspirin after procedrue. - pt agrees to amputation 2- Remote h/o DVT. probably no need fro more xarelto, but will wait for Heme Recs 3- MAcrocytic anemia: - B12 , folate nl - GI input noted heparin sq
--- NOTE | 2020-02-07 19:10 | PN ---
Physical Exam: SUBJECTIVE: Patient seen and examined at the bedside, in no acute distress OBJECTIVE: Vital Signs Period Temp Pulse Resp BP Sys/Valdes Pulse Ox Last 24 Hr 97.6 F-99.4 F 80-93 17-18 90-121/56-76 96-100 GENERAL: AOx3 HEAD: Normal with no signs of trauma. EYES: PERRL ENT: Moist mucous membranes. LUNGS: Decreased breath sounds BL HEART: RRR S1 and S2 without murmur, rub or gallop. ABDOMEN: Soft, nontender, not distended MSK: BL pedal pulses, no leg edema BL. Movement intact in feet and legs BL. NEUROLOGICAL: Normal speech SKIN: BL 1st digit gangrene, entire foot mildly tender to palpation, pulses palpable B/L Laboratory Results - last 24 hr 02/07/20 02/07/20 06:39 06:39 WBC 6.2 RBC 2.52 L Hgb 8.4 L Hct 25.2 L MCV 100.2 H MCH 33.5 MCHC 33.4 RDW 15.2 Plt Count 343 MPV 8.4 Sodium 138 Potassium 4.9 Chloride 103 Carbon Dioxide 30 Anion Gap 5 L BUN 14.9 Creatinine 1.0 Est GFR (CKD-EPI)AfAm 83.18 Est GFR (CKD-EPI)NonAf 71.77 Random Glucose 106 Calcium 9.3 Phosphorus 3.0 Magnesium 2.1 Active Medications Generic Name Dose Route Start Last Admin Trade Name Freq PRN Reason Stop Dose Admin Atorvastatin Calcium 20 mg 02/06/20 22:00 02/06/20 22:33 Lipitor - PO 20 mg HS BRANDY Administration Budesonide/Formoterol Fumarate 1 puff 02/06/20 22:00 02/07/20 09:19 Symbicort 160/4.5mcg - IH 1 puff BID BRANDY Administration Docusate Sodium 100 mg 02/06/20 22:00 02/07/20 09:14 Colace - PO 100 mg BID BRANDY Administration Heparin Sodium (Porcine) 5,000 unit 02/06/20 22:00 02/07/20 14:36 Heparin - SQ 5,000 unit TID BRANDY Administration Montelukast Sodium 10 mg 02/06/20 22:00 02/06/20 22:34 Singulair - PO 10 mg HS BRANDY Administration Ondansetron HCl 4 mg 08/21/20 19:01 Zofran Injection IVPUSH Q6H PRN NAUSEA AND/OR VOMITING Oxycodone HCl 5 mg 02/06/20 19:01 02/07/20 14:35 Roxicodone - PO 5 mg Q4H PRN Administration PAIN LEVEL 7 - 10 Polyethylene Glycol 17 gm 02/06/20 22:00 02/07/20 09:15 Miralax (For Daily Use) - PO Not Given BID BRANDY Primidone 25 mg 02/07/20 10:00 02/07/20 09:15 Mysoline - PO 25 mg DAILY BRANDY Administration Tamsulosin HCl 0.4 mg 02/07/20 08:30 02/07/20 07:58 Flomax - PO 0.4 mg DAILY@0830 BRANDY Administration Tiotropium [place] 2 puff 02/07/20 10:00 02/07/20 09:18 Spiriva Respimat IH 2 puff DAILY BRANDY Administration ASSESSMENT/PLAN: 79M with PMH of COPD (2LNC), DVT LLE (on xarelto), BPH, colon ca (20 years ago). Presented to ER with increasing left foot pain and swelling over last few weeks. Admitted to hospital for soft tissue infection and r/o ischemia of L foot. #PAD - Vascular consulted (Dr. Valdez) - s/p Angio L foot 02/05: all vessels open, small vessel disease in foot at toes, no need for any intervention, can start plavix for PVD if primary team agrees - Pt on Xarelto for DVT, although it is unclear why he is still on it. No need for Xarelto as per Vascular as well as heme - Podiatry: Recommend amputation, pt agrees, prepare for procedure next week, cardio cleared - IV Tylenol PRN for pain - oxycodone to 5 mg Q4hr PRN for pain #Anemia: Macrocytic - GI: Anemia is due to chronic disease/ no acute bleed - Heme: consider venofir 200 mg doses every other day for 5 doses total - transfuse if Hbg < 7 #COPD: - continue 2L O2 NC - continue home inhalers #FEN - regular diet - replete electrolyte PRN #Prophylaxis - Will hold AC for possible procedure and resume afterwards #Dispo - Monitor in M/S, prep for amputation next week ATTENDING PHYSICIAN STATEMENT I saw and evaluated the patient. I reviewed the resident's note and discussed the case with the resident. I agree with the resident's findings and plan as documented. SUBJECTIVE: OBJECTIVE: ASSESSMENT AND PLAN:
[2020-02-07] MEDS: MONTELUKAST NA 10 MG TABLET PO SCH (21:07)
[2020-02-07] MEDS: ATORVASTATIN CA 20 MG TABLET (FP) PO SCH (21:07)
[2020-02-08] MEDS: oxyCODONE HCL 5 MG TABLET PO PRN ×4 (00:50→20:51)
[2020-02-08] MEDS: HEPARIN NA (PORCINE) 5,000 UNITS/ML 1ML VIAL SQ SCH ×3 (05:19→22:30)
[2020-02-08] MEDS: TAMSULOSIN HCL 0.4 MG CAP PO SCH (08:00)
[2020-02-08 08:19] LABS: BASO % 0.6 % (0-2.0); EOS % 7.7 % (0-4.5); HEMATOCRIT 23.6 % (35.4-49); HEMOGLOBIN 7.7 GM/dL (11.7-16.9); LYMPH % 30.7 % (8-40); MCH 32.4 pg (25.7-33.7); MCHC 32.9 g/dl (32.0-35.9); MEAN CELL VOLUME 98.7 fl (80-96); MEAN PLT VOLUME 8.2 fl (7.5-11.1); MONO % 7.8 % (3.8-10.2); NEUT % 53.2 % (42.8-82.8); PLATELET COUNT 299 K/MM3 (134-434); RBC 2.39 M/mm3 (4.00-5.60); RDW 15.3 % (11.9-15.9); WHITE BLOOD COUNT 5.5 K/mm3 (4.0-10.0)
[2020-02-08 08:47] LABS: ALBUMIN 2.6 g/dl (3.4-5.0); BILIRUBIN,TOTAL 0.3 mg/dL (0.2-1); BLOOD UREA NITROGEN 16.2 mg/dL (7-18); CALCIUM 8.8 mg/dL (8.5-10.1); MAGNESIUM 1.8 mg/dL (1.8-2.4); PHOSPHOROUS 2.8 mg/dL (2.5-4.9); POTASSIUM 4.5 mmol/L (3.5-5.1); TOT PROT 5.6 g/dl (6.4-8.2)
[2020-02-08] MEDS ORDERED: PT OWN MED DRAWER 7, Y5N ONE (09:19)
[2020-02-08] MEDS: PRIMIDONE 50 MG TABLET PO SCH (09:38)
[2020-02-08] MEDS: DOCUSATE SODIUM 100 MG CAPSULE (FP) PO SCH ×2 (09:38→22:30)
[2020-02-08] MEDS: IRON POLYSACCHARIDES 150 MG CAPSULE PO SCH (09:40)
[2020-02-08] MEDS: TIOTROPIUM BROMIDE 2.5 MCG (SPIRIVA) RESPIMAT INHALER IH SCH (09:41)
[2020-02-08] MEDS: BUDESONIDE/FORMETEROL FUMARATE 160/4.5 mcg INHALER IH SCH ×2 (09:41→22:32)
[2020-02-08] MEDS: POLYETHYLENE GLYCOL 3350 119 GM BTL PO SCH ×2 (10:00→22:32)
--- NOTE | 2020-02-08 12:43 | PN ---
Progress Note, Physician History of Present Illness: no new issues - Current Medication List Current Medications: Active Medications Atorvastatin Calcium (Lipitor -) 20 mg PO [facility] Last Admin: 02/07/20 21:07 Dose: 20 mg Documented by: Budesonide/Formoterol Fumarate (Symbicort 160/4.5mcg -) 1 puff IH BID [facility] Last Admin: 02/08/20 09:41 Dose: 1 puff Documented by: Docusate Sodium (Colace -) 100 mg PO BID [facility] Last Admin: 02/08/20 09:38 Dose: 100 mg Documented by: Heparin Sodium (Porcine) (Heparin -) 5,000 unit SQ TID [facility] Last Admin: 02/08/20 05:19 Dose: 5,000 unit Documented by: Montelukast Sodium (Singulair -) 10 mg PO [facility] Last Admin: 02/07/20 21:07 Dose: 10 mg Documented by: Ondansetron HCl (Zofran Injection) 4 mg IVPUSH Q6H PRN PRN Reason: NAUSEA AND/OR VOMITING Oxycodone HCl (Roxicodone -) 5 mg PO Q4H PRN PRN Reason: PAIN LEVEL 7 - 10 Last Admin: 02/08/20 08:29 Dose: 5 mg Documented by: Polyethylene Glycol (Miralax (For Daily Use) -) 17 gm PO BID [facility] Last Admin: 02/07/20 21:07 Dose: Not Given Documented by: Polysaccharide Iron Complex (Niferex-150 -) 150 mg PO DAILY [facility] Last Admin: 02/08/20 09:40 Dose: 150 mg Documented by: Primidone (Mysoline -) 25 mg PO DAILY [facility] Last Admin: 02/08/20 09:38 Dose: 25 mg Documented by: Tamsulosin HCl (Flomax -) 0.4 mg PO DAILY@0830 [facility] Last Admin: 02/08/20 08:00 Dose: 0.4 mg Documented by: Tiotropium [place] (Spiriva Respimat) 2 puff IH DAILY [facility] Last Admin: 02/08/20 09:41 Dose: 2 puff Documented by: - Objective Vital Signs: Vital Signs Temperature 97.4 F L 02/08/20 10:40 Pulse Rate 76 02/08/20 10:40 Respiratory Rate 18 02/08/20 10:40 Blood Pressure 108/55 L 02/08/20 10:40 O2 Sat by Pulse Oximetry (%) 96 02/08/20 10:40 Constitutional: Yes: No Distress, Calm Cardiovascular: Yes: S1, S2 Respiratory: Yes: Regular, CTA Bilaterally Gastrointestinal: Yes: Normal Bowel Sounds, Soft Musculoskeletal: Yes: WNL Extremities: Yes: Other (dusky foot) Neurological: Yes: Alert, Oriented Psychiatric: Yes: Alert, Oriented Labs: CBC, BMP 02/08/20 07:05 02/08/20 07:05 INR, PTT INR 0.99 (0.83-1.09) 02/06/20 09:12 Assessment/Plan 79 yo male with PMHx asthma and COPD (home 2L NC), DVT LLE (on xarelto), & BPH, and hx of colon cancer (20 years ago) and 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 Presented to ED with increasing left foot pain and swelling over last few weeks. Admitted to hospital for soft tissue infection and r/o ischemia of L foot. gangrene of the toe anemia copd pvd plan podiatry on case patient needs amputation final plan
--- NOTE | 2020-02-08 16:02 | PN ---
Progress Note (short form) - Note Progress Note: Subjective: no fever or chills. no MONTERROSO,+ pain in L foot. No N./V Objective: Vital Signs: Last Vital Signs Temp Pulse Resp BP Pulse Ox 97.4 F L 76 18 108/55 L 96 02/08/20 10:40 02/08/20 10:40 02/08/20 10:40 02/08/20 10:40 02/08/20 10:40 Laboratory Results - last 24 hr 02/08/20 02/08/20 07:05 07:05 WBC 5.5 RBC 2.39 L Hgb 7.7 L Hct 23.6 L MCV 98.7 H MCH 32.4 MCHC 32.9 RDW 15.3 Plt Count 299 MPV 8.2 Absolute Neuts (auto) 2.9 Neutrophils % 53.2 Lymphocytes % 30.7 D Monocytes % 7.8 Eosinophils % 7.7 H Basophils % 0.6 Nucleated RBC % 0 Sodium 139 Potassium 4.5 Chloride 105 Carbon Dioxide 28 Anion Gap 5 L BUN 16.2 Creatinine 1.0 Est GFR (CKD-EPI)AfAm 83.18 Est GFR (CKD-EPI)NonAf 71.77 Random Glucose 105 Calcium 8.8 Phosphorus 2.8 Magnesium 1.8 Total Bilirubin 0.3 AST 31 ALT 28 Alkaline Phosphatase 79 Total Protein 5.6 L Albumin 2.6 L Physical Exam: NAd, awake, flat affect. Ext: L foot with dry gangrene on big toe did not change compared to yesterday . DP 2+ . purpulish mottled skin on plantar forefoot with no tenderness . no edema on leg . nl temperature of the foot ASSESSMENT AND PLAN: 79 y/o man with h/o PAD, COPD on home O2, remote LLE DVT , Colorectal Ca (in remission for 20 years, sp colectomy ), BPH, recent admission for L big toe pain with w/u including atherosclerotic plaque in aorta, 3.8 cm abdominal aortic aneurysm, who Presents for worsening L big toe and forefoot pain. 1- L big toe dry gangrene , possible small vessel disease. angio with no big vessel disease - cont statin - will need aspirin after procedrue. - d/w Dr. Prado, not sure of procedure timing due to OR schedule 2- Remote h/o DVT. d/w Dr. 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 - New Patient This patient is new to me today: No - Critical Care Critical Care patient: No - Medication Review Med list reviewed for High Risk Meds patients 65 and older: Yes
[2020-02-08] MEDS ORDERED: ALBUTEROL SO4 HFA INHALER IH PRN (16:54)
[2020-02-08] MEDS: MONTELUKAST NA 10 MG TABLET PO SCH (22:30)
[2020-02-08] MEDS: ATORVASTATIN CA 20 MG TABLET (FP) PO SCH (22:30)
[2020-02-09] MEDS: oxyCODONE HCL 5 MG TABLET PO PRN ×4 (01:19→16:35)
[2020-02-09] MEDS: HEPARIN NA (PORCINE) 5,000 UNITS/ML 1ML VIAL SQ SCH ×3 (06:27→21:48)
[2020-02-09] MEDS: TAMSULOSIN HCL 0.4 MG CAP PO SCH (08:21)
[2020-02-09] MEDS: IRON POLYSACCHARIDES 150 MG CAPSULE PO SCH (09:36)
[2020-02-09] MEDS: DOCUSATE SODIUM 100 MG CAPSULE (FP) PO SCH ×2 (09:36→21:48)
[2020-02-09] MEDS: PRIMIDONE 50 MG TABLET PO SCH (09:37)
--- NOTE | 2020-02-09 12:25 | PN ---
Physical Exam: SUBJECTIVE: Patient seen and examined at bedside. Overnight, patient had a complaint of toe pain but pain resolved with 5 mg of Oxycodone PO. Today the patient continues to complain of toe pain. OBJECTIVE: Vital Signs Period Temp Pulse Resp BP Sys/Valdes Pulse Ox Last 24 Hr 98.4 F-98.6 F 68-85 18-18 118-126/61-70 86-100 GENERAL: AAOx3, in no acute distress HEENT: NCAT, PERRLA, EOMI, sclera anicteric, conjunctiva clear, oropharynx clear w/o exudates. MMM. NECK: Normal ROM, supple, no lymphadenopathy, JVD, or masses LUNGS: CTABL no wheezes/ rhonchi/ rales. No distress, speaks in full sentences. No increased work of breathing. HEART: RRR, normal S1 S2, no M/R/G, peripheral pulses 2+ and equal b/l ABDOMEN: Soft, NTND, + BS. No guarding or rebound. No hepatomegaly or splenomegaly. MSK: ROM WNL EXTREMITIES: Normal inspection. No peripheral edema. No clubbing or cyanosis. NEUROLOGICAL: CN II-XII intact. Normal speech, normal gait, no focal sensorimotor deficits. SKIN: Black eschar on tip of left 1st digit extending to plantar aspect of big toe. DP2+. normal temperature of the foot. Active Medications Generic Name Dose Route Start Last Admin Trade Name Freq PRN Reason Stop Dose Admin Albuterol Sulfate 2 puff 02/08/20 16:54 02/08/20 17:06 Ventolin Hfa Inhaler - IH 2 puff Q4H PRN Administration SHORT OF BREATH/WHEEZING Atorvastatin Calcium 20 mg 02/06/20 22:00 02/08/20 22:30 Lipitor - PO 20 mg HS BRANDY Administration Budesonide/Formoterol Fumarate 1 puff 02/06/20 22:00 02/08/20 22:32 Symbicort 160/4.5mcg - IH 1 puff BID BRANDY Administration Docusate Sodium 100 mg 02/06/20 22:00 02/09/20 09:36 Colace - PO 100 mg BID BRANDY Administration Heparin Sodium (Porcine) 5,000 unit 02/06/20 22:00 02/09/20 06:27 Heparin - SQ 5,000 unit TID BRANDY Administration Montelukast Sodium 10 mg 02/06/20 22:00 02/08/20 22:30 Singulair - PO 10 mg HS BRANDY Administration Ondansetron HCl 4 mg 02/06/20 19:01 Zofran Injection IVPUSH Q6H PRN NAUSEA AND/OR VOMITING Oxycodone HCl 5 mg 02/06/20 19:01 02/09/20 06:27 Roxicodone - PO 5 mg Q4H PRN Administration PAIN LEVEL 7 - 10 Polyethylene Glycol 17 gm 02/06/20 22:00 02/08/20 22:32 Miralax (For Daily Use) - PO 17 gm BID BRANDY Administration Polysaccharide Iron Complex 150 mg 02/08/20 10:00 02/09/20 09:36 Niferex-150 - PO 150 mg DAILY BRANDY Administration Primidone 25 mg 02/07/20 10:00 02/09/20 09:37 Mysoline - PO 25 mg DAILY BRANDY Administration Tamsulosin HCl 0.4 mg 02/07/20 08:30 02/09/20 08:21 Flomax - PO 0.4 mg DAILY@0830 BRANDY Administration Tiotropium [place] 2 puff 02/07/20 10:00 02/08/20 09:41 Spiriva Respimat IH 2 puff DAILY BRANDY Administration ASSESSMENT/PLAN: 79M with PMH of COPD (2LNC), DVT LLE (on xarelto), BPH, colon ca (20 years ago). Presented to ER with increasing left foot pain and swelling over last few weeks. Admitted to hospital for soft tissue ischemia of L foot. # L big toe dry gangrene , possible small vessel disease. angio with no big vessel disease - Vascular consulted (Dr. Valdez) - s/p Angio L foot 02/05: all vessels open, small vessel disease in foot at toes, no need for any intervention, can start plavix for PVD if primary team agrees - Podiatry: Recommend amputation, pt agrees, prepare for procedure this week scheduled for: tomorrow afternoon or Sunday as per Dr. Prado , cardio cleared -Pt will be NPO after midnight for possible surgery tomorrow. Will confirm tomorrow morning with Dr. Prado whether the surgery will occur . or . -Pre op labs ordered for tomorrow AM - IV Tylenol PRN for pain - oxycodone to 5 mg Q4hr PRN for pain #Anemia: Macrocytic - GI: Anemia is due to chronic disease/no acute bleed - Heme: consider venofir 200 mg doses every other day for 5 doses total - transfuse if Hbg < 7 -Dr. Mott (GI) reconsulted for colonoscopy before patient starts duel antiplatet therapy #COPD: - continue 2L O2 NC - continue home inhalers #FEN - regular diet - replete electrolyte PRN #Prophylaxis - Heparin SQ #Dispo - Monitor in M/S, prep for amputation this week Visit type - Emergency Visit Emergency Visit: No - New Patient This patient is new to me today: Yes Date on this admission: 02/09/20 - Critical Care Critical Care patient: No - Discharge Referral Referred to [facility] No - Medication Review Med list reviewed for High Risk Meds patients 65 and older: Yes ATTENDING PHYSICIAN STATEMENT I saw and evaluated the patient. I reviewed the resident's note and discussed the case with the resident. I agree with the resident's findings and plan as documented. SUBJECTIVE: OBJECTIVE: ASSESSMENT AND PLAN:
[2020-02-09] MEDS: POLYETHYLENE GLYCOL 3350 119 GM BTL PO SCH ×2 (12:38→22:00)
[2020-02-09] MEDS: BUDESONIDE/FORMETEROL FUMARATE 160/4.5 mcg INHALER IH SCH ×2 (12:39→22:00)
[2020-02-09] MEDS: TIOTROPIUM BROMIDE 2.5 MCG (SPIRIVA) RESPIMAT INHALER IH SCH (12:39)
--- NOTE | 2020-02-09 12:46 | PN ---
Progress Note, Physician History of Present Illness: no new issues dusky foot - Current Medication List Current Medications: Active Medications Albuterol Sulfate (Ventolin Hfa Inhaler -) 2 puff IH Q4H PRN PRN Reason: SHORT OF BREATH/WHEEZING Last Admin: 02/08/20 17:06 Dose: 2 puff Documented by: Atorvastatin Calcium (Lipitor -) 20 mg PO [facility] Last Admin: 02/08/20 22:30 Dose: 20 mg Documented by: Budesonide/Formoterol Fumarate (Symbicort 160/4.5mcg -) 1 puff IH BID [facility] Last Admin: 02/09/20 12:39 Dose: 1 puff Documented by: Docusate Sodium (Colace -) 100 mg PO BID [facility] Last Admin: 02/09/20 09:36 Dose: 100 mg Documented by: Heparin Sodium (Porcine) (Heparin -) 5,000 unit SQ TID [facility] Last Admin: 02/09/20 06:27 Dose: 5,000 unit Documented by: Montelukast Sodium (Singulair -) 10 mg PO [facility] Last Admin: 02/08/20 22:30 Dose: 10 mg Documented by: Ondansetron HCl (Zofran Injection) 4 mg IVPUSH Q6H PRN PRN Reason: NAUSEA AND/OR VOMITING Oxycodone HCl (Roxicodone -) 5 mg PO Q4H PRN PRN Reason: PAIN LEVEL 7 - 10 Last Admin: 02/09/20 12:39 Dose: 5 mg Documented by: Polyethylene Glycol (Miralax (For Daily Use) -) 17 gm PO BID [facility] Last Admin: 02/09/20 12:38 Dose: Not Given Documented by: Polysaccharide Iron Complex (Niferex-150 -) 150 mg PO DAILY [facility] Last Admin: 02/09/20 09:36 Dose: 150 mg Documented by: Primidone (Mysoline -) 25 mg PO DAILY [facility] Last Admin: 02/09/20 09:37 Dose: 25 mg Documented by: Tamsulosin HCl (Flomax -) 0.4 mg PO DAILY@0830 [facility] Last Admin: 02/09/20 08:21 Dose: 0.4 mg Documented by: Tiotropium [place] (Spiriva Respimat) 2 puff IH DAILY [facility] Last Admin: 02/09/20 12:39 Dose: 2 puff Documented by: - Objective Vital Signs: Vital Signs Temperature 98.6 F 02/09/20 05:08 Pulse Rate 68 02/09/20 05:08 Respiratory Rate 18 02/09/20 09:00 Blood Pressure 123/61 02/09/20 05:08 O2 Sat by Pulse Oximetry (%) 95 02/09/20 09:00 Constitutional: Yes: Calm, Mild Distress Cardiovascular: Yes: S1, S2 Respiratory: Yes: Regular, CTA Bilaterally Gastrointestinal: Yes: Normal Bowel Sounds, Soft Musculoskeletal: Yes: WNL Extremities: Yes: WNL Neurological: Yes: Alert, Oriented Psychiatric: Yes: Alert, Oriented Labs: CBC, BMP 02/08/20 07:05 02/08/20 07:05 INR, PTT INR 0.99 (0.83-1.09) 02/06/20 09:12 Assessment/Plan 79 yo male with PMHx asthma and COPD (home 2L NC), DVT LLE (on xarelto), & BPH, and hx of colon cancer (20 years ago) and 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 Presented to ED with increasing left foot pain and swelling over last few weeks. Admitted to hospital for soft tissue infection and r/o ischemia of L foot. gangrene of the toe anemia copd pvd plan podiatry on case final plan awaited
--- NOTE | 2020-02-09 17:46 | PN ---
Teaching Attending Note Name of Resident: Justin Swift ATTENDING PHYSICIAN STATEMENT I saw and evaluated the patient. I reviewed the resident's note and discussed the case with the resident. I agree with the resident's findings and plan as documented. SUBJECTIVE: no fever or chills. pain in foot not changed. no SOB OBJECTIVE: NAd, awake, comfortable in bed Ext: L foot with dry gangrene on big toe did not change.. DP 2+ . purpulish mottled skin on plantar forefoot with no tenderness . no edema on leg . ASSESSMENT AND PLAN: 79 y/o man with h/o PAD, COPD on home O2, remote LLE DVT , Colorectal Ca (in remission for 20 years, sp colectomy ), BPH, recent admission for L big toe pain with w/u including atherosclerotic plaque in aorta, 3.8 cm abdominal aortic aneurysm, who Presents for worsening L big toe and forefoot pain. 1- L big toe dry gangrene, possible small vessel disease. - cont statin - will need aspirin after procedrue. - to OR to [place] afternoon - cont pain control - NPO after MN - hold heparin for procedure 2- Remote h/o DVT. 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 refer to heme as out pt 3- Anemia: chronic and multifactorial , but has h/o colon cancer and need to be on AC and ASA - team was unable to reach GI to revisit if EGD /colo can be done as inpt as asa and AC are needed.
[2020-02-09] MEDS ORDERED: oxyCODONE HCL 5 MG TABLET PO PRN (21:07)
[2020-02-09] MEDS: ATORVASTATIN CA 20 MG TABLET (FP) PO SCH (21:48)
[2020-02-09] MEDS: MONTELUKAST NA 10 MG TABLET PO SCH (21:48)
[2020-02-10] MEDS ORDERED: MORPHINE SULFATE 2 MG/ML VIAL IVPUSH ONE (02:25)
--- NOTE | 2020-02-10 07:32 | PN ---
Progress Note (short form) - Note Progress Note: events reviewed R> for EGD and colonoscoy becuase of progressive anemia transfuse 1 unit of PRBC COVID testing today for possible endoscopic evaluation Sunday Problem List - Problems (1) Anemia Code(s): D64.9 - ANEMIA, UNSPECIFIED
[2020-02-10 08:12] LABS: BASO % 0.4 % (0-2.0); EOS % 7.2 % (0-4.5); HEMATOCRIT 23.7 % (35.4-49); HEMOGLOBIN 7.7 GM/dL (11.7-16.9); LYMPH % 26.2 % (8-40); MCH 32.3 pg (25.7-33.7); MCHC 32.7 g/dl (32.0-35.9); MEAN CELL VOLUME 98.7 fl (80-96); MEAN PLT VOLUME 7.8 fl (7.5-11.1); MONO % 7.4 % (3.8-10.2); NEUT % 58.8 % (42.8-82.8); PLATELET COUNT 295 K/MM3 (134-434); WHITE BLOOD COUNT 5.5 K/mm3 (4.0-10.0)
[2020-02-10 08:13] LABS: INR 0.98 (0.83-1.09); PROTHROMBIN TIME (PATIENT) 11.6 SEC (9.7-13.0)
[2020-02-10 08:30] LABS: BLOOD UREA NITROGEN 14.6 mg/dL (7-18); CALCIUM 8.9 mg/dL (8.5-10.1); CREATININE 0.8 mg/dL (0.55-1.3); POTASSIUM 4.2 mmol/L (3.5-5.1)
[2020-02-10] MEDS: oxyCODONE HCL 5 MG TABLET PO PRN ×3 (09:58→17:52)
--- NOTE | 2020-02-10 10:16 | PN ---
Teaching Attending Note Name of Resident: Justin Swift ATTENDING PHYSICIAN STATEMENT I saw and evaluated the patient. I reviewed the resident's note and discussed the case with the resident. I agree with the resident's findings and plan as documented. SUBJECTIVE: Patient is comfortable with NAD OBJECTIVE: Vital Signs Temperature 98.5 F 02/10/20 06:00 Pulse Rate 89 02/10/20 06:00 Respiratory Rate 20 02/10/20 06:00 Blood Pressure 102/63 02/10/20 06:00 O2 Sat by Pulse Oximetry (%) 98 02/10/20 06:00 CBCD WBC 5.5 K/mm3 (4.0-10.0) 02/10/20 07:38 RBC 2.40 M/mm3 (4.00-5.60) L 02/10/20 07:38 Hgb 7.7 GM/dL (11.7-16.9) L 02/10/20 07:38 Hct 23.7 % (35.4-49) L 02/10/20 07:38 MCV 98.7 fl (80-96) H 02/10/20 07:38 MCHC 32.7 g/dl (32.0-35.9) 02/10/20 07:38 RDW 15.0 % (11.9-15.9) 02/10/20 07:38 Plt Count 295 K/MM3 (134-434) 02/10/20 07:38 MPV 7.8 fl (7.5-11.1) 02/10/20 07:38 CMP Sodium 137 mmol/L (136-145) 02/10/20 07:38 Potassium 4.2 mmol/L (3.5-5.1) 02/10/20 07:38 Chloride 102 mmol/L (98-107) 02/10/20 07:38 Carbon Dioxide 31 mmol/L (21-32) 02/10/20 07:38 Anion Gap 4 MMOL/L (8-16) L 02/10/20 07:38 BUN 14.6 mg/dL (7-18) 02/10/20 07:38 Creatinine 0.8 mg/dL (0.55-1.3) 02/10/20 07:38 Random Glucose 84 mg/dL (74-106) 02/10/20 07:38 Calcium 8.9 mg/dL (8.5-10.1) 02/10/20 07:38 Total Bilirubin 0.3 mg/dL (0.2-1) 02/08/20 07:05 AST 31 U/L (15-37) 02/08/20 07:05 ALT 28 U/L (13-61) 02/08/20 07:05 Alkaline Phosphatase 79 U/L (45-117) 02/08/20 07:05 Total Protein 5.6 g/dl (6.4-8.2) L 02/08/20 07:05 Albumin 2.6 g/dl (3.4-5.0) L 02/08/20 07:05 Current Medications Generic Name Dose Route Start Last Admin Trade Name Freq PRN Reason Stop Dose Admin Albuterol Sulfate 2 puff 02/08/20 16:54 02/08/20 17:06 Ventolin Hfa Inhaler - IH 2 puff Q4H PRN Administration SHORT OF BREATH/WHEEZING Atorvastatin Calcium 20 mg 02/06/20 22:00 02/09/20 21:48 Lipitor - PO 20 mg HS BRANDY Administration Budesonide/Formoterol Fumarate 1 puff 02/06/20 22:00 02/09/20 22:00 Symbicort 160/4.5mcg - IH 1 puff BID BRANDY Administration Docusate Sodium 100 mg 02/06/20 22:00 02/09/20 21:48 Colace - PO 100 mg BID BRANDY Administration Heparin Sodium (Porcine) 5,000 unit 02/06/20 22:00 02/09/20 21:48 Heparin - SQ 5,000 unit TID BRANDY Administration Montelukast Sodium 10 mg 02/06/20 22:00 02/09/20 21:48 Singulair - PO 10 mg HS BRANDY Administration Ondansetron HCl 4 mg 02/06/20 19:01 Zofran Injection IVPUSH Q6H PRN NAUSEA AND/OR VOMITING Oxycodone HCl 5 mg 02/10/20 08:46 02/10/20 09:58 Roxicodone - PO 5 mg Q4H PRN Administration PAIN LEVEL 7 - 10 Polyethylene Glycol 17 gm 02/06/20 22:00 02/09/20 22:00 Miralax (For Daily Use) - PO Not Given BID BRANDY Polysaccharide Iron Complex 150 mg 02/08/20 10:00 02/09/20 09:36 Niferex-150 - PO 150 mg DAILY BRANDY Administration Primidone 25 mg 02/07/20 10:00 02/09/20 09:37 Mysoline - PO 25 mg DAILY BRANDY Administration Tamsulosin HCl 0.4 mg 02/07/20 08:30 02/09/20 08:21 Flomax - PO 0.4 mg DAILY@0830 BRANDY Administration Tiotropium [place] 2 puff 02/07/20 10:00 02/09/20 12:39 Spiriva Respimat IH 2 puff DAILY BRANDY Administration Home Medications Medication Instructions Recorded Budesonide/Formeterol Fumarate 1 inh PO BID 05/29/19 [SYMBICORT 160/4.5mcg -] Rivaroxaban [Xarelto] 15 mg PO BID 05/29/19 Ipratropium/Albuterol Sulfate 2 inh IN BID 01/02/20 [Combivent Respimat 20-100 Mcg] Tamsulosin HCl 0.4 mg PO DAILY 01/02/20 Montelukast Sodium [Singulair] 10 mg PO DAILY 02/04/20 Primidone [Mysoline -] 100 mg PO DAILY 02/04/20 Tiotropium [place] [Spiriva 2 puff IN DAILY 02/05/20 Respimat] Microbiology 02/03/20 11:30 Blood - Peripheral Venous Blood Culture - Final NO GROWTH AFTER 5 DAYS INCUBATION 02/03/20 11:15 Blood - Peripheral Venous Blood Culture - Final NO GROWTH AFTER 5 DAYS INCUBATION ASSESSMENT AND PLAN: This patient is a 79yom with PMhx of PAD, COPD on home O2, remote LLE DVT , Colorectal Ca (in remission for 20 years, sp colectomy ), BPH, with recent admission for L big toe pain with w/u including atherosclerotic plaque in aorta, 3.8 cm AAA who Presents qith worsening of L big toe and forefoot pain. # L big toe dry gangrene, going for further w/u by dr Anderson . continue statin , aspirin, pain control #Remote h/o DVT. 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
[2020-02-10] MEDS ORDERED: PT OWN MED DRAWER 7, Y5N ONE (10:47)
[2020-02-10] MEDS: TAMSULOSIN HCL 0.4 MG CAP PO SCH (10:53)
[2020-02-10] MEDS: POLYETHYLENE GLYCOL 3350 119 GM BTL PO SCH ×2 (10:54→22:59)
[2020-02-10] MEDS: IRON POLYSACCHARIDES 150 MG CAPSULE PO SCH (10:54)
[2020-02-10] MEDS: DOCUSATE SODIUM 100 MG CAPSULE (FP) PO SCH ×2 (10:54→22:56)
[2020-02-10] MEDS: PRIMIDONE 50 MG TABLET PO SCH (10:55)
[2020-02-10] MEDS: TIOTROPIUM BROMIDE 2.5 MCG (SPIRIVA) RESPIMAT INHALER IH SCH (10:57)
[2020-02-10] MEDS: BUDESONIDE/FORMETEROL FUMARATE 160/4.5 mcg INHALER IH SCH ×2 (10:57→22:59)
--- NOTE | 2020-02-10 12:19 | PN ---
Progress Note, Physician History of Present Illness: pain main issues dusky toe - Current Medication List Current Medications: Active Medications Albuterol Sulfate (Ventolin Hfa Inhaler -) 2 puff IH Q4H PRN PRN Reason: SHORT OF BREATH/WHEEZING Last Admin: 02/08/20 17:06 Dose: 2 puff Documented by: Atorvastatin Calcium (Lipitor -) 20 mg PO [facility] Last Admin: 02/09/20 21:48 Dose: 20 mg Documented by: Budesonide/Formoterol Fumarate (Symbicort 160/4.5mcg -) 1 puff IH BID [facility] Last Admin: 02/10/20 10:57 Dose: 1 puff Documented by: Docusate Sodium (Colace -) 100 mg PO BID [facility] Last Admin: 02/10/20 10:54 Dose: 100 mg Documented by: Heparin Sodium (Porcine) (Heparin -) 5,000 unit SQ TID [facility] Last Admin: 02/09/20 21:48 Dose: 5,000 unit Documented by: Montelukast Sodium (Singulair -) 10 mg PO [facility] Last Admin: 02/09/20 21:48 Dose: 10 mg Documented by: Ondansetron HCl (Zofran Injection) 4 mg IVPUSH Q6H PRN PRN Reason: NAUSEA AND/OR VOMITING Oxycodone HCl (Roxicodone -) 5 mg PO Q4H PRN PRN Reason: PAIN LEVEL 7 - 10 Last Admin: 02/10/20 09:58 Dose: 5 mg Documented by: Polyethylene Glycol (Miralax (For Daily Use) -) 17 gm PO BID [facility] Last Admin: 02/10/20 10:54 Dose: Not Given Documented by: Polysaccharide Iron Complex (Niferex-150 -) 150 mg PO DAILY [facility] Last Admin: 02/10/20 10:54 Dose: 150 mg Documented by: Primidone (Mysoline -) 25 mg PO DAILY [facility] Last Admin: 02/10/20 10:55 Dose: Not Given Documented by: Tamsulosin HCl (Flomax -) 0.4 mg PO DAILY@0830 [facility] Last Admin: 02/10/20 10:53 Dose: 0.4 mg Documented by: Tiotropium [place] (Spiriva Respimat) 2 puff IH DAILY [facility] Last Admin: 02/10/20 10:57 Dose: 2 puff Documented by: - Objective Vital Signs: Vital Signs Temperature 98.5 F 02/10/20 06:00 Pulse Rate 89 02/10/20 06:00 Respiratory Rate 20 02/10/20 06:00 Blood Pressure 102/63 02/10/20 06:00 O2 Sat by Pulse Oximetry (%) 98 02/10/20 09:00 Constitutional: Yes: Calm, Mild Distress Cardiovascular: Yes: S1, S2 Respiratory: Yes: Regular, CTA Bilaterally Gastrointestinal: Yes: Normal Bowel Sounds, Soft Musculoskeletal: Yes: Other Extremities: Yes: Other (dusky toe) Neurological: Yes: Alert, Oriented Psychiatric: Yes: Alert, Oriented Labs: CBC, BMP 02/10/20 07:38 02/10/20 07:38 INR, PTT INR 0.98 (0.83-1.09) 02/10/20 07:38 Assessment/Plan 79 yo male with PMHx asthma and COPD (home 2L NC), DVT LLE (on xarelto), & BPH, and hx of colon cancer (20 years ago) and 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 Presented to ED with increasing left foot pain and swelling over last few weeks. Admitted to hospital for soft tissue infection and r/o ischemia of L foot. gangrene of the toe anemia copd pvd plan needs amputation podiatry on case
--- NOTE | 2020-02-10 13:52 | PN ---
Physical Exam: SUBJECTIVE: Patient seen and examined at bedside. No acute events reported overnight. Today, the patient continues to complain of left toe pain. OBJECTIVE: Vital Signs Period Temp Pulse Resp BP Sys/Valdes Pulse Ox Last 24 Hr 98.0 F-99.6 F 76-117 -20 99-126/51-74 95-100 GENERAL: AAOx3, in no acute distress HEENT: NCAT, PERRLA, EOMI, sclera anicteric, conjunctiva clear, oropharynx clear w/o exudates. MMM. NECK: Normal ROM, supple, no lymphadenopathy, JVD, or masses LUNGS: CTABL no wheezes/ rhonchi/ rales. No distress, speaks in full sentences. No increased work of breathing. HEART: RRR, normal S1 S2, no M/R/G, peripheral pulses 2+ and equal b/l ABDOMEN: Soft, NTND, + BS. No guarding or rebound. No hepatomegaly or splenomegaly. MSK: ROM WNL EXTREMITIES: Normal inspection. No peripheral edema. No clubbing or cyanosis. NEUROLOGICAL: CN II-XII intact. Normal speech, normal gait, no focal s ensorimotor deficits. SKIN: Black eschar on tip of left 1st digit extending to plantar aspect of big toe no different from yesterday's exam. DP2+. normal temperature of the foot. Laboratory Results - last 24 hr 02/10/20 02/10/20 02/10/20 07:38 07:38 07:38 WBC 5.5 RBC 2.40 L Hgb 7.7 L Hct 23.7 L MCV 98.7 H MCH 32.3 MCHC 32.7 RDW 15.0 Plt Count 295 MPV 7.8 Absolute Neuts (auto) 3.3 Neutrophils % 58.8 Lymphocytes % 26.2 Monocytes % 7.4 Eosinophils % 7.2 H Basophils % 0.4 Nucleated RBC % 0 PT with INR 11.60 INR 0.98 Sodium 137 Potassium 4.2 Chloride 102 Carbon Dioxide 31 Anion Gap 4 L BUN 14.6 Creatinine 0.8 Est GFR (CKD-EPI)AfAm 99.17 Est GFR (CKD-EPI)NonAf 85.56 Random Glucose 84 Calcium 8.9 Blood Type Antibody Screen Crossmatch 02/10/20 11:00 WBC RBC Hgb Hct MCV MCH MCHC RDW Plt Count MPV Absolute Neuts (auto) Neutrophils % Lymphocytes % Monocytes % Eosinophils % Basophils % Nucleated RBC % PT with INR INR Sodium Potassium Chloride Carbon Dioxide Anion Gap BUN Creatinine Est GFR (CKD-EPI)AfAm Est GFR (CKD-EPI)NonAf Random Glucose Calcium Blood Type O POSITIVE Antibody Screen Negative Crossmatch See Detail Active Medications Generic Name Dose Route Start Last Admin Trade Name Freq PRN Reason Stop Dose Admin Albuterol Sulfate 2 puff 02/08/20 16:54 02/08/20 17:06 Ventolin Hfa Inhaler - IH 2 puff Q4H PRN Administration SHORT OF BREATH/WHEEZING Atorvastatin Calcium 20 mg 02/06/20 22:00 02/09/20 21:48 Lipitor - PO 20 mg HS BRANDY Administration Budesonide/Formoterol Fumarate 1 puff 02/06/20 22:00 02/10/20 10:57 Symbicort 160/4.5mcg - IH 1 puff BID BRANDY Administration Docusate Sodium 100 mg 02/06/20 22:00 02/10/20 10:54 Colace - PO 100 mg BID BRANDY Administration Heparin Sodium (Porcine) 5,000 unit 02/06/20 22:00 02/09/20 21:48 Heparin - SQ 5,000 unit TID BRANDY Administration Montelukast Sodium 10 mg 02/06/20 22:00 02/09/20 21:48 Singulair - PO 10 mg HS BRANDY Administration Ondansetron HCl 4 mg 02/06/20 19:01 Zofran Injection IVPUSH Q6H PRN NAUSEA AND/OR VOMITING Oxycodone HCl 5 mg 02/10/20 08:46 02/10/20 09:58 Roxicodone - PO 5 mg Q4H PRN Administration PAIN LEVEL 7 - 10 Polyethylene Glycol 17 gm 02/06/20 22:00 02/10/20 10:54 Miralax (For Daily Use) - PO Not Given BID [facility] Polysaccharide Iron Complex 150 mg 02/08/20 10:00 02/10/20 10:54 Niferex-150 - PO 150 mg DAILY BRANDY Administration Primidone 25 mg 02/07/20 10:00 02/10/20 10:55 Mysoline - PO Not Given DAILY [facility] Tamsulosin HCl 0.4 mg 02/07/20 08:30 02/10/20 10:53 Flomax - PO 0.4 mg DAILY@0830 BRANDY Administration Tiotropium [place] 2 puff 02/07/20 10:00 02/10/20 10:57 Spiriva Respimat IH 2 puff DAILY BRANDY Administration ASSESSMENT/PLAN: 79M with PMH of COPD (2LNC), DVT LLE (on xarelto), BPH, colon ca (20 years ago). Presented to ER with increasing left foot pain and swelling over last few weeks. Admitted to hospital for soft tissue ischemia of L foot. # L big toe dry gangrene , possible small vessel disease. angio with no big vessel disease - Vascular consulted (Dr. Valdez) - s/p Angio L foot 02/05: all vessels open, small vessel disease in foot at toes, no need for any intervention. - Podiatry: Recommend amputation, pt agrees, prepare for possible procedure scheduled for tomorrow as per Dr. Prado, cardio cleared -Pt will be NPO after midnight for surgery tomorrow at [address] Prado, new COVID test ordered - IV Tylenol PRN for pain - oxycodone increased from 5 mg to 10 mg Q4hr PRN for pain -LLE Duplex ordered to rule out DVT #Anemia: Macrocytic - GI: Anemia is due to chronic disease/no acute bleed - Heme: consider venofir 200 mg doses every other day for 5 doses total - transfused 1PRBC today as per Dr. Mott request; post transfusion CBC ordered -Dr. Mott (GI) for possible colonoscopy on Sunday before patient starts duel antiplatelet therapy - COVID test ordered for possible colonoscopy Sun. #COPD: - continue 2L O2 NC - continue home inhalers #FEN - regular diet until tonight when patient will be NPO for surgery tomorrow - replete electrolyte PRN #Prophylaxis - Heparin SQ will be held after midnight for amputation tomorrow #Dispo - Monitor in M/S, prep for amputation tomorrow Visit type - Emergency Visit Emergency Visit: No - New Patient This patient is new to me today: No - Critical Care Critical Care patient: No - Discharge Referral Referred to [facility] Med P.C[facility] No - Medication Review Med list reviewed for High Risk Meds patients 65 and older: Yes ATTENDING PHYSICIAN STATEMENT I saw and evaluated the patient. I reviewed the resident's note and discussed the case with the resident. I agree with the resident's findings and plan as documented. SUBJECTIVE: OBJECTIVE: ASSESSMENT AND PLAN:
--- NOTE | 2020-02-10 16:25 | OP ---
DATE OF OPERATION: DATE OF DICTATION: 02/10/2020 PREOPERATIVE DIAGNOSIS: Left great toe gangrene. POSTOPERATIVE DIAGNOSIS: Left great toe gangrene. PROCEDURE: Aortogram, left lower extremity angiogram. SURGEON: Van Farfan MD. ANESTHESIA: Fractional. BLOOD LOSS: 10 mL. INDICATION: The patient is a 79-year-old male that comes in with left great toe cyanosis and gangrene. He has had that for a couple of weeks now. Patient is not a diabetic. Patient smoked 40 years ago, so very well this cyanosis or gangrene of his toe could be coming from some sort of trauma. Patient was cleared by medicine and cardiology for the procedure. Patient was consented for the procedure understanding all risks, benefits, and alternatives and taken to the operating room. DESCRIPTION OF PROCEDURE: We then went ahead and prepped and draped the right and left groin in a sterile surgical manner. We then went ahead and injected 10 mL of lidocaine 1% over the right common femoral artery. We then took our Micropuncture needle and punctured the right common femoral artery. A Micropuncture wire was inserted, Micropuncture sheath was inserted, and a traditional 5-Thai sheath was inserted. We then placed 0.035 floppy guidewire up into the aorta followed by an Omniflush catheter. Then we shot an aortogram via hand injection showing that the aorta and the iliac arteries were without any disease. We then used our 0.035 floppy guidewire, went up and over to the left common femoral artery and our Omniflush catheter followed. We then shot an angiogram of the left lower extremity showing that the common femoral artery, the profunda, and SFA, the popliteal artery were all patent. PT trunk was patent. Patient's main runoff was peroneal artery and posterior tibial artery that filled the foot. Posterior tibial artery is robust and filled the entire plantar aspect of the foot. Patient has collateral circulation going to the forefoot. There is no bypassable disease. There is no stenosis that needs to be opened at this time. His anterior tibial artery is occluded. At this point, no more intervention is needed from a vascular standpoint. Patient would need podiatry followup to follow the toe. At this point, we brought our Omniflush catheter up and over. The sheath was removed from the right groin and pressure left for 5 minutes. After there was no more bleeding, areas were then dried and Dermabond was placed. Patient tolerated the procedure without complications. Patient was transferred to PACU in stable condition. VAN FARFAN DO [id number]
--- NOTE | 2020-02-10 16:51 | PN ---
Progress Note (short form) - Note Progress Note: Podiatry F/U: Seen/evaluated at bedside NAD. Having significant pain to the left foot, frequent in nature. Denies F/V/N/C/SOB/CP. Afebrile. KATI: L foot: pedal pulses nonpalpable, TG wnl, CFT delayed to left hallux. There is dry gangrene to the distal tuft of the left hallux. There is surrounding erythema to the digit. There is no probing to bone, no purulence, no fluctuance, no streaking ascending cellulitis, no signs of active infection. Moderate tenderness to palpation. Imp: 79 year old PVD male with gangrene left hallux 1. Continue local care 2. Discussed risks, benefits and alternatives to surgery with patient; he is amenable to planned procedure 3. Plan for OR for left hallux amputation. COVID testing out of date, new testing is pending. May need to do surgery tomorrow night or am. Will discuss with OR staff. 4. Will follow Juana Prado DPM
--- NOTE | 2020-02-10 17:31 | PN ---
Progress Note (short form) - Note Progress Note: patient is going to undergo amputation. GI w/u on hold Discussed with Dr Long Problem List - Problems (1) Anemia Code(s): D64.9 - ANEMIA, UNSPECIFIED
[2020-02-10] MEDS ORDERED: oxyCODONE HCL 5 MG TABLET PO ONE (22:40)
[2020-02-10] MEDS: ATORVASTATIN CA 20 MG TABLET (FP) PO SCH (22:56)
[2020-02-10] MEDS: MONTELUKAST NA 10 MG TABLET PO SCH (22:57)
[2020-02-11] MEDS ORDERED: LIDOCAINE HCL 2% JELLY 10 ML CARTRIDGE TP ONE ×3 (05:00→18:54)
[2020-02-11] MEDS ORDERED: TAMSULOSIN HCL 0.4 MG CAP PO ONE ×2 (06:00→11:00)
[2020-02-11] MEDS: HEPARIN NA (PORCINE) 5,000 UNITS/ML 1ML VIAL SQ SCH ×3 (06:07→21:32)
[2020-02-11 09:38] LABS: INR 0.93 (0.83-1.09)
[2020-02-11 09:43] LABS: BASO % 0.2 % (0-2.0); EOS % 0.6 % (0-4.5); HEMATOCRIT 33.2 % (35.4-49); LYMPH % 7.6 % (8-40); MCH 31.3 pg (25.7-33.7); MCHC 33.3 g/dl (32.0-35.9); MEAN CELL VOLUME 94.1 fl (80-96); MONO % 3.6 % (3.8-10.2); PLATELET COUNT 386 K/MM3 (134-434); RBC 3.53 M/mm3 (4.00-5.60); RDW 18.6 % (11.9-15.9); WHITE BLOOD COUNT 10.2 K/mm3 (4.0-10.0)
[2020-02-11] MEDS ORDERED: PT OWN MED DRAWER 7, Y5N ONE (09:51)
[2020-02-11] MEDS: PRIMIDONE 50 MG TABLET PO SCH (09:57)
[2020-02-11] MEDS: TIOTROPIUM BROMIDE 2.5 MCG (SPIRIVA) RESPIMAT INHALER IH SCH (09:58)
[2020-02-11] MEDS: BUDESONIDE/FORMETEROL FUMARATE 160/4.5 mcg INHALER IH SCH ×2 (09:59→21:34)
[2020-02-11] MEDS: DOCUSATE SODIUM 100 MG CAPSULE (FP) PO SCH ×2 (10:00→21:32)
[2020-02-11] MEDS: IRON POLYSACCHARIDES 150 MG CAPSULE PO SCH (10:00)
[2020-02-11] MEDS: POLYETHYLENE GLYCOL 3350 119 GM BTL PO SCH ×2 (10:00→21:33)
[2020-02-11 10:06] LABS: ALBUMIN 3.6 g/dl (3.4-5.0); BILIRUBIN,TOTAL 0.8 mg/dL (0.2-1); BLOOD UREA NITROGEN 15.2 mg/dL (7-18); CALCIUM 9.8 mg/dL (8.5-10.1); CREATININE 0.9 mg/dL (0.55-1.3); POTASSIUM 4.7 mmol/L (3.5-5.1)
[2020-02-11 10:08] LABS: TOT PROT 7.8 g/dl (6.4-8.2)
--- NOTE | 2020-02-11 10:14 | PN ---
Progress Note, Physician History of Present Illness: not able to pass urine foleys tried and seems failed bladder distended leg pain - Current Medication List Current Medications: Active Medications Albuterol Sulfate (Ventolin Hfa Inhaler -) 2 puff IH Q4H PRN PRN Reason: SHORT OF BREATH/WHEEZING Last Admin: 02/08/20 17:06 Dose: 2 puff Documented by: Atorvastatin Calcium (Lipitor -) 20 mg PO [facility] Last Admin: 02/10/20 22:56 Dose: 20 mg Documented by: Budesonide/Formoterol Fumarate (Symbicort 160/4.5mcg -) 1 puff IH BID [facility] Last Admin: 02/11/20 09:59 Dose: 1 puff Documented by: Docusate Sodium (Colace -) 100 mg PO BID [facility] Last Admin: 02/10/20 22:56 Dose: 100 mg Documented by: Heparin Sodium (Porcine) (Heparin -) 5,000 unit SQ TID [facility] Last Admin: 02/11/20 06:07 Dose: Not Given Documented by: Montelukast Sodium (Singulair -) 10 mg PO [facility] Last Admin: 02/10/20 22:57 Dose: 10 mg Documented by: Ondansetron HCl (Zofran Injection) 4 mg IVPUSH Q6H PRN PRN Reason: NAUSEA AND/OR VOMITING Oxycodone HCl (Roxicodone -) 5 mg PO Q4H PRN PRN Reason: PAIN LEVEL 7 - 10 Last Admin: 02/10/20 17:52 Dose: 5 mg Documented by: Polyethylene Glycol (Miralax (For Daily Use) -) 17 gm PO BID [facility] Last Admin: 02/10/20 22:59 Dose: Not Given Documented by: Polysaccharide Iron Complex (Niferex-150 -) 150 mg PO DAILY [facility] Last Admin: 02/10/20 10:54 Dose: 150 mg Documented by: Primidone (Mysoline -) 25 mg PO DAILY [facility] Last Admin: 02/11/20 09:57 Dose: 25 mg Documented by: Tamsulosin HCl (Flomax -) 0.4 mg PO DAILY@0830 [facility] Tamsulosin HCl (Flomax -) 0.4 mg PO ONCE ONE Stop: 02/11/20 11:01 Tiotropium [place] (Spiriva Respimat) 2 puff IH DAILY [facility] Last Admin: 02/11/20 09:58 Dose: 2 puff Documented by: - Objective Vital Signs: Vital Signs Temperature 98.7 F 02/11/20 06:00 Pulse Rate 92 H 02/11/20 06:00 Respiratory Rate 20 02/11/20 06:00 Blood Pressure 126/68 02/11/20 06:00 O2 Sat by Pulse Oximetry (%) 98 02/11/20 06:00 Constitutional: Yes: Calm, Moderate Distress Cardiovascular: Yes: S1, S2 Respiratory: Yes: Regular, CTA Bilaterally Gastrointestinal: Yes: Normal Bowel Sounds, Soft Genitourinary: Yes: Other (bladder distension) Musculoskeletal: Yes: WNL Extremities: Yes: WNL Neurological: Yes: Alert, Oriented Psychiatric: Yes: Alert, Oriented Labs: CBC, BMP 02/11/20 08:33 02/11/20 08:33 INR, PTT INR 0.93 (0.83-1.09) 02/11/20 08:33 Assessment/Plan 79 yo male with PMHx asthma and COPD (home 2L NC), DVT LLE (on xarelto), & BPH, and hx of colon cancer (20 years ago) and 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 Presented to ED with increasing left foot pain and swelling over last few weeks. Admitted to hospital for soft tissue infection and r/o ischemia of L foot. gangrene of the toe anemia copd pvd plan podiatry on case needs ji
--- NOTE | 2020-02-11 11:47 | CON.GU ---
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 in his hands) Pulmonary: Yes: Asthma, COPD Gastrointestinal: Yes: Cancer (colon 11 yrs ago, last colonscopy 4 years ago) Renal/: Yes: BPH - Past Surgical History Past Surgical History: Yes: Colectomy - Alcohol/Substance Use Hx Alcohol Use: No History of Substance Use: reports: None - Smoking History Smoking history: Never smoked Have you smoked in the past 12 months: No Aproximately how many cigarettes per day: 2 If you are a former smoker, when did you quit?: 8 yesrs ago - Social History ADL: Independent History of Recent Travel: No Home Medications - Allergies Allergies/Adverse Reactions: Allergies Allergy/AdvReac Type Severity Reaction Status Date / Time No Known Drug Allergies Allergy Verified 02/03/20 10:19 - Home Medications Home Medications: Ambulatory Orders Budesonide/Formeterol Fumarate [SYMBICORT 160/4.5mcg -] 1 inh PO BID 05/29/19 Rivaroxaban [Xarelto] 15 mg PO BID 05/29/19 Ipratropium/Albuterol Sulfate [Combivent Respimat 20-100 Mcg] 2 inh IN BID 01/02/20 Tamsulosin HCl 0.4 mg PO DAILY 01/02/20 Montelukast Sodium [Singulair] 10 mg PO DAILY 02/04/20 Primidone [Mysoline -] 100 mg PO DAILY 02/04/20 Tiotropium [place] [Spiriva Respimat] 2 puff IN DAILY 02/05/20 Family Medical History Family Hx Cancer: Mother (colon cancer) Family Hx Gastrointestinal Disorder: Father, Sister Physical Exam- Vital Signs: Vital Signs Temperature 98.7 F 02/11/20 06:00 Pulse Rate 92 H 02/11/20 06:00 Respiratory Rate 20 02/11/20 06:00 Blood Pressure 126/68 02/11/20 06:00 O2 Sat by Pulse Oximetry (%) 98 02/11/20 06:00 Labs: CBC, BMP 02/11/20 08:33 02/11/20 08:33 Assessment/Plan 79 Year old male unable to urinate since last night. Many HC workers tried to insert workman with out success. Urethra dilated and 20 F Coude introduced with Guide wire, clear urine obtained. PVR was over 1000 ccs. IMP. Urinary retention and BPH. Plan Will schedule for Cysto TURP when medically stable. and clear.
--- NOTE | 2020-02-11 12:37 | PN ---
Progress Note (short form) - Note Progress Note: Podiatry F/U: Seen/evaluated at bedside NAD. Pain persistent to the left great toe. Denies fever/chills. AFebrile. Patient unable to pass urine since last night; workman implemented and notes improvement. KATI: L foot: Dry gangrene of the distal tuft of the hallux with some ischemic discoloration to the base of the hallux. There is significant tenderness to palpation. There is no purulent drainage, no fluctuance, no streaking ascending cellulitis, no signs of acute infection. Imp: 79 year old PVD male with left hallux gangrene Plan for OR later today for amputation of the left hallux. Discussed risks, benefits and alternatives to surgery at length with patient. He would like to proceed with amputation today. Discussed the risks of delayed healing, worsening of ischemic changes which would require further surgery, given his extent of small vessel disease. Discussed case with Dr. Valdez; patient is s/p LLE angiogram and optimized for hallux amputation. We will implement hyperbaric oxygen therapy postoperatively to hopefully hyperperfuse the tissues to expedite healing. Will follow. Juana Prado DPM
--- NOTE | 2020-02-11 12:47 | PN ---
Physical Exam: SUBJECTIVE: Patient seen and examined at bedside. Overnight, patient had lower abdominal pain from urinary retention. This morning, patient continues to complain of lower abdomen pain from urinary retention. OBJECTIVE: Vital Signs Period Temp Pulse Resp BP Sys/Valdes Pulse Ox Last 24 Hr 98.0 F-99.2 F 90-117 20-20 122-130/68-76 96-100 GENERAL: The patient is awake, alert, and fully oriented, in no acute distress. GENERAL: AAOx3, in no acute distress HEENT: NCAT, PERRLA, EOMI, sclera anicteric, conjunctiva clear, oropharynx clear w/o exudates. MMM. NECK: Normal ROM, supple, no lymphadenopathy, JVD, or masses LUNGS: CTABL no wheezes/ rhonchi/ rales. No distress, speaks in full sentences. No increased work of breathing. HEART: RRR, normal S1 S2, no M/R/G, peripheral pulses 2+ and equal b/l ABDOMEN: Soft, nondistended, tenderness to palpation above pubic symphysis, + BS. No guarding or rebound. No hepatomegaly or splenomegaly. MSK: ROM WNL EXTREMITIES: Normal inspection. No peripheral edema. No clubbing or cyanosis. NEUROLOGICAL: CN II-XII intact. Normal speech, normal gait, no focal sen sorimotor deficits. SKIN: Black eschar on tip of left 1st digit extending to plantar aspect of big toe no different from yesterday's exam. normal temperature of the foot. Laboratory Results - last 24 hr 02/10/20 02/11/20 02/11/20 11:00 08:33 08:33 WBC 10.2 H RBC 3.53 L Hgb 11.0 L Hct 33.2 L D MCV 94.1 MCH 31.3 MCHC 33.3 RDW 18.6 H Plt Count 386 D MPV 8.0 Absolute Neuts (auto) 9.0 H Neutrophils % 88.0 H D Lymphocytes % 7.6 L D Monocytes % 3.6 L Eosinophils % 0.6 D Basophils % 0.2 Nucleated RBC % 0 PT with INR INR Sodium 135 L Potassium 4.7 Chloride 100 Carbon Dioxide 24 Anion Gap 10 BUN 15.2 Creatinine 0.9 Est GFR (CKD-EPI)AfAm 94.48 Est GFR (CKD-EPI)NonAf 81.52 Random Glucose 107 H Calcium 9.8 Total Bilirubin 0.8 AST 76 H ALT 85 H Alkaline Phosphatase 109 Total Protein 7.8 Albumin 3.6 Blood Type O POSITIVE Antibody Screen Negative Crossmatch See Detail 02/11/20 08:33 WBC RBC Hgb Hct MCV MCH MCHC RDW Plt Count MPV Absolute Neuts (auto) Neutrophils % Lymphocytes % Monocytes % Eosinophils % Basophils % Nucleated RBC % PT with INR 11.00 INR 0.93 Sodium Potassium Chloride Carbon Dioxide Anion Gap BUN Creatinine Est GFR (CKD-EPI)AfAm Est GFR (CKD-EPI)NonAf Random Glucose Calcium Total Bilirubin AST ALT Alkaline Phosphatase Total Protein Albumin Blood Type Antibody Screen Crossmatch Active Medications Generic Name Dose Route Start Last Admin Trade Name Freq PRN Reason Stop Dose Admin Albuterol Sulfate 2 puff 02/08/20 16:54 02/08/20 17:06 Ventolin Hfa Inhaler - IH 2 puff Q4H PRN Administration SHORT OF BREATH/WHEEZING Atorvastatin Calcium 20 mg 02/06/20 22:00 02/10/20 22:56 Lipitor - PO 20 mg HS BRANDY Administration Budesonide/Formoterol Fumarate 1 puff 02/06/20 22:00 02/11/20 09:59 Symbicort 160/4.5mcg - IH 1 puff BID BRANDY Administration Docusate Sodium 100 mg 02/06/20 22:00 02/10/20 22:56 Colace - PO 100 mg BID BRANDY Administration Heparin Sodium (Porcine) 5,000 unit 02/06/20 22:00 02/11/20 06:07 Heparin - SQ Not Given TID BRANDY Montelukast Sodium 10 mg 02/06/20 22:00 02/10/20 22:57 Singulair - PO 10 mg HS BRANDY Administration Ondansetron HCl 4 mg 02/06/20 19:01 Zofran Injection IVPUSH Q6H PRN NAUSEA AND/OR VOMITING Oxycodone HCl 5 mg 02/10/20 08:46 02/10/20 17:52 Roxicodone - PO 5 mg Q4H PRN Administration PAIN LEVEL 7 - 10 Polyethylene Glycol 17 gm 02/06/20 22:00 02/10/20 22:59 Miralax (For Daily Use) - PO Not Given BID [facility] Polysaccharide Iron Complex 150 mg 02/08/20 10:00 02/10/20 10:54 Niferex-150 - PO 150 mg DAILY BRANDY Administration Primidone 25 mg 02/07/20 10:00 02/11/20 09:57 Mysoline - PO 25 mg DAILY BRANDY Administration Tamsulosin HCl 0.4 mg 02/12/20 08:30 Flomax - PO DAILY@0830 BRANDY Tiotropium [place] 2 puff 02/07/20 10:00 02/11/20 09:58 Spiriva Respimat IH 2 puff DAILY BRANDY Administration ASSESSMENT/PLAN: 79M with PMH of COPD (2LNC), DVT LLE (on xarelto), BPH, colon ca (20 years ago). Presented to ER with increasing left foot pain and swelling over last few weeks. Admitted to hospital for soft tissue ischemia of L foot. #L big toe dry gangrene , possible small vessel disease. angio with no big vessel disease - Vascular consulted (Dr. Valdez) - s/p Angio L foot 02/05: all vessels open, small vessel disease in foot at toes, no need for any intervention. - Podiatry: Recommend amputation, pt agrees; procedure scheduled for today as per Dr. Prado, cardio cleared -Pt NPO today for surgery at [address] Prado, updated COVID results = NEGATIVE - IV Tylenol PRN for pain - oxycodone 10 mg Q4hr PRN for pain -LLE Duplex ordered to rule out DVT #Urinary Retention -bladder scan this AM showed 1 L of urine in bladder -Urology consulted: Dr. Putnam drained urine with 20 F Coude; recommends Cysto TURP when medically stable #Anemia: Macrocytic - GI: Anemia is due to chronic disease/no acute bleed - Heme: consider venofir 200 mg doses every other day for 5 doses total - transfused 1PRBC today as per Dr. Mott request; post transfusion CBC ordered -Dr. Mott (GI) for possible colonoscopy. GI workup on hold until after amputation #COPD: - continue 2L O2 NC - continue home inhalers #FEN - NPO for surgery - replete electrolyte PRN #Prophylaxis - Heparin SQ will be held for amputation #Dispo - Monitor in M/S, prep for amputation Visit type - Emergency Visit Emergency Visit: No - New Patient This patient is new to me today: No - Critical Care Critical Care patient: No - Discharge Referral Referred to [facility] Med P.C[facility] No - Medication Review Med list reviewed for High Risk Meds patients 65 and older: Yes ATTENDING PHYSICIAN STATEMENT I saw and evaluated the patient. I reviewed the resident's note and discussed the case with the resident. I agree with the resident's findings and plan as documented. SUBJECTIVE: OBJECTIVE: ASSESSMENT AND PLAN:
[2020-02-11] MEDS ORDERED: LIDOCAINE HCL 2% (20ML MULTI-DOSE VIAL) ONE ×2 (15:53→17:49)
[2020-02-11] MEDS ORDERED: LIDOCAINE HCL/PF 2% SDV 5ML VIAL ONE (16:58)
[2020-02-11] MEDS ORDERED: SUCCINYLCHOLINE CHLORIDE 200 MG/10 ML SYRINGE ONE (16:58)
[2020-02-11] MEDS ORDERED: PROPOFOL 20 ML ONE ×2 (16:58)
[2020-02-11] MEDS ORDERED: MIDAZOLAM HCL 2 MG/2 ML SINGLE DOSE VIAL ONE (17:28)
--- NOTE | 2020-02-11 17:28 | PN ---
Progress Note (short form) - Note Progress Note: Podiatry Preoperative Note: Patient seen and evaluated at bedside in preoperative holding. Patient is nervous, however in no apparent distress. Risks, benefits and alternatives to surgery discussed at length with patient. He is in agreement for planned procedure. Plan for left hallux amputation utilizing IV sedation and local anesthetic. Juana Prado DPM
[2020-02-11] MEDS ORDERED: ceFAZolin SODIUM 1 GM VIAL IVPB ONE (17:34)
[2020-02-11] MEDS ORDERED: LIDOCAINE HCL 2% (50ML VIAL) NR ONE ×2 (17:46)
[2020-02-11] MEDS ORDERED: BUPIVACAINE HCL/PF 0.5% (5 MG/ML) 30 ML VIAL IJ ONE (18:21)
--- NOTE | 2020-02-11 18:32 | OP ---
Operative Note - Note: Operative Date: 02/11/20 Pre-Operative Diagnosis: Left hallux gangrene Operation: Left hallux amputation, first metatarsal head resection Post-Operative Diagnosis: Same as Pre-op Surgeon: Naun Prado Anesthesia: Local, MAC Specimens Removed: left hallux, left first metatarsal head Estimated Blood Loss (mls): 10 Operative Report Dictated: Yes
--- NOTE | 2020-02-11 18:47 | PN ---
Teaching Attending Note Name of Resident: Justin Swift ATTENDING PHYSICIAN STATEMENT I saw and evaluated the patient. I reviewed the resident's note and discussed the case with the resident. I agree with the resident's findings and plan as documented. SUBJECTIVE: Patient is feeling better, NAD , no fever or chills, no sob OBJECTIVE: Vital Signs Temperature 99.7 F H 02/11/20 16:25 Pulse Rate 92 H 02/11/20 16:25 Respiratory Rate 18 02/11/20 16:25 Blood Pressure 133/72 02/11/20 16:25 O2 Sat by Pulse Oximetry (%) 99 02/11/20 16:25 PE: per resident's note CBCD WBC 10.2 K/mm3 (4.0-10.0) H 02/11/20 08:33 RBC 3.53 M/mm3 (4.00-5.60) L 02/11/20 08:33 Hgb 11.0 GM/dL (11.7-16.9) L 02/11/20 08:33 Hct 33.2 % (35.4-49) L D 02/11/20 08:33 MCV 94.1 fl (80-96) 02/11/20 08:33 MCHC 33.3 g/dl (32.0-35.9) 02/11/20 08:33 RDW 18.6 % (11.9-15.9) H 02/11/20 08:33 Plt Count 386 K/MM3 (134-434) D 02/11/20 08:33 MPV 8.0 fl (7.5-11.1) 02/11/20 08:33 CMP Sodium 135 mmol/L (136-145) L 02/11/20 08:33 Potassium 4.7 mmol/L (3.5-5.1) 02/11/20 08:33 Chloride 100 mmol/L (98-107) 02/11/20 08:33 Carbon Dioxide 24 mmol/L (21-32) 02/11/20 08:33 Anion Gap 10 MMOL/L (8-16) 02/11/20 08:33 BUN 15.2 mg/dL (7-18) 02/11/20 08:33 Creatinine 0.9 mg/dL (0.55-1.3) 02/11/20 08:33 Random Glucose 107 mg/dL (74-106) H 02/11/20 08:33 Calcium 9.8 mg/dL (8.5-10.1) 02/11/20 08:33 Total Bilirubin 0.8 mg/dL (0.2-1) 02/11/20 08:33 AST 76 U/L (15-37) H 02/11/20 08:33 ALT 85 U/L (13-61) H 02/11/20 08:33 Alkaline Phosphatase 109 U/L (45-117) 02/11/20 08:33 Total Protein 7.8 g/dl (6.4-8.2) 02/11/20 08:33 Albumin 3.6 g/dl (3.4-5.0) 02/11/20 08:33 Current Medications Generic Name Dose Route Start Last Admin Trade Name Freq PRN Reason Stop Dose Admin Albuterol Sulfate 2 puff 02/08/20 16:54 02/08/20 17:06 Ventolin Hfa Inhaler - IH 2 puff Q4H PRN Administration SHORT OF BREATH/WHEEZING Atorvastatin Calcium 20 mg 02/06/20 22:00 02/10/20 22:56 Lipitor - PO 20 mg HS BRANDY Administration Budesonide/Formoterol Fumarate 1 puff 02/06/20 22:00 02/11/20 09:59 Symbicort 160/4.5mcg - IH 1 puff BID BRANDY Administration Docusate Sodium 100 mg 02/06/20 22:00 02/11/20 10:00 Colace - PO 100 mg BID BRANDY Administration Heparin Sodium (Porcine) 5,000 unit 02/06/20 22:00 02/11/20 14:33 Heparin - SQ Not Given TID BRANDY Montelukast Sodium 10 mg 02/06/20 22:00 02/10/20 22:57 Singulair - PO 10 mg HS BRANDY Administration Ondansetron HCl 4 mg 02/06/20 19:01 Zofran Injection IVPUSH Q6H PRN NAUSEA AND/OR VOMITING Oxycodone HCl 5 mg 02/10/20 08:46 02/10/20 17:52 Roxicodone - PO 5 mg Q4H PRN Administration PAIN LEVEL 7 - 10 Oxycodone HCl 5 mg 02/11/20 18:35 Roxicodone - PO Q4H PRN PAIN LEVEL 1-5 Polyethylene Glycol 17 gm 02/06/20 22:00 02/11/20 10:00 Miralax (For Daily Use) - PO 17 gm BID BRANDY Administration Polysaccharide Iron Complex 150 mg 02/08/20 10:00 02/11/20 10:00 Niferex-150 - PO 150 mg DAILY BRANDY Administration Primidone 25 mg 02/07/20 10:00 02/11/20 09:57 Mysoline - PO 25 mg DAILY BRANDY Administration Tamsulosin HCl 0.4 mg 02/12/20 08:30 Flomax - PO DAILY@0830 [facility] Tiotropium [place] 2 puff 02/07/20 10:00 02/11/20 09:58 Spiriva Respimat IH 2 puff DAILY BRANDY Administration Home Medications Medication Instructions Recorded Budesonide/Formeterol Fumarate 1 inh PO BID 05/29/19 [SYMBICORT 160/4.5mcg -] Rivaroxaban [Xarelto] 15 mg PO BID 05/29/19 Ipratropium/Albuterol Sulfate 2 inh IN BID 01/02/20 [Combivent Respimat 20-100 Mcg] Tamsulosin HCl 0.4 mg PO DAILY 01/02/20 Montelukast Sodium [Singulair] 10 mg PO DAILY 02/04/20 Primidone [Mysoline -] 100 mg PO DAILY 02/04/20 Microbiology 02/03/20 11:30 Blood - Peripheral Venous Blood Culture - Final NO GROWTH AFTER 5 DAYS INCUBATION 02/03/20 11:15 Blood - Peripheral Venous Blood Culture - Final NO GROWTH AFTER 5 DAYS INCUBATION ASSESSMENT AND PLAN: This patient is a 79yom with PMhx of PAD, COPD on home O2, remote LLE DVT , Colorectal Ca (in remission for 20 years, sp colectomy ), BPH, with recent admission for L big toe pain with w/u including atherosclerotic plaque in aorta, 3.8 cm AAA who Presents qith worsening of L big toe and forefoot pain. POD#0 L big toe dry gangrene, possible small vessel disease. continue statin , aspirin, pain control #Remote h/o DVT. repeat duplex id negative, will get GI to see the patient for possible colonoscopy , patient was on xarelto 20 mg daily pending w/u with his management planner .No prior hx of A fib .will refer him to outpatient heme for f urther w/u # Anemia: chronic and multifactorial , but has Hx of colon cancer, further w/u by GI, Dr barnett will see the patient will prep the patient.
[2020-02-11] MEDS ORDERED: ALBUTEROL SO4 HFA INHALER IH PRN (18:54)
[2020-02-11] MEDS ORDERED: ONDANSETRON 4 MG/2 ML VIAL IVPUSH PRN (18:54)
[2020-02-11] MEDS: ATORVASTATIN CA 20 MG TABLET (FP) PO SCH (21:32)
[2020-02-11] MEDS: MONTELUKAST NA 10 MG TABLET PO SCH (21:32)
[2020-02-12] MEDS: oxyCODONE HCL 5 MG TABLET PO PRN ×4 (06:23→21:35)
[2020-02-12] MEDS: HEPARIN NA (PORCINE) 5,000 UNITS/ML 1ML VIAL SQ SCH ×3 (06:24→21:32)
[2020-02-12] MEDS ORDERED: TAMSULOSIN HCL 0.4 MG CAP PO SCH (08:30)
--- NOTE | 2020-02-12 08:53 | OP ---
DATE OF OPERATION: 02/11/2020 PREOPERATIVE DIAGNOSIS: Left hallux gangrene. POSTOPERATIVE DIAGNOSIS: Left hallux gangrene. PROCEDURE: Left hallux amputation with 1st metatarsal head resection. SURGEON: Naun Prado DPM STEAM DISTRIBUTION SUPERVISOR: None. ANESTHESIA: IV sedation with local. ESTIMATED BLOOD LOSS: 10 mL PATHOLOGY: Left hallux, left 1st metatarsal head. COMPLICATIONS: None. DESCRIPTION OF PROCEDURE: The patient was brought to the operating room and placed on the operating table in the supine position. Following the induction of IV sedation, local anesthesia was achieved using 20 mL of 2% lidocaine plain. The left foot was scrubbed, prepped and draped in the usual sterile fashion. Attention was directed to the left hallux where a distal tuft dry gangrene with surrounding ischemia to the digit was visualized and appreciated. I began by performing a 4-cm linear longitudinal incision overlying the 1st metatarsal. The incision was carried distally and circumferentially about the hallux in a tennis racquet fashion. The incision was deepened using sharp and blunt dissection, taking care to retract vital neural and vascular structures. All bleeders were cauterized and ligated as needed. Next, the left hallux was disarticulated at the level of the 1st metatarsophalangeal joint. The hallux was removed and sent to Pathology for analysis. I then performed a linear capsular incision and reflected periosteum to expose the 1st metatarsal head. The cartilaginous cap was removed and resected from the 1st metatarsal head utilizing a sagittal saw. This was removed from the operative field and sent for proximal bone pathology. The surgical site was copiously irrigated with sterile saline. The incision was coapted and maintained utilizing 3-0 nylon in a simple interrupted suture fashion. Following the conclusion of the procedure, 10 mL of 0.5% Marcaine plain were infiltrated about the surgical site for postoperative analgesia. The incision was covered with Xeroform and a sterile compressive dressing was applied to the left foot consisting of sterile gauze, Kerlix and an Ervin wrap. The patient tolerated the procedure and anesthesia well without complications. He was transferred from the operating room to the recovery unit with vital signs stable and neurovasculature intact to the left foot. ADRIEN OLIVER/[id number]
[2020-02-12 08:58] LABS: BASO % 0.5 % (0-2.0); EOS % 4.4 % (0-4.5); HEMOGLOBIN 9.8 GM/dL (11.7-16.9); LYMPH % 13.6 % (8-40); MCH 31.8 pg (25.7-33.7); MCHC 33.6 g/dl (32.0-35.9); MEAN CELL VOLUME 94.6 fl (80-96); MEAN PLT VOLUME 8.4 fl (7.5-11.1); MONO % 6.2 % (3.8-10.2); NEUT % 75.3 % (42.8-82.8); PLATELET COUNT 297 K/MM3 (134-434); RBC 3.07 M/mm3 (4.00-5.60); RDW 18.5 % (11.9-15.9); WHITE BLOOD COUNT 7.5 K/mm3 (4.0-10.0)
[2020-02-12 09:22] LABS: BLOOD UREA NITROGEN 13.9 mg/dL (7-18); CALCIUM 9.2 mg/dL (8.5-10.1); CREATININE 0.9 mg/dL (0.55-1.3)
[2020-02-12] MEDS: IRON POLYSACCHARIDES 150 MG CAPSULE PO SCH (10:31)
[2020-02-12] MEDS: DOCUSATE SODIUM 100 MG CAPSULE (FP) PO SCH ×2 (10:31→21:32)
[2020-02-12] MEDS: TAMSULOSIN HCL 0.4 MG CAP PO SCH (10:31)
[2020-02-12] MEDS: POLYETHYLENE GLYCOL 3350 119 GM BTL PO SCH ×2 (10:32→22:00)
[2020-02-12] MEDS: PRIMIDONE 50 MG TABLET PO SCH (10:32)
[2020-02-12] MEDS: TIOTROPIUM BROMIDE 2.5 MCG (SPIRIVA) RESPIMAT INHALER IH SCH (10:34)
[2020-02-12] MEDS: BUDESONIDE/FORMETEROL FUMARATE 160/4.5 mcg INHALER IH SCH ×2 (10:34→22:00)
--- NOTE | 2020-02-12 11:47 | PN ---
Progress Note (short form) - Note Progress Note: Podiatry F/U: Seen/evaluated at bedside NAD. Pain is intermittent and frequent to the left foot surgical site; controlled with PO analgesics. Low grade temp 99F. Vitals stable. S/p left hallux amputation POD#1. KATI: L foot: surgical dressing clean, dry, intact. No active bleeding, no bandage strikethrough. Sutures well coapted, no dehiscence noted. There is no purulent drainage, no fluctuance, no streaking ascending cellulitis, no signs of active infection. No ischemic changes to the surgical site, no duskiness to the incision site. Moderate tenderness to palpation. Imp: 79 year old PVD male s/p left hallux amputation POD#1 Dressing change performed, telfa and dry sterile dressing applied to the left foot. Can begin heel weightbearing with surgical shoe. Will need to work with physical therapy for weightbearing. Pain control. Will follow. [place] Prado DPM
--- NOTE | 2020-02-12 11:51 | PN ---
HC Provider Note Provider Note: Anesthesia Post Op Note Pt s/p sedation for wound debred and STSG Pt awake and alert in bed denies n/v, no purtis of urinary retention VSS no apparent anesthesia complications Cathryn Fajardo.
--- NOTE | 2020-02-12 12:26 | PN ---
Physical Exam: SUBJECTIVE: Patient seen and examined at bedside. Patient is day 1 s/p left hallux amputation. No acute events reported overnight. This morning, patient continues to complain of foot pain. OBJECTIVE: Vital Signs Period Temp Pulse Resp BP Sys/Valdes Pulse Ox Last 24 Hr 20 F-99.8 F 73-99 16-84 90-139/50-74 94-100 GENERAL: The patient is awake, alert, and fully oriented, in no acute distress. GENERAL: AAOx3, in no acute distress HEENT: NCAT, PERRLA, EOMI, sclera anicteric, conjunctiva clear, oropharynx clear w/o exudates. MMM. NECK: Normal ROM, supple, no lymphadenopathy, JVD, or masses LUNGS: CTABL no wheezes/ rhonchi/ rales. No distress, speaks in full sentences. No increased work of breathing. HEART: RRR, normal S1 S2, no M/R/G, peripheral pulses 2+ and equal b/l ABDOMEN: Soft, nondistended, tenderness to palpation above pubic symphysis, + BS. No guarding or rebound. No hepatomegaly or splenomegaly. MSK: ROM WNL EXTREMITIES: Normal inspection. No peripheral edema. No clubbing or cyanosis. NEUROLOGICAL: CN II-XII intact. Normal speech, normal gait, no focal sensorimotor deficits. SKIN: Left lower foot wrapped in dressing. Laboratory Results - last 24 hr CBC, [facility] 02/12/20 07:10 02/12/20 07:10 02/10/20 02/12/20 02/12/20 12:30 07:10 07:10 WBC 7.5 RBC 3.07 L Hgb 9.8 L Hct 29.0 L MCV 94.6 MCH 31.8 MCHC 33.6 RDW 18.5 H Plt Count 297 D MPV 8.4 Absolute Neuts (auto) 5.7 Neutrophils % 75.3 Lymphocytes % 13.6 D Monocytes % 6.2 Eosinophils % 4.4 D Basophils % 0.5 Nucleated RBC % 0 Sodium 138 Potassium 4.0 Chloride 103 Carbon Dioxide 30 Anion Gap 6 L BUN 13.9 Creatinine 0.9 Est GFR (CKD-EPI)AfAm 94.48 Est GFR (CKD-EPI)NonAf 81.52 Random Glucose 105 Calcium 9.2 COVID-19 (YANNICK) Not detected Active Medications Generic Name Dose Route Start Last Admin Trade Name Freq PRN Reason Stop Dose Admin Albuterol Sulfate 2 puff 02/11/20 18:54 Ventolin Hfa Inhaler - IH Q4H PRN SHORT OF BREATH/WHEEZING Atorvastatin Calcium 20 mg 02/11/20 22:00 02/11/20 21:32 Lipitor - PO 20 mg HS BRANDY Administration Budesonide/Formoterol Fumarate 1 puff 02/11/20 22:00 02/12/20 10:34 Symbicort 160/4.5mcg - IH 1 puff BID BRANDY Administration Docusate Sodium 100 mg 02/11/20 22:00 02/12/20 10:31 Colace - PO 100 mg BID BRANDY Administration Heparin Sodium (Porcine) 5,000 unit 02/11/20 22:00 02/12/20 06:24 Heparin - SQ 5,000 unit TID BRANDY Administration Montelukast Sodium 10 mg 02/11/20 22:00 02/11/20 21:32 Singulair - PO 10 mg HS BRANDY Administration Ondansetron HCl 4 mg 02/11/20 18:54 Zofran Injection IVPUSH Q6H PRN NAUSEA AND/OR VOMITING Oxycodone HCl 5 mg 02/11/20 18:35 02/12/20 10:30 Roxicodone - PO 5 mg Q4H PRN Administration PAIN LEVEL 1-5 Polyethylene Glycol 17 gm 02/11/20 22:00 02/12/20 10:32 Miralax (For Daily Use) - PO Not Given BID [facility] Polysaccharide Iron Complex 150 mg 02/12/20 10:00 02/12/20 10:31 Niferex-150 - PO 150 mg DAILY BRANDY Administration Primidone 25 mg 02/12/20 10:00 02/12/20 10:32 Mysoline - PO 25 mg DAILY BRANDY Administration Tamsulosin HCl 0.4 mg 02/12/20 08:30 02/12/20 10:31 Flomax - PO 0.4 mg DAILY@0830 [facility] Administration Tiotropium [place] 2 puff 02/12/20 10:00 02/12/20 10:34 Spiriva Respimat IH 2 puff DAILY BRANDY Administration ASSESSMENT/PLAN: 79M with PMH of COPD (2LNC), DVT LLE (on xarelto), BPH, colon ca (20 years ago). Presented to ER with increasing left foot pain and swelling over last few weeks. Admitted to hospital for soft tissue ischemia of L foot. #L big toe dry gangrene , possible small vessel disease. angio with no big vessel disease - Vascular consulted (Dr. Valdez) - s/p Angio L foot 02/05: all vessels open, small vessel disease in foot at toes, no need for any intervention. - Podiatry: left hallux amputation done yesterday by Dr. Prado - IV Tylenol PRN for pain - oxycodone Q4hr PRN for pain -LLE Duplex- negative for DVT #Urinary Retention -Urology: Dr. Putnam recommends Cysto TURP when medically stable -patient has a Cunningham in place that was placed in the OR on 02/11/2020 #Anemia: Macrocytic - GI: Anemia is due to chronic disease/no acute bleed - Heme: consider venofir 200 mg doses every other day for 5 doses total - Dr. Mott (GI) was reconsulted for colonoscopy today - Patient states he cannot do bowel prep after amputation and would like to f/u outpatient for colonoscopy #COPD: - continue 2L O2 NC - continue home inhalers #FEN - resume regular diet - replete electrolyte PRN -Cunningham placed 02/11/2020 in the OR #Prophylaxis - Heparin SQ #Dispo - Monitor in M/S Visit type - Emergency Visit Emergency Visit: No - New Patient This patient is new to me today: No - Critical Care Critical Care patient: No - Discharge Referral Referred to [facility] Med P.C.: No - Medication Review Med list reviewed for High Risk Meds patients 65 and older: Yes ATTENDING PHYSICIAN STATEMENT I saw and evaluated the patient. I reviewed the resident's note and discussed the case with the resident. I agree with the resident's findings and plan as documented. SUBJECTIVE: OBJECTIVE: ASSESSMENT AND PLAN:
--- NOTE | 2020-02-12 13:01 | PN ---
Progress Note, Physician History of Present Illness: stable post op with foleys catheter - Current Medication List Current Medications: Active Medications Albuterol Sulfate (Ventolin Hfa Inhaler -) 2 puff IH Q4H PRN PRN Reason: SHORT OF BREATH/WHEEZING Atorvastatin Calcium (Lipitor -) 20 mg PO HS [facility] Last Admin: 02/11/20 21:32 Dose: 20 mg Documented by: Budesonide/Formoterol Fumarate (Symbicort 160/4.5mcg -) 1 puff IH BID [facility] Last Admin: 02/12/20 10:34 Dose: 1 puff Documented by: Docusate Sodium (Colace -) 100 mg PO BID [facility] Last Admin: 02/12/20 10:31 Dose: 100 mg Documented by: Heparin Sodium (Porcine) (Heparin -) 5,000 unit SQ TID [facility] Last Admin: 02/12/20 06:24 Dose: 5,000 unit Documented by: Montelukast Sodium (Singulair -) 10 mg PO [facility] Last Admin: 02/11/20 21:32 Dose: 10 mg Documented by: Ondansetron HCl (Zofran Injection) 4 mg IVPUSH Q6H PRN PRN Reason: NAUSEA AND/OR VOMITING Oxycodone HCl (Roxicodone -) 5 mg PO Q4H PRN PRN Reason: PAIN LEVEL 1-5 Last Admin: 02/12/20 10:30 Dose: 5 mg Documented by: Polyethylene Glycol (Miralax (For Daily Use) -) 17 gm PO BID [facility] Last Admin: 02/12/20 10:32 Dose: Not Given Documented by: Polysaccharide Iron Complex (Niferex-150 -) 150 mg PO DAILY [facility] Last Admin: 02/12/20 10:31 Dose: 150 mg Documented by: Primidone (Mysoline -) 25 mg PO DAILY [facility] Last Admin: 02/12/20 10:32 Dose: 25 mg Documented by: Tamsulosin HCl (Flomax -) 0.4 mg PO DAILY@0830 [facility] Last Admin: 02/12/20 10:31 Dose: 0.4 mg Documented by: Tiotropium [place] (Spiriva Respimat) 2 puff IH DAILY [facility] Last Admin: 02/12/20 10:34 Dose: 2 puff Documented by: - Objective Vital Signs: Vital Signs Temperature 99.8 F H 02/12/20 06:00 Pulse Rate 94 H 02/12/20 06:00 Respiratory Rate 18 02/12/20 06:00 Blood Pressure 139/74 02/12/20 06:00 O2 Sat by Pulse Oximetry (%) 99 02/12/20 09:00 Constitutional: Yes: Calm, Mild Distress Cardiovascular: Yes: S1, S2 Respiratory: Yes: Regular, CTA Bilaterally Gastrointestinal: Yes: Normal Bowel Sounds, Soft Musculoskeletal: Yes: WNL Extremities: Yes: Other Wound/Incision: Yes: Dressing Dry and Intact Neurological: Yes: Alert, Oriented Psychiatric: Yes: Alert, Oriented Labs: CBC, BMP 02/12/20 07:10 02/12/20 07:10 INR, PTT INR 0.93 (0.83-1.09) 02/11/20 08:33 Assessment/Plan 79 yo male with PMHx asthma and COPD (home 2L NC), DVT LLE (on xarelto), & BPH, and hx of colon cancer (20 years ago) and 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 Presented to ED with increasing left foot pain and swelling over last few weeks. Admitted to hospital for soft tissue infection and r/o ischemia of L foot. gangrene of the toe anemia copd pvd plan continue current mgmt rest as per the team
--- NOTE | 2020-02-12 19:00 | PN ---
Teaching Attending Note Name of Resident: Justin Swift ATTENDING PHYSICIAN STATEMENT I saw and evaluated the patient. I reviewed the resident's note and discussed the case with the resident. I agree with the resident's findings and plan as documented. SUBJECTIVE: Patient has no new complains OBJECTIVE: Vital Signs Temperature 99.0 F 02/12/20 14:41 Pulse Rate 91 H 02/12/20 14:41 Respiratory Rate 18 02/12/20 14:41 Blood Pressure 122/62 02/12/20 14:41 O2 Sat by Pulse Oximetry (%) 99 02/12/20 10:00 PE: per resident's note CBCD WBC 7.5 K/mm3 (4.0-10.0) 02/12/20 07:10 RBC 3.07 M/mm3 (4.00-5.60) L 02/12/20 07:10 Hgb 9.8 GM/dL (11.7-16.9) L 02/12/20 07:10 Hct 29.0 % (35.4-49) L 02/12/20 07:10 MCV 94.6 fl (80-96) 02/12/20 07:10 MCHC 33.6 g/dl (32.0-35.9) 02/12/20 07:10 RDW 18.5 % (11.9-15.9) H 02/12/20 07:10 Plt Count 297 K/MM3 (134-434) D 02/12/20 07:10 MPV 8.4 fl (7.5-11.1) 02/12/20 07:10 CMP Sodium 138 mmol/L (136-145) 02/12/20 07:10 Potassium 4.0 mmol/L (3.5-5.1) 02/12/20 07:10 Chloride 103 mmol/L (98-107) 02/12/20 07:10 Carbon Dioxide 30 mmol/L (21-32) 02/12/20 07:10 Anion Gap 6 MMOL/L (8-16) L 02/12/20 07:10 BUN 13.9 mg/dL (7-18) 02/12/20 07:10 Creatinine 0.9 mg/dL (0.55-1.3) 02/12/20 07:10 Random Glucose 105 mg/dL (74-106) 02/12/20 07:10 Calcium 9.2 mg/dL (8.5-10.1) 02/12/20 07:10 Total Bilirubin 0.8 mg/dL (0.2-1) 02/11/20 08:33 AST 76 U/L (15-37) H 02/11/20 08:33 ALT 85 U/L (13-61) H 02/11/20 08:33 Alkaline Phosphatase 109 U/L (45-117) 02/11/20 08:33 Total Protein 7.8 g/dl (6.4-8.2) 02/11/20 08:33 Albumin 3.6 g/dl (3.4-5.0) 02/11/20 08:33 Current Medications Generic Name Dose Route Start Last Admin Trade Name Freq PRN Reason Stop Dose Admin Albuterol Sulfate 2 puff 02/11/20 18:54 Ventolin Hfa Inhaler - IH Q4H PRN SHORT OF BREATH/WHEEZING Atorvastatin Calcium 20 mg 02/11/20 22:00 02/11/20 21:32 Lipitor - PO 20 mg HS BRANDY Administration Bisacodyl 20 mg 02/15/20 17:00 Dulcolax - PO 02/15/20 17:01 ONCE ONE Budesonide/Formoterol Fumarate 1 puff 02/11/20 22:00 02/12/20 10:34 Symbicort 160/4.5mcg - IH 1 puff BID BRANDY Administration Docusate Sodium 100 mg 02/11/20 22:00 02/12/20 10:31 Colace - PO 100 mg BID BRANDY Administration Heparin Sodium (Porcine) 5,000 unit 02/11/20 22:00 02/12/20 13:31 Heparin - SQ 5,000 unit TID BRANDY Administration Magnesium Citrate 300 ml 02/15/20 15:00 Citroma - PO 02/15/20 15:01 ONCE ONE Montelukast Sodium 10 mg 02/11/20 22:00 02/11/20 21:32 Singulair - PO 10 mg HS BRANDY Administration Ondansetron HCl 4 mg 02/11/20 18:54 Zofran Injection IVPUSH Q6H PRN NAUSEA AND/OR VOMITING Oxycodone HCl 5 mg 02/11/20 18:35 02/12/20 18:02 Roxicodone - PO 5 mg Q4H PRN Administration PAIN LEVEL 1-5 Polyethylene Glycol 17 gm 02/11/20 22:00 02/12/20 10:32 Miralax (For Daily Use) - PO Not Given BID [facility] Polyethylene Glycol 255 gm 02/15/20 15:00 Miralax (For Bowel Prep) - PO 02/15/20 15:01 ONCE ONE Polysaccharide Iron Complex 150 mg 02/12/20 10:00 02/12/20 10:31 Niferex-150 - PO 150 mg DAILY BRANDY Administration Primidone 25 mg 02/12/20 10:00 02/12/20 10:32 Mysoline - PO 25 mg DAILY BRANDY Administration Tamsulosin HCl 0.4 mg 02/12/20 08:30 02/12/20 10:31 Flomax - PO 0.4 mg DAILY@0830 BRANDY Administration Tiotropium [place] 2 puff 02/12/20 10:00 02/12/20 10:34 Spiriva Respimat IH 2 puff DAILY BRANDY Administration Home Medications Medication Instructions Recorded Budesonide/Formeterol Fumarate 1 inh PO BID 05/29/19 [SYMBICORT 160/4.5mcg -] Rivaroxaban [Xarelto] 15 mg PO BID 05/29/19 Ipratropium/Albuterol Sulfate 2 inh IN BID 01/02/20 [Combivent Respimat 20-100 Mcg] Tamsulosin HCl 0.4 mg PO DAILY 01/02/20 Montelukast Sodium [Singulair] 10 mg PO DAILY 02/04/20 Primidone [Mysoline -] 100 mg PO DAILY 02/04/20 Microbiology 02/11/20 18:15 Toe - Left Hallux Gram Stain - Final 02/11/20 18:15 Toe - Left Hallux Wound Culture - Final Pseudomonas Aeruginosa 02/03/20 11:30 Blood - Peripheral Venous Blood Culture - Final NO GROWTH AFTER 5 DAYS INCUBATION 02/03/20 11:15 Blood - Peripheral Venous Blood Culture - Final NO GROWTH AFTER 5 DAYS INCUBATION ASSESSMENT AND PLAN: 79 y/o man with h/o PAD, COPD on home O2, remote LLE DVT , Colorectal Ca (in remission for 20 years, sp colectomy ), BPH, recent admission for L big toe pain with w/u including atherosclerotic plaque in aorta, 3.8 cm abdominal aortic aneurysm, who Presents for worsening L big toe and forefoot pain. POD#1 L big toe dry gangrene, possible small vessel disease. continue statin , aspirin, pain control #Remote h/o DVT. 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 continue to current care.
[2020-02-12] MEDS: MONTELUKAST NA 10 MG TABLET PO SCH (21:31)
[2020-02-12] MEDS: ATORVASTATIN CA 20 MG TABLET (FP) PO SCH (21:32)
[2020-02-13] MEDS: oxyCODONE HCL 5 MG TABLET PO PRN ×2 (04:44→20:41)
[2020-02-13] MEDS: HEPARIN NA (PORCINE) 5,000 UNITS/ML 1ML VIAL SQ SCH ×3 (06:27→22:31)
[2020-02-13] MEDS: TAMSULOSIN HCL 0.4 MG CAP PO SCH (08:37)
[2020-02-13 08:44] LABS: BASO % 0.5 % (0-2.0); EOS % 4.8 % (0-4.5); HEMATOCRIT 27.2 % (35.4-49); HEMOGLOBIN 8.9 GM/dL (11.7-16.9); LYMPH % 16.8 % (8-40); MCH 31.1 pg (25.7-33.7); MCHC 32.8 g/dl (32.0-35.9); MEAN CELL VOLUME 94.9 fl (80-96); MEAN PLT VOLUME 8.2 fl (7.5-11.1); MONO % 10.9 % (3.8-10.2); PLATELET COUNT 289 K/MM3 (134-434); RBC 2.87 M/mm3 (4.00-5.60); RDW 17.8 % (11.9-15.9); WHITE BLOOD COUNT 9.1 K/mm3 (4.0-10.0)
[2020-02-13 09:11] LABS: BLOOD UREA NITROGEN 14.6 mg/dL (7-18); CALCIUM 8.3 mg/dL (8.5-10.1); CREATININE 0.8 mg/dL (0.55-1.3); POTASSIUM 3.9 mmol/L (3.5-5.1)
[2020-02-13] MEDS ORDERED: PT OWN MED DRAWER 7, Y5N ONE (10:00)
--- NOTE | 2020-02-13 10:03 | PN ---
Progress Note, Physician History of Present Illness: post op spiked fevers pain off and on - Current Medication List Current Medications: Active Medications Acetaminophen (Tylenol -) 650 mg PO Q6H PRN PRN Reason: FEVER Albuterol Sulfate (Ventolin Hfa Inhaler -) 2 puff IH Q4H PRN PRN Reason: SHORT OF BREATH/WHEEZING Atorvastatin Calcium (Lipitor -) 20 mg PO [facility] Last Admin: 02/12/20 21:32 Dose: 20 mg Documented by: Bisacodyl (Dulcolax -) 20 mg PO ONCE ONE Stop: 02/15/20 17:01 Budesonide/Formoterol Fumarate (Symbicort 160/4.5mcg -) 1 puff IH BID [facility] Last Admin: 02/12/20 22:00 Dose: 1 puff Documented by: Docusate Sodium (Colace -) 100 mg PO BID [facility] Last Admin: 02/12/20 21:32 Dose: 100 mg Documented by: Heparin Sodium (Porcine) (Heparin -) 5,000 unit SQ TID [facility] Last Admin: 02/13/20 06:27 Dose: 5,000 unit Documented by: Magnesium Citrate (Citroma -) 300 ml PO ONCE ONE Stop: 02/15/20 15:01 Montelukast Sodium (Singulair -) 10 mg PO [facility] Last Admin: 02/12/20 21:31 Dose: 10 mg Documented by: Ondansetron HCl (Zofran Injection) 4 mg IVPUSH Q6H PRN PRN Reason: NAUSEA AND/OR VOMITING Oxycodone HCl (Roxicodone -) 5 mg PO Q4H PRN PRN Reason: PAIN LEVEL 1-5 Last Admin: 02/13/20 04:44 Dose: 5 mg Documented by: Polyethylene Glycol (Miralax (For Daily Use) -) 17 gm PO BID [facility] Last Admin: 02/12/20 22:00 Dose: Not Given Documented by: Polyethylene Glycol (Miralax (For Bowel Prep) -) 255 gm PO ONCE ONE Stop: 02/15/20 15:01 Polysaccharide Iron Complex (Niferex-150 -) 150 mg PO DAILY [facility] Last Admin: 02/12/20 10:31 Dose: 150 mg Documented by: Primidone (Mysoline -) 25 mg PO DAILY [facility] Last Admin: 02/12/20 10:32 Dose: 25 mg Documented by: Tamsulosin HCl (Flomax -) 0.4 mg PO DAILY@0830 [facility] Last Admin: 02/13/20 08:37 Dose: 0.4 mg Documented by: Tiotropium [place] (Spiriva Respimat) 2 puff IH DAILY [facility] Last Admin: 02/12/20 10:34 Dose: 2 puff Documented by: - Objective Vital Signs: Vital Signs Temperature 100.9 F H 02/13/20 06:00 Pulse Rate 85 02/13/20 06:00 Respiratory Rate 18 02/13/20 06:00 Blood Pressure 113/58 L 02/13/20 06:00 O2 Sat by Pulse Oximetry (%) 96 02/13/20 06:00 Constitutional: Yes: Calm, Thin Cardiovascular: Yes: S1, S2 Respiratory: Yes: Regular, CTA Bilaterally Gastrointestinal: Yes: Normal Bowel Sounds, Soft Musculoskeletal: Yes: WNL Extremities: Yes: Other Wound/Incision: Yes: Dressing Dry and Intact Neurological: Yes: Alert, Oriented Psychiatric: Yes: Alert, Oriented Labs: CBC, BMP 02/13/20 07:35 02/13/20 07:35 INR, PTT INR 0.93 (0.83-1.09) 02/11/20 08:33 Assessment/Plan 79 yo male with PMHx asthma and COPD (home 2L NC), DVT LLE (on xarelto), & BPH, and hx of colon cancer (20 years ago) and 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 Presented to ED with increasing left foot pain and swelling over last few weeks. Admitted to hospital for soft tissue infection and r/o ischemia of L foot. gangrene of the toe anemia copd pvd plan continue current mgmt rest as per the team consider sending urine cx if spikes again get a blood cx
[2020-02-13] MEDS: ACETAMINOPHEN 325 MG TABLET (FP) PO PRN ×2 (10:07→17:27)
[2020-02-13] MEDS: IRON POLYSACCHARIDES 150 MG CAPSULE PO SCH (10:08)
[2020-02-13] MEDS: DOCUSATE SODIUM 100 MG CAPSULE (FP) PO SCH ×2 (10:08→22:33)
[2020-02-13] MEDS: POLYETHYLENE GLYCOL 3350 119 GM BTL PO SCH ×2 (10:09→22:32)
[2020-02-13] MEDS: PRIMIDONE 50 MG TABLET PO SCH (10:09)
[2020-02-13] MEDS: TIOTROPIUM BROMIDE 2.5 MCG (SPIRIVA) RESPIMAT INHALER IH SCH (10:09)
[2020-02-13] MEDS: BUDESONIDE/FORMETEROL FUMARATE 160/4.5 mcg INHALER IH SCH ×2 (10:09→22:32)
--- NOTE | 2020-02-13 11:57 | PN ---
Progress Note (short form) - Note Progress Note: Seen at bedside in NAD Afebrile VSS Dressing CDI Wound well coapted NO signs of active infection Tender on palpation NO ascending cellulitis Negative adenopathy Impression: Satisfactory healing s/p hallux amputation PLAN: ABX as per ID Sterile dressing change cont wound care
--- NOTE | 2020-02-13 12:43 | PN ---
Physical Exam: SUBJECTIVE: Patient seen and examined at bedside. Patient is day 2 s/p left hallux amputation. Overnight, the patient had a fever of 101.2. This morning, patient continues to complain of foot pain. Temperature this morning was 100.9. Tylenol PRN ordered. OBJECTIVE: Vital Signs Period Temp Pulse Resp BP Sys/Valdes Pulse Ox Last 24 Hr 99.0 F-101.2 F 85-91 18-18 96-122/56-62 96-100 GENERAL: The patient is awake, alert, and fully oriented, in no acute distress. GENERAL: AAOx3, in no acute distress HEENT: NCAT, PERRLA, EOMI, sclera anicteric, conjunctiva clear, oropharynx clear w/o exudates. MMM. NECK: Normal ROM, supple, no lymphadenopathy, JVD, or masses LUNGS: CTABL no wheezes/ rhonchi/ rales. No distress, speaks in full sentences. No increased work of breathing. HEART: RRR, normal S1 S2, no M/R/G, peripheral pulses 2+ and equal b/l ABDOMEN: Soft, nondistended, tenderness to palpation above pubic symphysis, + BS. No guarding or rebound. No hepatomegaly or splenomegaly. MSK: ROM WNL EXTREMITIES: Normal inspection. No peripheral edema. No clubbing or cyanosis. NEUROLOGICAL: CN II-XII intact. Normal speech, normal gait, no focal sensorimotor deficits. SKIN: Left lower foot wrapped in dressing. Laboratory Results - last 24 hr CBC, BMP 02/13/20 07:35 02/13/20 07:35 02/13/20 02/13/20 07:35 07:35 WBC 9.1 RBC 2.87 L Hgb 8.9 L Hct 27.2 L MCV 94.9 MCH 31.1 MCHC 32.8 RDW 17.8 H Plt Count 289 MPV 8.2 Absolute Neuts (auto) 6.1 Neutrophils % 67.0 Lymphocytes % 16.8 D Monocytes % 10.9 H Eosinophils % 4.8 H Basophils % 0.5 Nucleated RBC % 0 Sodium 136 Potassium 3.9 Chloride 103 Carbon Dioxide 29 Anion Gap 5 L BUN 14.6 Creatinine 0.8 Est GFR (CKD-EPI)AfAm 99.17 Est GFR (CKD-EPI)NonAf 85.56 Random Glucose 98 Calcium 8.3 L Active Medications Generic Name Dose Route Start Last Admin Trade Name Freq PRN Reason Stop Dose Admin Acetaminophen 650 mg 02/13/20 08:37 02/13/20 10:07 Tylenol - PO 650 mg Q6H PRN Administration FEVER Albuterol Sulfate 2 puff 02/11/20 18:54 Ventolin Hfa Inhaler - IH Q4H PRN SHORT OF BREATH/WHEEZING Amino Acids 30 ml 02/13/20 17:30 Prosource No Carb Liquid Pkt PO BID@0800,1730 [facility] Atorvastatin Calcium 20 mg 02/11/20 22:00 02/12/20 21:32 Lipitor - PO 20 mg HS [facility] Administration Bisacodyl 20 mg 02/15/20 17:00 Dulcolax - PO 02/15/20 17:01 ONCE ONE Budesonide/Formoterol Fumarate 1 puff 02/11/20 22:00 02/13/20 10:09 Symbicort 160/4.5mcg - IH 1 puff BID [facility] Administration Docusate Sodium 100 mg 02/11/20 22:00 02/13/20 10:08 Colace - PO 100 mg BID [facility] Administration Heparin Sodium (Porcine) 5,000 unit 02/11/20 22:00 02/13/20 06:27 Heparin - SQ 5,000 unit TID [facility] Administration Magnesium Citrate 300 ml 02/15/20 15:00 Citroma - PO 02/15/20 15:01 ONCE ONE Montelukast Sodium 10 mg 02/11/20 22:00 02/12/20 21:31 Singulair - PO 10 mg HS [facility] Administration Ondansetron HCl 4 mg 02/11/20 18:54 Zofran Injection IVPUSH Q6H PRN NAUSEA AND/OR VOMITING Oxycodone HCl 5 mg 02/11/20 18:35 02/13/20 04:44 Roxicodone - PO 5 mg Q4H PRN Administration PAIN LEVEL 1-5 Polyethylene Glycol 17 gm 02/11/20 22:00 02/13/20 10:09 Miralax (For Daily Use) - PO Not Given BID [facility] Polyethylene Glycol 255 gm 02/15/20 15:00 Miralax (For Bowel Prep) - PO 02/15/20 15:01 ONCE ONE Polysaccharide Iron Complex 150 mg 02/12/20 10:00 02/13/20 10:08 Niferex-150 - PO 150 mg DAILY [facility] Administration Primidone 25 mg 02/12/20 10:00 02/13/20 10:09 Mysoline - PO 25 mg DAILY [facility] Administration Tamsulosin HCl 0.4 mg 02/12/20 08:30 02/13/20 08:37 Flomax - PO 0.4 mg DAILY@0830 [facility] Administration Tiotropium [place] 2 puff 02/12/20 10:00 02/13/20 10:09 Spiriva Respimat IH 2 puff DAILY [facility] Administration ASSESSMENT/PLAN: 79M with PMH of COPD (2LNC), DVT LLE (on xarelto), BPH, colon ca (20 years ago). Presented to ER with increasing left foot pain and swelling over last few weeks. Admitted to hospital for soft tissue ischemia of L foot. #L big toe dry gangrene , possible small vessel disease. angio with no big vessel disease - Vascular consulted (Dr. Valdez) - s/p Angio L foot 02/05: all vessels open, small vessel disease in foot at toes, no need for any intervention. - Podiatry: left hallux amputation done 02/[address] Prado - Tylenol PRN for pain - oxycodone Q4hr PRN for pain -LLE Duplex- negative for DVT -no antibiotics as per ID recommendations #Fever of Unknown Origin -Tylenol PRN for fever -urine cx and blood cx ordered as per ID reccs #Urinary Retention -Urology: Dr. Putnam recommends Cysto TURP when medically stable -patient has a Cunningham in place that was placed in the OR on 02/11/2020 #Anemia: Macrocytic - GI: Anemia is due to chronic disease/no acute bleed - Heme: consider venofir 200 mg doses every other day for 5 doses total - Dr. Mott (GI) colonoscopy on Sunday. Bowel prep on Sunday and Sunday. Orders placed for bowel prep. #COPD: - continue 2L O2 NC - continue home inhalers #FEN - resume regular diet - replete electrolyte PRN -Cunningham placed 02/11/2020 in the OR #Prophylaxis - Heparin SQ #Dispo - Monitor in M/S Visit type - Emergency Visit Emergency Visit: No - New Patient This patient is new to me today: No - Critical Care Critical Care patient: No - Discharge Referral Referred to [facility] No - Medication Review Med list reviewed for High Risk Meds patients 65 and older: Yes ATTENDING PHYSICIAN STATEMENT I saw and evaluated the patient. I reviewed the resident's note and discussed the case with the resident. I agree with the resident's findings and plan as documented. SUBJECTIVE: OBJECTIVE: ASSESSMENT AND PLAN:
[2020-02-13] MEDS: AMINO ACIDS/PROTEIN HYDROLYS 30 ML LIQUID.PKT PO SCH (17:10)
[2020-02-13] MEDS: MULTIVIT-MINERALS ORAL LIQUID PO SCH (17:10)
--- NOTE | 2020-02-13 19:00 | PN ---
Teaching Attending Note Name of Resident: Justin Swift ATTENDING PHYSICIAN STATEMENT I saw and evaluated the patient. I reviewed the resident's note and discussed the case with the resident. I agree with the resident's findings and plan as documented. SUBJECTIVE: Patient has no further complains OBJECTIVE: Vital Signs Temperature 101.4 F H 02/13/20 17:16 Pulse Rate 96 H 02/13/20 17:16 Respiratory Rate 18 02/13/20 17:16 Blood Pressure 118/66 02/13/20 17:16 O2 Sat by Pulse Oximetry (%) 100 02/13/20 17:16 PE;per resident's note CBCD WBC 9.1 K/mm3 (4.0-10.0) 02/13/20 07:35 RBC 2.87 M/mm3 (4.00-5.60) L 02/13/20 07:35 Hgb 8.9 GM/dL (11.7-16.9) L 02/13/20 07:35 Hct 27.2 % (35.4-49) L 02/13/20 07:35 MCV 94.9 fl (80-96) 02/13/20 07:35 MCHC 32.8 g/dl (32.0-35.9) 02/13/20 07:35 RDW 17.8 % (11.9-15.9) H 02/13/20 07:35 Plt Count 289 K/MM3 (134-434) 02/13/20 07:35 MPV 8.2 fl (7.5-11.1) 02/13/20 07:35 CMP Sodium 136 mmol/L (136-145) 02/13/20 07:35 Potassium 3.9 mmol/L (3.5-5.1) 02/13/20 07:35 Chloride 103 mmol/L (98-107) 02/13/20 07:35 Carbon Dioxide 29 mmol/L (21-32) 02/13/20 07:35 Anion Gap 5 MMOL/L (8-16) L 02/13/20 07:35 BUN 14.6 mg/dL (7-18) 02/13/20 07:35 Creatinine 0.8 mg/dL (0.55-1.3) 02/13/20 07:35 Random Glucose 98 mg/dL (74-106) 02/13/20 07:35 Calcium 8.3 mg/dL (8.5-10.1) L 02/13/20 07:35 Total Bilirubin 0.8 mg/dL (0.2-1) 02/11/20 08:33 AST 76 U/L (15-37) H 02/11/20 08:33 ALT 85 U/L (13-61) H 02/11/20 08:33 Alkaline Phosphatase 109 U/L (45-117) 02/11/20 08:33 Total Protein 7.8 g/dl (6.4-8.2) 02/11/20 08:33 Albumin 3.6 g/dl (3.4-5.0) 02/11/20 08:33 Current Medications Generic Name Dose Route Start Last Admin Trade Name Freq PRN Reason Stop Dose Admin Acetaminophen 650 mg 02/13/20 08:37 02/13/20 17:27 Tylenol - PO 650 mg Q6H PRN Administration FEVER Albuterol Sulfate 2 puff 02/11/20 18:54 Ventolin Hfa Inhaler - IH Q4H PRN SHORT OF BREATH/WHEEZING Amino Acids 30 ml 02/13/20 17:30 02/13/20 17:10 Prosource No Carb Liquid Pkt PO 30 ml BID@0800,1730 [facility] Administration Atorvastatin Calcium 20 mg 02/11/20 22:00 02/12/20 21:32 Lipitor - PO 20 mg HS [facility] Administration Bisacodyl 20 mg 02/15/20 17:00 Dulcolax - PO 02/15/20 17:01 ONCE ONE Budesonide/Formoterol Fumarate 1 puff 02/11/20 22:00 02/13/20 10:09 Symbicort 160/4.5mcg - IH 1 puff BID [facility] Administration Docusate Sodium 100 mg 02/11/20 22:00 02/13/20 10:08 Colace - PO 100 mg BID [facility] Administration Heparin Sodium (Porcine) 5,000 unit 02/11/20 22:00 02/13/20 15:20 Heparin - SQ 5,000 unit TID [facility] Administration Magnesium Citrate 300 ml 02/15/20 15:00 Citroma - PO 02/15/20 15:01 ONCE ONE Montelukast Sodium 10 mg 02/11/20 22:00 02/12/20 21:31 Singulair - PO 10 mg HS [facility] Administration Multivitamins/Minerals 15 ml 02/13/20 14:45 02/13/20 17:10 Certavite-Antioxidant Liquid PO Not Given DAILY [facility] Ondansetron HCl 4 mg 02/11/20 18:54 Zofran Injection IVPUSH Q6H PRN NAUSEA AND/OR VOMITING Oxycodone HCl 5 mg 02/11/20 18:35 02/13/20 04:44 Roxicodone - PO 5 mg Q4H PRN Administration PAIN LEVEL 1-5 Polyethylene Glycol 17 gm 02/11/20 22:00 02/13/20 10:09 Miralax (For Daily Use) - PO Not Given BID [facility] Polyethylene Glycol 255 gm 02/15/20 15:00 Miralax (For Bowel Prep) - PO 02/15/20 15:01 ONCE ONE Polysaccharide Iron Complex 150 mg 02/12/20 10:00 02/13/20 10:08 Niferex-150 - PO 150 mg DAILY [facility] Administration Primidone 25 mg 02/12/20 10:00 02/13/20 10:09 Mysoline - PO 25 mg DAILY [facility] Administration Tamsulosin HCl 0.4 mg 02/12/20 08:30 02/13/20 08:37 Flomax - PO 0.4 mg DAILY@0830 [facility] Administration Tiotropium [place] 2 puff 02/12/20 10:00 02/13/20 10:09 Spiriva Respimat IH 2 puff DAILY [facility] Administration Home Medications Medication Instructions Recorded Budesonide/Formeterol Fumarate 1 inh PO BID 05/29/19 [SYMBICORT 160/4.5mcg -] Rivaroxaban [Xarelto] 15 mg PO BID 05/29/19 Ipratropium/Albuterol Sulfate 2 inh IN BID 01/02/20 [Combivent Respimat 20-100 Mcg] Tamsulosin HCl 0.4 mg PO DAILY 01/02/20 Montelukast Sodium [Singulair] 10 mg PO DAILY 02/04/20 Primidone [Mysoline -] 100 mg PO DAILY 02/04/20 Microbiology 02/11/20 18:15 Toe - Left Hallux Gram Stain - Final 02/11/20 18:15 Toe - Left Hallux Wound Culture - Preliminary Pseudomonas Species 02/03/20 11:30 Blood - Peripheral Venous Blood Culture - Final NO GROWTH AFTER 5 DAYS INCUBATION 02/03/20 11:15 Blood - Peripheral Venous Blood Culture - Final NO GROWTH AFTER 5 DAYS INCUBATION ASSESSMENT AND PLAN: 79 y/o man with h/o PAD, COPD on home O2, remote LLE DVT , Colorectal Ca (in remission for 20 years, sp colectomy ), BPH, recent admission for L big toe pain with w/u including atherosclerotic plaque in aorta, 3.8 cm abdominal aortic aneurysm, who Presents for worsening L big toe and forefoot pain. POD#2 s/p Left hallux amputation, first metatarsal head resection L big toe dry gangrene, continue statin , aspirin, pain control #Remote h/o DVT. 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 continue to current care DVt px: Heparin sq
[2020-02-13] MEDS: ATORVASTATIN CA 20 MG TABLET (FP) PO SCH (22:32)
[2020-02-13] MEDS: MONTELUKAST NA 10 MG TABLET PO SCH (22:32)
[2020-02-14] MEDS ORDERED: SODIUM CHLORIDE 1,000 ML IV SCH (00:30)
[2020-02-14] MEDS: HEPARIN NA (PORCINE) 5,000 UNITS/ML 1ML VIAL SQ SCH ×3 (06:30→22:19)
[2020-02-14] MEDS: AMINO ACIDS/PROTEIN HYDROLYS 30 ML LIQUID.PKT PO SCH ×2 (08:30→17:31)
[2020-02-14] MEDS: TAMSULOSIN HCL 0.4 MG CAP PO SCH (08:30)
[2020-02-14 09:11] LABS: BASO % 0.7 % (0-2.0); EOS % 4.7 % (0-4.5); HEMATOCRIT 28.7 % (35.4-49); HEMOGLOBIN 9.4 GM/dL (11.7-16.9); LYMPH % 13.8 % (8-40); MCH 31.7 pg (25.7-33.7); MCHC 32.8 g/dl (32.0-35.9); MEAN CELL VOLUME 96.7 fl (80-96); MEAN PLT VOLUME 8.6 fl (7.5-11.1); MONO % 8.3 % (3.8-10.2); NEUT % 72.5 % (42.8-82.8); PLATELET COUNT 282 K/MM3 (134-434); RBC 2.97 M/mm3 (4.00-5.60); RDW 17.5 % (11.9-15.9); WHITE BLOOD COUNT 9.1 K/mm3 (4.0-10.0)
[2020-02-14 09:43] LABS: ALBUMIN 2.5 g/dl (3.4-5.0); BILIRUBIN,DIRECT 0.1 mg/dL (0.0-0.2); BILIRUBIN,TOTAL 0.3 mg/dL (0.2-1); BLOOD UREA NITROGEN 15.6 mg/dL (7-18); CALCIUM 8.9 mg/dL (8.5-10.1); CREATININE 0.7 mg/dL (0.55-1.3); POTASSIUM 4.3 mmol/L (3.5-5.1)
[2020-02-14] MEDS ORDERED: PT OWN MED DRAWER 7, Y5N ONE ×2 (10:12→15:14)
[2020-02-14] MEDS: IRON POLYSACCHARIDES 150 MG CAPSULE PO SCH (10:22)
[2020-02-14] MEDS: PRIMIDONE 50 MG TABLET PO SCH (10:22)
[2020-02-14] MEDS: BUDESONIDE/FORMETEROL FUMARATE 160/4.5 mcg INHALER IH SCH ×2 (10:23→22:21)
[2020-02-14] MEDS: MULTIVIT-MINERALS ORAL LIQUID PO SCH (10:23)
[2020-02-14] MEDS: TIOTROPIUM BROMIDE 2.5 MCG (SPIRIVA) RESPIMAT INHALER IH SCH (10:24)
[2020-02-14] MEDS: DOCUSATE SODIUM 100 MG CAPSULE (FP) PO SCH ×2 (10:24→22:19)
[2020-02-14] MEDS: POLYETHYLENE GLYCOL 3350 119 GM BTL PO SCH ×2 (10:24→22:20)
--- NOTE | 2020-02-14 14:11 | PN ---
Progress Note (short form) - Note Progress Note: Podiatry F/U: Seen/evaluated at bedside NAD. Pain is improving slowly to left foot. Denies F/V/N/C/SOB/CP. Afebrile, VSS. S/p left hallux amputation. KATI: L foot: Surgical dressing clean, dry, intact. No active bleeding, no strikethrough. Sutures well coapted, no dehiscence noted. No purulence, no fluctuance, no streaking ascending cellulitis, no signs of infection. Moderate tenderness to palpation. No ischemic changes to the amputation site. Imp: 79 year old PVD male s/p left hallux amputation for gangrene 1. DSD L foot 2. Partial WB L heel with surgical shoe 3. Pain control 4. Will follow Juana Prado DPM
--- NOTE | 2020-02-14 15:04 | PN ---
Progress Note (short form) - Note Progress Note: Patient is feeling better today , had a large BM , no new complains Vital Signs Temperature 99.3 F 02/14/20 10:00 Pulse Rate 95 H 02/14/20 10:00 Respiratory Rate 18 02/14/20 10:00 Blood Pressure 96/54 L 02/14/20 10:00 O2 Sat by Pulse Oximetry (%) 98 02/14/20 10:00 GENERAL: The patient is awake, alert, and fully oriented, in no acute distress. HEAD: Normal with no signs of trauma. EYES: PERRL, extraocular movements intact, sclera anicteric, conjunctiva clear. ENT: Ears normal, oropharynx clear without exudates, moist mucous membranes. NECK: Trachea midline, full range of motion, supple. LUNGS: decreased BS BL , no wheezes, no crackles, no accessory muscle use. HEART: Regular rate and rhythm, S1, S2+, YOLANDA 2/6, no rub or gallop. ABDOMEN: Soft, nontender, nondistended, normoactive bowel sounds, no guarding, no rebound, no hepatosplenomegaly, no masses. EXTREMITIES: 2+ pulses, warm, LLE and RLE wrapped with tremaine bandages. NEUROLOGICAL: Cranial nerves II through XII grossly intact. Normal speech, gait not observed. PSYCH: Normal mood, normal affect. SKIN: Warm, dry, normal turgor, no rashes or lesions noted CBCD WBC 9.1 K/mm3 (4.0-10.0) 02/14/20 07:57 RBC 2.97 M/mm3 (4.00-5.60) L 02/14/20 07:57 Hgb 9.4 GM/dL (11.7-16.9) L 02/14/20 07:57 Hct 28.7 % (35.4-49) L 02/14/20 07:57 MCV 96.7 fl (80-96) H 02/14/20 07:57 MCHC 32.8 g/dl (32.0-35.9) 02/14/20 07:57 RDW 17.5 % (11.9-15.9) H 02/14/20 07:57 Plt Count 282 K/MM3 (134-434) 02/14/20 07:57 MPV 8.6 fl (7.5-11.1) 02/14/20 07:57 CMP Sodium 136 mmol/L (136-145) 02/14/20 07:57 Potassium 4.3 mmol/L (3.5-5.1) 02/14/20 07:57 Chloride 102 mmol/L (98-107) 02/14/20 07:57 Carbon Dioxide 31 mmol/L (21-32) 02/14/20 07:57 Anion Gap 3 MMOL/L (8-16) L 02/14/20 07:57 BUN 15.6 mg/dL (7-18) 02/14/20 07:57 Creatinine 0.7 mg/dL (0.55-1.3) 02/14/20 07:57 Random Glucose 93 mg/dL (74-106) 02/14/20 07:57 Calcium 8.9 mg/dL (8.5-10.1) 02/14/20 07:57 Total Bilirubin 0.3 mg/dL (0.2-1) 02/14/20 07:57 AST 32 U/L (15-37) 02/14/20 07:57 ALT 58 U/L (13-61) 02/14/20 07:57 Alkaline Phosphatase 81 U/L (45-117) 02/14/20 07:57 Total Protein 6.0 g/dl (6.4-8.2) L 02/14/20 07:57 Albumin 2.5 g/dl (3.4-5.0) L 02/14/20 07:57 Current Medications Generic Name Dose Route Start Last Admin Trade Name Freq PRN Reason Stop Dose Admin Acetaminophen 650 mg 02/13/20 08:37 02/13/20 17:27 Tylenol - PO 650 mg Q6H PRN Administration FEVER Albuterol Sulfate 2 puff 02/11/20 18:54 Ventolin Hfa Inhaler - IH Q4H PRN SHORT OF BREATH/WHEEZING Amino Acids 30 ml 02/13/20 17:30 02/14/20 08:30 Prosource No Carb Liquid Pkt PO 30 ml BID@0800,1730 [facility] Administration Atorvastatin Calcium 20 mg 02/11/20 22:00 02/13/20 22:32 Lipitor - PO 20 mg HS [facility] Administration Bisacodyl 20 mg 02/15/20 17:00 Dulcolax - PO 02/15/20 17:01 ONCE ONE Budesonide/Formoterol Fumarate 1 puff 02/11/20 22:00 02/14/20 10:23 Symbicort 160/4.5mcg - IH 1 puff BID [facility] Administration Docusate Sodium 100 mg 02/11/20 22:00 02/14/20 10:24 Colace - PO 100 mg BID [facility] Administration Heparin Sodium (Porcine) 5,000 unit 02/11/20 22:00 02/14/20 06:30 Heparin - SQ 5,000 unit TID [facility] Administration Magnesium Citrate 300 ml 02/15/20 15:00 Citroma - PO 02/15/20 15:01 ONCE ONE Montelukast Sodium 10 mg 02/11/20 22:00 02/13/20 22:32 Singulair - PO 10 mg HS [facility] Administration Multivitamins/Minerals 15 ml 02/13/20 14:45 02/14/20 10:23 Certavite-Antioxidant Liquid PO Not Given DAILY [facility] Ondansetron HCl 4 mg 02/11/20 18:54 Zofran Injection IVPUSH Q6H PRN NAUSEA AND/OR VOMITING Oxycodone HCl 5 mg 02/11/20 18:35 02/13/20 20:41 Roxicodone - PO 5 mg Q4H PRN Administration PAIN LEVEL 1-5 Polyethylene Glycol 17 gm 02/11/20 22:00 02/14/20 10:24 Miralax (For Daily Use) - PO Not Given BID [facility] Polyethylene Glycol 255 gm 02/15/20 15:00 Miralax (For Bowel Prep) - PO 02/15/20 15:01 ONCE ONE Polysaccharide Iron Complex 150 mg 02/12/20 10:00 02/14/20 10:22 Niferex-150 - PO 150 mg DAILY [facility] Administration Primidone 25 mg 02/12/20 10:00 02/14/20 10:22 Mysoline - PO 25 mg DAILY [facility] Administration Tamsulosin HCl 0.4 mg 02/12/20 08:30 02/14/20 08:30 Flomax - PO 0.4 mg DAILY@0830 [facility] Administration Tiotropium [place] 2 puff 02/12/20 10:00 02/14/20 10:24 Spiriva Respimat IH 2 puff DAILY [facility] Administration Home Medications Medication Instructions Recorded Budesonide/Formeterol Fumarate 1 inh PO BID 05/29/19 [SYMBICORT 160/4.5mcg -] Rivaroxaban [Xarelto] 15 mg PO BID 05/29/19 Ipratropium/Albuterol Sulfate 2 inh IN BID 01/02/20 [Combivent Respimat 20-100 Mcg] Tamsulosin HCl 0.4 mg PO DAILY 01/02/20 Montelukast Sodium [Singulair] 10 mg PO DAILY 02/04/20 Primidone [Mysoline -] 100 mg PO DAILY 02/04/20 Microbiology 02/13/20 12:42 Blood - Peripheral Venous Blood Culture - Preliminary NO GROWTH OBTAINED AFTER 24 HOURS, INCUBATION TO CONTINUE FOR 4 DAYS. 02/13/20 12:42 Blood - Peripheral Venous Blood Culture - Preliminary NO GROWTH OBTAINED AFTER 24 HOURS, INCUBATION TO CONTINUE FOR 4 DAYS. 02/11/20 18:15 Toe - Left Hallux Gram Stain - Final 02/11/20 18:15 Toe - Left Hallux Wound Culture - Final Pseudomonas Aeruginosa 02/03/20 11:30 Blood - Peripheral Venous Blood Culture - Final NO GROWTH AFTER 5 DAYS INCUBATION 02/03/20 11:15 Blood - Peripheral Venous Blood Culture - Final NO GROWTH AFTER 5 DAYS INCUBATION Assessment and plan: 79 y/o man with h/o PAD, COPD on home O2, remote LLE DVT , Colorectal Ca (in remission for 20 years, sp colectomy ), BPH, recent admission for L big toe pain with w/u including atherosclerotic plaque in aorta, 3.8 cm abdominal aortic aneurysm, who Presents for worsening L big toe and forefoot pain. POD#3 s/p Left hallux amputation, first metatarsal head resection L big toe dry gangrene, continue statin , aspirin, pain control #Remote h/o DVT. 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 continue to current care DVt px: Heparin sq Visit type - Emergency Visit Emergency Visit: Yes ED Registration Date: 02/03/20 Care time: The patient presented to the Emergency Department on the above date and was hospitalized for further evaluation of their emergent condition. - New Patient This patient is new to me today: No - Critical Care Critical Care patient: No - Discharge Referral Referred to [facility] No - Medication Review Med list reviewed for High Risk Meds patients 65 and older: Yes
[2020-02-14] MEDS: oxyCODONE HCL 5 MG TABLET PO PRN ×2 (15:18→22:18)
--- NOTE | 2020-02-14 15:54 | PN ---
Progress Note, Physician History of Present Illness: Pt is alert and without distress. Has some pain in Lt foot controlled with med. Temps appear to be trending down since yesterday. Has no other specific complaints. - Current Medication List Current Medications: Active Medications Acetaminophen (Tylenol -) 650 mg PO Q6H PRN PRN Reason: FEVER Last Admin: 02/13/20 17:27 Dose: 650 mg Documented by: Albuterol Sulfate (Ventolin Hfa Inhaler -) 2 puff IH Q4H PRN PRN Reason: SHORT OF BREATH/WHEEZING Amino Acids (Prosource No Carb Liquid Pkt) 30 ml PO BID@0800,1730 [facility] Last Admin: 02/14/20 08:30 Dose: 30 ml Documented by: Atorvastatin Calcium (Lipitor -) 20 mg PO [facility] Last Admin: 02/13/20 22:32 Dose: 20 mg Documented by: Bisacodyl (Dulcolax -) 20 mg PO ONCE ONE Stop: 02/15/20 17:01 Budesonide/Formoterol Fumarate (Symbicort 160/4.5mcg -) 1 puff IH BID [facility] Last Admin: 02/14/20 10:23 Dose: 1 puff Documented by: Docusate Sodium (Colace -) 100 mg PO BID [facility] Last Admin: 02/14/20 10:24 Dose: 100 mg Documented by: Heparin Sodium (Porcine) (Heparin -) 5,000 unit SQ TID [facility] Last Admin: 02/14/20 15:17 Dose: 5,000 unit Documented by: Magnesium Citrate (Citroma -) 300 ml PO ONCE ONE Stop: 02/15/20 15:01 Montelukast Sodium (Singulair -) 10 mg PO [facility] Last Admin: 02/13/20 22:32 Dose: 10 mg Documented by: Multivitamins/Minerals (Certavite-Antioxidant Liquid) 15 ml PO DAILY [facility] Last Admin: 02/14/20 10:23 Dose: Not Given Documented by: Ondansetron HCl (Zofran Injection) 4 mg IVPUSH Q6H PRN PRN Reason: NAUSEA AND/OR VOMITING Oxycodone HCl (Roxicodone -) 5 mg PO Q4H PRN PRN Reason: PAIN LEVEL 1-5 Last Admin: 02/14/20 15:18 Dose: 5 mg Documented by: Polyethylene Glycol (Miralax (For Daily Use) -) 17 gm PO BID [facility] Last Admin: 02/14/20 10:24 Dose: Not Given Documented by: Polyethylene Glycol (Miralax (For Bowel Prep) -) 255 gm PO ONCE ONE Stop: 02/15/20 15:01 Polysaccharide Iron Complex (Niferex-150 -) 150 mg PO DAILY [facility] Last Admin: 02/14/20 10:22 Dose: 150 mg Documented by: Primidone (Mysoline -) 25 mg PO DAILY [facility] Last Admin: 02/14/20 10:22 Dose: 25 mg Documented by: Tamsulosin HCl (Flomax -) 0.4 mg PO DAILY@0830 [facility] Last Admin: 02/14/20 08:30 Dose: 0.4 mg Documented by: Tiotropium [place] (Spiriva Respimat) 2 puff IH DAILY [facility] Last Admin: 02/14/20 10:24 Dose: 2 puff Documented by: - Objective Vital Signs: Vital Signs Temperature 99.3 F 02/14/20 10:00 Pulse Rate 95 H 02/14/20 10:00 Respiratory Rate 18 02/14/20 10:00 Blood Pressure 96/54 L 02/14/20 10:00 O2 Sat by Pulse Oximetry (%) 98 02/14/20 10:00 Constitutional: Yes: No Distress, Calm Cardiovascular: Yes: Regular Rate and Rhythm Respiratory: Yes: Regular Gastrointestinal: Yes: Normal Bowel Sounds, Soft Integumentary: Yes: WNL Wound/Incision: Yes: Dressing Dry and Intact (Lt foot, s/p hallux amputation) Neurological: Yes: Alert Labs: CBC, BMP 02/14/20 07:57 02/14/20 07:57 INR, PTT INR 0.93 (0.83-1.09) 02/11/20 08:33 Microbiology 02/13/20 12:42 Blood - Peripheral Venous Blood Culture - Preliminary NO GROWTH OBTAINED AFTER 24 HOURS, INCUBATION TO CONTINUE FOR 4 DAYS. 02/13/20 12:42 Blood - Peripheral Venous Blood Culture - Preliminary NO GROWTH OBTAINED AFTER 24 HOURS, INCUBATION TO CONTINUE FOR 4 DAYS. 02/11/20 18:15 Toe - Left Hallux Gram Stain - Final 02/11/20 18:15 Toe - Left Hallux Wound Culture - Final Pseudomonas Aeruginosa 02/03/20 11:30 Blood - Peripheral Venous Blood Culture - Final NO GROWTH AFTER 5 DAYS INCUBATION 02/03/20 11:15 Blood - Peripheral Venous Blood Culture - Final NO GROWTH AFTER 5 DAYS INCUBATION Assessment/Plan toe gangrene s/p Lt hallux amputation Fever -- temps appear to be trending down, wbc normal, blood cultures neg so far -- wound cultures: Pseudomonas -- continue antibiotics, wound care continue monitor vitals
--- NOTE | 2020-02-14 20:15 | PN ---
Progress Note (short form) - Note Progress Note: will need nasal swab to be negative with in 5 days of the procedure Problem List - Problems (1) Anemia Code(s): D64.9 - ANEMIA, UNSPECIFIED
[2020-02-14] MEDS: ACETAMINOPHEN 325 MG TABLET (FP) PO PRN (22:18)
[2020-02-14] MEDS: ATORVASTATIN CA 20 MG TABLET (FP) PO SCH (22:19)
[2020-02-14] MEDS: MONTELUKAST NA 10 MG TABLET PO SCH (22:19)
[2020-02-15] MEDS: HEPARIN NA (PORCINE) 5,000 UNITS/ML 1ML VIAL SQ SCH ×3 (05:54→22:33)
[2020-02-15] MEDS ORDERED: PT OWN MED DRAWER 7, Y5N ONE (08:37)
[2020-02-15] MEDS: AMINO ACIDS/PROTEIN HYDROLYS 30 ML LIQUID.PKT PO SCH ×2 (08:51→17:26)
[2020-02-15] MEDS: TAMSULOSIN HCL 0.4 MG CAP PO SCH (08:51)
[2020-02-15] MEDS: MULTIVIT-MINERALS ORAL LIQUID PO SCH (09:49)
[2020-02-15] MEDS: DOCUSATE SODIUM 100 MG CAPSULE (FP) PO SCH (09:49)
[2020-02-15] MEDS: POLYETHYLENE GLYCOL 3350 119 GM BTL PO SCH (09:50)
[2020-02-15] MEDS: PRIMIDONE 50 MG TABLET PO SCH (09:50)
[2020-02-15] MEDS: BUDESONIDE/FORMETEROL FUMARATE 160/4.5 mcg INHALER IH SCH ×2 (09:50→23:00)
[2020-02-15] MEDS: IRON POLYSACCHARIDES 150 MG CAPSULE PO SCH (09:50)
[2020-02-15] MEDS: TIOTROPIUM BROMIDE 2.5 MCG (SPIRIVA) RESPIMAT INHALER IH SCH (09:50)
--- NOTE | 2020-02-15 11:03 | PN ---
Physical Exam: SUBJECTIVE: Patient seen and examined. He complains of left foot pain that is worse at night. Oxycodone works well. He denies f/c/n/v. Tmax 100.2 overnight. OBJECTIVE: Vital Signs Period Temp Pulse Resp BP Sys/Valdes Pulse Ox Last 24 Hr 98.7 F-100.2 F 83-94 18-20 100-117/35-59 98-100 GENERAL: A&Ox3, in no acute distress. HEAD: Normal with no signs of trauma. EYES: PERRL, EOMI. ENT: Ears normal, nares patent, moist mucous membranes. NECK: Trachea midline, full range of motion. LUNGS: Coarse breath sounds b/l, equal HEART: Regular rate and rhythm, S1, S2 without murmur, rub or gallop. ABDOMEN: Soft, nontender, nondistended, normoactive bowel sounds. EXTREMITIES: Warm, well-perfused, no edema. Left foot bandaged, no warmth or erythema on leg. NEUROLOGICAL: Cranial nerves II through XII grossly intact. Normal speech. PSYCH: Normal mood, normal affect. SKIN: Warm, dry, normal turgor. Active Medications Generic Name Dose Route Start Last Admin Trade Name Freq PRN Reason Stop Dose Admin Acetaminophen 650 mg 02/13/20 08:37 02/14/20 22:18 Tylenol - PO 650 mg Q6H PRN Administration FEVER Albuterol Sulfate 2 puff 02/11/20 18:54 Ventolin Hfa Inhaler - IH Q4H PRN SHORT OF BREATH/WHEEZING Amino Acids 30 ml 02/13/20 17:30 02/15/20 08:51 Prosource No Carb Liquid Pkt PO 30 ml BID@0800,1730 [facility] Administration Atorvastatin Calcium 20 mg 02/11/20 22:00 02/14/20 22:19 Lipitor - PO 20 mg HS [facility] Administration Bisacodyl 20 mg 02/15/20 17:00 Dulcolax - PO 02/15/20 17:01 ONCE ONE Budesonide/Formoterol Fumarate 1 puff 02/11/20 22:00 02/15/20 09:50 Symbicort 160/4.5mcg - IH 1 puff BID [facility] Administration Docusate Sodium 100 mg 02/11/20 22:00 02/15/20 09:49 Colace - PO 100 mg BID [facility] Administration Heparin Sodium (Porcine) 5,000 unit 02/11/20 22:00 02/15/20 05:54 Heparin - SQ 5,000 unit TID [facility] Administration Magnesium Citrate 300 ml 02/15/20 15:00 Citroma - PO 02/15/20 15:01 ONCE ONE Montelukast Sodium 10 mg 02/11/20 22:00 02/14/20 22:19 Singulair - PO 10 mg HS [facility] Administration Multivitamins/Minerals 15 ml 02/13/20 14:45 02/15/20 09:49 Certavite-Antioxidant Liquid PO Not Given DAILY [facility] Ondansetron HCl 4 mg 02/11/20 18:54 Zofran Injection IVPUSH Q6H PRN NAUSEA AND/OR VOMITING Oxycodone HCl 5 mg 02/14/20 21:36 02/14/20 22:18 Roxicodone - PO 5 mg Q4H PRN Administration PAIN LEVEL 6-10 Polyethylene Glycol 17 gm 02/11/20 22:00 02/15/20 09:50 Miralax (For Daily Use) - PO Not Given BID [facility] Polyethylene Glycol 255 gm 02/15/20 15:00 Miralax (For Bowel Prep) - PO 02/15/20 15:01 ONCE ONE Polysaccharide Iron Complex 150 mg 02/12/20 10:00 02/15/20 09:50 Niferex-150 - PO 150 mg DAILY [facility] Administration Primidone 25 mg 02/12/20 10:00 02/15/20 09:50 Mysoline - PO 25 mg DAILY [facility] Administration Tamsulosin HCl 0.4 mg 02/12/20 08:30 02/15/20 08:51 Flomax - PO 0.4 mg DAILY@0830 [facility] Administration Tiotropium [place] 2 puff 02/12/20 10:00 02/15/20 09:50 Spiriva Respimat IH 2 puff DAILY [facility] Administration ASSESSMENT/PLAN: Pt is a 79 y/o male with hx LLE DVT (on Xarelto), COPD (2L NC), BPH, and colon cancer (20 years ago) who presented to ED with increasing left foot pain and swelling over last few weeks. Admitted to hospital for soft tissue ischemia of L foot. #left 1st toe dry gangrene, s/p amputation POD 4 -no vessel disease seen on angiography on 02/05 -pain is tolerable, usually worse at night -low grade fever -blood cx 02/12 negative -1st toe wound cx positive pseudomonas -Zosyn -Tylenol PRN pain -oxycodone 5mg Q4H PRN pain -continue statin -podiatry following -ID following -vascular consulted #iron-deficiency anemia -hx of colon cancer -Hb 9.4, stable -s/p 1 unit PRBCs 02/09 -iron supplementation -new COVID pending for anticipated colonoscopy #urinary retention likely 2/2 BPH -urology recs- TURP when stable -patient has a Cunningham in place that was placed in the OR on 02/11/2020 #COPD: -continue 2L O2 NC -continue home inhalers -continue Singulair DVT Ppx heparin FEN NPO after midnight monitor labs Dispo med/surg anticipate colonoscopy Visit type - Emergency Visit Emergency Visit: Yes ED Registration Date: 02/03/20 Care time: The patient presented to the Emergency Department on the above date and was hospitalized for further evaluation of their emergent condition. - New Patient This patient is new to me today: Yes Date on this admission: 02/15/20 - Critical Care Critical Care patient: No - Medication Review Med list reviewed for High Risk Meds patients 65 and older: Yes ATTENDING PHYSICIAN STATEMENT I saw and evaluated the patient. I reviewed the resident's note and discussed the case with the resident. I agree with the resident's findings and plan as documented. SUBJECTIVE: OBJECTIVE: ASSESSMENT AND PLAN:
[2020-02-15] MEDS ORDERED: MAGNESIUM CITRATE 300 ML BOTTLE PO ONE (15:00)
[2020-02-15] MEDS ORDERED: POLYETHYLENE GLYCOL 3350 255 GM BTL PO ONE (15:00)
[2020-02-15] MEDS ORDERED: PIPERACILLIN/TAZOBACTAM 3.375 GM VIAL IVPB ONE (16:31)
[2020-02-15] MEDS ORDERED: DEXTROSE 5%-WATER - 50 ML IVPB ONE (16:31)
--- NOTE | 2020-02-15 16:43 | PN ---
Teaching Attending Note Name of Resident: Erin Martinez ATTENDING PHYSICIAN STATEMENT I saw and evaluated the patient. I reviewed the resident's note and discussed the case with the resident. I agree with the resident's findings and plan as documented. SUBJECTIVE: Patient is feeling well, with no acute distress. OBJECTIVE: Vital Signs Temperature 99.2 F 02/15/20 14:35 Pulse Rate 80 02/15/20 14:35 Respiratory Rate 24 H 02/15/20 14:35 Blood Pressure 114/68 02/15/20 14:35 O2 Sat by Pulse Oximetry (%) 100 02/15/20 10:00 PE: per resident's note CBCD WBC 9.1 K/mm3 (4.0-10.0) 02/14/20 07:57 RBC 2.97 M/mm3 (4.00-5.60) L 02/14/20 07:57 Hgb 9.4 GM/dL (11.7-16.9) L 02/14/20 07:57 Hct 28.7 % (35.4-49) L 02/14/20 07:57 MCV 96.7 fl (80-96) H 02/14/20 07:57 MCHC 32.8 g/dl (32.0-35.9) 02/14/20 07:57 RDW 17.5 % (11.9-15.9) H 02/14/20 07:57 Plt Count 282 K/MM3 (134-434) 02/14/20 07:57 MPV 8.6 fl (7.5-11.1) 02/14/20 07:57 CMP Sodium 136 mmol/L (136-145) 02/14/20 07:57 Potassium 4.3 mmol/L (3.5-5.1) 02/14/20 07:57 Chloride 102 mmol/L (98-107) 02/14/20 07:57 Carbon Dioxide 31 mmol/L (21-32) 02/14/20 07:57 Anion Gap 3 MMOL/L (8-16) L 02/14/20 07:57 BUN 15.6 mg/dL (7-18) 02/14/20 07:57 Creatinine 0.7 mg/dL (0.55-1.3) 02/14/20 07:57 Random Glucose 93 mg/dL (74-106) 02/14/20 07:57 Calcium 8.9 mg/dL (8.5-10.1) 02/14/20 07:57 Total Bilirubin 0.3 mg/dL (0.2-1) 02/14/20 07:57 AST 32 U/L (15-37) 02/14/20 07:57 ALT 58 U/L (13-61) 02/14/20 07:57 Alkaline Phosphatase 81 U/L (45-117) 02/14/20 07:57 Total Protein 6.0 g/dl (6.4-8.2) L 02/14/20 07:57 Albumin 2.5 g/dl (3.4-5.0) L 02/14/20 07:57 Current Medications Generic Name Dose Route Start Last Admin Trade Name Freq PRN Reason Stop Dose Admin Acetaminophen 650 mg 02/13/20 08:37 02/14/20 22:18 Tylenol - PO 650 mg Q6H PRN Administration FEVER Albuterol Sulfate 2 puff 02/11/20 18:54 Ventolin Hfa Inhaler - IH Q4H PRN SHORT OF BREATH/WHEEZING Amino Acids 30 ml 02/13/20 17:30 02/15/20 08:51 Prosource No Carb Liquid Pkt PO 30 ml BID@0800,1730 [facility] Administration Atorvastatin Calcium 20 mg 02/11/20 22:00 02/14/20 22:19 Lipitor - PO 20 mg HS [facility] Administration Bisacodyl 20 mg 02/15/20 17:00 Dulcolax - PO 02/15/20 17:01 ONCE ONE Budesonide/Formoterol Fumarate 1 puff 02/11/20 22:00 02/15/20 09:50 Symbicort 160/4.5mcg - IH 1 puff BID [facility] Administration Docusate Sodium 100 mg 02/11/20 22:00 02/15/20 09:49 Colace - PO 100 mg BID [facility] Administration Heparin Sodium (Porcine) 5,000 unit 02/11/20 22:00 02/15/20 13:20 Heparin - SQ 5,000 unit TID [facility] Administration Piperacillin Sod/Tazobactam 50 mls @ 100 mls/hr 02/15/20 14:30 Sod 3.375 gm/ Dextrose IVPB Q8H-IV [facility] Protocol Montelukast Sodium 10 mg 02/11/20 22:00 02/14/20 22:19 Singulair - PO 10 mg HS [facility] Administration Multivitamins/Minerals 15 ml 02/13/20 14:45 02/15/20 09:49 Certavite-Antioxidant Liquid PO Not Given DAILY [facility] Ondansetron HCl 4 mg 02/11/20 18:54 Zofran Injection IVPUSH Q6H PRN NAUSEA AND/OR VOMITING Oxycodone HCl 5 mg 02/14/20 21:36 02/14/20 22:18 Roxicodone - PO 5 mg Q4H PRN Administration PAIN LEVEL 6-10 Polyethylene Glycol 17 gm 02/11/20 22:00 02/15/20 09:50 Miralax (For Daily Use) - PO Not Given BID [facility] Polysaccharide Iron Complex 150 mg 02/12/20 10:00 02/15/20 09:50 Niferex-150 - PO 150 mg DAILY [facility] Administration Primidone 25 mg 02/12/20 10:00 02/15/20 09:50 Mysoline - PO 25 mg DAILY [facility] Administration Tamsulosin HCl 0.4 mg 02/12/20 08:30 02/15/20 08:51 Flomax - PO 0.4 mg DAILY@0830 [facility] Administration Tiotropium [place] 2 puff 02/12/20 10:00 02/15/20 09:50 Spiriva Respimat IH 2 puff DAILY [facility] Administration Home Medications Medication Instructions Recorded Budesonide/Formeterol Fumarate 1 inh PO BID 05/29/19 [SYMBICORT 160/4.5mcg -] Rivaroxaban [Xarelto] 15 mg PO BID 05/29/19 Ipratropium/Albuterol Sulfate 2 inh IN BID 01/02/20 [Combivent Respimat 20-100 Mcg] Tamsulosin HCl 0.4 mg PO DAILY 01/02/20 Montelukast Sodium [Singulair] 10 mg PO DAILY 02/04/20 Primidone [Mysoline -] 100 mg PO DAILY 02/04/20 Microbiology 02/13/20 12:42 Blood - Peripheral Venous Blood Culture - Preliminary NO GROWTH OBTAINED AFTER 48 HOURS, INCUBATION TO CONTINUE FOR 3 DAYS. 02/13/20 12:42 Blood - Peripheral Venous Blood Culture - Preliminary NO GROWTH OBTAINED AFTER 48 HOURS, INCUBATION TO CONTINUE FOR 3 DAYS. 02/14/20 08:06 Urine - Urine Clean Catch Urine Culture - Final NO GROWTH OBTAINED 02/11/20 18:15 Toe - Left Hallux Gram Stain - Final 02/11/20 18:15 Toe - Left Hallux Wound Culture - Final Pseudomonas Aeruginosa 02/03/20 11:30 Blood - Peripheral Venous Blood Culture - Final NO GROWTH AFTER 5 DAYS INCUBATION 02/03/20 11:15 Blood - Peripheral Venous Blood Culture - Final NO GROWTH AFTER 5 DAYS INCUBATION ASSESSMENT AND PLAN: 79 y/o man with h/o PAD, COPD on home O2, remote LLE DVT , Colorectal Ca (in remission for 20 years, sp colectomy ), BPH, recent admission for L big toe pain with w/u including atherosclerotic plaque in aorta, 3.8 cm abdominal aortic aneurysm, who Presents for worsening L big toe and forefoot pain. POD#4 s/p Left hallux amputation, first metatarsal head resection L big toe dry gangrene, continue statin , aspirin, pain control #Remote h/x of DVT. repeat duplex of LE is negative, colonoscopy for Sunday , patient was on xarelto 20 mg daily at home, pending w/u with his macadam raker .No prior hx of A fib .will refer him to outpatient heme for further w/u # Anemia: chronic and multifactorial , but has Hx of colon cancer, further w/u by GI, Dr barnett will see the patient will prep the patient for colonoscopy for sunday NPO midnight . continue to current care DVt px: Heparin sq
[2020-02-15] MEDS: PIPERACILLIN/TAZOB 3.375 GM 3.375 GM in DEXTROSE 5%-WATER - 50 ML IVPB SCH ×2 (16:45→17:26)
[2020-02-15] MEDS ORDERED: BISACODYL 5 MG TABLET.DR (FP) PO ONE (17:00)
[2020-02-15] MEDS: oxyCODONE HCL 5 MG TABLET PO PRN (20:16)
--- NOTE | 2020-02-15 21:13 | PN ---
Progress Note, Physician History of Present Illness: Pt without distress. Fevers noted. Wound cultures +Pseudomonas. LLE pain controlled. - Current Medication List Current Medications: Active Medications Acetaminophen (Tylenol -) 650 mg PO Q6H PRN PRN Reason: FEVER Last Admin: 02/14/20 22:18 Dose: 650 mg Documented by: Albuterol Sulfate (Ventolin Hfa Inhaler -) 2 puff IH Q4H PRN PRN Reason: SHORT OF BREATH/WHEEZING Amino Acids (Prosource No Carb Liquid Pkt) 30 ml PO BID@0800,1730 [facility] Last Admin: 02/15/20 17:26 Dose: 30 ml Documented by: Atorvastatin Calcium (Lipitor -) 20 mg PO [facility] Last Admin: 02/14/20 22:19 Dose: 20 mg Documented by: Budesonide/Formoterol Fumarate (Symbicort 160/4.5mcg -) 1 puff IH BID [facility] Last Admin: 02/15/20 09:50 Dose: 1 puff Documented by: Docusate Sodium (Colace -) 100 mg PO BID [facility] Last Admin: 02/15/20 09:49 Dose: 100 mg Documented by: Heparin Sodium (Porcine) (Heparin -) 5,000 unit SQ TID [facility] Last Admin: 02/15/20 13:20 Dose: 5,000 unit Documented by: Piperacillin Sod/Tazobactam (Sod 3.375 gm/ Dextrose) 50 mls @ 100 mls/hr IVPB Q8H-IV [facility]; Protocol Last Admin: 02/15/20 17:26 Dose: 100 mls/hr Documented by: Montelukast Sodium (Singulair -) 10 mg PO [facility] Last Admin: 02/14/20 22:19 Dose: 10 mg Documented by: Multivitamins/Minerals (Certavite-Antioxidant Liquid) 15 ml PO DAILY [facility] Last Admin: 02/15/20 09:49 Dose: Not Given Documented by: Ondansetron HCl (Zofran Injection) 4 mg IVPUSH Q6H PRN PRN Reason: NAUSEA AND/OR VOMITING Oxycodone HCl (Roxicodone -) 5 mg PO Q4H PRN PRN Reason: PAIN LEVEL 6-10 Last Admin: 02/15/20 20:16 Dose: 5 mg Documented by: Polyethylene Glycol (Miralax (For Daily Use) -) 17 gm PO BID [facility] Last Admin: 02/15/20 09:50 Dose: Not Given Documented by: Polysaccharide Iron Complex (Niferex-150 -) 150 mg PO DAILY [facility] Last Admin: 02/15/20 09:50 Dose: 150 mg Documented by: Primidone (Mysoline -) 25 mg PO DAILY [facility] Last Admin: 02/15/20 09:50 Dose: 25 mg Documented by: Tamsulosin HCl (Flomax -) 0.4 mg PO DAILY@30 [facility] Last Admin: 02/15/20 08:51 Dose: 0.4 mg Documented by: Tiotropium [place] (Spiriva Respimat) 2 puff IH DAILY [facility] Last Admin: 02/15/20 09:50 Dose: 2 puff Documented by: - Objective Vital Signs: Vital Signs Temperature 99.2 F 02/15/20 14:35 Pulse Rate 80 02/15/20 14:35 Respiratory Rate 24 H 02/15/20 14:35 Blood Pressure 114/68 02/15/20 14:35 O2 Sat by Pulse Oximetry (%) 100 02/15/20 10:00 Constitutional: Yes: No Distress Cardiovascular: Yes: Regular Rate and Rhythm Respiratory: Yes: Regular Gastrointestinal: Yes: Normal Bowel Sounds, Soft Extremities: Yes: Amputation Wound/Incision: Yes: Dressing Dry and Intact Neurological: Yes: Alert Labs: CBC, BMP 02/14/20 07:57 02/14/20 07:57 INR, PTT INR 0.93 (0.83-1.09) 02/11/20 08:33 Microbiology 02/13/20 12:42 Blood - Peripheral Venous Blood Culture - Preliminary NO GROWTH OBTAINED AFTER 48 HOURS, INCUBATION TO CONTINUE FOR 3 DAYS. 02/13/20 12:42 Blood - Peripheral Venous Blood Culture - Preliminary NO GROWTH OBTAINED AFTER 48 HOURS, INCUBATION TO CONTINUE FOR 3 DAYS. 02/14/20 08:06 Urine - Urine Clean Catch Urine Culture - Final NO GROWTH OBTAINED 02/11/20 18:15 Toe - Left Hallux Gram Stain - Final 02/11/20 18:15 Toe - Left Hallux Wound Culture - Final Pseudomonas Aeruginosa 02/03/20 11:30 Blood - Peripheral Venous Blood Culture - Final NO GROWTH AFTER 5 DAYS INCUBATION 02/03/20 11:15 Blood - Peripheral Venous Blood Culture - Final NO GROWTH AFTER 5 DAYS INCUBATION Assessment/Plan toe gangrene s/p Lt hallux amputation POD#4 Fever Urinary retention/BPH -- +recurrent fever -- wound cultures: Pseudomonas -- Blood / Urine cultures neg -- Zosyn -- monitor temps/vitals
[2020-02-15] MEDS: MONTELUKAST NA 10 MG TABLET PO SCH (22:33)
[2020-02-15] MEDS: ATORVASTATIN CA 20 MG TABLET (FP) PO SCH (22:33)
[2020-02-16] MEDS ORDERED: DEXTROSE 5%-WATER - 50 ML IVPB ONE ×3 (01:58→16:57)
[2020-02-16] MEDS ORDERED: PIPERACILLIN/TAZOBACTAM 3.375 GM VIAL IVPB ONE ×3 (01:58→16:56)
[2020-02-16] MEDS: PIPERACILLIN/TAZOB 3.375 GM 3.375 GM in DEXTROSE 5%-WATER - 50 ML IVPB SCH ×3 (02:03→17:00)
[2020-02-16] MEDS: oxyCODONE HCL 5 MG TABLET PO PRN ×2 (02:44→20:21)
[2020-02-16] MEDS: HEPARIN NA (PORCINE) 5,000 UNITS/ML 1ML VIAL SQ SCH ×3 (05:48→21:15)
[2020-02-16] MEDS ORDERED: MAGNESIUM CITRATE 300 ML BOTTLE PO ONE (08:10)
[2020-02-16 08:58] LABS: BASO % 0.6 % (0-2.0); EOS % 4.8 % (0-4.5); HEMATOCRIT 26.9 % (35.4-49); HEMOGLOBIN 8.7 GM/dL (11.7-16.9); LYMPH % 18.1 % (8-40); MCH 31.2 pg (25.7-33.7); MCHC 32.4 g/dl (32.0-35.9); MEAN CELL VOLUME 96.1 fl (80-96); MEAN PLT VOLUME 8.2 fl (7.5-11.1); MONO % 7.3 % (3.8-10.2); NEUT % 69.2 % (42.8-82.8); PLATELET COUNT 306 K/MM3 (134-434); WHITE BLOOD COUNT 7.8 K/mm3 (4.0-10.0)
[2020-02-16] MEDS ORDERED: PT OWN MED DRAWER 7, Y5N ONE (09:20)
[2020-02-16] MEDS: TAMSULOSIN HCL 0.4 MG CAP PO SCH (09:21)
[2020-02-16] MEDS: AMINO ACIDS/PROTEIN HYDROLYS 30 ML LIQUID.PKT PO SCH ×2 (09:22→17:00)
[2020-02-16] MEDS: IRON POLYSACCHARIDES 150 MG CAPSULE PO SCH (09:22)
[2020-02-16] MEDS: MULTIVIT-MINERALS ORAL LIQUID PO SCH (09:22)
[2020-02-16] MEDS: PRIMIDONE 50 MG TABLET PO SCH (09:22)
[2020-02-16] MEDS: TIOTROPIUM BROMIDE 2.5 MCG (SPIRIVA) RESPIMAT INHALER IH SCH (09:28)
[2020-02-16] MEDS: BUDESONIDE/FORMETEROL FUMARATE 160/4.5 mcg INHALER IH SCH ×2 (09:28→21:16)
[2020-02-16 09:39] LABS: ALBUMIN 2.3 g/dl (3.4-5.0); BILIRUBIN,TOTAL 0.3 mg/dL (0.2-1); BLOOD UREA NITROGEN 21.4 mg/dL (7-18); CALCIUM 8.6 mg/dL (8.5-10.1); CREATININE 0.8 mg/dL (0.55-1.3); TOT PROT 6.1 g/dl (6.4-8.2)
--- NOTE | 2020-02-16 10:54 | PN ---
Progress Note, Physician History of Present Illness: low grade fever - Current Medication List Current Medications: Active Medications Acetaminophen (Tylenol -) 650 mg PO Q6H PRN PRN Reason: FEVER Last Admin: 02/14/20 22:18 Dose: 650 mg Documented by: Albuterol Sulfate (Ventolin Hfa Inhaler -) 2 puff IH Q4H PRN PRN Reason: SHORT OF BREATH/WHEEZING Amino Acids (Prosource No Carb Liquid Pkt) 30 ml PO BID@0800,1730 [facility] Last Admin: 02/16/20 09:22 Dose: 30 ml Documented by: Atorvastatin Calcium (Lipitor -) 20 mg PO [facility] Last Admin: 02/15/20 22:33 Dose: 20 mg Documented by: Budesonide/Formoterol Fumarate (Symbicort 160/4.5mcg -) 1 puff IH BID [facility] Last Admin: 02/16/20 09:28 Dose: 1 puff Documented by: Docusate Sodium (Colace -) 100 mg PO BID [facility] Last Admin: 02/15/20 09:49 Dose: 100 mg Documented by: Heparin Sodium (Porcine) (Heparin -) 5,000 unit SQ TID [facility] Last Admin: 02/16/20 05:48 Dose: 5,000 unit Documented by: Piperacillin Sod/Tazobactam (Sod 3.375 gm/ Dextrose) 50 mls @ 100 mls/hr IVPB Q8H-IV [facility]; Protocol Last Admin: 02/16/20 09:22 Dose: 100 mls/hr Documented by: Montelukast Sodium (Singulair -) 10 mg PO [facility] Last Admin: 02/15/20 22:33 Dose: 10 mg Documented by: Multivitamins/Minerals (Certavite-Antioxidant Liquid) 15 ml PO DAILY [facility] Last Admin: 02/16/20 09:22 Dose: Not Given Documented by: Ondansetron HCl (Zofran Injection) 4 mg IVPUSH Q6H PRN PRN Reason: NAUSEA AND/OR VOMITING Oxycodone HCl (Roxicodone -) 5 mg PO Q4H PRN PRN Reason: PAIN LEVEL 6-10 Last Admin: 02/16/20 02:44 Dose: 5 mg Documented by: Polyethylene Glycol (Miralax (For Daily Use) -) 17 gm PO BID [facility] Last Admin: 02/15/20 09:50 Dose: Not Given Documented by: Polysaccharide Iron Complex (Niferex-150 -) 150 mg PO DAILY [facility] Last Admin: 02/16/20 09:22 Dose: 150 mg Documented by: Primidone (Mysoline -) 25 mg PO DAILY [facility] Last Admin: 02/16/20 09:22 Dose: 25 mg Documented by: Tamsulosin HCl (Flomax -) 0.4 mg PO DAILY@0830 [facility] Last Admin: 02/16/20 09:21 Dose: 0.4 mg Documented by: Tiotropium [place] (Spiriva Respimat) 2 puff IH DAILY [facility] Last Admin: 02/16/20 09:28 Dose: 2 puff Documented by: - Objective Vital Signs: Vital Signs Temperature 98.9 F 02/16/20 09:50 Pulse Rate 82 02/16/20 09:50 Respiratory Rate 20 02/16/20 09:50 Blood Pressure 109/67 02/16/20 09:50 O2 Sat by Pulse Oximetry (%) 99 02/16/20 09:50 Constitutional: Yes: Calm, Mild Distress Cardiovascular: Yes: S1, S2 Respiratory: Yes: Regular, CTA Bilaterally Gastrointestinal: Yes: Normal Bowel Sounds, Soft Genitourinary: Yes: Cunningham Present Musculoskeletal: Yes: WNL Extremities: Yes: Other Wound/Incision: Yes: Dressing Dry and Intact Neurological: Yes: Alert, Oriented Labs: CBC, BMP 02/16/20 07:25 02/16/20 07:25 INR, PTT INR 0.93 (0.83-1.09) 02/11/20 08:33 Assessment/Plan 79 yo male with PMHx asthma and COPD (home 2L NC), DVT LLE (on xarelto), & BPH, and hx of colon cancer (20 years ago) and 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 Presented to ED with increasing left foot pain and swelling over last few weeks. Admitted to hospital for soft tissue infection and r/o ischemia of L foot. gangrene of the toe anemia copd pvd plan continue current mgmt rest as per the team abx urology input
--- NOTE | 2020-02-16 13:46 | PN ---
Physical Exam: SUBJECTIVE: Patient seen and examined at bedside. No acute events reported overnight. This morning, patient endorses left leg pain. Patient is refusing colonoscopy that was scheduled for today. Patient has no other concerns or complaints at this time. OBJECTIVE: Vital Signs Period Temp Pulse Resp BP Sys/Valdes Pulse Ox Last 24 Hr 98.9 F-100.1 F 80-93 18-24 102-114/59-68 98-100 GENERAL: The patient is awake, alert, and fully oriented, in no acute distress. GENERAL: AAOx3, in no acute distress HEENT: NCAT, PERRLA, EOMI, sclera anicteric, conjunctiva clear, oropharynx clear w/o exudates. MMM. NECK: Normal ROM, supple, no lymphadenopathy, JVD, or masses LUNGS: CTABL no wheezes/ rhonchi/ rales. No distress, speaks in full sentences. No increased work of breathing. HEART: RRR, normal S1 S2, no M/R/G, peripheral pulses 2+ and equal b/l ABDOMEN: Soft, nondistended, tenderness to palpation above pubic symphysis, + BS. No guarding or rebound. No hepatomegaly or splenomegaly. MSK: ROM WNL EXTREMITIES: Normal inspection. No peripheral edema. No clubbing or cyanosis. NEUROLOGICAL: CN II-XII intact. Normal speech, normal gait, no focal sensorimotor deficits. SKIN: Left lower foot wrapped in dressing. Laboratory Results - last 24 hr CBC, BMP 02/16/20 07:25 02/16/20 07:25 02/14/20 02/16/20 02/16/20 22:50 07:25 07:25 WBC 7.8 RBC 2.80 L Hgb 8.7 L Hct 26.9 L MCV 96.1 H MCH 31.2 MCHC 32.4 RDW 17.0 H Plt Count 306 MPV 8.2 Absolute Neuts (auto) 5.4 Neutrophils % 69.2 Lymphocytes % 18.1 D Monocytes % 7.3 Eosinophils % 4.8 H Basophils % 0.6 Nucleated RBC % 0 Sodium 139 Potassium 5.0 Chloride 104 Carbon Dioxide 30 Anion Gap 5 L BUN 21.4 H Creatinine 0.8 Est GFR (CKD-EPI)AfAm 99.17 Est GFR (CKD-EPI)NonAf 85.56 Random Glucose 90 Calcium 8.6 Total Bilirubin 0.3 AST 90 H ALT 99 H Alkaline Phosphatase 79 Total Protein 6.1 L Albumin 2.3 L COVID-19 (YANNICK) Not detected Blood Type Antibody Screen 02/16/20 07:25 WBC RBC Hgb Hct MCV MCH MCHC RDW Plt Count MPV Absolute Neuts (auto) Neutrophils % Lymphocytes % Monocytes % Eosinophils % Basophils % Nucleated RBC % Sodium Potassium Chloride Carbon Dioxide Anion Gap BUN Creatinine Est GFR (CKD-EPI)AfAm Est GFR (CKD-EPI)NonAf Random Glucose Calcium Total Bilirubin AST ALT Alkaline Phosphatase Total Protein Albumin COVID-19 (YANNICK) Blood Type O POSITIVE Antibody Screen Negative Active Medications Generic Name Dose Route Start Last Admin Trade Name Freq PRN Reason Stop Dose Admin Acetaminophen 650 mg 02/13/20 08:37 02/14/20 22:18 Tylenol - PO 650 mg Q6H PRN Administration FEVER Albuterol Sulfate 2 puff 02/11/20 18:54 Ventolin Hfa Inhaler - IH Q4H PRN SHORT OF BREATH/WHEEZING Amino Acids 30 ml 02/13/20 17:30 02/16/20 09:22 Prosource No Carb Liquid Pkt PO 30 ml BID@0800,1730 BRANDY Administration Atorvastatin Calcium 20 mg 02/11/20 22:00 02/15/20 22:33 Lipitor - PO 20 mg HS BRANDY Administration Budesonide/Formoterol Fumarate 1 puff 02/11/20 22:00 02/16/20 09:28 Symbicort 160/4.5mcg - IH 1 puff BID BRANDY Administration Docusate Sodium 100 mg 02/11/20 22:00 02/15/20 09:49 Colace - PO 100 mg BID BRANDY Administration Heparin Sodium (Porcine) 5,000 unit 02/11/20 22:00 02/16/20 05:48 Heparin - SQ 5,000 unit TID BRANDY Administration Piperacillin Sod/Tazobactam 50 mls @ 100 mls/hr 02/15/20 14:30 02/16/20 09:22 Sod 3.375 gm/ Dextrose IVPB 100 mls/hr Q8H-IV BRANDY Administration Protocol Montelukast Sodium 10 mg 02/11/20 22:00 02/15/20 22:33 Singulair - PO 10 mg HS BRANDY Administration Multivitamins/Minerals 15 ml 02/13/20 14:45 02/16/20 09:22 Certavite-Antioxidant Liquid PO Not Given DAILY [facility] Ondansetron HCl 4 mg 02/11/20 18:54 Zofran Injection IVPUSH Q6H PRN NAUSEA AND/OR VOMITING Oxycodone HCl 5 mg 02/14/20 21:36 02/16/20 02:44 Roxicodone - PO 5 mg Q4H PRN Administration PAIN LEVEL 6-10 Polyethylene Glycol 17 gm 02/11/20 22:00 02/15/20 09:50 Miralax (For Daily Use) - PO Not Given BID [facility] Polysaccharide Iron Complex 150 mg 02/12/20 10:00 02/16/20 09:22 Niferex-150 - PO 150 mg DAILY BR[facility]Y Administration Primidone 25 mg 02/12/20 10:00 02/16/20 09:22 Mysoline - PO 25 mg DAILY BR[facility]Y Administration Tamsulosin HCl 0.4 mg 02/12/20 08:30 02/16/20 09:21 Flomax - PO 0.4 mg DAILY@0830 BRANDY Administration Tiotropium [place] 2 puff 02/12/20 10:00 02/16/20 09:28 Spiriva Respimat IH 2 puff DAILY BRANDY Administration ASSESSMENT/PLAN: 79M with PMH of COPD (2LNC), DVT LLE (on xarelto), BPH, colon ca (20 years ago). Presented to ER with increasing left foot pain and swelling over last few weeks. Admitted to hospital for soft tissue ischemia of L foot. #L big toe dry gangrene , possible small vessel disease. angio with no big vessel disease - Vascular consulted (Dr. Valdez) - s/p Angio L foot 02/05: all vessels open, small vessel disease in foot at toes, no need for any intervention. - Podiatry: left hallux amputation done 02/[address] Prado; Dr. Prado will come see pt tm for dressing change and f/u - Tylenol PRN for pain - oxycodone Q4hr PRN for pain - LLE Duplex- negative for DVT - IV zosyn as per ID reccs #Fever of Unknown Origin -Tylenol PRN for fever #Urinary Retention -Urology: Dr. Putnam to perform a cysto TURP on Sunday- pt consented to procedure -COVID test ordered today for procedure on Sunday -patient has a Cunningham in place that was placed in the OR on 02/11/2020 #Anemia: Macrocytic - GI: Anemia is due to chronic disease/no acute bleed - Heme: consider venofir 200 mg doses every other day for 5 doses total - Patient was scheduled a colonoscopy for today with Dr. Mott but the pt is refusing the procedure #COPD: - continue 2L O2 NC - continue home inhalers #FEN -regular diet -replete electrolyte PRN -Cunningham placed 02/11/2020 in the OR #Prophylaxis - Heparin SQ #Dispo - Monitor in M/S Visit type - Emergency Visit Emergency Visit: No - New Patient This patient is new to me today: No - Critical Care Critical Care patient: No - Medication Review Med list reviewed for High Risk Meds patients 65 and older: Yes ATTENDING PHYSICIAN STATEMENT I saw and evaluated the patient. I reviewed the resident's note and discussed the case with the resident. I agree with the resident's findings and plan as documented. SUBJECTIVE: OBJECTIVE: ASSESSMENT AND PLAN:
--- NOTE | 2020-02-16 15:12 | PN ---
Progress Note (short form) - Note Progress Note: Pt. seen today. Pt. is alert and awake. Cunningham draining well. Will schedule for Cysto TURP on Sunday, if medically clear. Discussed with the the pt. regarding the procedure. He is an agreement.
--- NOTE | 2020-02-16 16:23 | PATH ---
Surgical Pathology Report Patient Name: GEOFFREY GARCÍA [facility]. Rec. #: [id number] /Age/Gender: 1940 (Age: 79) / M Account: [id number] Location: [address] [place] [address]/[facility] Taken: 02/11/2020 Received: 02/12/2020 Reported: 02/16/2020 Physicians: ADRIEN Henning M.D. Specimen(s) Received A: LEFT GREAT TOE B: LEFT FIRST METATARSAL Clinical History Gangrene left great toe Final Diagnosis A. LEFT GREAT TOE, AMPUTATION: AMPUTATED TOE SHOWING GANGRENOUS NECROSIS WITH SEVERE ACUTE AND CHRONIC INFLAMMATION, ABSCESS FORMATION. BONE WITH ACUTE OSTEOMYELITIS. VIABLE SKIN AND SOFT TISSUE MARGIN. B. LEFT FIRST METATARSAL, EXCISION: PORTION OF BONE, NEGATIVE FOR OSTEOMYELITIS. Electronically Signed Sebastien Gross M.D. Gross Description A. Received in formalin, labeled "left great toe", and consists of an amputated great toe (6 x 3 x 2cm). The skin surface at the tip of the toe shows dark brown necrotic change with ulceration, which measures 2 cm in greatest dimension. The bone margin shows smooth articular surface. Family Literacy Coordinator sections are submitted in 3 cassettes. Cassette1: Skin and soft tissue from ulceration; 2 bone underneath the ulceration; 3 skin and soft tissue margin. B. Received in formalin, labeled "left first metatarsal" is a portion of bone with articular surface at one end, measuring 2.5 x 2.0 x 0.6cm. The bone is bisected and show yellow and hard trabecular bone. The bone is decalcified and inside outside sales representative sections are submitted in one cassette. KWS/02/12/2020 sulki/02/12/2020
--- NOTE | 2020-02-16 17:05 | PN ---
Teaching Attending Note Name of Resident: Justin Swift ATTENDING PHYSICIAN STATEMENT I saw and evaluated the patient. I reviewed the resident's note and discussed the case with the resident. I agree with the resident's findings and plan as documented. SUBJECTIVE: Patient is feeling better but refusing colonoscopy. OBJECTIVE: Vital Signs Temperature 99.2 F 02/16/20 14:55 Pulse Rate 96 H 02/16/20 14:55 Respiratory Rate 20 02/16/20 14:55 Blood Pressure 98/66 02/16/20 14:55 O2 Sat by Pulse Oximetry (%) 100 02/16/20 14:55 PE; PER REsident's note CBCD WBC 7.8 K/mm3 (4.0-10.0) 02/16/20 07:25 RBC 2.80 M/mm3 (4.00-5.60) L 02/16/20 07:25 Hgb 8.7 GM/dL (11.7-16.9) L 02/16/20 07:25 Hct 26.9 % (35.4-49) L 02/16/20 07:25 MCV 96.1 fl (80-96) H 02/16/20 07:25 MCHC 32.4 g/dl (32.0-35.9) 02/16/20 07:25 RDW 17.0 % (11.9-15.9) H 02/16/20 07:25 Plt Count 306 K/MM3 (134-434) 02/16/20 07:25 MPV 8.2 fl (7.5-11.1) 02/16/20 07:25 CMP Sodium 139 mmol/L (136-145) 02/16/20 07:25 Potassium 5.0 mmol/L (3.5-5.1) 02/16/20 07:25 Chloride 104 mmol/L (98-107) 02/16/20 07:25 Carbon Dioxide 30 mmol/L (21-32) 02/16/20 07:25 Anion Gap 5 MMOL/L (8-16) L 02/16/20 07:25 BUN 21.4 mg/dL (7-18) H 02/16/20 07:25 Creatinine 0.8 mg/dL (0.55-1.3) 02/16/20 07:25 Random Glucose 90 mg/dL (74-106) 02/16/20 07:25 Calcium 8.6 mg/dL (8.5-10.1) 02/16/20 07:25 Total Bilirubin 0.3 mg/dL (0.2-1) 02/16/20 07:25 AST 90 U/L (15-37) H 02/16/20 07:25 ALT 99 U/L (13-61) H 02/16/20 07:25 Alkaline Phosphatase 79 U/L (45-117) 02/16/20 07:25 Total Protein 6.1 g/dl (6.4-8.2) L 02/16/20 07:25 Albumin 2.3 g/dl (3.4-5.0) L 02/16/20 07:25 Current Medications Generic Name Dose Route Start Last Admin Trade Name Freq PRN Reason Stop Dose Admin Acetaminophen 650 mg 02/13/20 08:37 02/14/20 22:18 Tylenol - PO 650 mg Q6H PRN Administration FEVER Albuterol Sulfate 2 puff 02/11/20 18:54 Ventolin Hfa Inhaler - IH Q4H PRN SHORT OF BREATH/WHEEZING Amino Acids 30 ml 02/13/20 17:30 02/16/20 17:00 Prosource No Carb Liquid Pkt PO 30 ml BID@0800,1730 BRANDY Administration Atorvastatin Calcium 20 mg 02/11/20 22:00 02/15/20 22:33 Lipitor - PO 20 mg HS BRANDY Administration Budesonide/Formoterol Fumarate 1 puff 02/11/20 22:00 02/16/20 09:28 Symbicort 160/4.5mcg - IH 1 puff BID BRANDY Administration Docusate Sodium 100 mg 02/11/20 22:00 02/15/20 09:49 Colace - PO 100 mg BID BRANDY Administration Heparin Sodium (Porcine) 5,000 unit 02/11/20 22:00 02/16/20 14:03 Heparin - SQ 5,000 unit TID BRANDY Administration Piperacillin Sod/Tazobactam 50 mls @ 100 mls/hr 02/15/20 14:30 02/16/20 17:00 Sod 3.375 gm/ Dextrose IVPB 100 mls/hr Q8H-IV BRANDY Administration Protocol Montelukast Sodium 10 mg 02/11/20 22:00 02/15/20 22:33 Singulair - PO 10 mg HS [facility] Administration Multivitamins/Minerals 15 ml 02/13/20 14:45 02/16/20 09:22 Certavite-Antioxidant Liquid PO Not Given DAILY [facility] Ondansetron HCl 4 mg 02/11/20 18:54 Zofran Injection IVPUSH Q6H PRN NAUSEA AND/OR VOMITING Oxycodone HCl 5 mg 02/14/20 21:36 02/16/20 02:44 Roxicodone - PO 5 mg Q4H PRN Administration PAIN LEVEL 6-10 Polyethylene Glycol 17 gm 02/11/20 22:00 02/15/20 09:50 Miralax (For Daily Use) - PO Not Given BID [facility] Polysaccharide Iron Complex 150 mg 02/12/20 10:00 02/16/20 09:22 Niferex-150 - PO 150 mg DAILY [facility] Administration Primidone 25 mg 02/12/20 10:00 02/16/20 09:22 Mysoline - PO 25 mg DAILY [facility] Administration Tamsulosin HCl 0.4 mg 02/12/20 08:30 02/16/20 09:21 Flomax - PO 0.4 mg DAILY@0830 [facility] Administration Tiotropium [place] 2 puff 02/12/20 10:00 02/16/20 09:28 Spiriva Respimat IH 2 puff DAILY [facility] Administration Home Medications Medication Instructions Recorded Budesonide/Formeterol Fumarate 1 inh PO BID 05/29/19 [SYMBICORT 160/4.5mcg -] Rivaroxaban [Xarelto] 15 mg PO BID 05/29/19 Ipratropium/Albuterol Sulfate 2 inh IN BID 01/02/20 [Combivent Respimat 20-100 Mcg] Tamsulosin HCl 0.4 mg PO DAILY 01/02/20 Montelukast Sodium [Singulair] 10 mg PO DAILY 02/04/20 Primidone [Mysoline -] 100 mg PO DAILY 02/04/20 Microbiology 02/13/20 12:42 Blood - Peripheral Venous Blood Culture - Preliminary NO GROWTH OBTAINED AFTER 72 HOURS, INCUBATION TO CONTINUE FOR 2 DAYS. 02/13/20 12:42 Blood - Peripheral Venous Blood Culture - Preliminary NO GROWTH OBTAINED AFTER 72 HOURS, INCUBATION TO CONTINUE FOR 2 DAYS. 02/14/20 08:06 Urine - Urine Clean Catch Urine Culture - Final NO GROWTH OBTAINED 02/11/20 18:15 Toe - Left Hallux Gram Stain - Final 02/11/20 18:15 Toe - Left Hallux Wound Culture - Final Pseudomonas Aeruginosa 02/03/20 11:30 Blood - Peripheral Venous Blood Culture - Final NO GROWTH AFTER 5 DAYS INCUBATION 02/03/20 11:15 Blood - Peripheral Venous Blood Culture - Final NO GROWTH AFTER 5 DAYS INCUBATION ASSESSMENT AND PLAN: 79 y/o man with h/o PAD, COPD on home O2, remote LLE DVT , Colorectal Ca (in remission for 20 years, sp colectomy ), BPH, recent admission for L big toe pain with w/u including atherosclerotic plaque in aorta, 3.8 cm abdominal aortic aneurysm, who Presents for worsening L big toe and forefoot pain. #POD#5 s/p Left hallux amputation, first metatarsal head resection L big toe dry gangrene, continue statin , aspirin, pain control #Left Hallux wound growing Pseudomonas Aeruginosa on IV zosyn , patient has low grade fever now, as per dr Quiroz to continue IV antibiotics #Remote h/x of DVT. 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 DVt px: Heparin sq
[2020-02-16] MEDS: MONTELUKAST NA 10 MG TABLET PO SCH (21:16)
[2020-02-16] MEDS: ATORVASTATIN CA 20 MG TABLET (FP) PO SCH (21:16)
[2020-02-17] MEDS ORDERED: DEXTROSE 5%-WATER - 50 ML IVPB ONE ×3 (02:05→18:09)
[2020-02-17] MEDS ORDERED: PIPERACILLIN/TAZOBACTAM 3.375 GM VIAL IVPB ONE ×3 (02:05→18:09)
[2020-02-17] MEDS: PIPERACILLIN/TAZOB 3.375 GM 3.375 GM in DEXTROSE 5%-WATER - 50 ML IVPB SCH ×3 (02:12→18:17)
[2020-02-17] MEDS: oxyCODONE HCL 5 MG TABLET PO PRN ×4 (03:04→19:41)
[2020-02-17] MEDS: HEPARIN NA (PORCINE) 5,000 UNITS/ML 1ML VIAL SQ SCH ×2 (06:40→14:42)
[2020-02-17 08:06] LABS: BASO % 0.4 % (0-2.0); EOS % 5.8 % (0-4.5); HEMATOCRIT 25.3 % (35.4-49); HEMOGLOBIN 8.4 GM/dL (11.7-16.9); LYMPH % 17.2 % (8-40); MCH 31.5 pg (25.7-33.7); MCHC 33.1 g/dl (32.0-35.9); MEAN CELL VOLUME 95.2 fl (80-96); MEAN PLT VOLUME 8.1 fl (7.5-11.1); MONO % 7.1 % (3.8-10.2); NEUT % 69.5 % (42.8-82.8); PLATELET COUNT 293 K/MM3 (134-434); RBC 2.66 M/mm3 (4.00-5.60); RDW 16.9 % (11.9-15.9); WHITE BLOOD COUNT 7.7 K/mm3 (4.0-10.0)
[2020-02-17] MEDS: TAMSULOSIN HCL 0.4 MG CAP PO SCH (08:13)
[2020-02-17] MEDS: AMINO ACIDS/PROTEIN HYDROLYS 30 ML LIQUID.PKT PO SCH ×3 (08:13→18:17)
[2020-02-17 08:16] LABS: BLOOD UREA NITROGEN 20.9 mg/dL (7-18); CALCIUM 8.8 mg/dL (8.5-10.1); CREATININE 0.8 mg/dL (0.55-1.3); POTASSIUM 4.8 mmol/L (3.5-5.1)
[2020-02-17] MEDS: MULTIVIT-MINERALS ORAL LIQUID PO SCH (09:36)
[2020-02-17] MEDS ORDERED: PT OWN MED DRAWER 7, Y5N ONE (09:37)
[2020-02-17] MEDS: IRON POLYSACCHARIDES 150 MG CAPSULE PO SCH (09:41)
[2020-02-17] MEDS: PRIMIDONE 50 MG TABLET PO SCH (09:41)
[2020-02-17] MEDS: BUDESONIDE/FORMETEROL FUMARATE 160/4.5 mcg INHALER IH SCH ×2 (09:42→22:26)
[2020-02-17] MEDS: TIOTROPIUM BROMIDE 2.5 MCG (SPIRIVA) RESPIMAT INHALER IH SCH (09:42)
--- NOTE | 2020-02-17 12:08 | PN ---
Progress Note, Physician History of Present Illness: stable urology note noted - Current Medication List Current Medications: Active Medications Acetaminophen (Tylenol -) 650 mg PO Q6H PRN PRN Reason: FEVER Last Admin: 02/14/20 22:18 Dose: 650 mg Documented by: Albuterol Sulfate (Ventolin Hfa Inhaler -) 2 puff IH Q4H PRN PRN Reason: SHORT OF BREATH/WHEEZING Amino Acids (Prosource No Carb Liquid Pkt) 30 ml PO BID@0800,1730 [facility] Last Admin: 02/17/20 08:13 Dose: 30 ml Documented by: Atorvastatin Calcium (Lipitor -) 20 mg PO [facility] Last Admin: 02/16/20 21:16 Dose: 20 mg Documented by: Budesonide/Formoterol Fumarate (Symbicort 160/4.5mcg -) 1 puff IH BID [facility] Last Admin: 02/17/20 09:42 Dose: 1 puff Documented by: Docusate Sodium (Colace -) 100 mg PO BID [facility] Last Admin: 02/15/20 09:49 Dose: 100 mg Documented by: Heparin Sodium (Porcine) (Heparin -) 5,000 unit SQ TID [facility] Last Admin: 02/17/20 06:40 Dose: 5,000 unit Documented by: Piperacillin Sod/Tazobactam (Sod 3.375 gm/ Dextrose) 50 mls @ 100 mls/hr IVPB Q8H-IV [facility]; Protocol Last Admin: 02/17/20 09:42 Dose: 100 mls/hr Documented by: Montelukast Sodium (Singulair -) 10 mg PO [facility] Last Admin: 02/16/20 21:16 Dose: 10 mg Documented by: Multivitamins/Minerals (Certavite-Antioxidant Liquid) 15 ml PO DAILY [facility] Last Admin: 02/17/20 09:36 Dose: Not Given Documented by: Ondansetron HCl (Zofran Injection) 4 mg IVPUSH Q6H PRN PRN Reason: NAUSEA AND/OR VOMITING Oxycodone HCl (Roxicodone -) 5 mg PO Q4H PRN PRN Reason: PAIN LEVEL 6-10 Last Admin: 02/17/20 08:10 Dose: 5 mg Documented by: Polyethylene Glycol (Miralax (For Daily Use) -) 17 gm PO BID [facility] Last Admin: 02/15/20 09:50 Dose: Not Given Documented by: Polysaccharide Iron Complex (Niferex-150 -) 150 mg PO DAILY [facility] Last Admin: 02/17/20 09:41 Dose: 150 mg Documented by: Primidone (Mysoline -) 25 mg PO DAILY [facility] Last Admin: 02/17/20 09:41 Dose: 25 mg Documented by: Tamsulosin HCl (Flomax -) 0.4 mg PO DAILY@0830 [facility] Last Admin: 02/17/20 08:13 Dose: 0.4 mg Documented by: Tiotropium [place] (Spiriva Respimat) 2 puff IH DAILY [facility] Last Admin: 02/17/20 09:42 Dose: 2 puff Documented by: - Objective Vital Signs: Vital Signs Temperature 99.6 F 02/17/20 10:00 Pulse Rate 98 H 02/17/20 10:00 Respiratory Rate 20 02/17/20 10:00 Blood Pressure 100/52 L 02/17/20 10:00 O2 Sat by Pulse Oximetry (%) 99 02/17/20 10:00 Constitutional: Yes: No Distress, Calm Cardiovascular: Yes: S1, S2 Respiratory: Yes: Regular, CTA Bilaterally Gastrointestinal: Yes: Normal Bowel Sounds, Soft Genitourinary: Yes: Cunningham Present Musculoskeletal: Yes: WNL Extremities: Yes: WNL Wound/Incision: Yes: Dressing Dry and Intact Neurological: Yes: Alert, Oriented Psychiatric: Yes: Alert, Oriented Labs: CBC, BMP 02/17/20 07:07 02/17/20 07:07 INR, PTT INR 0.93 (0.83-1.09) 02/11/20 08:33 Assessment/Plan 79 yo male with PMHx asthma and COPD (home 2L NC), DVT LLE (on xarelto), & BPH, and hx of colon cancer (20 years ago) and 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 Presented to ED with increasing left foot pain and swelling over last few weeks. Admitted to hospital for soft tissue infection and r/o ischemia of L foot. gangrene of the toe anemia copd pvd bph plan continue current mgmt rest as per the team abx plan for surgery tomorrow
--- NOTE | 2020-02-17 14:44 | PN ---
Physical Exam: SUBJECTIVE: Patient seen and examined at bedside. No acute events reported overnight. This morning, patient is complaining of left pinky toe pain and bladder pain. Patient is aware he will be getting a cysto TURP tomorrow at 11 AM and is amenable to the procedure. No other concerns or complaints at this time. OBJECTIVE: Vital Signs Period Temp Pulse Resp BP Sys/Valdes Pulse Ox Last 24 Hr 99.0 F-99.6 F 85-99 20-20 98-109/51-66 97-100 GENERAL: The patient is awake, alert, and fully oriented, in no acute distress. GENERAL: AAOx3, in no acute distress HEENT: NCAT, PERRLA, EOMI, sclera anicteric, conjunctiva clear, oropharynx clear w/o exudates. MMM. NECK: Normal ROM, supple, no lymphadenopathy, JVD, or masses LUNGS: CTABL no wheezes/ rhonchi/ rales. No distress, speaks in full sentences. No increased work of breathing. HEART: RRR, normal S1 S2, no M/R/G, peripheral pulses 2+ and equal b/l ABDOMEN: Soft, nondistended, tenderness to palpation above pubic symphysis, + BS. No guarding or rebound. No hepatomegaly or splenomegaly. MSK: ROM WNL EXTREMITIES: Normal inspection. No peripheral edema. No clubbing or cyanosis. NEUROLOGICAL: CN II-XII intact. Normal speech, normal gait, no focal se nsorimotor deficits. SKIN: Left lower foot wrapped in dressing. mild duskiness to the fifth digit Laboratory Results - last 24 hr CBC, BMP 02/17/20 07:07 02/17/20 07:07 02/16/20 02/17/20 02/17/20 17:10 07:07 07:07 WBC 7.7 RBC 2.66 L Hgb 8.4 L Hct 25.3 L MCV 95.2 MCH 31.5 MCHC 33.1 RDW 16.9 H Plt Count 293 MPV 8.1 Absolute Neuts (auto) 5.4 Neutrophils % 69.5 Lymphocytes % 17.2 Monocytes % 7.1 Eosinophils % 5.8 H Basophils % 0.4 Nucleated RBC % 0 Sodium 138 Potassium 4.8 Chloride 104 Carbon Dioxide 30 Anion Gap 5 L BUN 20.9 H Creatinine 0.8 Est GFR (CKD-EPI)AfAm 99.17 Est GFR (CKD-EPI)NonAf 85.56 Random Glucose 97 Calcium 8.8 COVID-19 (YANNICK) Not detected Active Medications Generic Name Dose Route Start Last Admin Trade Name Freq PRN Reason Stop Dose Admin Acetaminophen 650 mg 02/13/20 08:37 02/14/20 22:18 Tylenol - PO 650 mg Q6H PRN Administration FEVER Albuterol Sulfate 2 puff 02/11/20 18:54 Ventolin Hfa Inhaler - IH Q4H PRN SHORT OF BREATH/WHEEZING Amino Acids 30 ml 02/13/20 17:30 02/17/20 08:13 Prosource No Carb Liquid Pkt PO 30 ml BID@0800,1730 BRANDY Administration Atorvastatin Calcium 20 mg 02/11/20 22:00 02/16/20 21:16 Lipitor - PO 20 mg HS [facility] Administration Budesonide/Formoterol Fumarate 1 puff 02/11/20 22:00 02/17/20 09:42 Symbicort 160/4.5mcg - IH 1 puff BID [facility] Administration Docusate Sodium 100 mg 02/11/20 22:00 02/15/20 09:49 Colace - PO 100 mg BID [facility] Administration Heparin Sodium (Porcine) 5,000 unit 02/11/20 22:00 02/17/20 14:42 Heparin - SQ 5,000 unit TID [facility] Administration Piperacillin Sod/Tazobactam 50 mls @ 100 mls/hr 02/15/20 14:30 02/17/20 09:42 Sod 3.375 gm/ Dextrose IVPB 100 mls/hr Q8H-IV [facility] Administration Protocol Montelukast Sodium 10 mg 02/11/20 22:00 02/16/20 21:16 Singulair - PO 10 mg HS [facility] Administration Multivitamins/Minerals 15 ml 02/13/20 14:45 02/17/20 09:36 Certavite-Antioxidant Liquid PO Not Given DAILY [facility] Ondansetron HCl 4 mg 02/11/20 18:54 Zofran Injection IVPUSH Q6H PRN NAUSEA AND/OR VOMITING Oxycodone HCl 5 mg 02/14/20 21:36 02/17/20 08:10 Roxicodone - PO 5 mg Q4H PRN Administration PAIN LEVEL 6-10 Polyethylene Glycol 17 gm 02/11/20 22:00 02/15/20 09:50 Miralax (For Daily Use) - PO Not Given BID [facility] Polysaccharide Iron Complex 150 mg 02/12/20 10:00 02/17/20 09:41 Niferex-150 - PO 150 mg DAILY [facility] Administration Primidone 25 mg 02/12/20 10:00 02/17/20 09:41 Mysoline - PO 25 mg DAILY [facility] Administration Tamsulosin HCl 0.4 mg 02/12/20 08:30 02/17/20 08:13 Flomax - PO 0.4 mg DAILY@0830 [facility] Administration Tiotropium [place] 2 puff 02/12/20 10:00 02/17/20 09:42 Spiriva Respimat IH 2 puff DAILY [facility] Administration ASSESSMENT/PLAN: 79M with PMH of COPD (2LNC), DVT LLE (on xarelto), BPH, colon ca (20 years ago). Presented to ER with increasing left foot pain and swelling over last few weeks. Admitted to hospital for soft tissue ischemia of L foot. #L big toe dry gangrene , possible small vessel disease. angio with no big vessel disease - Vascular consulted (Dr. Valdez) - s/p Angio L foot 02/05: all vessels open, small vessel disease in foot at toes, no need for any intervention. - Podiatry: left hallux amputation done 02/[address] Prado; Dr. Prado will come see pt tm for dressing change and f/u - Tylenol PRN for pain - oxycodone Q4hr PRN for pain - LLE Duplex- negative for DVT - ID-continue zosyn and revaluate after cysto TURP about PO antibiotics #R Pinky toe pain -patient has duskiness of the right pinky toe -Dr. Prado examined the foot and states that it can be monitored outpt -No acute intervention required at this time #Fever of Unknown Origin -Tylenol PRN for fever #Urinary Retention -Urology: cysto TURP on Sunday at 11 AM- confirmed w Dr. Putnam -COVID test ordered today for procedure on Sunday at 11 AM -patient has a Cunningham in place that was placed in the OR on 02/11/2020 #Anemia: Macrocytic - GI: Anemia is due to chronic disease/no acute bleed - Heme: consider venofir 200 mg doses every other day for 5 doses total - Patient was scheduled for a colonoscopy inpatient but refused the procedure #COPD: - continue 2L O2 NC - continue home inhalers #FEN -NPO at midnight for OR tm -replete electrolyte PRN -Cunningham placed 02/11/2020 in the OR #Prophylaxis - Heparin SQ HELD for OR tm #Dispo - Monitor in M/S Visit type - Emergency Visit Emergency Visit: No - New Patient This patient is new to me today: No - Critical Care Critical Care patient: No - Medication Review Med list reviewed for High Risk Meds patients 65 and older: Yes ATTENDING PHYSICIAN STATEMENT I saw and evaluated the patient. I reviewed the resident's note and discussed the case with the resident. I agree with the resident's findings and plan as documented. SUBJECTIVE: OBJECTIVE: ASSESSMENT AND PLAN:
--- NOTE | 2020-02-17 15:07 | PN ---
Teaching Attending Note Name of Resident: Justin Swift ATTENDING PHYSICIAN STATEMENT I saw and evaluated the patient. I reviewed the resident's note and discussed the case with the resident. I agree with the resident's findings and plan as documented. SUBJECTIVE: Patient feels well, stating his pain is in his RLE. LLE feels well. Awaiting urological procedure as it is causing him discomfort OBJECTIVE: Vital Signs Period Temp Pulse Resp BP Sys/Valdes Pulse Ox Last 24 Hr 99.0 F-99.6 F 85-99 20-20 98-109/51-60 97-100 GENERAL: Awake, alert, in no acute distress. HEAD: Normal with no signs of trauma. EYES: Pupils equal, round and reactive to light, extraocular movements intact, sclera anicteric, conjunctiva clear. EARS, NOSE, THROAT: Ears normal, nares patent, Moist mucous membranes. NECK: Normal range of motion, No JVD, LUNGS: Breath sounds equal, clear to auscultation bilaterally. No wheezes, and no crackles. No accessory muscle use. HEART: Regular rate and rhythm, normal S1 and S2 without murmur, rub or gallop. ABDOMEN: Soft, nontender, not distended, normoactive bowel sounds, no guarding, no rebound, MUSCULOSKELETAL: Normal range of motion at all joints. No bony deformities or tenderness. No CVA tenderness. EXTREMITIES: 2+ pulses, warm, well-perfused. No calf tenderness. No peripheral edema. LLE wrapped NEUROLOGICAL: Cranial nerves II-XII intact. Normal speech. PSYCHIATRIC: Cooperative. Good eye contact. Appropriate mood and affect. SKIN: Warm, dry, normal turgor, RLE 5th Toe discoloration ASSESSMENT AND PLAN: 79 y.o M with h/o PAD, COPD on home O2, remote LLE DVT , Colorectal Ca (in remission for 20 years, sp colectomy ), BPH, recent admission for L big toe pain with w/u including atherosclerotic plaque in aorta, 3.8 cm abdominal aortic aneurysm, who Presents for worsening L big toe and forefoot pain. L Toe Gangrene s/p amputation pathology reports appear to have clear margins patient will likely only require a short course of Abx. will defer to ID Urinary retention: plan for TURP tomorrow with urology RLE pain, with dark R. 5th Toe Will have Vascular evaluation, Patient needs to restart AC following urological procedure Rest of plan as per resident note
--- NOTE | 2020-02-17 15:22 | PN ---
Progress Note (short form) - Note Progress Note: Podiatry F/U: Seen/evaluated at bedside NAD. Pain persistent to the left foot, a bit worse to the right foot. Denies F/V/N/C/SOB/CP. S/p left hallux amputation for gangrene. KATI: L foot: Pedal pulses nonpalpable, TG wnl. Sutures well coapted at hallux amputation site. No surgical dehiscence noted. There is no purulent drainage, no fluctuance, no streaking ascending cellulitis, no signs of active infection. Moderate tenderness to palpation. R foot: Pedal pulses nonpalpable, TG wnl. There is mild duskiness to the fifth digit. There are no acute gangrenous changes. There is no probing to bone, no purulence, no cellulitis, no signs of infection. 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 Abx per infectious disease 2. Xeroform and DSD L foot 3. Partial WB L heel with surgical shoe 4. Pain control 5. Will monitor right fifth digit as outpatient. No acute intervention required. 6. Will follow.
[2020-02-17] MEDS: DOCUSATE SODIUM 100 MG CAPSULE (FP) PO SCH (22:22)
[2020-02-17] MEDS: ATORVASTATIN CA 20 MG TABLET (FP) PO SCH (22:22)
[2020-02-17] MEDS: MONTELUKAST NA 10 MG TABLET PO SCH (22:22)
[2020-02-17] MEDS: POLYETHYLENE GLYCOL 3350 119 GM BTL PO SCH (22:22)
[2020-02-18] MEDS ORDERED: PIPERACILLIN/TAZOBACTAM 3.375 GM VIAL IVPB ONE ×3 (01:19→17:21)
[2020-02-18] MEDS ORDERED: DEXTROSE 5%-WATER - 50 ML IVPB ONE ×3 (01:19→17:21)
[2020-02-18] MEDS: PIPERACILLIN/TAZOB 3.375 GM 3.375 GM in DEXTROSE 5%-WATER - 50 ML IVPB SCH ×3 (01:24→17:50)
[2020-02-18] MEDS ORDERED: oxyCODONE HCL 5 MG TABLET PO PRN ×5 (01:51→15:24)
[2020-02-18] MEDS: TAMSULOSIN HCL 0.4 MG CAP PO SCH (08:29)
[2020-02-18] MEDS: AMINO ACIDS/PROTEIN HYDROLYS 30 ML LIQUID.PKT PO SCH ×2 (08:29→17:50)
[2020-02-18 08:34] LABS: INR 1.08 (0.83-1.09); PROTHROMBIN TIME (PATIENT) 12.8 SEC (9.7-13.0)
[2020-02-18 08:36] LABS: BASO % 0.6 % (0-2.0); HEMATOCRIT 27.4 % (35.4-49); HEMOGLOBIN 8.8 GM/dL (11.7-16.9); LYMPH % 15.7 % (8-40); MCH 30.8 pg (25.7-33.7); MEAN PLT VOLUME 8.1 fl (7.5-11.1); MONO % 6.6 % (3.8-10.2); NEUT % 69.1 % (42.8-82.8); PLATELET COUNT 353 K/MM3 (134-434); RBC 2.85 M/mm3 (4.00-5.60); WHITE BLOOD COUNT 7.1 K/mm3 (4.0-10.0)
[2020-02-18 09:02] LABS: ALBUMIN 2.4 g/dl (3.4-5.0); BILIRUBIN,TOTAL 0.5 mg/dL (0.2-1); BLOOD UREA NITROGEN 20.5 mg/dL (7-18); CALCIUM 8.5 mg/dL (8.5-10.1); CREATININE 0.9 mg/dL (0.55-1.3); POTASSIUM 4.4 mmol/L (3.5-5.1); TOT PROT 6.2 g/dl (6.4-8.2)
[2020-02-18] MEDS: DOCUSATE SODIUM 100 MG CAPSULE (FP) PO SCH ×2 (10:17→21:20)
[2020-02-18] MEDS: IRON POLYSACCHARIDES 150 MG CAPSULE PO SCH (10:17)
[2020-02-18] MEDS: POLYETHYLENE GLYCOL 3350 119 GM BTL PO SCH ×2 (10:17→23:04)
[2020-02-18] MEDS: MULTIVIT-MINERALS ORAL LIQUID PO SCH (10:17)
[2020-02-18] MEDS: PRIMIDONE 50 MG TABLET PO SCH (10:17)
[2020-02-18] MEDS: BUDESONIDE/FORMETEROL FUMARATE 160/4.5 mcg INHALER IH SCH ×2 (10:22→22:39)
[2020-02-18] MEDS: TIOTROPIUM BROMIDE 2.5 MCG (SPIRIVA) RESPIMAT INHALER IH SCH (10:22)
[2020-02-18] MEDS ORDERED: MIDAZOLAM HCL 2 MG/2 ML SINGLE DOSE VIAL ONE ×2 (11:22)
[2020-02-18] MEDS ORDERED: ceFAZolin SODIUM 1 GM VIAL IVPB ONE (11:40)
--- NOTE | 2020-02-18 12:29 | PN ---
Progress Note, Physician History of Present Illness: stable patient for or today - Current Medication List Current Medications: Active Medications Acetaminophen (Tylenol -) 650 mg PO Q6H PRN PRN Reason: FEVER Last Admin: 02/14/20 22:18 Dose: 650 mg Documented by: Albuterol Sulfate (Ventolin Hfa Inhaler -) 2 puff IH Q4H PRN PRN Reason: SHORT OF BREATH/WHEEZING Amino Acids (Prosource No Carb Liquid Pkt) 30 ml PO BID@0800,1730 [facility] Last Admin: 02/18/20 08:29 Dose: Not Given Documented by: Atorvastatin Calcium (Lipitor -) 20 mg PO [facility] Last Admin: 02/17/20 22:22 Dose: 20 mg Documented by: Budesonide/Formoterol Fumarate (Symbicort 160/4.5mcg -) 1 puff IH BID [facility] Last Admin: 02/18/20 10:22 Dose: 1 puff Documented by: Docusate Sodium (Colace -) 100 mg PO BID [facility] Last Admin: 02/18/20 10:17 Dose: Not Given Documented by: Heparin Sodium (Porcine) (Heparin -) 5,000 unit SQ TID [facility] Last Admin: 02/17/20 14:42 Dose: 5,000 unit Documented by: Piperacillin Sod/Tazobactam (Sod 3.375 gm/ Dextrose) 50 mls @ 100 mls/hr IVPB Q8H-IV [facility]; Protocol Last Admin: 02/18/20 10:15 Dose: 100 mls/hr Documented by: Montelukast Sodium (Singulair -) 10 mg PO [facility] Last Admin: 02/17/20 22:22 Dose: 10 mg Documented by: Multivitamins/Minerals (Certavite-Antioxidant Liquid) 15 ml PO DAILY [facility] Last Admin: 02/18/20 10:17 Dose: Not Given Documented by: Ondansetron HCl (Zofran Injection) 4 mg IVPUSH Q6H PRN PRN Reason: NAUSEA AND/OR VOMITING Oxycodone HCl (Roxicodone -) 5 mg PO Q6H PRN PRN Reason: PAIN LEVEL 6-10 Stop: 02/19/20 01:50 Last Admin: 02/18/20 10:15 Dose: 5 mg Documented by: Polyethylene Glycol (Miralax (For Daily Use) -) 17 gm PO BID [facility] Last Admin: 02/18/20 10:17 Dose: Not Given Documented by: Polysaccharide Iron Complex (Niferex-150 -) 150 mg PO DAILY [facility] Last Admin: 02/18/20 10:17 Dose: Not Given Documented by: Primidone (Mysoline -) 25 mg PO DAILY [facility] Last Admin: 02/18/20 10:17 Dose: Not Given Documented by: Tamsulosin HCl (Flomax -) 0.4 mg PO DAILY@0830 [facility] Last Admin: 02/18/20 08:29 Dose: Not Given Documented by: Tiotropium [place] (Spiriva Respimat) 2 puff IH DAILY [facility] Last Admin: 02/18/20 10:22 Dose: 2 puff Documented by: - Objective Vital Signs: Vital Signs Temperature 99.6 F 02/18/20 09:08 Pulse Rate 90 02/18/20 09:08 Respiratory Rate 20 02/18/20 09:08 Blood Pressure 128/72 02/18/20 09:08 O2 Sat by Pulse Oximetry (%) 100 02/18/20 09:08 Constitutional: Yes: No Distress, Calm Cardiovascular: Yes: S1, S2 Respiratory: Yes: Regular, CTA Bilaterally Gastrointestinal: Yes: Normal Bowel Sounds, Soft Genitourinary: Yes: Cunningham Present Musculoskeletal: Yes: WNL Extremities: Yes: Other Wound/Incision: Yes: Dressing Dry and Intact Neurological: Yes: Alert, Oriented Psychiatric: Yes: Alert, Oriented Labs: CBC, BMP 02/18/20 07:10 02/18/20 07:10 INR, PTT INR 1.08 (0.83-1.09) 02/18/20 07:10 Assessment/Plan 79 yo male with PMHx asthma and COPD (home 2L NC), DVT LLE (on xarelto), & BPH, and hx of colon cancer (20 years ago) and 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 Presented to ED with increasing left foot pain and swelling over last few weeks. Admitted to hospital for soft tissue infection and r/o ischemia of L foot. gangrene of the toe anemia copd pvd bph plan continue current mgmt rest as per the team abx for or
--- NOTE | 2020-02-18 12:40 | PN ---
Physical Exam: SUBJECTIVE: Patient seen and examined at bedside. No acute events reported overnight. This morning, patient is continuing to complain of b/l leg pain. Patient is scheduled for a cysto TURP today at 11 am. No other concerns or complaints at this time. OBJECTIVE: Vital Signs Period Temp Pulse Resp BP Sys/Valdes Pulse Ox Last 24 Hr 99 F-99.6 F 90-97 20-20 95-128/54-72 97-100 GENERAL: The patient is awake, alert, and fully oriented, in no acute distress. GENERAL: AAOx3, in no acute distress HEENT: NCAT, PERRLA, EOMI, sclera anicteric, conjunctiva clear, oropharynx clear w/o exudates. MMM. NECK: Normal ROM, supple, no lymphadenopathy, JVD, or masses LUNGS: CTABL no wheezes/ rhonchi/ rales. No distress, speaks in full sentences. No increased work of breathing. HEART: RRR, normal S1 S2, no M/R/G, peripheral pulses 2+ and equal b/l ABDOMEN: Soft, nondistended, tenderness to palpation above pubic symphysis, + BS. No guarding or rebound. No hepatomegaly or splenomegaly. MSK: ROM WNL EXTREMITIES: Normal inspection. No peripheral edema. No clubbing or cyanosis. NEUROLOGICAL: CN II-XII intact. Normal speech, normal gait, no focal sensorimotor deficits. SKIN: Left lower foot wrapped in dressing. mild duskiness to the fifth digit Laboratory Results - last 24 hr CBC, BMP 02/18/20 07:10 02/18/20 07:10 02/18/20 02/18/20 02/18/20 07:10 07:10 07:10 WBC 7.1 RBC 2.85 L Hgb 8.8 L Hct 27.4 L MCV 96.0 MCH 30.8 MCHC 32.0 RDW 17.0 H Plt Count 353 D MPV 8.1 Absolute Neuts (auto) 4.9 Neutrophils % 69.1 Lymphocytes % 15.7 Monocytes % 6.6 Eosinophils % 8.0 H Basophils % 0.6 Nucleated RBC % 0 PT with INR 12.80 INR 1.08 Sodium 138 Potassium 4.4 Chloride 104 Carbon Dioxide 30 Anion Gap 5 L BUN 20.5 H Creatinine 0.9 Est GFR (CKD-EPI)AfAm 94.48 Est GFR (CKD-EPI)NonAf 81.52 Random Glucose 89 Calcium 8.5 Total Bilirubin 0.5 AST 82 H ALT 126 H Alkaline Phosphatase 79 Total Protein 6.2 L Albumin 2.4 L Active Medications Generic Name Dose Route Start Last Admin Trade Name Freq PRN Reason Stop Dose Admin Acetaminophen 650 mg 02/13/20 08:37 02/14/20 22:18 Tylenol - PO 650 mg Q6H PRN Administration FEVER Albuterol Sulfate 2 puff 02/11/20 18:54 Ventolin Hfa Inhaler - IH Q4H PRN SHORT OF BREATH/WHEEZING Amino Acids 30 ml 02/13/20 17:30 02/18/20 08:29 Prosource No Carb Liquid Pkt PO Not Given BID@0800,1730 [facility] Atorvastatin Calcium 20 mg 02/11/20 22:00 02/17/20 22:22 Lipitor - PO 20 mg HS [facility] Administration Budesonide/Formoterol Fumarate 1 puff 02/11/20 22:00 02/18/20 10:22 Symbicort 160/4.5mcg - IH 1 puff BID [facility] Administration Docusate Sodium 100 mg 02/11/20 22:00 02/18/20 10:17 Colace - PO Not Given BID [facility] Heparin Sodium (Porcine) 5,000 unit 02/11/20 22:00 02/17/20 14:42 Heparin - SQ 5,000 unit TID [facility] Administration Piperacillin Sod/Tazobactam 50 mls @ 100 mls/hr 02/15/20 14:30 02/18/20 10:15 Sod 3.375 gm/ Dextrose IVPB 100 mls/hr Q8H-IV [facility] Administration Protocol Montelukast Sodium 10 mg 02/11/20 22:00 02/17/20 22:22 Singulair - PO 10 mg HS [facility] Administration Multivitamins/Minerals 15 ml 02/13/20 14:45 02/18/20 10:17 Certavite-Antioxidant Liquid PO Not Given DAILY [facility] Ondansetron HCl 4 mg 02/11/20 18:54 Zofran Injection IVPUSH Q6H PRN NAUSEA AND/OR VOMITING Oxycodone HCl 5 mg 02/18/20 09:52 02/18/20 10:15 Roxicodone - PO 02/19/20 01:50 5 mg Q6H PRN Administration PAIN LEVEL 6-10 Polyethylene Glycol 17 gm 02/11/20 22:00 02/18/20 10:17 Miralax (For Daily Use) - PO Not Given BID [facility] Polysaccharide Iron Complex 150 mg 02/12/20 10:00 02/18/20 10:17 Niferex-150 - PO Not Given DAILY [facility] Primidone 25 mg 02/12/20 10:00 02/18/20 10:17 Mysoline - PO Not Given DAILY [facility] Tamsulosin HCl 0.4 mg 02/12/20 08:30 02/18/20 08:29 Flomax - PO Not Given DAILY@0830 [facility] Tiotropium [place] 2 puff 02/12/20 10:00 02/18/20 10:22 Spiriva Respimat IH 2 puff DAILY [facility] Administration ASSESSMENT/PLAN: 79M with PMH of COPD (2LNC), DVT LLE (on xarelto), BPH, colon ca (20 years ago). Presented to ER with increasing left foot pain and swelling over last few weeks. Admitted to hospital for soft tissue ischemia of L foot. #L big toe dry gangrene , possible small vessel disease. angio with no big vessel disease - Vascular consulted (Dr. Valdez) - s/p Angio L foot 02/05: all vessels open, small vessel disease in foot at toes, no need for any intervention. - Podiatry: left hallux amputation done 02/[address] Prado - Tylenol PRN for pain - oxycodone Q4hr PRN for pain - LLE Duplex- negative for DVT - ID-continue zosyn and revaluate after cysto TURP about PO antibiotics #Urinary Retention -Urology: cysto TURP procedure scheduled for today at 11 AM -COVID test ordered today for procedure on Sunday at 11 AM -patient has a Cunningham in place that was placed in the OR on 02/18/2020 #R Pinky toe pain -patient has duskiness of the right pinky toe -Dr. Prado examined the foot and states that it can be monitored outpt -No acute intervention required at this time #Fever of Unknown Origin -Tylenol PRN for fever #Anemia: Macrocytic - GI: Anemia is due to chronic disease/no acute bleed - Heme: consider venofir 200 mg doses every other day for 5 doses total - Patient was scheduled for a colonoscopy inpatient but refused the procedure #COPD: - continue 2L O2 NC - continue home inhalers #FEN -no standing fluids -replete electrolyte PRN -resume regular diet after procedure -Cunningham placed in the OR on 02/18/2020 #Prophylaxis - Heparin SQ #Dispo - Monitor in M/S Visit type - Emergency Visit Emergency Visit: No - New Patient This patient is new to me today: No - Critical Care Critical Care patient: No - Medication Review Med list reviewed for High Risk Meds patients 65 and older: Yes ATTENDING PHYSICIAN STATEMENT I saw and evaluated the patient. I reviewed the resident's note and discussed the case with the resident. I agree with the resident's findings and plan as documented. SUBJECTIVE: OBJECTIVE: ASSESSMENT AND PLAN:
[2020-02-18] MEDS ORDERED: ONDANSETRON 4 MG/2 ML VIAL IVPUSH PRN ×3 (13:07→15:24)
[2020-02-18] MEDS ORDERED: PROMETHAZINE HCL 25 MG/1 ML VIAL IVPUSH PRN ×2 (13:07→15:24)
[2020-02-18] MEDS ORDERED: ALBUTEROL SO4 0.083% IH SOL 2.5 MG/3 ML VIAL.NEB. NEB ONE (13:11)
--- NOTE | 2020-02-18 13:14 | OP ---
Operative Note - Note: Operative Date: 02/18/20 Pre-Operative Diagnosis: bph with luts and aur Operation: turp/tuvp Findings: trilobar hypertrophy and lateral lobe kissing Post-Operative Diagnosis: Same as Pre-op Surgeon: Mely Pyle Anesthesia: Spinal Specimens Removed: prostate chips Estimated Blood Loss (mls): 75 Instrument used (Debridements only): 0 Drains & Tubes with Location: 24f 3 way 30cc workman Drains, Volume Out (mls): 0 Blood Volume Replaced (mls): 0 Fluid Volume Replaced (mls): 0 Operative Report Dictated: Yes
[2020-02-18] MEDS: ALBUTEROL SO4 0.083% IH SOL 2.5 MG/3 ML VIAL.NEB. NEB ONE ×3 (13:15→15:45)
--- NOTE | 2020-02-18 13:43 | OP ---
DATE OF OPERATION: 02/18/2020 PREOPERATIVE DIAGNOSES: 1. Obstructive uropathy. 2. Benign prostatic hypertrophy. 3. Trabeculated bladder. 4. Elevated prostate-specific antigen. POSTOPERATIVE DIAGNOSES: 1. Trilobar hypertrophy. 2. Trabeculated bladder. 3. Lateral lobe kissing. OPERATIVE PROCEDURE: Cystoscopy, transurethral resection of prostate, transurethral vaporization of prostate. ANESTHESIA: Spinal. Under above-stated anesthesia, patient was prepped and draped in the usual sterile manner. He was placed in the dorsal lithotomy position. Cystoscopy revealed trilobar hypertrophy of the prostate. There was lateral lobe kissing. There was grade 2 to 3 trabeculation of the bladder. No lesions or calculi were seen. Using a bipolar resectoscope, the prostate was resected in the usual fashion. Hemostasis was secured with electrocoagulation. A plasma VaporTrode was introduced and excess tissue was vaporized. Again, hemostasis was secured with electrocoagulation. The scope was removed. A 24-[place] 3-way 30 mL Cunningham was inserted. This was connected to continuous bladder irrigation. The patient tolerated the procedure well. He returned to the recovery room in good condition. Kari [id number]
[2020-02-18] MEDS: DEXTROSE 5%-0.45% SALINE 1,000 ML IV SCH ×2 (14:45→23:04)
[2020-02-18] MEDS ORDERED: DEXTROSE 5%-0.45% SALINE 1,000 ML IV SCH (14:45)
[2020-02-18] MEDS ORDERED: ALBUTEROL SO4 HFA INHALER IH PRN (15:24)
[2020-02-18] MEDS ORDERED: LIDOCAINE HCL 2% JELLY 10 ML CARTRIDGE TP ONE (15:24)
[2020-02-18] MEDS ORDERED: methylPREDNISolone NA SUCC 40 MG/1 ML VIAL IVPUSH ONE (15:47)
[2020-02-18] MEDS ORDERED: methylPREDNISolone NA SUCC 125 MG/2 ML VIAL ONE (15:52)
--- NOTE | 2020-02-18 16:11 | RAPID ---
Physical Examination Vital Signs: Vital Signs Temperature 98.6 F 02/18/20 14:45 Pulse Rate 113 H 02/18/20 14:45 Respiratory Rate 27 H 02/18/20 14:45 Blood Pressure 141/73 02/18/20 14:45 O2 Sat by Pulse Oximetry (%) 98 02/18/20 14:45 Labs: CBC, BMP 02/18/20 07:10 02/18/20 07:10 Rapid Response - Rapid Response Assessment: Rapid response called overhead. Primary team responded immediately. On arrival patient laying in bed and was tachypneic. vital signs: BP 140/80, HR: 125, rR-25, SaO2- 97 on 2 L NC. physical exam general- in bed and tachypneic. pulm- wheezing throughout all lung narvaez with mild stridor (improved tracheal airway on reassessment) - CBI in place; irrigating well, non bloody output A/P #Respiratory Distress -s/p stat albuterol nebulizer treatment with mild improvmenet of breathing -40 IV solumedrol to decrease airway inflammation post op -continue o2 supplementation via NC 2 L -continue to monitor O2 saturation -fingerstick BGM- 92 -stat EKG ordered -stat CXR ordered -reassess breathing for further steroid management
--- NOTE | 2020-02-18 17:18 | PN ---
Teaching Attending Note Name of Resident: Justin Swift ATTENDING PHYSICIAN STATEMENT I saw and evaluated the patient. I reviewed the resident's note and discussed the case with the resident. I agree with the resident's findings and plan as documented. SUBJECTIVE: had TURP procedure with urology, was acutely short of breath following OR. Pleas e see rapid response note for additional information Still with LE pain OBJECTIVE: Vital Signs Period Temp Pulse Resp BP Sys/Valdes Pulse Ox Last 24 Hr 98.6 F-99.6 F 90-117 20-29 95-141/54-96 94-100 GENERAL: Awake, alert, HEAD: Normal with no signs of trauma. EYES: Pupils equal, round and reactive to light, extraocular movements intact, sclera anicteric, conjunctiva clear. EARS, NOSE, THROAT: Ears normal, nares patent, Moist mucous membranes. NECK: Normal range of motion, No JVD, LUNGS: expiratory wheezes HEART: Regular tachycardic rate ABDOMEN: Soft, nontender, not distended, normoactive bowel sounds, no guarding, no rebound, Cunningham MUSCULOSKELETAL: Normal range of motion at all joints. No bony deformities or tenderness. No CVA tenderness. EXTREMITIES: 2+ pulses, warm, well-perfused. No calf tenderness. No peripheral edema. LLE wrapped NEUROLOGICAL: Cranial nerves II-XII intact. Normal speech. PSYCHIATRIC: Cooperative. Good eye contact. Appropriate mood and affect. SKIN: Warm, dry, normal turgor, RLE 5th Toe discoloration ASSESSMENT AND PLAN: 79 y.o M with h/o PAD, COPD on home O2, remote LLE DVT , Colorectal Ca (in remission for 20 years, sp colectomy ), BPH, recent admission for L big toe pain with w/u including atherosclerotic plaque in aorta, 3.8 cm abdominal aortic aneurysm, who Presents for worsening L big toe and forefoot pain. Shortness of breath Given Nebs, steroids during [employer] CXR with increased Vascular congestion can give 40IV Lasix x 1 EKG reviewed: sinus tach L Toe Gangrene s/p amputation pathology reports appear to have clear margins patient will likely only require a short course of Abx. will defer to ID for further management Urinary retention: s/p TURP RLE pain, with dark R. 5th Toe Needs outpatient follow up with [facility] Hx of LLE DVT Restart AC when cleared by Urology Rest of plan as per resident note
[2020-02-18] MEDS ORDERED: FUROSEMIDE 40 MG/4 ML INJECTABLE VIAL IVPUSH ONE (17:29)
[2020-02-18] MEDS: MONTELUKAST NA 10 MG TABLET PO SCH (21:20)
[2020-02-18] MEDS: ACETAMINOPHEN 325 MG TABLET (FP) PO PRN (21:20)
[2020-02-18] MEDS: ATORVASTATIN CA 20 MG TABLET (FP) PO SCH (21:20)
[2020-02-19] MEDS ORDERED: PIPERACILLIN/TAZOBACTAM 3.375 GM VIAL IVPB ONE ×2 (02:54→09:18)
[2020-02-19] MEDS ORDERED: DEXTROSE 5%-WATER - 50 ML IVPB ONE ×2 (02:54→09:18)
[2020-02-19] MEDS: PIPERACILLIN/TAZOB 3.375 GM 3.375 GM in DEXTROSE 5%-WATER - 50 ML IVPB SCH ×3 (03:00→18:46)
[2020-02-19] MEDS: ALBUTEROL SO4 2.5/IPRATROPIUM 0.5 INH SOL 3 ML VIAL.NEB. NEB PRN ×2 (07:45→15:40)
[2020-02-19 09:12] LABS: BASO % 0.5 % (0-2.0); EOS % 3.5 % (0-4.5); HEMATOCRIT 28.1 % (35.4-49); HEMOGLOBIN 9.1 GM/dL (11.7-16.9); LYMPH % 14.6 % (8-40); MCH 30.8 pg (25.7-33.7); MCHC 32.4 g/dl (32.0-35.9); MEAN CELL VOLUME 95.1 fl (80-96); MEAN PLT VOLUME 7.9 fl (7.5-11.1); MONO % 6.7 % (3.8-10.2); NEUT % 74.7 % (42.8-82.8); PLATELET COUNT 350 K/MM3 (134-434); RBC 2.96 M/mm3 (4.00-5.60); RDW 16.6 % (11.9-15.9); WHITE BLOOD COUNT 8.9 K/mm3 (4.0-10.0)
[2020-02-19] MEDS ORDERED: PT OWN MED DRAWER 7, Y5N ONE ×2 (09:17→12:17)
[2020-02-19] MEDS: DEXTROSE 5%-0.45% SALINE 1,000 ML IV SCH (09:25)
[2020-02-19] MEDS: DOCUSATE SODIUM 100 MG CAPSULE (FP) PO SCH ×2 (09:26→21:23)
[2020-02-19] MEDS: PRIMIDONE 50 MG TABLET PO SCH (09:26)
[2020-02-19] MEDS: AMINO ACIDS/PROTEIN HYDROLYS 30 ML LIQUID.PKT PO SCH ×2 (09:26→17:36)
[2020-02-19] MEDS: TAMSULOSIN HCL 0.4 MG CAP PO SCH (09:26)
[2020-02-19] MEDS: MULTIVIT-MINERALS ORAL LIQUID PO SCH (09:27)
[2020-02-19] MEDS: TIOTROPIUM BROMIDE 2.5 MCG (SPIRIVA) RESPIMAT INHALER IH SCH ×2 (09:28→12:23)
[2020-02-19] MEDS: POLYETHYLENE GLYCOL 3350 119 GM BTL PO SCH ×2 (09:28→21:22)
[2020-02-19] MEDS: BUDESONIDE/FORMETEROL FUMARATE 160/4.5 mcg INHALER IH SCH ×2 (09:28→21:23)
[2020-02-19] MEDS: IRON POLYSACCHARIDES 150 MG CAPSULE PO SCH (09:28)
[2020-02-19 09:35] LABS: BLOOD UREA NITROGEN 19.7 mg/dL (7-18); CALCIUM 8.7 mg/dL (8.5-10.1); CREATININE 0.9 mg/dL (0.55-1.3); POTASSIUM 4.7 mmol/L (3.5-5.1)
--- NOTE | 2020-02-19 11:17 | PN ---
Progress Note, Physician History of Present Illness: stable no new issues post op hemaaturia noted - Current Medication List Current Medications: Active Medications Acetaminophen (Tylenol -) 650 mg PO Q6H PRN PRN Reason: FEVER Last Admin: 02/18/20 21:20 Dose: 650 mg Documented by: Albuterol Sulfate (Ventolin Hfa Inhaler -) 2 puff IH Q4H PRN PRN Reason: SHORT OF BREATH/WHEEZING Albuterol/Ipratropium (Duoneb -) 1 amp NEB Q4H PRN PRN Reason: SHORTNESS OF BREATH Amino Acids (Prosource No Carb Liquid Pkt) 30 ml PO BID@0800,1730 [facility] Last Admin: 02/19/20 09:26 Dose: 30 ml Documented by: Atorvastatin Calcium (Lipitor -) 20 mg PO [facility] Last Admin: 02/18/20 21:20 Dose: 20 mg Documented by: Budesonide/Formoterol Fumarate (Symbicort 160/4.5mcg -) 1 puff IH BID [facility] Last Admin: 02/19/20 09:28 Dose: 1 puff Documented by: Docusate Sodium (Colace -) 100 mg PO BID [facility] Last Admin: 02/19/20 09:26 Dose: 100 mg Documented by: Piperacillin Sod/Tazobactam (Sod 3.375 gm/ Dextrose) 50 mls @ 100 mls/hr IVPB Q8H-IV [facility]; Protocol Last Admin: 02/19/20 09:24 Dose: 100 mls/hr Documented by: Montelukast Sodium (Singulair -) 10 mg PO [facility] Last Admin: 02/18/20 21:20 Dose: 10 mg Documented by: Multivitamins/Minerals (Certavite-Antioxidant Liquid) 15 ml PO DAILY [facility] Last Admin: 02/19/20 09:27 Dose: 15 ml Documented by: Polyethylene Glycol (Miralax (For Daily Use) -) 17 gm PO BID [facility] Last Admin: 02/19/20 09:28 Dose: Not Given Documented by: Polysaccharide Iron Complex (Niferex-150 -) 150 mg PO DAILY [facility] Last Admin: 02/19/20 09:28 Dose: 150 mg Documented by: Primidone (Mysoline -) 25 mg PO DAILY [facility] Last Admin: 02/19/20 09:26 Dose: 25 mg Documented by: Tamsulosin HCl (Flomax -) 0.4 mg PO DAILY@0830 [facility] Last Admin: 02/19/20 09:26 Dose: 0.4 mg Documented by: Tiotropium [place] (Spiriva Respimat) 2 puff IH DAILY [facility] - Objective Vital Signs: Vital Signs Temperature 98.6 F 02/19/20 06:00 Pulse Rate 74 02/19/20 06:00 Respiratory Rate 20 02/19/20 06:00 Blood Pressure 103/60 02/19/20 06:00 O2 Sat by Pulse Oximetry (%) 100 02/19/20 06:00 Constitutional: Yes: No Distress, Calm Cardiovascular: Yes: S1, S2 Respiratory: Yes: Regular, CTA Bilaterally Gastrointestinal: Yes: Normal Bowel Sounds, Soft Genitourinary: Yes: Cunningham Present Musculoskeletal: Yes: WNL Extremities: Yes: WNL Neurological: Yes: Alert, Oriented Psychiatric: Yes: Alert, Oriented Labs: CBC, BMP 02/19/20 08:25 02/19/20 08:25 INR, PTT INR 1.08 (0.83-1.09) 02/18/20 07:10 Assessment/Plan 79 yo male with PMHx asthma and COPD (home 2L NC), DVT LLE (on xarelto), & BPH, and hx of colon cancer (20 years ago) and 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 Presented to ED with increasing left foot pain and swelling over last few weeks. Admitted to hospital for soft tissue infection and r/o ischemia of L foot. gangrene of the toe anemia copd pvd bph plan when ready patient can be switched to oral levaquin 3- 4 days
--- NOTE | 2020-02-19 14:19 | PN ---
Teaching Attending Note Name of Resident: Justin Swift ATTENDING PHYSICIAN STATEMENT I saw and evaluated the patient. I reviewed the resident's note and discussed the case with the resident. I agree with the resident's findings and plan as documented. SUBJECTIVE: OBJECTIVE: Vital Signs Period Temp Pulse Resp BP Sys/Valdes Pulse Ox Last 24 Hr 98.6 F-101.1 F 74-129 18-32 103-145/59-96 94-100 GENERAL: Awake, alert, HEAD: Normal with no signs of trauma. EYES: Pupils equal, round and reactive to light, extraocular movements intact, sclera anicteric, conjunctiva clear. EARS, NOSE, THROAT: Ears normal, nares patent, Moist mucous membranes. NECK: Normal range of motion, No JVD, LUNGS: expiratory wheezes, basilar crackles HEART: Regular rate/rhythm ABDOMEN: Soft, nontender, not distended, normoactive bowel sounds, no guarding, no rebound, Cunningham MUSCULOSKELETAL: Normal range of motion at all joints. No bony deformities or tenderness. No CVA tenderness. EXTREMITIES: 2+ pulses, warm, well-perfused. No calf tenderness. No peripheral edema. LLE wrapped NEUROLOGICAL: Cranial nerves II-XII intact. Normal speech. PSYCHIATRIC: Cooperative. Good eye contact. Appropriate mood and affect. SKIN: Warm, dry, normal turgor, RLE 5th Toe discoloration ASSESSMENT AND PLAN: 79 y.o M with h/o PAD, COPD on home O2, remote LLE DVT , Colorectal Ca (in remission for 20 years, sp colectomy ), BPH, recent admission for L big toe pain with w/u including atherosclerotic plaque in aorta, 3.8 cm abdominal aortic aneurysm, who Presents for worsening L big toe and forefoot pain. Shortness of breath: Resolved Baseline on 2L at home Currently on 3 L will continue to titrate L Toe Gangrene s/p amputation pathology reports appear to have clear margins patient will likely only require a short course of Abx, will deescalate per ID recs Urinary retention: s/p TURP Continue CBI till tomorrow AM RLE pain, with dark R. 5th Toe Needs outpatient follow up with [facility] Hx of LLE DVT Restart Ac as per Urology recs Rest of plan as per resident note
--- NOTE | 2020-02-19 15:31 | PN ---
Progress Note (short form) - Note Progress Note: 79M POD1 s/p TURP under spinal anesthetic. Pain is well controlled and no anesthetic complications. Continue current regimen.
--- NOTE | 2020-02-19 16:36 | PN ---
Physical Exam: SUBJECTIVE:Patient seen and examined at bedside. No acute events reported overnight. This morning, patient is continuing to complain of b/l leg pain. Patient has a CBI in place that was placed in the OR on 02/18/2020 currently draining blood tinged fluids No other concerns or complaints at this time. OBJECTIVE: Vital Signs Period Temp Pulse Resp BP Sys/Valdes Pulse Ox Last 24 Hr 98.6 F-101.1 F 74-101 18-24 103-139/59-74 96-100 GENERAL: The patient is awake, alert, and fully oriented, in no acute distress. GENERAL: AAOx3, in no acute distress HEENT: NCAT, PERRLA, EOMI, sclera anicteric, conjunctiva clear, oropharynx clear w/o exudates. MMM. NECK: Normal ROM, supple, no lymphadenopathy, JVD, or masses LUNGS: CTABL no wheezes/ rhonchi/ rales. No distress, speaks in full sentences. No increased work of breathing. HEART: RRR, normal S1 S2, no M/R/G, peripheral pulses 2+ and equal b/l ABDOMEN: Soft, nondistended, tenderness to palpation above pubic symphysis, + BS. No guarding or rebound. No hepatomegaly or splenomegaly. MSK: ROM WNL EXTREMITIES: Normal inspection. No peripheral edema. No clubbing or cyanosis. NEUROLOGICAL: CN II-XII intact. Normal speech, normal gait, no focal sensorimo tor deficits. SKIN: Left lower foot wrapped in dressing. mild duskiness to the fifth digit Laboratory Results - last 24 hr CBC, BMP 02/19/20 08:25 02/19/20 08:25 02/19/20 02/19/20 08:25 08:25 WBC 8.9 RBC 2.96 L Hgb 9.1 L Hct 28.1 L MCV 95.1 MCH 30.8 MCHC 32.4 RDW 16.6 H Plt Count 350 MPV 7.9 Absolute Neuts (auto) 6.7 Neutrophils % 74.7 Lymphocytes % 14.6 Monocytes % 6.7 Eosinophils % 3.5 Basophils % 0.5 Nucleated RBC % 0 Sodium 139 Potassium 4.7 Chloride 105 Carbon Dioxide 30 Anion Gap 4 L BUN 19.7 H Creatinine 0.9 Est GFR (CKD-EPI)AfAm 94.48 Est GFR (CKD-EPI)NonAf 81.52 Random Glucose 111 H Calcium 8.7 Active Medications Generic Name Dose Route Start Last Admin Trade Name Freq PRN Reason Stop Dose Admin Acetaminophen 650 mg 02/18/20 15:24 02/18/20 21:20 Tylenol - PO 650 mg Q6H PRN Administration FEVER Albuterol Sulfate 2 puff 02/18/20 15:24 Ventolin Hfa Inhaler - IH Q4H PRN SHORT OF BREATH/WHEEZING Albuterol/Ipratropium 1 amp 02/18/20 15:42 02/19/20 15:40 Duoneb - NEB 1 amp Q4H PRN Administration SHORTNESS OF BREATH Amino Acids 30 ml 02/18/20 17:30 02/19/20 09:26 Prosource No Carb Liquid Pkt PO 30 ml BID@0800,1730 BRANDY Administration Atorvastatin Calcium 20 mg 02/18/20 22:00 02/18/20 21:20 Lipitor - PO 20 mg HS BRANDY Administration Budesonide/Formoterol Fumarate 1 puff 02/18/20 22:00 02/19/20 09:28 Symbicort 160/4.5mcg - IH 1 puff BID BRANDY Administration Docusate Sodium 100 mg 02/18/20 22:00 02/19/20 09:26 Colace - PO 100 mg BID BRANDY Administration Piperacillin Sod/Tazobactam 50 mls @ 100 mls/hr 02/18/20 18:00 02/19/20 09:24 Sod 3.375 gm/ Dextrose IVPB 02/19/20 23:59 100 mls/hr Q8H-IV BRANDY Administration Protocol Levofloxacin 750 mg 02/20/20 10:00 Levaquin PO 02/23/20 23:59 DAILY BRANDY Montelukast Sodium 10 mg 02/18/20 22:00 02/18/20 21:20 Singulair - PO 10 mg HS BRANDY Administration Multivitamins/Minerals 15 ml 02/19/20 10:00 02/19/20 09:27 Certavite-Antioxidant Liquid PO 15 ml DAILY BRANDY Administration Polyethylene Glycol 17 gm 02/18/20 22:00 02/19/20 09:28 Miralax (For Daily Use) - PO Not Given BID BRANDY Polysaccharide Iron Complex 150 mg 02/19/20 10:00 02/19/20 09:28 Niferex-150 - PO 150 mg DAILY BRANDY Administration Primidone 25 mg 02/19/20 10:00 02/19/20 09:26 Mysoline - PO 25 mg DAILY BRANDY Administration Tamsulosin HCl 0.4 mg 02/19/20 08:30 02/19/20 09:26 Flomax - PO 0.4 mg DAILY@0830 BRANDY Administration Tiotropium [place] 2 puff 02/19/20 10:00 02/19/20 12:23 Spiriva Respimat IH 2 puff DAILY BRANDY Administration ASSESSMENT/PLAN: 79M with PMH of COPD (2LNC), DVT LLE (on xarelto), BPH, colon ca (20 years ago). Presented to ER with increasing left foot pain and swelling over last few weeks. Admitted to hospital for soft tissue ischemia of L foot. #L big toe dry gangrene , possible small vessel disease. angio with no big vessel disease - Vascular consulted (Dr. Valdez) - s/p Angio L foot 02/05: all vessels open, small vessel disease in foot at toes, no need for any intervention. - Podiatry: left hallux amputation done 02/[address] Prado - Tylenol PRN for pain - oxycodone Q4hr PRN for pain - LLE Duplex- negative for DVT - ID-can start oral Levaquin for 3-4 days when the patient feels comfortable #Urinary Retention -Urology: s/p day 1 cysto TURP -patient has a CBI in place that was placed in the OR on 02/18/2020 currently draining blood tinged fluids -as per Dr. Kirkpatrick the CBI will be in place until it is draining clear fluids #R Pinky toe pain -patient has duskiness of the right pinky toe -Dr. Prado examined the foot and states that it can be monitored outpt -No acute intervention required at this time #Fever of Unknown Origin -Tylenol PRN for fever #Anemia: Macrocytic - GI: Anemia is due to chronic disease/no acute bleed - Heme: consider venofir 200 mg doses every other day for 5 doses total - Patient was scheduled for a colonoscopy inpatient but refused the procedure #COPD: - continue 2L O2 NC - continue home inhalers #FEN -no standing fluids -replete electrolyte PRN -resume regular diet -CBI placed in the OR on 02/18/2020 #Prophylaxis - Heparin SQ #Dispo - Monitor in M/S Visit type - Emergency Visit Emergency Visit: No - New Patient This patient is new to me today: No - Critical Care Critical Care patient: No - Discharge Referral Referred to [facility] Med P.C.: No - Medication Review Med list reviewed for High Risk Meds patients 65 and older: Yes ATTENDING PHYSICIAN STATEMENT I saw and evaluated the patient. I reviewed the resident's note and discussed the case with the resident. I agree with the resident's findings and plan as documented. SUBJECTIVE: OBJECTIVE: ASSESSMENT AND PLAN:
[2020-02-19] MEDS: ACETAMINOPHEN 325 MG TABLET (FP) PO PRN (18:46)
[2020-02-19] MEDS: ATORVASTATIN CA 20 MG TABLET (FP) PO SCH (21:23)
[2020-02-19] MEDS: MONTELUKAST NA 10 MG TABLET PO SCH (21:23)
[2020-02-19] MEDS: traMADol HCL 50 MG TABLET PO PRN (21:29)
[2020-02-20] MEDS: levoFLOXacin 750 MG TABLET PO SCH (05:19)
[2020-02-20] MEDS: traMADol HCL 50 MG TABLET PO PRN (06:30)
[2020-02-20 09:27] LABS: BILIRUBIN,DIRECT 0.1 mg/dL (0.0-0.2); BILIRUBIN,TOTAL 0.5 mg/dL (0.2-1); CALCIUM 8.6 mg/dL (8.5-10.1); CREATININE 0.7 mg/dL (0.55-1.3); POTASSIUM 4.3 mmol/L (3.5-5.1); TOT PROT 5.4 g/dl (6.4-8.2)
[2020-02-20 09:43] LABS: BASO % 0.5 % (0-2.0); EOS % 10.7 % (0-4.5); HEMATOCRIT 23.8 % (35.4-49); HEMOGLOBIN 7.8 GM/dL (11.7-16.9); LYMPH % 14.8 % (8-40); MCH 30.9 pg (25.7-33.7); MCHC 32.6 g/dl (32.0-35.9); MEAN CELL VOLUME 94.7 fl (80-96); MEAN PLT VOLUME 7.7 fl (7.5-11.1); MONO % 7.9 % (3.8-10.2); NEUT % 66.1 % (42.8-82.8); PLATELET COUNT 328 K/MM3 (134-434); RBC 2.51 M/mm3 (4.00-5.60); RDW 16.5 % (11.9-15.9); WHITE BLOOD COUNT 8.1 K/mm3 (4.0-10.0)
[2020-02-20] MEDS ORDERED: levoFLOXacin 750 MG TABLET PO SCH (10:00)
[2020-02-20] MEDS ORDERED: PT OWN MED DRAWER 7, Y5N ONE (11:02)
[2020-02-20] MEDS: IRON POLYSACCHARIDES 150 MG CAPSULE PO SCH (11:03)
[2020-02-20] MEDS: TAMSULOSIN HCL 0.4 MG CAP PO SCH (11:04)
[2020-02-20] MEDS: MULTIVIT-MINERALS ORAL LIQUID PO SCH (11:04)
[2020-02-20] MEDS: AMINO ACIDS/PROTEIN HYDROLYS 30 ML LIQUID.PKT PO SCH ×2 (11:04→18:36)
[2020-02-20] MEDS: PRIMIDONE 50 MG TABLET PO SCH (11:04)
[2020-02-20] MEDS: DOCUSATE SODIUM 100 MG CAPSULE (FP) PO SCH ×3 (11:05→21:45)
[2020-02-20] MEDS: TIOTROPIUM BROMIDE 2.5 MCG (SPIRIVA) RESPIMAT INHALER IH SCH (11:06)
[2020-02-20] MEDS: BUDESONIDE/FORMETEROL FUMARATE 160/4.5 mcg INHALER IH SCH ×2 (11:07→21:45)
[2020-02-20] MEDS: POLYETHYLENE GLYCOL 3350 119 GM BTL PO SCH ×2 (11:09→21:45)
--- NOTE | 2020-02-20 12:01 | PN ---
Progress Note, Physician History of Present Illness: stable no new issues post op - Current Medication List Current Medications: Active Medications Acetaminophen (Tylenol -) 650 mg PO Q6H PRN PRN Reason: FEVER Last Admin: 02/18/20 21:20 Dose: 650 mg Documented by: Albuterol Sulfate (Ventolin Hfa Inhaler -) 2 puff IH Q4H PRN PRN Reason: SHORT OF BREATH/WHEEZING Albuterol/Ipratropium (Duoneb -) 1 amp NEB Q4H PRN PRN Reason: SHORTNESS OF BREATH Last Admin: 02/19/20 15:40 Dose: 1 amp Documented by: Amino Acids (Prosource No Carb Liquid Pkt) 30 ml PO BID@0800,1730 [facility] Last Admin: 02/20/20 11:04 Dose: 30 ml Documented by: Atorvastatin Calcium (Lipitor -) 20 mg PO [facility] Last Admin: 02/19/20 21:23 Dose: 20 mg Documented by: Budesonide/Formoterol Fumarate (Symbicort 160/4.5mcg -) 1 puff IH BID [facility] Last Admin: 02/20/20 11:07 Dose: 1 puff Documented by: Docusate Sodium (Colace -) 100 mg PO BID [facility] Last Admin: 02/20/20 11:09 Dose: Not Given Documented by: Levofloxacin (Levaquin) 750 mg PO Q48H [facility] Last Admin: 02/20/20 05:19 Dose: 750 mg Documented by: Montelukast Sodium (Singulair -) 10 mg PO [facility] Last Admin: 02/19/20 21:23 Dose: 10 mg Documented by: Multivitamins/Minerals (Certavite-Antioxidant Liquid) 15 ml PO DAILY [facility] Last Admin: 02/20/20 11:04 Dose: 15 ml Documented by: Polyethylene Glycol (Miralax (For Daily Use) -) 17 gm PO BID [facility] Last Admin: 02/20/20 11:09 Dose: Not Given Documented by: Polysaccharide Iron Complex (Niferex-150 -) 150 mg PO DAILY [facility] Last Admin: 02/20/20 11:03 Dose: 150 mg Documented by: Primidone (Mysoline -) 25 mg PO DAILY [facility] Last Admin: 02/20/20 11:04 Dose: 25 mg Documented by: Tamsulosin HCl (Flomax -) 0.4 mg PO DAILY@0830 [facility] Last Admin: 02/20/20 11:04 Dose: 0.4 mg Documented by: Tiotropium [place] (Spiriva Respimat) 2 puff IH DAILY [facility] Last Admin: 02/20/20 11:06 Dose: 2 puff Documented by: Tramadol HCl (Ultram -) 50 mg PO Q8H PRN PRN Reason: Pain Level 5-10 Last Admin: 02/20/20 06:30 Dose: 50 mg Documented by: - Objective Vital Signs: Vital Signs Temperature 99.1 F 02/20/20 06:00 Pulse Rate 87 02/20/20 06:00 Respiratory Rate 20 02/20/20 06:00 Blood Pressure 106/60 02/20/20 06:00 O2 Sat by Pulse Oximetry (%) 100 02/20/20 06:00 Constitutional: Yes: No Distress, Calm Cardiovascular: Yes: S1, S2 Respiratory: Yes: Regular, CTA Bilaterally Gastrointestinal: Yes: Normal Bowel Sounds, Soft Genitourinary: Yes: Cunningham Present Wound/Incision: Yes: Dressing Dry and Intact Neurological: Yes: Alert, Oriented Psychiatric: Yes: Alert, Oriented Labs: CBC, BMP 02/20/20 07:35 02/20/20 07:35 INR, PTT INR 1.08 (0.83-1.09) 02/18/20 07:10 Assessment/Plan 79 yo male with PMHx asthma and COPD (home 2L NC), DVT LLE (on xarelto), & BPH, and hx of colon cancer (20 years ago) and 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 Presented to ED with increasing left foot pain and swelling over last few weeks. Admitted to hospital for soft tissue infection and r/o ischemia of L foot. gangrene of the toe anemia copd pvd bph plan continue current mgmt rest as per the team
--- NOTE | 2020-02-20 13:55 | PN ---
Teaching Attending Note Name of Resident: uJstin Swift ATTENDING PHYSICIAN STATEMENT I saw and evaluated the patient. I reviewed the resident's note and discussed the case with the resident. I agree with the resident's findings and plan as documented. SUBJECTIVE: patient feels well, ready for discharge OBJECTIVE: Vital Signs Period Temp Pulse Resp BP Sys/Valdes Pulse Ox Last 24 Hr 98.4 F-99.2 F 87-90 20-20 103-110/58-70 99-100 GENERAL: Awake, alert, HEAD: Normal with no signs of trauma. EYES: Pupils equal, round and reactive to light, extraocular movements intact, sclera anicteric, conjunctiva clear. EARS, NOSE, THROAT: Ears normal, nares patent, Moist mucous membranes. NECK: Normal range of motion, No JVD, LUNGS: expiratory wheezes, basilar crackles HEART: Regular rate/rhythm ABDOMEN: Soft, nontender, not distended, normoactive bowel sounds, no guarding, no rebound, Cunningham MUSCULOSKELETAL: Normal range of motion at all joints. No bony deformities or tenderness. No CVA tenderness. EXTREMITIES: 2+ pulses, warm, well-perfused. No calf tenderness. No peripheral edema. LLE wrapped NEUROLOGICAL: Cranial nerves II-XII intact. Normal speech. PSYCHIATRIC: Cooperative. Good eye contact. Appropriate mood and affect. SKIN: Warm, dry, normal turgor, RLE 5th Toe discoloration ASSESSMENT AND PLAN: 79 y.o M with h/o PAD, COPD on home O2, remote LLE DVT , Colorectal Ca (in remission for 20 years, sp colectomy ), BPH, recent admission for L big toe pain with w/u including atherosclerotic plaque in aorta, 3.8 cm abdominal aortic aneurysm, who Presents for worsening L big toe and forefoot pain. Shortness of breath: Resolved Baseline on 2L at home L Toe Gangrene s/p amputation pathology reports appear to have clear margins Complete Levaquin x 4 additional days upon discharge Urinary retention: s/p TURP CBI Discontinued Discharge with Cunningham and urology follow up RLE pain, with dark R. 5th Toe Needs outpatient follow up with [facility] PRN Oxycodone Hx of LLE DVT Restart Ac as per Urology recs starting Sunday Rest of plan as per resident note
--- NOTE | 2020-02-20 15:36 | DS ---
Physical Exam: SUBJECTIVE: Patient seen and examined at bedside. No acute events overnight. This morning patient is complaining of b/l leg pain. OBJECTIVE: Vital Signs Period Temp Pulse Resp BP Sys/Valdes Pulse Ox Last 24 Hr 98.4 F-99.1 F 85-90 20-20 103-110/58-66 99-100 PHYSICAL EXAM GENERAL: AAOx3, in no acute distress HEENT: NCAT, PERRLA, EOMI, sclera anicteric, conjunctiva clear, oropharynx clear w/o exudates. MMM. NECK: Normal ROM, supple, no lymphadenopathy, JVD, or masses LUNGS: CTABL no wheezes/ rhonchi/ rales. No distress, speaks in full sentences. No increased work of breathing. HEART: RRR, normal S1 S2, no M/R/G, peripheral pulses 2+ and equal b/l ABDOMEN: Soft, nondistended, tenderness to palpation above pubic symphysis, + BS. No guarding or rebound. No hepatomegaly or splenomegaly. MSK: ROM WNL EXTREMITIES: Normal inspection. No peripheral edema. No clubbing or cyanosis. NEUROLOGICAL: CN II-XII intact. Normal speech, normal gait, no focal sensorimotor deficits. SKIN: Left lower foot wrapped in dressing. mild duskiness to the fifth digit LABS Laboratory Results - last 24 hr CBC, BMP 02/20/20 07:35 02/20/20 07:35 02/20/20 02/20/20 07:35 07:35 WBC 8.1 RBC 2.51 L Hgb 7.8 L Hct 23.8 L D MCV 94.7 MCH 30.9 MCHC 32.6 RDW 16.5 H Plt Count 328 MPV 7.7 Absolute Neuts (auto) 5.4 Neutrophils % 66.1 Lymphocytes % 14.8 Monocytes % 7.9 Eosinophils % 10.7 H D Basophils % 0.5 Nucleated RBC % 0 Sodium 142 Potassium 4.3 Chloride 107 Carbon Dioxide 29 Anion Gap 6 L BUN 18.0 Creatinine 0.7 Est GFR (CKD-EPI)AfAm 104.76 Est GFR (CKD-EPI)NonAf 90.39 Random Glucose 81 Calcium 8.6 Total Bilirubin 0.5 Direct Bilirubin 0.1 AST 80 H ALT 107 H Alkaline Phosphatase 65 Total Protein 5.4 L Albumin 2.0 L HOSPITAL COURSE: 79M with PMH of COPD (2LNC), DVT LLE (on xarelto), BPH, colon ca (20 years ago). Presented to ER with increasing left foot pain and swelling over last few weeks. Admitted to hospital for soft tissue ischemia of L foot. Vascular surgeon was consulted (Dr. Valdez) who did an Angio L foot on 02/05 which showed all vessels open, small vessel disease in foot at toes, no need for any intervention. Podiatry was consulted and a left hallux amputation was done on 02/[address] Prado. Wound cultures grew pseudomonas and patient was treated with IV zosyn. A LLE Duplex study done during the patient's hospital stay was negative for DVT. Patient had issues with urinary retention during his hospital stay and was consulted by urology who performed a cysto TURP. Patient had a CBI in place which was removed on 02/19. Patient is to follow up with urologist Dr. Pyle on 02/24/2020. Patient also complained of right foot pain and it seemed that his right pinky toe became more dusky during his hospital stay. Podiatry did not recommend any acute intervention and recommended outpatient follow up instead. Patient also spiked fevers of unknown origin during his stay which responded to Tylenol PRN. Jimeneztent also had a macrocytic anemia during his stay which was most likely due to chonic disease. Patient was scheduled for a colonoscopy with Dr. Mott but the patient denied the procedure. Patient was on 2L O2 NC throughout his stay and was on his home inhalers. Received Heparin SQ as DVT prophylaxis throughout his stay. Patient was discharged to a longterm facility with oxycodone 5 mg and Levaquin 750 mg PO Q48H. Date of Admission:02/03/20 02/03/2020-sinus tachycardia. biatrial enlargement. septal infarct, age undetermined. 02/03/2020- Chest X-ray- No acute chest pathology. No change of an adverse nature since prior exam. 02/03/2020- foot x-ray-No acute pathology appreciated. Loss of bone density. Degenerative changes. No sign of gross osteomyelitis. Suggest three-phase bone scan or MR for more complete evaluation. 02/11/2020- Duplex u/s leg-There is no evidence of deep venous thrombosis in the left lower extremity. 02/12/2020- chest x-ray-No acute chest pathology. Clear lungs. 02/12/2020-foot x-ray-Since 02/03/2020 the patient has undergone amputation of the great toe with the majority of the first metatarsal remaining. There is soft tissue air, swelling and bandage artifact. The remainder the study is unchanged. Correlation recommended. The imaging is available for review. 02/15/2020- bladder u/s -No evidence of hydronephrosis Enlarged heterogeneous prostate Workman catheter noted 02/15/2020- renal u/s -No evidence of hydronephrosis Enlarged heterogeneous prostate Workman catheter noted 02/18/2020- chest b-uou-Wuvceb view of the chest reveals clear well aerated lungs, sharp angles, fluid in the horizontal fissure, sclerotic knob, prominent right hilar markings and normal heart. The bones and soft tissues are intact. There are some degenerative changes. Since 02/12/2020 and 02/03/2020 the prominent hilar markings on the right have become more apparent. Date of Discharge: 02/20/20 Minutes to complete discharge: 36 Discharge Summary Problems reviewed: Yes Reason For Visit: WOUND OF FOOT PREOPERATIVE TESTING Current Active Problems Anemia (Acute) Toe ulcer (Acute) Condition: Stable - Instructions Diet, Activity, Other Instructions: Your visit: You were admitted to the hospital for leg pain. You were found to have gangrene of your left big toe and inflammation of your prostate. You were treated with antibiotics and surgery with improvement of your symptoms. -During your stay we did imaging of your bladder which showed thickening of your bladder. Please follow up with your Primary Care Provider about this. -During your stay, we did imaging of your heart, which showed an abnormal heart rhythm. Please follow up with your Primary Care Provider about this. Medications changes: -Please stop taking your blood thinner Xarelto until SUNDAY. You can RESTART your blood thinner XARELTO on Sunday02/23/2020 -For pain, please take 1 pill of Oxycodone 5 mg every 6 HOURS for 10 DAYS. -Please take the antibiotic, Levoquin 750 mg on this upcoming Wednesday 02/21 and on next Friday 02/23. Please drink lots of water when taking this medication. -Continue to take all other home medications as prescribed. Follow up: - Please follow up with your Urologist, Dr. Pyle on FRIDAY 02/23 at 12PM to remove your workman catheter. ([phone]). -Please follow-up with your [employer], Dr. Prado in 1 week. -Please follow-up with your Vascular Surgeon, Dr. Valdez in 1 week -Visit with your Primary Care Provider, Dr. Flood in 2 weeks. Additional Instructions: -You are being discharged to your home. -Please return to the Emergency Department if you experience worsening pain, fevers, chills, shortness of breath, or chest pain, or if you experience any worsening, new or concerning symptoms. Referrals: Naun Prado MD [Staff Physician] - Karin Flood MD [Primary Care Provider] - Van Valdez DO [Staff Physician] - Mely Pyle MD [Staff Physician] - Disposition: HOME - Home Medications Comprehensive Discharge Medication List: Ambulatory Orders Budesonide/Formeterol Fumarate [SYMBICORT 160/4.5mcg -] 1 inh PO BID 05/29/19 Rivaroxaban [Xarelto] 15 mg PO BID 05/29/19 Ipratropium/Albuterol Sulfate [Combivent Respimat 20-100 Mcg] 2 inh IN BID 01/02/20 Tamsulosin HCl 0.4 mg PO DAILY 01/02/20 Montelukast Sodium [Singulair] 10 mg PO DAILY 02/04/20 Primidone [Mysoline -] 100 mg PO DAILY 02/04/20 Oxycodone HCl 5 mg PO Q6H PRN #16 capsule MDD 20 02/20/20 levoFLOXacin [Levaquin] 750 mg PO Q48H 4 Days #2 tab 02/20/20 - Discharge Referral Referred to [facility] Med P.C.: No Physician Referral: Van Valdez DO ([facility]) ATTENDING PHYSICIAN STATEMENT I saw and evaluated the patient. I reviewed the resident's note and discussed the case with the resident. I agree with the resident's findings and plan as documented. SUBJECTIVE: OBJECTIVE: ASSESSMENT AND PLAN:
--- NOTE | 2020-02-20 15:43 | PN ---
Physical Exam: SUBJECTIVE: Patient seen and examined at bedside. No acute events overnight. Today, the patient is continuing to complain of b/l leg pain. OBJECTIVE: Vital Signs Period Temp Pulse Resp BP Sys/Valdes Pulse Ox Last 24 Hr 98.4 F-99.1 F 85-90 20-20 103-110/58-66 99-100 GENERAL: The patient is awake, alert, and fully oriented, in no acute distress. GENERAL: AAOx3, in no acute distress HEENT: NCAT, PERRLA, EOMI, sclera anicteric, conjunctiva clear, oropharynx clear w/o exudates. MMM. NECK: Normal ROM, supple, no lymphadenopathy, JVD, or masses LUNGS: CTABL no wheezes/ rhonchi/ rales. No distress, speaks in full sentences. No increased work of breathing. HEART: RRR, normal S1 S2, no M/R/G, peripheral pulses 2+ and equal b/l ABDOMEN: Soft, nondistended, tenderness to palpation above pubic symphysis, + BS. No guarding or rebound. No hepatomegaly or splenomegaly. MSK: ROM WNL EXTREMITIES: Normal inspection. No peripheral edema. No clubbing or cyanosis. NEUROLOGICAL: CN II-XII intact. Normal speech, normal gait, no focal sensorimotor deficits. SKIN: Left lower foot wrapped in dressing. mild duskiness to the fifth digit Laboratory Results - last 24 hr CBC, [facility] 02/20/20 07:35 02/20/20 07:35 02/20/20 02/20/20 07:35 07:35 WBC 8.1 RBC 2.51 L Hgb 7.8 L Hct 23.8 L D MCV 94.7 MCH 30.9 MCHC 32.6 RDW 16.5 H Plt Count 328 MPV 7.7 Absolute Neuts (auto) 5.4 Neutrophils % 66.1 Lymphocytes % 14.8 Monocytes % 7.9 Eosinophils % 10.7 H D Basophils % 0.5 Nucleated RBC % 0 Sodium 142 Potassium 4.3 Chloride 107 Carbon Dioxide 29 Anion Gap 6 L BUN 18.0 Creatinine 0.7 Est GFR (CKD-EPI)AfAm 104.76 Est GFR (CKD-EPI)NonAf 90.39 Random Glucose 81 Calcium 8.6 Total Bilirubin 0.5 Direct Bilirubin 0.1 AST 80 H ALT 107 H Alkaline Phosphatase 65 Total Protein 5.4 L Albumin 2.0 L Active Medications Generic Name Dose Route Start Last Admin Trade Name Freq PRN Reason Stop Dose Admin Acetaminophen 650 mg 02/18/20 15:24 02/18/20 21:20 Tylenol - PO 650 mg Q6H PRN Administration FEVER Albuterol Sulfate 2 puff 02/18/20 15:24 Ventolin Hfa Inhaler - IH Q4H PRN SHORT OF BREATH/WHEEZING Albuterol/Ipratropium 1 amp 02/18/20 15:42 02/19/20 15:40 Duoneb - NEB 1 amp Q4H PRN Administration SHORTNESS OF BREATH Amino Acids 30 ml 02/18/20 17:30 02/20/20 11:04 Prosource No Carb Liquid Pkt PO 30 ml BID@0800,1730 BRANDY Administration Atorvastatin Calcium 20 mg 02/18/20 22:00 02/19/20 21:23 Lipitor - PO 20 mg HS BRANDY Administration Budesonide/Formoterol Fumarate 1 puff 02/18/20 22:00 02/20/20 11:07 Symbicort 160/4.5mcg - IH 1 puff BID BRANDY Administration Docusate Sodium 100 mg 02/18/20 22:00 02/20/20 11:09 Colace - PO Not Given BID BRANDY Levofloxacin 750 mg 02/20/20 06:00 02/20/20 05:19 Levaquin PO 750 mg Q48H BRANDY Administration Montelukast Sodium 10 mg 02/18/20 22:00 02/19/20 21:23 Singulair - PO 10 mg HS BRANDY Administration Multivitamins/Minerals 15 ml 02/19/20 10:00 02/20/20 11:04 Certavite-Antioxidant Liquid PO 15 ml DAILY BRANDY Administration Polyethylene Glycol 17 gm 02/18/20 22:00 02/20/20 11:09 Miralax (For Daily Use) - PO Not Given BID BRANDY Polysaccharide Iron Complex 150 mg 02/19/20 10:00 02/20/20 11:03 Niferex-150 - PO 150 mg DAILY BRANDY Administration Primidone 25 mg 02/19/20 10:00 02/20/20 11:04 Mysoline - PO 25 mg DAILY BRANDY Administration Tamsulosin HCl 0.4 mg 02/19/20 08:30 02/20/20 11:04 Flomax - PO 0.4 mg DAILY@0830 BRANDY Administration Tiotropium [place] 2 puff 02/19/20 10:00 02/20/20 11:06 Spiriva Respimat IH 2 puff DAILY BRANDY Administration Tramadol HCl 50 mg 02/19/20 19:13 02/20/20 06:30 Ultram - PO 50 mg Q8H PRN Administration Pain Level 5-10 ASSESSMENT/PLAN: 79M with PMH of COPD (2LNC), DVT LLE (on xarelto), BPH, colon ca (20 years ago). Presented to ER with increasing left foot pain and swelling over last few weeks. Admitted to hospital for soft tissue ischemia of L foot. #L big toe dry gangrene , possible small vessel disease. angio with no big vesse l disease - Vascular consulted (Dr. Valdez) - s/p Angio L foot 02/05: all vessels open, small vessel disease in foot at toes, no need for any intervention. - Podiatry: left hallux amputation done 02/[address] Prado - Tylenol PRN for pain - oxycodone Q4hr PRN for pain - LLE Duplex- negative for DVT - ID-can start oral Levaquin for 3-4 days #Urinary Retention -Urology: s/p day 2 cysto TURP -CBI removed this morning -workman in place from the OR on 02/17 #R Pinky toe pain -patient has duskiness of the right pinky toe -Dr. Prado examined the foot and states that it can be monitored outpt -No acute intervention required at this time #Fever of Unknown Origin -Tylenol PRN for fever #Anemia: Macrocytic - GI: Anemia is due to chronic disease/no acute bleed - Heme: consider venofir 200 mg doses every other day for 5 doses total - Patient was scheduled for a colonoscopy inpatient but refused the procedure #COPD: - continue 2L O2 NC - continue home inhalers #FEN -no standing fluids -replete electrolyte PRN -resume regular diet -workman placed in the OR on 02/18/2020 #Prophylaxis - Heparin SQ #Dispo - Monitor in M/S Visit type - Emergency Visit Emergency Visit: No - New Patient This patient is new to me today: No - Critical Care Critical Care patient: No - Medication Review Med list reviewed for High Risk Meds patients 65 and older: Yes ATTENDING PHYSICIAN STATEMENT I saw and evaluated the patient. I reviewed the resident's note and discussed the case with the resident. I agree with the resident's findings and plan as documented. SUBJECTIVE: OBJECTIVE: ASSESSMENT AND PLAN:
--- NOTE | 2020-02-20 17:48 | PN ---
DATE OF VISIT: DATE OF DICTATION: 02/20/2020 The patient is a 79-year-old male who underwent a TURP on February 16, and had a benign and uneventful procedure. A Cunningham catheter with continuous bladder irrigation was inserted. The patient presently is comfortable. His abdomen is soft. The Cunningham with the bladder irrigation appears pinkish. There are no clots. The patients vital signs are stable with a temperature of 99.1, a blood pressure of 106/60, pulse oximetry 100%. His white count is 8.1, hemoglobin and hematocrit was 7.8 over 23.6. BUN and creatinine are 18/0.7. INR is 1.08. IMPRESSION: Benign and uneventful postoperative course. Will . Clamp the third arm of the Cunningham, attach Cunningham to the leg bag, and encourage p.o. fluids. We will follow with you. NATHAN ROY M.D. [id number]
[2020-02-20] MEDS: oxyCODONE HCL 5 MG TABLET PO PRN (18:09)
[2020-02-20] MEDS: MONTELUKAST NA 10 MG TABLET PO SCH (21:45)
[2020-02-20] MEDS: ATORVASTATIN CA 20 MG TABLET (FP) PO SCH (21:45)
[2020-02-21] MEDS: AMINO ACIDS/PROTEIN HYDROLYS 30 ML LIQUID.PKT PO SCH ×2 (08:06→17:50)
[2020-02-21] MEDS: TAMSULOSIN HCL 0.4 MG CAP PO SCH (08:06)
[2020-02-21 08:33] LABS: BASO % 0.9 % (0-2.0); EOS % 11.6 % (0-4.5); HEMATOCRIT 24.5 % (35.4-49); LYMPH % 17.7 % (8-40); MCH 31.5 pg (25.7-33.7); MCHC 32.7 g/dl (32.0-35.9); MEAN CELL VOLUME 96.3 fl (80-96); MEAN PLT VOLUME 7.7 fl (7.5-11.1); NEUT % 61.8 % (42.8-82.8); PLATELET COUNT 357 K/MM3 (134-434); RBC 2.54 M/mm3 (4.00-5.60); RDW 16.8 % (11.9-15.9); WHITE BLOOD COUNT 6.1 K/mm3 (4.0-10.0)
[2020-02-21 09:00] LABS: BLOOD UREA NITROGEN 20.6 mg/dL (7-18); CALCIUM 8.6 mg/dL (8.5-10.1); CREATININE 0.8 mg/dL (0.55-1.3); POTASSIUM 4.3 mmol/L (3.5-5.1)
[2020-02-21] MEDS ORDERED: PT OWN MED DRAWER 7, Y5N ONE (09:30)
[2020-02-21] MEDS: MULTIVIT-MINERALS ORAL LIQUID PO SCH (09:30)
[2020-02-21] MEDS: DOCUSATE SODIUM 100 MG CAPSULE (FP) PO SCH ×2 (09:30→21:15)
[2020-02-21] MEDS: IRON POLYSACCHARIDES 150 MG CAPSULE PO SCH (09:30)
[2020-02-21] MEDS: PRIMIDONE 50 MG TABLET PO SCH (09:30)
[2020-02-21] MEDS: TIOTROPIUM BROMIDE 2.5 MCG (SPIRIVA) RESPIMAT INHALER IH SCH (09:31)
[2020-02-21] MEDS: POLYETHYLENE GLYCOL 3350 119 GM BTL PO SCH ×2 (09:31→21:15)
[2020-02-21] MEDS: BUDESONIDE/FORMETEROL FUMARATE 160/4.5 mcg INHALER IH SCH ×2 (09:31→21:14)
[2020-02-21] MEDS: oxyCODONE HCL 5 MG TABLET PO PRN ×2 (09:35→21:12)
--- NOTE | 2020-02-21 11:39 | PN ---
Progress Note, Physician History of Present Illness: stable no new issues post op - Current Medication List Current Medications: Active Medications Acetaminophen (Tylenol -) 650 mg PO Q6H PRN PRN Reason: FEVER Last Admin: 02/18/20 21:20 Dose: 650 mg Documented by: Albuterol Sulfate (Ventolin Hfa Inhaler -) 2 puff IH Q4H PRN PRN Reason: SHORT OF BREATH/WHEEZING Albuterol/Ipratropium (Duoneb -) 1 amp NEB Q4H PRN PRN Reason: SHORTNESS OF BREATH Last Admin: 02/19/20 15:40 Dose: 1 amp Documented by: Amino Acids (Prosource No Carb Liquid Pkt) 30 ml PO BID@0800,1730 [facility] Last Admin: 02/21/20 08:06 Dose: 30 ml Documented by: Atorvastatin Calcium (Lipitor -) 20 mg PO [facility] Last Admin: 02/20/20 21:45 Dose: 20 mg Documented by: Budesonide/Formoterol Fumarate (Symbicort 160/4.5mcg -) 1 puff IH BID [facility] Last Admin: 02/21/20 09:31 Dose: 1 puff Documented by: Docusate Sodium (Colace -) 100 mg PO BID [facility] Last Admin: 02/21/20 09:30 Dose: 100 mg Documented by: Levofloxacin (Levaquin) 750 mg PO Q48H [facility] Last Admin: 02/20/20 05:19 Dose: 750 mg Documented by: Montelukast Sodium (Singulair -) 10 mg PO [facility] Last Admin: 02/20/20 21:45 Dose: 10 mg Documented by: Multivitamins/Minerals (Certavite-Antioxidant Liquid) 15 ml PO DAILY [facility] Last Admin: 02/21/20 09:30 Dose: 15 ml Documented by: Oxycodone HCl (Roxicodone -) 5 mg PO Q6H PRN PRN Reason: PAIN LEVEL 6-10 Last Admin: 02/21/20 09:35 Dose: 5 mg Documented by: Polyethylene Glycol (Miralax (For Daily Use) -) 17 gm PO BID [facility] Last Admin: 02/21/20 09:31 Dose: 17 gm Documented by: Polysaccharide Iron Complex (Niferex-150 -) 150 mg PO DAILY [facility] Last Admin: 02/21/20 09:30 Dose: 150 mg Documented by: Primidone (Mysoline -) 25 mg PO DAILY [facility] Last Admin: 02/21/20 09:30 Dose: 25 mg Documented by: Tamsulosin HCl (Flomax -) 0.4 mg PO DAILY@0830 [facility] Last Admin: 02/21/20 08:06 Dose: 0.4 mg Documented by: Tiotropium [place] (Spiriva Respimat) 2 puff IH DAILY [facility] Last Admin: 02/21/20 09:31 Dose: 2 puff Documented by: Tramadol HCl (Ultram -) 50 mg PO Q8H PRN PRN Reason: Pain Level 5-10 Last Admin: 02/20/20 06:30 Dose: 50 mg Documented by: - Objective Vital Signs: Vital Signs Temperature 98.2 F 02/21/20 10:00 Pulse Rate 88 02/21/20 10:00 Respiratory Rate 20 02/21/20 10:00 Blood Pressure 92/52 L 02/21/20 10:00 O2 Sat by Pulse Oximetry (%) 100 02/21/20 10:00 Constitutional: Yes: No Distress, Calm Cardiovascular: Yes: S1, S2 Respiratory: Yes: Regular, CTA Bilaterally Musculoskeletal: Yes: WNL Extremities: Yes: Other Neurological: Yes: Alert, Oriented Psychiatric: Yes: Alert, Oriented Labs: CBC, BMP 02/21/20 07:55 02/21/20 07:55 INR, PTT INR 1.08 (0.83-1.09) 02/18/20 07:10 Assessment/Plan 79 yo male with PMHx asthma and COPD (home 2L NC), DVT LLE (on xarelto), & BPH, and hx of colon cancer (20 years ago) and 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 Presented to ED with increasing left foot pain and swelling over last few weeks. Admitted to hospital for soft tissue infection and r/o ischemia of L foot. gangrene of the toe anemia copd pvd bph plan when ready patient can be switched to oral levaquin 3- 4 days
--- NOTE | 2020-02-21 12:58 | PN ---
Physical Exam: SUBJECTIVE: Patient seen and examined at bedside. No acute events reported overnight. OBJECTIVE: Vital Signs Period Temp Pulse Resp BP Sys/Valdes Pulse Ox Last 24 Hr 98.2 F-99.0 F 78-88 20-20 92-121/52-66 99-100 GENERAL: AAOx3, in no acute distress HEENT: NCAT, PERRLA, EOMI, sclera anicteric, conjunctiva clear, oropharynx clear w/o exudates. MMM. NECK: Normal ROM, supple, no lymphadenopathy, JVD, or masses LUNGS: CTABL no wheezes/ rhonchi/ rales. No distress, speaks in full sentences. No increased work of breathing. HEART: RRR, normal S1 S2, no M/R/G, peripheral pulses 2+ and equal b/l ABDOMEN: Soft, nondistended, tenderness to palpation above pubic symphysis, + BS. No guarding or rebound. No hepatomegaly or splenomegaly. MSK: ROM WNL EXTREMITIES: Normal inspection. No peripheral edema. No clubbing or cyanosis. NEUROLOGICAL: CN II-XII intact. Normal speech, normal gait, no focal sensor imotor deficits. SKIN: Left lower foot wrapped in dressing. mild duskiness to the fifth digit Laboratory Results - last 24 hr CBC, BMP 02/21/20 07:55 02/21/20 07:55 02/20/20 02/21/20 02/21/20 14:37 07:55 07:55 WBC 6.1 RBC 2.54 L Hgb 8.0 L Hct 24.5 L MCV 96.3 H MCH 31.5 MCHC 32.7 RDW 16.8 H Plt Count 357 MPV 7.7 Absolute Neuts (auto) 3.8 Neutrophils % 61.8 Lymphocytes % 17.7 Monocytes % 8.0 Eosinophils % 11.6 H Basophils % 0.9 Nucleated RBC % 0 Sodium 142 Potassium 4.3 Chloride 107 Carbon Dioxide 30 Anion Gap 5 L BUN 20.6 H Creatinine 0.8 Est GFR (CKD-EPI)AfAm 99.17 Est GFR (CKD-EPI)NonAf 85.56 Random Glucose 86 Calcium 8.6 COVID-19 (YANNICK) Not detected Active Medications Generic Name Dose Route Start Last Admin Trade Name Freq PRN Reason Stop Dose Admin Acetaminophen 650 mg 02/18/20 15:24 02/18/20 21:20 Tylenol - PO 650 mg Q6H PRN Administration FEVER Albuterol Sulfate 2 puff 02/18/20 15:24 Ventolin Hfa Inhaler - IH Q4H PRN SHORT OF BREATH/WHEEZING Albuterol/Ipratropium 1 amp 02/18/20 15:42 02/19/20 15:40 Duoneb - NEB 1 amp Q4H PRN Administration SHORTNESS OF BREATH Amino Acids 30 ml 02/18/20 17:30 02/21/20 08:06 Prosource No Carb Liquid Pkt PO 30 ml BID@0800,1730 BRANDY Administration Atorvastatin Calcium 20 mg 02/18/20 22:00 02/20/20 21:45 Lipitor - PO 20 mg HS BRANDY Administration Budesonide/Formoterol Fumarate 1 puff 02/18/20 22:00 02/21/20 09:31 Symbicort 160/4.5mcg - IH 1 puff BID BRANDY Administration Docusate Sodium 100 mg 02/18/20 22:00 02/21/20 09:30 Colace - PO 100 mg BID BRANDY Administration Levofloxacin 750 mg 02/20/20 06:00 02/20/20 05:19 Levaquin PO 750 mg Q48H BRANDY Administration Montelukast Sodium 10 mg 02/18/20 22:00 02/20/20 21:45 Singulair - PO 10 mg HS BRANDY Administration Multivitamins/Minerals 15 ml 02/19/20 10:00 02/21/20 09:30 Certavite-Antioxidant Liquid PO 15 ml DAILY BRANDY Administration Oxycodone HCl 5 mg 02/20/20 17:14 02/21/20 09:35 Roxicodone - PO 5 mg Q6H PRN Administration PAIN LEVEL 6-10 Polyethylene Glycol 17 gm 02/18/20 22:00 02/21/20 09:31 Miralax (For Daily Use) - PO 17 gm BID BRANDY Administration Polysaccharide Iron Complex 150 mg 02/19/20 10:00 02/21/20 09:30 Niferex-150 - PO 150 mg DAILY BRANDY Administration Primidone 25 mg 02/19/20 10:00 02/21/20 09:30 Mysoline - PO 25 mg DAILY BRANDY Administration Tamsulosin HCl 0.4 mg 02/19/20 08:30 02/21/20 08:06 Flomax - PO 0.4 mg DAILY@0830 BRANDY Administration Tiotropium [place] 2 puff 02/19/20 10:00 02/21/20 09:31 Spiriva Respimat IH 2 puff DAILY BRANDY Administration Tramadol HCl 50 mg 02/19/20 19:13 02/20/20 06:30 Ultram - PO 50 mg Q8H PRN Administration Pain Level 5-10 ASSESSMENT/PLAN: 79M with PMH of COPD (2LNC), DVT LLE (on xarelto), BPH, colon ca (20 years ago). Presented to ER with increasing left foot pain and swelling over last few weeks. Admitted to hospital for soft tissue ischemia of L foot. #L big toe dry gangrene , possible small vessel disease. angio with no big vessel disease - Vascular consulted (Dr. Valdez) - s/p Angio L foot 02/05: all vessels open, small vessel disease in foot at toes, no need for any intervention. - Podiatry: left hallux amputation done 02/[address] Prado - oxycodone Q4hr PRN for pain - LLE Duplex- negative for DVT - ID-can start oral Levaquin for 3-4 days #Urinary Retention -Urology: s/p day 3 cysto TURP -CBI removed this morning -workman in place from the OR on 02/17 -patient will be d/c with workman as per Dr. Pyle #R Pinky toe pain -patient has duskiness of the right pinky toe -Dr. Prado examined the foot and states that it can be monitored outpt -No acute intervention required at this time #Fever of Unknown Origin -Tylenol PRN for fever #Anemia: Macrocytic - GI: Anemia is due to chronic disease/no acute bleed - Heme: consider venofir 200 mg doses every other day for 5 doses total - Patient was scheduled for a colonoscopy inpatient but refused the procedure #COPD: - continue 2L O2 NC - continue home inhalers #FEN -no standing fluids -replete electrolyte PRN -resume regular diet -workman placed in the OR on 02/18/2020 #Prophylaxis - Heparin SQ #Dispo - Monitor in M/S Visit type - Emergency Visit Emergency Visit: No - New Patient This patient is new to me today: No - Critical Care Critical Care patient: No - Medication Review Med list reviewed for High Risk Meds patients 65 and older: Yes ATTENDING PHYSICIAN STATEMENT I saw and evaluated the patient. I reviewed the resident's note and discussed the case with the resident. I agree with the resident's findings and plan as documented. SUBJECTIVE: OBJECTIVE: ASSESSMENT AND PLAN:
--- NOTE | 2020-02-21 15:08 | PN ---
Teaching Attending Note Name of Resident: Justin Swift ATTENDING PHYSICIAN STATEMENT I saw and evaluated the patient. I reviewed the resident's note and discussed the case with the resident. I agree with the resident's findings and plan as documented. SUBJECTIVE: No new complaint comfortable OBJECTIVE: Vital Signs Period Temp Pulse Resp BP Sys/Valdes Pulse Ox Last 24 Hr 98.2 F-99.0 F 78-96 18-20 92-121/52-58 99-100 Patient is comfortable HEENT normal Neck supple no JVD Lungs clear no wheezing Abdomen nontender no organomegaly bowel sounds normal Extremities dressing in place and wound looks clean Neurologically he is alert awake oriented, nonfocal Skin no rash noted ASSESSMENT AND PLAN: 79M with PMH of COPD (2LNC), DVT LLE (on xarelto), BPH, colon ca (20 years ago). Presented to ER with increasing left foot pain and swelling over last few weeks. Admitted to hospital for soft tissue ischemia of L foot. #L big toe dry gangrene , possible small vessel disease. angio with no big vessel disease - Vascular consulted (Dr. Valdez) - s/p Angio L foot 02/05: all vessels open, small vessel disease in foot at toes, no need for any intervention. - Podiatry: left hallux amputation done 02/[address] Prado - oxycodone Q4hr PRN for pain - LLE Duplex- negative for DVT - ID-can start oral Levaquin for 3-4 days #Urinary Retention -Urology: s/p day 3 cysto TURP -CBI removed this morning -workman in place from the OR on 02/17 -patient will be d/c with workman as per Dr. Pyle #R Pinky toe pain -patient has duskiness of the right pinky toe -Dr. Prado examined the foot and states that it can be monitored outpt -No acute intervention required at this time #Fever of Unknown Origin -Tylenol PRN for fever #Anemia: Macrocytic - GI: Anemia is due to chronic disease/no acute bleed - Heme: consider venofir 200 mg doses every other day for 5 doses total - Patient was scheduled for a colonoscopy inpatient but refused the procedure #COPD: - continue 2L O2 NC - continue home inhalers #FEN -no standing fluids -replete electrolyte PRN -resume regular diet -workman placed in the OR on 02/18/2020 #Prophylaxis - Heparin SQ #Dispo - Monitor in M/S
[2020-02-21] MEDS: ATORVASTATIN CA 20 MG TABLET (FP) PO SCH (21:12)
[2020-02-21] MEDS: MONTELUKAST NA 10 MG TABLET PO SCH (21:12)
[2020-02-22] MEDS ORDERED: PT OWN MED DRAWER 7, Y5N ONE ×2 (06:16→09:40)
[2020-02-22] MEDS: levoFLOXacin 750 MG TABLET PO SCH (06:30)
[2020-02-22 07:56] LABS: BASO % 1.1 % (0-2.0); EOS % 10.6 % (0-4.5); HEMATOCRIT 25.6 % (35.4-49); HEMOGLOBIN 8.3 GM/dL (11.7-16.9); LYMPH % 19.9 % (8-40); MCH 31.3 pg (25.7-33.7); MCHC 32.6 g/dl (32.0-35.9); MEAN CELL VOLUME 96.1 fl (80-96); MEAN PLT VOLUME 7.7 fl (7.5-11.1); MONO % 6.9 % (3.8-10.2); NEUT % 61.5 % (42.8-82.8); PLATELET COUNT 387 K/MM3 (134-434); RBC 2.67 M/mm3 (4.00-5.60); RDW 16.8 % (11.9-15.9); WHITE BLOOD COUNT 6.4 K/mm3 (4.0-10.0)
[2020-02-22] MEDS: TAMSULOSIN HCL 0.4 MG CAP PO SCH (08:12)
[2020-02-22] MEDS: AMINO ACIDS/PROTEIN HYDROLYS 30 ML LIQUID.PKT PO SCH ×2 (08:12→17:09)
[2020-02-22 08:27] LABS: CALCIUM 8.7 mg/dL (8.5-10.1); CREATININE 0.8 mg/dL (0.55-1.3); POTASSIUM 4.4 mmol/L (3.5-5.1)
[2020-02-22] MEDS: PRIMIDONE 50 MG TABLET PO SCH (09:42)
[2020-02-22] MEDS: IRON POLYSACCHARIDES 150 MG CAPSULE PO SCH (09:42)
[2020-02-22] MEDS: POLYETHYLENE GLYCOL 3350 119 GM BTL PO SCH ×2 (09:42→22:20)
[2020-02-22] MEDS: oxyCODONE HCL 5 MG TABLET PO PRN ×2 (09:42→22:18)
[2020-02-22] MEDS: TIOTROPIUM BROMIDE 2.5 MCG (SPIRIVA) RESPIMAT INHALER IH SCH (09:42)
[2020-02-22] MEDS: DOCUSATE SODIUM 100 MG CAPSULE (FP) PO SCH ×2 (09:42→22:20)
[2020-02-22] MEDS: MULTIVIT-MINERALS ORAL LIQUID PO SCH (09:42)
[2020-02-22] MEDS: BUDESONIDE/FORMETEROL FUMARATE 160/4.5 mcg INHALER IH SCH ×2 (09:43→22:18)
--- NOTE | 2020-02-22 12:51 | PN ---
Physical Exam: SUBJECTIVE: Patient seen and examined No new complaints no shortness of breath no chest pain he is comfortable. OBJECTIVE: Vital Signs Period Temp Pulse Resp BP Sys/Valdes Pulse Ox Last 24 Hr 98.7 F-99.2 F 82-96 18-20 104-119/53-65 97-100 Patient is comfortable HEENT normal Neck supple no JVD Lungs clear no wheezing Abdomen nontender no organomegaly bowel sounds normal Extremities dressing in place and wound looks clean Neurologically he is alert awake oriented, nonfocal Skin no rash noted Laboratory Results - last 24 hr 02/22/20 02/22/20 06:40 06:40 WBC 6.4 RBC 2.67 L Hgb 8.3 L Hct 25.6 L MCV 96.1 H MCH 31.3 MCHC 32.6 RDW 16.8 H Plt Count 387 MPV 7.7 Absolute Neuts (auto) 3.9 Neutrophils % 61.5 Lymphocytes % 19.9 Monocytes % 6.9 Eosinophils % 10.6 H Basophils % 1.1 Nucleated RBC % 0 Sodium 141 Potassium 4.4 Chloride 106 Carbon Dioxide 31 Anion Gap 4 L BUN 21.0 H Creatinine 0.8 Est GFR (CKD-EPI)AfAm 99.17 Est GFR (CKD-EPI)NonAf 85.56 Random Glucose 95 Calcium 8.7 Active Medications Generic Name Dose Route Start Last Admin Trade Name Freq PRN Reason Stop Dose Admin Acetaminophen 650 mg 02/18/20 15:24 02/18/20 21:20 Tylenol - PO 650 mg Q6H PRN Administration FEVER Albuterol Sulfate 2 puff 02/18/20 15:24 Ventolin Hfa Inhaler - IH Q4H PRN SHORT OF BREATH/WHEEZING Albuterol/Ipratropium 1 amp 02/18/20 15:42 02/19/20 15:40 Duoneb - NEB 1 amp Q4H PRN Administration SHORTNESS OF BREATH Amino Acids 30 ml 02/18/20 17:30 02/22/20 08:12 Prosource No Carb Liquid Pkt PO 30 ml BID@0800,1730 BRANDY Administration Atorvastatin Calcium 20 mg 02/18/20 22:00 02/21/20 21:12 Lipitor - PO 20 mg HS BRANDY Administration Budesonide/Formoterol Fumarate 1 puff 02/18/20 22:00 02/22/20 09:43 Symbicort 160/4.5mcg - IH 1 puff BID [facility] Administration Docusate Sodium 100 mg 02/18/20 22:00 02/22/20 09:42 Colace - PO Not Given BID [facility] Levofloxacin 750 mg 02/20/20 06:00 02/22/20 06:30 Levaquin PO 750 mg Q48H BRANDY Administration Montelukast Sodium 10 mg 02/18/20 22:00 02/21/20 21:12 Singulair - PO 10 mg HS BRANDY Administration Multivitamins/Minerals 15 ml 02/19/20 10:00 02/22/20 09:42 Certavite-Antioxidant Liquid PO Not Given DAILY [facility] Oxycodone HCl 5 mg 02/20/20 17:14 02/22/20 09:42 Roxicodone - PO 5 mg Q6H PRN Administration PAIN LEVEL 6-10 Polyethylene Glycol 17 gm 02/18/20 22:00 02/22/20 09:42 Miralax (For Daily Use) - PO Not Given BID [facility] Polysaccharide Iron Complex 150 mg 02/19/20 10:00 02/22/20 09:42 Niferex-150 - PO 150 mg DAILY BRANDY Administration Primidone 25 mg 02/19/20 10:00 02/22/20 09:42 Mysoline - PO 25 mg DAILY BRANDY Administration Tamsulosin HCl 0.4 mg 02/19/20 08:30 02/22/20 08:12 Flomax - PO 0.4 mg DAILY@0830 BRANDY Administration Tiotropium [place] 2 puff 02/19/20 10:00 02/22/20 09:42 Spiriva Respimat IH 2 puff DAILY BRANDY Administration Tramadol HCl 50 mg 02/19/20 19:13 02/20/20 06:30 Ultram - PO 50 mg Q8H PRN Administration Pain Level 5-10 ASSESSMENT/PLAN: ASSESSMENT AND PLAN: 79M with PMH of COPD (2LNC), DVT LLE (on xarelto), BPH, colon ca (20 years ago). Presented to ER with increasing left foot pain and swelling over last few weeks. Admitted to hospital for soft tissue ischemia of L foot. #L big toe dry gangrene , possible small vessel disease. angio with no big vessel disease - Vascular consulted (Dr. Valdez) - s/p Angio L foot 02/05: all vessels open, small vessel disease in foot at toes, no need for any intervention. - Podiatry: left hallux amputation done 02/[address] Prado - oxycodone Q4hr PRN for pain - IV antibiotic, eventually he will go to [facility] #Urinary Retention -Urology: s/p day 3 cysto TURP -CBI removed this morning -workman in place from the OR on 02/17 -patient will be d/c with workman as per Dr. Pyle #R Pinky toe pain -patient has duskiness of the right pinky toe -Dr. Prado examined the foot and states that it can be monitored outpt -No acute intervention required at this time #Fever of Unknown Origin -Tylenol PRN for fever #Anemia: Macrocytic - GI: Anemia is due to chronic disease/no acute bleed - Heme: consider venofir 200 mg doses every other day for 5 doses total - Patient was scheduled for a colonoscopy inpatient but refused the procedure #COPD: - continue 2L O2 NC - continue home inhalers #FEN -no standing fluids -replete electrolyte PRN -resume regular diet -workman placed in the OR on 02/18/2020 #Prophylaxis - Heparin SQ #Dispo -He need to go for rehabilitation Visit type - Emergency Visit Emergency Visit: Yes ED Registration Date: 02/03/20 Care time: The patient presented to the Emergency Department on the above date and was hospitalized for further evaluation of their emergent condition. - New Patient This patient is new to me today: No - Critical Care Critical Care patient: No - Discharge Referral Referred to [facility] No - Medication Review Med list reviewed for High Risk Meds patients 65 and older: Yes
--- NOTE | 2020-02-22 14:49 | PN ---
Progress Note (short form) - Note Progress Note: Podiatry F/U: Seen/evaluated at bedside NAD. Patient states that he has slightly less pain to the left foot. Denies F/V/N/C/SOB/CP. AFebrile. S/p left hallux amputation for gangrene. KATI: L foot: Pedal pulses nonpalpable, TG wnl, CFT brisk to remaining digits. Surgical site with sutures coapted, mild maceration noted to periwound skin. No linnea dehiscence noted. No purulent drainage, no fluctuance, no streaking ascending cellulitis, no signs of active infection. Moderate tenderness to palpation. 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 DSD L foot 2. Partial WB L heel with surgical shoe 3. Plan for SNF for discharge 4. Will follow in wound healing center upon discharge. [phone] Juana Prado DPM
[2020-02-22] MEDS: MONTELUKAST NA 10 MG TABLET PO SCH (22:19)
[2020-02-22] MEDS: ATORVASTATIN CA 20 MG TABLET (FP) PO SCH (22:19)
[2020-02-23] MEDS ORDERED: PT OWN MED DRAWER 7, Y5N ONE ×2 (08:58→22:12)
[2020-02-23] MEDS: POLYETHYLENE GLYCOL 3350 119 GM BTL PO SCH ×2 (09:00→21:39)
[2020-02-23] MEDS: AMINO ACIDS/PROTEIN HYDROLYS 30 ML LIQUID.PKT PO SCH ×2 (09:00→17:36)
[2020-02-23] MEDS: MULTIVIT-MINERALS ORAL LIQUID PO SCH (09:00)
[2020-02-23] MEDS: PRIMIDONE 50 MG TABLET PO SCH (09:00)
[2020-02-23] MEDS: TAMSULOSIN HCL 0.4 MG CAP PO SCH (09:00)
[2020-02-23] MEDS: IRON POLYSACCHARIDES 150 MG CAPSULE PO SCH (09:00)
[2020-02-23] MEDS: DOCUSATE SODIUM 100 MG CAPSULE (FP) PO SCH ×2 (09:01→21:39)
[2020-02-23] MEDS: TIOTROPIUM BROMIDE 2.5 MCG (SPIRIVA) RESPIMAT INHALER IH SCH (09:01)
[2020-02-23] MEDS: BUDESONIDE/FORMETEROL FUMARATE 160/4.5 mcg INHALER IH SCH ×2 (09:01→21:40)
--- NOTE | 2020-02-23 10:10 | PN ---
Progress Note, Physician History of Present Illness: stable no new issues - Current Medication List Current Medications: Active Medications Acetaminophen (Tylenol -) 650 mg PO Q6H PRN PRN Reason: FEVER Last Admin: 02/18/20 21:20 Dose: 650 mg Documented by: Albuterol Sulfate (Ventolin Hfa Inhaler -) 2 puff IH Q4H PRN PRN Reason: SHORT OF BREATH/WHEEZING Albuterol/Ipratropium (Duoneb -) 1 amp NEB Q4H PRN PRN Reason: SHORTNESS OF BREATH Last Admin: 02/19/20 15:40 Dose: 1 amp Documented by: Amino Acids (Prosource No Carb Liquid Pkt) 30 ml PO BID@0800,1730 [facility] Last Admin: 02/23/20 09:00 Dose: 30 ml Documented by: Atorvastatin Calcium (Lipitor -) 20 mg PO [facility] Last Admin: 02/22/20 22:19 Dose: 20 mg Documented by: Budesonide/Formoterol Fumarate (Symbicort 160/4.5mcg -) 1 puff IH BID [facility] Last Admin: 02/23/20 09:01 Dose: 1 puff Documented by: Docusate Sodium (Colace -) 100 mg PO BID [facility] Last Admin: 02/23/20 09:01 Dose: Not Given Documented by: Levofloxacin (Levaquin) 750 mg PO Q48H [facility] Last Admin: 02/22/20 06:30 Dose: 750 mg Documented by: Montelukast Sodium (Singulair -) 10 mg PO [facility] Last Admin: 02/22/20 22:19 Dose: 10 mg Documented by: Multivitamins/Minerals (Certavite-Antioxidant Liquid) 15 ml PO DAILY [facility] Last Admin: 02/23/20 09:00 Dose: Not Given Documented by: Oxycodone HCl (Roxicodone -) 5 mg PO Q6H PRN PRN Reason: PAIN LEVEL 6-10 Last Admin: 02/22/20 22:18 Dose: 5 mg Documented by: Polyethylene Glycol (Miralax (For Daily Use) -) 17 gm PO BID [facility] Last Admin: 02/23/20 09:00 Dose: Not Given Documented by: Polysaccharide Iron Complex (Niferex-150 -) 150 mg PO DAILY [facility] Last Admin: 02/23/20 09:00 Dose: 150 mg Documented by: Primidone (Mysoline -) 25 mg PO DAILY [facility] Last Admin: 02/23/20 09:00 Dose: 25 mg Documented by: Tamsulosin HCl (Flomax -) 0.4 mg PO DAILY@0830 [facility] Last Admin: 02/23/20 09:00 Dose: 0.4 mg Documented by: Tiotropium [place] (Spiriva Respimat) 2 puff IH DAILY [facility] Last Admin: 02/23/20 09:01 Dose: 2 puff Documented by: - Objective Vital Signs: Vital Signs Temperature 98.2 F 02/23/20 06:00 Pulse Rate 79 02/23/20 06:00 Respiratory Rate 18 02/23/20 06:00 Blood Pressure 107/62 02/23/20 06:00 O2 Sat by Pulse Oximetry (%) 98 02/23/20 06:00 Constitutional: Yes: No Distress, Calm Neck: Yes: Supple, Trachea Midline Cardiovascular: Yes: Regular Rate and Rhythm Respiratory: Yes: Regular, CTA Bilaterally Gastrointestinal: Yes: Normal Bowel Sounds, Soft Genitourinary: Yes: Cunningham Present Musculoskeletal: Yes: WNL Extremities: Yes: Other Wound/Incision: Yes: Dressing Dry and Intact Neurological: Yes: Alert, Oriented Psychiatric: Yes: Alert, Oriented Labs: CBC, BMP 02/22/20 06:40 02/22/20 06:40 INR, PTT INR 1.08 (0.83-1.09) 02/18/20 07:10 Assessment/Plan 79 yo male with PMHx asthma and COPD (home 2L NC), DVT LLE (on xarelto), & BPH, and hx of colon cancer (20 years ago) and 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 Presented to ED with increasing left foot pain and swelling over last few weeks. Admitted to hospital for soft tissue infection and r/o ischemia of L foot. gangrene of the toe anemia copd pvd bph plan continue current mgmt rest as per the team wound care
--- NOTE | 2020-02-23 11:27 | PN ---
Physical Exam: SUBJECTIVE: Patient seen and examined at bedside no acute events overnight; patient says he slept well; denies any pain is eating and drinking OK , patients dressing was changed yesterday by podiatry will no new concerns ; he denies any CP/SOB/NV OBJECTIVE: Vital Signs Period Temp Pulse Resp BP Sys/Valdes Pulse Ox Last 24 Hr 98.2 F-98.4 F 79-90 18-18 107-112/62-64 98-98 GENERAL: The patient is awake, alert, and fully oriented, in no acute distress. EYES:PEERLA: EOMI no scleral icterus NECK: no JVD; no lymphadenpathy. LUNGS: CTA B/L no rales rhonchi or wheezing HEART: Regular rate and rhythm, S1, S2 without murmur, rub or gallop. ABDOMEN: Soft, NT ND +BS in all 4 quadrants EXTREMITIES: 2+ pulses, warm, well-perfused, no edema, Left lower foot wrapped in dressing. mild duskiness to the fifth digit NEUROLOGICAL: Cranial nerves II through XII grossly intact. Normal speech, gait not observed. PSYCH: Normal mood, normal affect. Active Medications Generic Name Dose Route Start Last Admin Trade Name Freq PRN Reason Stop Dose Admin Acetaminophen 650 mg 02/18/20 15:24 02/18/20 21:20 Tylenol - PO 650 mg Q6H PRN Administration FEVER Albuterol Sulfate 2 puff 02/18/20 15:24 Ventolin Hfa Inhaler - IH Q4H PRN SHORT OF BREATH/WHEEZING Albuterol/Ipratropium 1 amp 02/18/20 15:42 02/19/20 15:40 Duoneb - NEB 1 amp Q4H PRN Administration SHORTNESS OF BREATH Amino Acids 30 ml 02/18/20 17:30 02/23/20 09:00 Prosource No Carb Liquid Pkt PO 30 ml BID@0800,1730 [facility] Administration Atorvastatin Calcium 20 mg 02/18/20 22:00 02/22/20 22:19 Lipitor - PO 20 mg HS [facility] Administration Budesonide/Formoterol Fumarate 1 puff 02/18/20 22:00 02/23/20 09:01 Symbicort 160/4.5mcg - IH 1 puff BID [facility] Administration Docusate Sodium 100 mg 02/18/20 22:00 02/23/20 09:01 Colace - PO Not Given BID [facility] Levofloxacin 750 mg 02/20/20 06:00 02/22/20 06:30 Levaquin PO 750 mg Q48H [facility] Administration Montelukast Sodium 10 mg 02/18/20 22:00 02/22/20 22:19 Singulair - PO 10 mg HS [facility] Administration Multivitamins/Minerals 15 ml 02/19/20 10:00 02/23/20 09:00 Certavite-Antioxidant Liquid PO Not Given DAILY [facility] Oxycodone HCl 5 mg 02/20/20 17:14 02/22/20 22:18 Roxicodone - PO 5 mg Q6H PRN Administration PAIN LEVEL 6-10 Polyethylene Glycol 17 gm 02/18/20 22:00 02/23/20 09:00 Miralax (For Daily Use) - PO Not Given BID [facility] Polysaccharide Iron Complex 150 mg 02/19/20 10:00 02/23/20 09:00 Niferex-150 - PO 150 mg DAILY [facility] Administration Primidone 25 mg 02/19/20 10:00 02/23/20 09:00 Mysoline - PO 25 mg DAILY [facility] Administration Tamsulosin HCl 0.4 mg 02/19/20 08:30 02/23/20 09:00 Flomax - PO 0.4 mg DAILY@0830 [facility] Administration Tiotropium [place] 2 puff 02/19/20 10:00 02/23/20 09:01 Spiriva Respimat IH 2 puff DAILY [facility] Administration ASSESSMENT/PLAN: 79M with PMH of COPD (2LNC), DVT LLE (on xarelto), BPH, colon ca (20 years ago). Presented to ER with increasing left foot pain and swelling over last few weeks. Admitted to hospital for soft tissue ischemia of L foot. #L big toe dry gangrene , possible small vessel disease. angio with no big vessel disease - Vascular consulted (Dr. Valdez) - s/p Angio L foot 02/05: all vessels open, small vessel disease in foot at toes, no need for any intervention. - Podiatry: left hallux amputation done 02/[address] Prado (dressing was changed yesterday by Dr Prado) - oxycodone Q4hr PRN for pain - LLE Duplex- negative for DVT - ID-can start oral Levaquin 750 q48 H for 3-4 days (started on 02/19) #Urinary Retention -Urology: s/p day 5 cysto TURP -CBI removed ON 02/20 -workman in place from the OR on 02/17 -patient will be d/c with workman as per Dr. Pyle #R Pinky toe pain -patient has duskiness of the right pinky toe -Dr. Prado examined the foot and states that it can be monitored outpt -No acute intervention required at this time #Fever of Unknown Origin -Tylenol PRN for fever #Anemia: Macrocytic - GI: Anemia is due to chronic disease/no acute bleed - Heme: consider venofir 200 mg doses every other day for 5 doses total #COPD: - continue 2L O2 NC - continue home inhalers #FEN -no standing fluids -replete electrolyte PRN -resume regular diet -workman placed in the OR on 02/18/2020 #Prophylaxis - Heparin SQ #Dispo - Monitor in M/S -accepted to rehab waiting for bed Problem List - Problems (1) Anemia Code(s): D64.9 - ANEMIA, UNSPECIFIED (2) Toe ulcer Code(s): L97.509 - NON-PRESSURE CHRONIC ULCER OTH PRT UNSP FOOT W UNSP SEVERITY Qualifiers: Laterality: left Non-pressure ulcer stage: unspecified non-pressure ulcer stage Qualified Code(s): L97.529 - Non-pressure chronic ulcer of other part of left foot with unspecified severity (3) Urinary retention due to benign prostatic hyperplasia Code(s): N40.1 - BENIGN PROSTATIC HYPERPLASIA WITH LOWER URINARY TRACT SYMP; R33.8 - OTHER RETENTION OF URINE Visit type - Emergency Visit Emergency Visit: Yes ED Registration Date: 02/03/20 Care time: The patient presented to the Emergency Department on the above date and was hospitalized for further evaluation of their emergent condition. - New Patient This patient is new to me today: Yes Date on this admission: 02/23/20 - Critical Care Critical Care patient: No - Medication Review Med list reviewed for High Risk Meds patients 65 and older: Yes ATTENDING PHYSICIAN STATEMENT I saw and evaluated the patient. I reviewed the resident's note and discussed the case with the resident. I agree with the resident's findings and plan as documented. SUBJECTIVE: OBJECTIVE: ASSESSMENT AND PLAN:
--- NOTE | 2020-02-23 12:12 | PN ---
Teaching Attending Note Name of Resident: Raisa Johnson ATTENDING PHYSICIAN STATEMENT I saw and evaluated the patient. I reviewed the resident's note and discussed the case with the resident. I agree with the resident's findings and plan as documented. SUBJECTIVE: OBJECTIVE: ASSESSMENT AND PLAN: 79 year old Male with a PMHx notable for COPD (on 2LNC), DVT LLE (on xarelto), BPH, colon ca (20 years ago). Presented to ER with increasing left foot pain and swelling over last few weeks. Admitted to hospital for soft tissue ischemia of Left foot. #Left big toe dry gangrene , possible small vessel disease. angio with no big vessel disease - Vascular consulted - s/p Angio L foot 02/05: unremarkable - Podiatry: left hallux amputation done 02/[address] Prado - IV antibiotic, eventually he will go to [facility] [place] #Urinary Retention -Urology: s/p day 5 cysto TURP -workman in place from the OR on 02/17 -patient will be d/c with workman as per Dr. Pyle #R Pinky toe pain -patient has duskiness of the right pinky toe -Dr. Prado examined the foot and states that it can be monitored outpt -No acute intervention required at this time #Anemia: Macrocytic - GI: Anemia is due to chronic disease/no acute bleed - Heme: consider venofir 200 mg doses every other day for 5 doses total - Patient was scheduled for a colonoscopy inpatient but refused the procedure #COPD: - continue 2L O2 NC - continue home inhalers #Prophylaxis - SCDs in the setting of anemia #Dispo -He need to go for rehabilitation: Awaiting bed
[2020-02-23] MEDS: MONTELUKAST NA 10 MG TABLET PO SCH (21:39)
[2020-02-23] MEDS: ATORVASTATIN CA 20 MG TABLET (FP) PO SCH (21:46)
[2020-02-23] MEDS: oxyCODONE HCL 5 MG TABLET PO PRN (22:14)
[2020-02-24] MEDS ORDERED: PT OWN MED DRAWER 7, Y5N ONE ×2 (05:11→10:30)
[2020-02-24] MEDS: levoFLOXacin 750 MG TABLET PO SCH (05:15)
[2020-02-24 08:22] LABS: HEMOGLOBIN 9.3 GM/dL (11.7-16.9); MCH 30.7 pg (25.7-33.7); MEAN CELL VOLUME 95.9 fl (80-96); MEAN PLT VOLUME 7.1 fl (7.5-11.1); PLATELET COUNT 454 K/MM3 (134-434); RBC 3.03 M/mm3 (4.00-5.60); RDW 16.6 % (11.9-15.9); WHITE BLOOD COUNT 6.9 K/mm3 (4.0-10.0)
[2020-02-24 08:38] LABS: ALBUMIN 2.5 g/dl (3.4-5.0); BILIRUBIN,TOTAL 0.3 mg/dL (0.2-1); BLOOD UREA NITROGEN 19.6 mg/dL (7-18); CALCIUM 8.8 mg/dL (8.5-10.1); CREATININE 0.8 mg/dL (0.55-1.3); MAGNESIUM 1.9 mg/dL (1.8-2.4); PHOSPHOROUS 3.3 mg/dL (2.5-4.9); POTASSIUM 4.8 mmol/L (3.5-5.1); TOT PROT 6.7 g/dl (6.4-8.2)
[2020-02-24] MEDS: TAMSULOSIN HCL 0.4 MG CAP PO SCH (09:25)
[2020-02-24] MEDS: AMINO ACIDS/PROTEIN HYDROLYS 30 ML LIQUID.PKT PO SCH (09:26)
[2020-02-24] MEDS ORDERED: ASPIRIN 81 MG CHEWABLE TABLETS PO SCH (10:00)
[2020-02-24] MEDS: IRON POLYSACCHARIDES 150 MG CAPSULE PO SCH (10:26)
[2020-02-24] MEDS: DOCUSATE SODIUM 100 MG CAPSULE (FP) PO SCH (10:26)
[2020-02-24] MEDS: MULTIVIT-MINERALS ORAL LIQUID PO SCH (10:27)
[2020-02-24] MEDS: POLYETHYLENE GLYCOL 3350 119 GM BTL PO SCH (10:29)
[2020-02-24] MEDS: PRIMIDONE 50 MG TABLET PO SCH (10:31)
[2020-02-24] MEDS: BUDESONIDE/FORMETEROL FUMARATE 160/4.5 mcg INHALER IH SCH (10:35)
[2020-02-24] MEDS: TIOTROPIUM BROMIDE 2.5 MCG (SPIRIVA) RESPIMAT INHALER IH SCH (10:35)
--- NOTE | 2020-02-24 11:17 | EKG ---
Test Reason : Blood Pressure : / mmHG Vent. Rate : 121 BPM Atrial Rate : 121 BPM P-R Int : 120 ms QRS Dur : 062 ms QT Int : 264 ms P-R-T Axes : 082 080 079 degrees QTc Int : 374 ms SINUS TACHYCARDIA BIATRIAL ENLARGEMENT ABNORMAL ECG WHEN COMPARED WITH ECG OF 03-FEB-2020 11:05, CRITERIA FOR SEPTAL INFARCT ARE NO LONGER PRESENT Confirmed by MD FLACO, TONY ([id number]) on 02/24/2020 11:16:43 AM Referred By: Confirmed By:TONY SAM MD
--- NOTE | 2020-02-24 11:41 | PN ---
Progress Note, Physician History of Present Illness: stable no new issues - Current Medication List Current Medications: Active Medications Acetaminophen (Tylenol -) 650 mg PO Q6H PRN PRN Reason: FEVER Last Admin: 02/18/20 21:20 Dose: 650 mg Documented by: Albuterol Sulfate (Ventolin Hfa Inhaler -) 2 puff IH Q4H PRN PRN Reason: SHORT OF BREATH/WHEEZING Amino Acids (Prosource No Carb Liquid Pkt) 30 ml PO BID@0800,1730 [facility] Last Admin: 02/24/20 09:26 Dose: 30 ml Documented by: Aspirin (Asa -) 81 mg PO DAILY [facility] Last Admin: 02/24/20 10:26 Dose: 81 mg Documented by: Atorvastatin Calcium (Lipitor -) 20 mg PO [facility] Last Admin: 02/23/20 21:46 Dose: 20 mg Documented by: Budesonide/Formoterol Fumarate (Symbicort 160/4.5mcg -) 1 puff IH BID [facility] Last Admin: 02/24/20 10:35 Dose: 1 puff Documented by: Docusate Sodium (Colace -) 100 mg PO BID [facility] Last Admin: 02/24/20 10:26 Dose: 100 mg Documented by: Montelukast Sodium (Singulair -) 10 mg PO [facility] Last Admin: 02/23/20 21:39 Dose: 10 mg Documented by: Multivitamins/Minerals (Certavite-Antioxidant Liquid) 15 ml PO DAILY [facility] Last Admin: 02/24/20 10:27 Dose: 15 ml Documented by: Oxycodone HCl (Roxicodone -) 5 mg PO Q6H PRN PRN Reason: PAIN LEVEL 6-10 Last Admin: 02/23/20 22:14 Dose: 5 mg Documented by: Polyethylene Glycol (Miralax (For Daily Use) -) 17 gm PO BID [facility] Last Admin: 02/24/20 10:29 Dose: Not Given Documented by: Polysaccharide Iron Complex (Niferex-150 -) 150 mg PO DAILY [facility] Last Admin: 02/24/20 10:26 Dose: 150 mg Documented by: Primidone (Mysoline -) 25 mg PO DAILY [facility] Last Admin: 02/24/20 10:31 Dose: 25 mg Documented by: Rivaroxaban (Xarelto) 10 mg PO DAILY@1800 [facility] Tamsulosin HCl (Flomax -) 0.4 mg PO DAILY@0830 [facility] Last Admin: 02/24/20 09:25 Dose: 0.4 mg Documented by: Tiotropium [place] (Spiriva Respimat) 2 puff IH DAILY [facility] Last Admin: 02/24/20 10:35 Dose: 2 puff Documented by: - Objective Vital Signs: Vital Signs Temperature 98.7 F 02/24/20 05:54 Pulse Rate 75 02/24/20 05:54 Respiratory Rate 20 02/24/20 05:54 Blood Pressure 96/50 L 02/24/20 05:54 O2 Sat by Pulse Oximetry (%) 70 L 02/24/20 05:54 Constitutional: Yes: No Distress, Calm Cardiovascular: Yes: S1, S2 Respiratory: Yes: Regular, CTA Bilaterally Gastrointestinal: Yes: Normal Bowel Sounds, Soft Genitourinary: Yes: Cunningham Present Musculoskeletal: Yes: WNL Extremities: Yes: Other Wound/Incision: Yes: Dressing Dry and Intact Neurological: Yes: Alert, Oriented Psychiatric: Yes: Alert, Oriented Labs: CBC, BMP 02/24/20 07:37 02/24/20 07:37 INR, PTT INR 1.08 (0.83-1.09) 02/18/20 07:10 Assessment/Plan 79 yo male with PMHx asthma and COPD (home 2L NC), DVT LLE (on xarelto), & BPH, and hx of colon cancer (20 years ago) and 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 Presented to ED with increasing left foot pain and swelling over last few weeks. Admitted to hospital for soft tissue infection and r/o ischemia of L foot. gangrene of the toe anemia copd pvd bph plan continue current mgmt rest as per the team wound care physio
[2020-02-24 13:06] VITALS: BP 88/66; PULSE 100; TEMP 98.5
--- NOTE | 2020-02-24 13:08 | DS ---
Physical Exam: SUBJECTIVE: Patient seen and examined at bedside. No acute events overnight. This morning patient is complaining of b/l leg pain. OBJECTIVE: Vital Signs Period Temp Pulse Resp BP Sys/Valdes Pulse Ox Last 24 Hr 98.3 F-98.8 F 75-100 20-20 88-104/50-66 97-100 PHYSICAL EXAM GENERAL: AAOx3, in no acute distress HEENT: NCAT, PERRLA, EOMI, sclera anicteric, conjunctiva clear, oropharynx clear w/o exudates. MMM. NECK: Normal ROM, supple, no lymphadenopathy, JVD, or masses LUNGS: CTABL no wheezes/ rhonchi/ rales. No distress, speaks in full sentences. No increased work of breathing. HEART: RRR, normal S1 S2, no M/R/G, peripheral pulses 2+ and equal b/l ABDOMEN: Soft, nondistended, tenderness to palpation above pubic symphysis, + BS. No guarding or rebound. No hepatomegaly or splenomegaly. MSK: ROM WNL EXTREMITIES: Normal inspection. No peripheral edema. No clubbing or cyanosis. NEUROLOGICAL: CN II-XII intact. Normal speech, normal gait, no focal sensorimotor deficits. SKIN: Left lower foot wrapped in dressing. mild duskiness to the fifth digit LABS Laboratory Results - last 24 hr CBC, BMP 02/24/20 07:37 02/24/20 07:37 02/24/20 02/24/20 07:37 07:37 WBC 6.9 RBC 3.03 L Hgb 9.3 L Hct 29.0 L MCV 95.9 MCH 30.7 MCHC 32.0 RDW 16.6 H Plt Count 454 H MPV 7.1 L Sodium 141 Potassium 4.8 Chloride 107 Carbon Dioxide 29 Anion Gap 5 L BUN 19.6 H Creatinine 0.8 Est GFR (CKD-EPI)AfAm 99.17 Est GFR (CKD-EPI)NonAf 85.56 Random Glucose 94 Calcium 8.8 Phosphorus 3.3 Magnesium 1.9 Total Bilirubin 0.3 AST 52 H ALT 121 H Alkaline Phosphatase 92 Total Protein 6.7 Albumin 2.5 L HOSPITAL COURSE: 79M with PMH of COPD (2LNC), DVT LLE (on xarelto), BPH, colon ca (20 years ago). Presented to ER with increasing left foot pain and swelling over last few weeks. Admitted to hospital for soft tissue ischemia of L foot. Vascular surgeon was consulted (Dr. Valdez) who did an Angio L foot on 02/05 which showed all vessels open, small vessel disease in foot at toes, no need for any intervention. Podiatry was consulted and a left hallux amputation was done on 02/[address] Prado. Wound cultures grew pseudomonas and patient was treated with IV zosyn. A LLE Duplex study done during the patient's hospital stay was negative for DVT. Patient had issues with urinary retention during his hospital stay and was consulted by urology who performed a cysto TURP. Patient had a CBI in place which was removed on 02/19. Patient is to follow up with urologist Dr. Pyle on 02/25/2020. Patient also complained of right foot pain and it seemed that his right pinky toe became more dusky during his hospital stay. Podiatry did not recommend any acute intervention and recommended outpatient follow up instead. Patient also spiked fevers of unknown origin during his stay which responded to Tylenol PRN. Sharift also had a macrocytic anemia during his stay which was most likely due to chonic disease. Patient was scheduled for a colonoscopy with Dr. Mott but the patient denied the procedure. Patient was on 2L O2 NC throughout his stay and was on his home inhalers. Received Heparin SQ as DVT prophylaxis throughout his stay. Patient [place] [facility] with oxycodone 5 mg. Date of Admission:02/03/20 02/03/2020-sinus tachycardia. biatrial enlargement. septal infarct, age undetermined. 02/03/2020- Chest X-ray- No acute chest pathology. No change of an adverse nature since prior exam. 02/03/2020- foot x-ray-No acute pathology appreciated. Loss of bone density. Degenerative changes. No sign of gross osteomyelitis. Suggest three-phase bone scan or MR for more complete evaluation. 02/11/2020- Duplex u/s leg-There is no evidence of deep venous thrombosis in the left lower extremity. 02/12/2020- chest x-ray-No acute chest pathology. Clear lungs. 02/12/2020-foot x-ray-Since 02/03/2020 the patient has undergone amputation of the great toe with the majority of the first metatarsal remaining. There is soft tissue air, swelling and bandage artifact. The remainder the study is unchanged. Correlation recommended. The imaging is available for review. 02/15/2020- bladder u/s -No evidence of hydronephrosis Enlarged heterogeneous prostate Workman catheter noted 02/15/2020- renal u/s -No evidence of hydronephrosis Enlarged heterogeneous prostate Workman catheter noted 02/18/2020- chest a-vfy-Mxieom view of the chest reveals clear well aerated lungs, sharp angles, fluid in the horizontal fissure, sclerotic knob, prominent right hilar markings and normal heart. The bones and soft tissues are intact. There are some degenerative changes. Since 02/12/2020 and 02/03/2020 the prominent hilar markings on the right have become more apparent. Date of Discharge: 02/24/20 Minutes to complete discharge: 36 Discharge Summary Problems reviewed: Yes Reason For Visit: WOUND OF FOOT PREOPERATIVE TESTING Current Active Problems Anemia (Acute) Toe ulcer (Acute) Condition: Stable - Instructions Diet, Activity, Other Instructions: Your visit: You were admitted to the hospital for leg pain. You were found to have gangrene of your left big toe and inflammation of your prostate. You were treated with antibiotics and surgery with improvement of your symptoms. -During your stay we did imaging of your bladder which showed thickening of your bladder. Please follow up with your Primary Care Provider about this. -During your stay, we did imaging of your heart, which showed an abnormal heart rhythm. Please follow up with your Primary Care Provider about this. Medications changes: -We lowered the dose of your blood thinner, Xarelto, to 10 MG tablet ONCE A DAY. -For pain, please take 1 pill of Oxycodone 5 mg every 6 HOURS for 10 DAYS. -Continue to take all other home medications as prescribed. Follow up: - Please follow up with your Urologist, Dr. Pyle on SATURDAY 02/24 at 12PM to remove your workman catheter. ([phone]). -Please follow-up with your Blanket Weaver, Dr. Prado in 1 week. -Please follow-up with your Vascular Surgeon, Dr. Valdez in 1 week -Visit with your Primary Care Provider, Dr. Flood in 2 weeks. Additional Instructions: -You are being discharged to your short term nursing facility. -Please return to the Emergency Department if you experience worsening pain, fevers, chills, shortness of breath, or chest pain, or if you experience any worsening, new or concerning symptoms. Referrals: Naun Prado MD [Staff Physician] - Karin Flood MD [Primary Care Provider] - Van Valdez DO [Staff Physician] - Mely Pyle MD [Staff Physician] - Disposition: HOME - Home Medications Comprehensive Discharge Medication List: Ambulatory Orders Budesonide/Formeterol Fumarate [SYMBICORT 160/4.5mcg -] 1 inh PO BID 05/29/19 Ipratropium/Albuterol Sulfate [Combivent Respimat 20-100 Mcg] 2 inh IN BID 01/02/20 Tamsulosin HCl 0.4 mg PO DAILY 01/02/20 Montelukast Sodium [Singulair] 10 mg PO DAILY 02/04/20 Primidone [Mysoline -] 100 mg PO DAILY 02/04/20 Oxycodone HCl 5 mg PO Q6H PRN #16 capsule MDD 20 02/20/20 Rivaroxaban [Xarelto] 10 mg PO DAILY@1800 30 Days #30 tablet 02/24/20 This patient is new to me today: No Emergency Visit: No Critical Care patient: No - Discharge Referral Referred to [facility] Med P.C[facility] No Physician Referral: Van Valdez DO ([facility]) ATTENDING PHYSICIAN STATEMENT I saw and evaluated the patient. I reviewed the resident's note and discussed the case with the resident. I agree with the resident's findings and plan as documented. SUBJECTIVE: OBJECTIVE: ASSESSMENT AND PLAN:
--- NOTE | 2020-02-24 15:01 | PATH ---
Surgical Pathology Report Patient Name: GEOFFREY GARCÍA Med. Rec. #: [id number] /Age/Gender: 1940 (Age: 79) / M Account: [id number] Location: [address] [place] [address]/[facility] Taken: 02/18/2020 Received: 02/18/2020 Reported: 02/24/2020 Physicians: Kari Kaiser M.D. Specimen(s) Received PROSTATE CHIPS Clinical History BPH, rule out prostate cancer Final Diagnosis PROSTATE, TRANSURETHRAL RESECTION AND VAPORIZATION OF PROSTATE: BENIGN PROSTATIC TISSUE WITH FOCAL ACUTE AND CHRONIC INFLAMMATION, ACINAR ATROPHY, CYSTIC CHANGES, GLANDULAR AND STROMAL HYPERPLASIA. BENIGN PROSTATIC UROTHELIUM WITH ACUTE AND CHRONIC INFLAMMATION. Comment: Immunohistochemical stain performed and interpreted at [facility] show p63 highlights basal cells. [facility] [place] [place] [id number] and interpreted at [facility] for p40 and CK5/6 highlights basal cells; while AMACR ([id number]) shows weak patchy staining. CD68 highlights few macrophages. The above findings support the diagnosis. Positive and negative controls (internal if applicable) show appropriate results. Electronically Signed Rosario Gurrola M.D. Gross Description Received in formalin labeled "prostate chips," is a 21 g, 10.5 x 9.0 x 0.7 cm aggregate of velazco, firm to rubbery portions of tissue, consistent with prostate chips. A mechanical service representative portion is submitted in 11 cassettes. /02/18/2020 saudi/02/18/2020
[2020-02-24] MEDS ORDERED: RIVAROXABAN 10 MG TABLET PO SCH (18:00)
--- NOTE | 2020-02-24 19:00 | PN ---
Teaching Attending Note Name of Resident: Justin Swift ATTENDING PHYSICIAN STATEMENT I saw and evaluated the patient. I reviewed the resident's note and discussed the case with the resident. I agree with the resident's findings and plan as documented. SUBJECTIVE: Patient is feeling better. going to rehab today OBJECTIVE: Vital Signs Temperature 98.5 F 02/24/20 10:50 Pulse Rate 100 H 02/24/20 10:50 Respiratory Rate 20 02/24/20 10:50 Blood Pressure 88/66 L 02/24/20 10:50 O2 Sat by Pulse Oximetry (%) 100 02/24/20 10:50 PE: per resident's note CBCD WBC 6.9 K/mm3 (4.0-10.0) 02/24/20 07:37 RBC 3.03 M/mm3 (4.00-5.60) L 02/24/20 07:37 Hgb 9.3 GM/dL (11.7-16.9) L 02/24/20 07:37 Hct 29.0 % (35.4-49) L 02/24/20 07:37 MCV 95.9 fl (80-96) 02/24/20 07:37 MCHC 32.0 g/dl (32.0-35.9) 02/24/20 07:37 RDW 16.6 % (11.9-15.9) H 02/24/20 07:37 Plt Count 454 K/MM3 (134-434) H 02/24/20 07:37 MPV 7.1 fl (7.5-11.1) L 02/24/20 07:37 CMP Sodium 141 mmol/L (136-145) 02/24/20 07:37 Potassium 4.8 mmol/L (3.5-5.1) 02/24/20 07:37 Chloride 107 mmol/L (98-107) 02/24/20 07:37 Carbon Dioxide 29 mmol/L (21-32) 02/24/20 07:37 Anion Gap 5 MMOL/L (8-16) L 02/24/20 07:37 BUN 19.6 mg/dL (7-18) H 02/24/20 07:37 Creatinine 0.8 mg/dL (0.55-1.3) 02/24/20 07:37 Random Glucose 94 mg/dL (74-106) 02/24/20 07:37 Calcium 8.8 mg/dL (8.5-10.1) 02/24/20 07:37 Total Bilirubin 0.3 mg/dL (0.2-1) 02/24/20 07:37 AST 52 U/L (15-37) H 02/24/20 07:37 ALT 121 U/L (13-61) H 02/24/20 07:37 Alkaline Phosphatase 92 U/L (45-117) 02/24/20 07:37 Total Protein 6.7 g/dl (6.4-8.2) 02/24/20 07:37 Albumin 2.5 g/dl (3.4-5.0) L 02/24/20 07:37 Home Medications Medication Instructions Recorded Budesonide/Formeterol Fumarate 1 inh PO BID 05/29/19 [SYMBICORT 160/4.5mcg -] Ipratropium/Albuterol Sulfate 2 inh IN BID 01/02/20 [Combivent Respimat 20-100 Mcg] Tamsulosin HCl 0.4 mg PO DAILY 01/02/20 Montelukast Sodium [Singulair] 10 mg PO DAILY 02/04/20 Primidone [Mysoline -] 100 mg PO DAILY 02/04/20 Oxycodone HCl 5 mg PO Q6H PRN #16 capsule MDD 20 02/20/20 Microbiology 02/11/20 18:15 Toe - Left Hallux Gram Stain - Final 02/11/20 18:15 Toe - Left Hallux Wound Culture - Final Pseudomonas Aeruginosa 02/13/20 12:42 Blood - Peripheral Venous Blood Culture - Final NO GROWTH AFTER 5 DAYS INCUBATION 02/13/20 12:42 Blood - Peripheral Venous Blood Culture - Final NO GROWTH AFTER 5 DAYS INCUBATION 02/14/20 08:06 Urine - Urine Clean Catch Urine Culture - Final NO GROWTH OBTAINED 02/03/20 11:30 Blood - Peripheral Venous Blood Culture - Final NO GROWTH AFTER 5 DAYS INCUBATION 02/03/20 11:15 Blood - Peripheral Venous Blood Culture - Final NO GROWTH AFTER 5 DAYS INCUBATION ASSESSMENT AND PLAN: This patient is a 79yom with PMhx of COPD (2LNC), DVT LLE (on xarelto but repeat US in the hospital ws negative for dVT) , BPH, colon ca (20 years ago). Presented to ER with increasing left foot pain and swelling over last few weeks. Admitted to hospital for soft tissue ischemia of L foot. #L big toe dry gangrene s/p angio with no big vessel disease s/p Angio L foot 02/05 - Podiatry: left hallux amputation done 02/[address] Prado (dressing was changed yesterday by Dr Prado) - oxycodone 5mg Q4hr PRN for pain, LLE Duplex- negative for DVT, ID-can start oral Levaquin 750 q48 H for 3-4 days (started on 02/19) #Urinary Retention : Urology: s/p day 6 cysto TURP, s/p CBI removed ON 02/20, dc patient on workman as per Dr bryson f/u with uro as an outpatient #Anemia: Macrocytic : patient refused colonoscopy , discussed with the patient , patient is a high risk for rectal bleed, will not send the patient out on xarelto discussed with Heme , only aspirin. my resident called the center and asked them to stop xarelto since the patient is a high risk for bleed and refusing colonoscopy. Heme: consider venofir 200 mg doses every other day for 5 doses total as an outpatient #COPD: continue 2L O2 NC , continue home inhalers dc to [facility] [place]
== END 2020-02-24 14:18 | disposition home or self-care (01) | DRG 240 ==
LOC: JER 10:15 → JERBED 17:43 → J6S 02-04 00:56
PROVIDERS: ADMIT Internal Medicine; ATTEND Internal Medicine
PROC: B41DZZZ Fluoroscopy of Aorta and Bilateral Lower Extremity Arteries (ICD-10-PCS; 2020-02-06)
PROC: B40GYZZ Plain Radiography of Left Lower Extremity Arteries using Other Contrast (ICD-10-PCS; 2020-02-10)
PROC: B40DYZZ Plain Radiography of Aorta and Bilateral Lower Extremity Arteries using Other Contrast (ICD-10-PCS; 2020-02-10)
PROC: 30233N1 Transfusion of Nonautologous Red Blood Cells into Peripheral Vein, Percutaneous Approach (ICD-10-PCS; 2020-02-10)
PROC: 0Y6N0Z9 Detachment at Left Foot, Partial 1st Ray, Open Approach (ICD-10-PCS; principal; 2020-02-11 17:00)
PROC: 0VT08ZZ Resection of Prostate, Via Natural or Artificial Opening Endoscopic (ICD-10-PCS; 2020-02-18)
PROC: 0V508ZZ Destruction of Prostate, Via Natural or Artificial Opening Endoscopic (ICD-10-PCS; 2020-02-18)
PROC: 0TJB8ZZ Inspection of Bladder, Via Natural or Artificial Opening Endoscopic (ICD-10-PCS; 2020-02-18)
DX: I73.9 Peripheral vascular disease, unspecified (principal); I96 Gangrene, not elsewhere classified; M86.172 Other acute osteomyelitis, left ankle and foot; N40.1 Benign prostatic hyperplasia with lower urinary tract symptoms; L97.529 Non-pressure chronic ulcer of other part of left foot with unspecified severity; J44.9 Chronic obstructive pulmonary disease, unspecified; Z85.038 Personal history of other malignant neoplasm of large intestine; E88.09 Other disorders of plasma-protein metabolism, not elsewhere classified; D50.0 Iron deficiency anemia secondary to blood loss (chronic); N13.9 Obstructive and reflux uropathy, unspecified; N32.89 Other specified disorders of bladder; R50.9 Fever, unspecified; R33.8 Other retention of urine; R31.9 Hematuria, unspecified
CPT/HCPCS: 36415; 36430; 71045-TC-FY; 73630-TC-LT; 76000-TC-FY; 76775-TC; 76856-TC; 80048; 80053; 80061; 80076; 82272; 82607; 82728; 82746; 82962; 83010; 83036; 83540; 83550; 83615; 83721; 83735; 84100; 85025; 85027; 85045; 85610; 85651; 85730; 86140; 86850; 86900; 86901; 86922; 87040; 87070; 87086; 87186; 87205; 88305-TC; 88311-TC; 93005; 93010; 93971-TC; 94640; 94760; 97116-GP; 97162-GP; 99285-25; G0463-25; J0131; J1644; P9058; U0003

== ENCOUNTER 2020-04-12 17:11 | Inpatient (IN) | payer OTHER ==
[2020-04-12 17:25] VITALS: BMI 16.5
[2020-04-12] MEDS ORDERED: CEFAZOLIN 1 GM in DEXTROSE 5%-WATER - 50 ML IVPB ONE (19:42)
[2020-04-12] MEDS ORDERED: oxyCODONE HCL 5 MG TABLET PO ONE (19:47)
[2020-04-12 20:28] LABS: HEMATOCRIT 37.4 % (35.4-49); HEMOGLOBIN 12.2 GM/dL (11.7-16.9); MCH 31.4 pg (25.7-33.7); MCHC 32.5 g/dl (32.0-35.9); MEAN CELL VOLUME 96.6 fl (80-96); MEAN PLT VOLUME 9.1 fl (7.5-11.1); PLATELET COUNT 257 K/MM3 (134-434); RBC 3.88 M/mm3 (4.00-5.60); RDW 17.8 % (11.9-15.9); WHITE BLOOD COUNT 6.5 K/mm3 (4.0-10.0)
[2020-04-12 20:36] LABS: INR 0.9 (0.83-1.09); PROTHROMBIN TIME (PATIENT) 11.1 SEC (9.7-13.0)
[2020-04-12] MEDS ORDERED: oxyCODONE HCL 5 MG TABLET ONE (20:59)
[2020-04-12] MEDS ORDERED: CEFAZOLIN 1 GM/D5W 1 GM/50 ML BAG ONE (20:59)
[2020-04-12 21:04] LABS: ACTIVATED PTT 18.1 SECONDS (25.2-36.5)
[2020-04-12 21:20] LABS: POTASSIUM 4.6 mmol/L (3.5-5.1)
[2020-04-12 21:22] LABS: CALCIUM 9.7 mg/dL (8.5-10.1)
[2020-04-12 21:23] LABS: ALBUMIN 3.9 g/dl (3.4-5.0); BLOOD UREA NITROGEN 21.8 mg/dL (7-18)
[2020-04-12 21:28] LABS: BILIRUBIN,TOTAL 0.2 mg/dL (0.2-1); TOT PROT 8.1 g/dl (6.4-8.2)
[2020-04-12] MEDS ORDERED: PIPERACILLIN/TAZOB 3.375 GM 3.375 GM in DEXTROSE 5%-WATER - 50 ML IVPB ONE (23:15)
[2020-04-12] MEDS ORDERED: PIPERACILLIN/TAZOB 3.375 GM 3.375 GM/50 ML BAG IVPB ONE (23:50)
[2020-04-13] MEDS: SODIUM CHLORIDE 1,000 ML IV SCH
[2020-04-13] MEDS ORDERED: PIPERACILLIN/TAZOB 3.375 GM 3.375 GM in DEXTROSE 5%-WATER - 50 ML IVPB SCH (02:00)
[2020-04-13 07:09] LABS: BASO % 0.7 % (0-2.0); EOS % 6.8 % (0-4.5); HEMATOCRIT 34.1 % (35.4-49); HEMOGLOBIN 10.9 GM/dL (11.7-16.9); MCH 30.6 pg (25.7-33.7); MCHC 31.9 g/dl (32.0-35.9); MEAN CELL VOLUME 95.9 fl (80-96); MEAN PLT VOLUME 8.1 fl (7.5-11.1); MONO % 11.1 % (3.8-10.2); NEUT % 45.4 % (42.8-82.8); PLATELET COUNT 193 K/MM3 (134-434); RBC 3.56 M/mm3 (4.00-5.60); RDW 17.5 % (11.9-15.9); WHITE BLOOD COUNT 4.3 K/mm3 (4.0-10.0)
[2020-04-13 07:17] LABS: POTASSIUM 4.1 mmol/L (3.5-5.1)
[2020-04-13 07:19] LABS: ALBUMIN 3.1 g/dl (3.4-5.0); CALCIUM 9.2 mg/dL (8.5-10.1)
[2020-04-13 07:20] LABS: BLOOD UREA NITROGEN 21.1 mg/dL (7-18); MAGNESIUM 2.3 mg/dL (1.8-2.4)
[2020-04-13 07:23] LABS: PHOSPHOROUS 3.8 mg/dL (2.5-4.9)
[2020-04-13 07:24] LABS: BILIRUBIN,TOTAL 0.3 mg/dL (0.2-1); TOT PROT 6.6 g/dl (6.4-8.2)
[2020-04-13] MEDS ORDERED: ALBUTEROL SO4 2.5/IPRATROPIUM 0.5 INH SOL 3 ML VIAL.NEB. NEB PRN (10:13)
[2020-04-13] MEDS ORDERED: ACETAMINOPHEN 325 MG TABLET (FP) PO PRN (10:13)
[2020-04-13] MEDS: BUDESONIDE/FORMETEROL FUMARATE 160/4.5 mcg INHALER IH SCH ×2 (11:22→21:18)
[2020-04-13] MEDS: oxyCODONE HCL 5 MG TABLET PO PRN ×2 (11:24→17:27)
[2020-04-13] MEDS ORDERED: FLU VACCINE (FLULAVAL) PF 60 MCG/0.5 ML SYRINGE 2020-2021 IM ONE (12:00)
[2020-04-13] MEDS: PIPERACILLIN/TAZOB 3.375 GM 3.375 GM in DEXTROSE 5%-WATER - 50 ML IVPB SCH ×2 (14:54→17:25)
[2020-04-13] MEDS ORDERED: HEPARIN NA (PORCINE) 5,000 UNITS/ML 1ML VIAL SQ SCH (22:00)
[2020-04-13] MEDS ORDERED: ATORVASTATIN CA 10 MG TABLET (FP) PO SCH (22:00)
[2020-04-14] MEDS: PIPERACILLIN/TAZOB 3.375 GM 3.375 GM in DEXTROSE 5%-WATER - 50 ML IVPB SCH ×4 (01:16→18:17)
[2020-04-14] MEDS: SODIUM CHLORIDE 1,000 ML IV SCH ×2 (01:16→18:17)
[2020-04-14] MEDS ORDERED: TAMSULOSIN HCL 0.4 MG CAP PO SCH (08:30)
[2020-04-14 08:33] LABS: INR 0.98 (0.83-1.09); PROTHROMBIN TIME (PATIENT) 12.1 SEC (9.7-13.0)
[2020-04-14 09:00] LABS: POTASSIUM 4.2 mmol/L (3.5-5.1)
[2020-04-14 09:04] LABS: CALCIUM 8.9 mg/dL (8.5-10.1)
[2020-04-14 09:05] LABS: ALBUMIN 3.2 g/dl (3.4-5.0); BLOOD UREA NITROGEN 19.7 mg/dL (7-18); MAGNESIUM 2.2 mg/dL (1.8-2.4)
[2020-04-14 09:10] LABS: BILIRUBIN,TOTAL 0.5 mg/dL (0.2-1); TOT PROT 6.6 g/dl (6.4-8.2)
[2020-04-14] MEDS ORDERED: LIDOCAINE HCL 2% (20ML MULTI-DOSE VIAL) ONE (09:17)
[2020-04-14] MEDS ORDERED: MIDAZOLAM HCL 2 MG/2 ML SINGLE DOSE VIAL ONE ×2 (09:21→09:44)
[2020-04-14] MEDS ORDERED: KETOROLAC TROMETHAMINE 30 MG/1 ML VIAL ONE (09:21)
[2020-04-14] MEDS ORDERED: PROPOFOL 20 ML ONE (09:37)
[2020-04-14] MEDS ORDERED: LIDOCAINE HCL 1%, 10 MG/ML (20ML VIAL) NR ONE (09:48)
[2020-04-14] MEDS ORDERED: BACITRACIN 50,000 UNITS VIAL NR ONE (09:50)
[2020-04-14] MEDS ORDERED: MONTELUKAST NA 10 MG TABLET PO SCH (10:00)
[2020-04-14] MEDS ORDERED: BUPIVACAINE HCL/PF 0.5% (5 MG/ML) 30 ML VIAL IJ ONE (10:10)
[2020-04-14] MEDS: BUDESONIDE/FORMETEROL FUMARATE 160/4.5 mcg INHALER IH SCH ×2 (10:29→21:02)
[2020-04-14] MEDS ORDERED: ALBUTEROL SO4 2.5/IPRATROPIUM 0.5 INH SOL 3 ML VIAL.NEB. NEB PRN (10:42)
[2020-04-14 12:18] LABS: BASO % 0.6 % (0-2.0); HEMOGLOBIN 11.2 GM/dL (11.7-16.9); LYMPH % 38.7 % (8-40); MCH 31.4 pg (25.7-33.7); MEAN CELL VOLUME 97.9 fl (80-96); MEAN PLT VOLUME 8.8 fl (7.5-11.1); MONO % 10.5 % (3.8-10.2); NEUT % 43.2 % (42.8-82.8); PLATELET COUNT 163 K/MM3 (134-434); RBC 3.57 M/mm3 (4.00-5.60); RDW 17.1 % (11.9-15.9); WHITE BLOOD COUNT 4.2 K/mm3 (4.0-10.0)
[2020-04-14] MEDS ORDERED: PIPERACILLIN/TAZOB 3.375 GM 3.375 GM in DEXTROSE 5%-WATER - 50 ML IVPB SCH (18:00)
[2020-04-14] MEDS: AMINO ACIDS/PROTEIN HYDROLYS 30 ML LIQUID.PKT PO SCH (18:23)
[2020-04-14] MEDS: MONTELUKAST NA 10 MG TABLET PO SCH (21:02)
[2020-04-14] MEDS: ASCORBIC ACID 250 MG TABLET (FP) PO SCH (21:03)
[2020-04-14] MEDS: ATORVASTATIN CA 10 MG TABLET (FP) PO SCH (21:03)
[2020-04-14] MEDS: oxyCODONE HCL 5 MG TABLET PO PRN (21:03)
[2020-04-14] MEDS: ACETAMINOPHEN 325 MG TABLET (FP) PO PRN (21:06)
[2020-04-14] MEDS ORDERED: HEPARIN NA (PORCINE) 5,000 UNITS/ML 1ML VIAL SQ SCH (22:00)
[2020-04-15] MEDS: oxyCODONE HCL 5 MG TABLET PO PRN ×4 (02:03→20:30)
[2020-04-15] MEDS: PIPERACILLIN/TAZOB 3.375 GM 3.375 GM in DEXTROSE 5%-WATER - 50 ML IVPB SCH ×3 (02:08→18:45)
[2020-04-15] MEDS: ACETAMINOPHEN 325 MG TABLET (FP) PO PRN (02:08)
[2020-04-15] MEDS: MULTIVITAMINS (DAILY MVI) TABLET (FP) PO SCH (09:05)
[2020-04-15] MEDS: TAMSULOSIN HCL 0.4 MG CAP PO SCH (09:05)
[2020-04-15] MEDS: AMINO ACIDS/PROTEIN HYDROLYS 30 ML LIQUID.PKT PO SCH ×2 (09:06→18:45)
[2020-04-15] MEDS: ASCORBIC ACID 250 MG TABLET (FP) PO SCH ×2 (09:06→22:09)
[2020-04-15] MEDS: BUDESONIDE/FORMETEROL FUMARATE 160/4.5 mcg INHALER IH SCH ×2 (09:07→21:54)
[2020-04-15 11:32] LABS: BASO % 0.4 % (0-2.0); HEMOGLOBIN 10.3 GM/dL (11.7-16.9); LYMPH % 27.7 % (8-40); MCHC 33.1 g/dl (32.0-35.9); MEAN CELL VOLUME 96.7 fl (80-96); MEAN PLT VOLUME 8.5 fl (7.5-11.1); MONO % 9.9 % (3.8-10.2); PLATELET COUNT 164 K/MM3 (134-434); RDW 17.2 % (11.9-15.9); WHITE BLOOD COUNT 4.3 K/mm3 (4.0-10.0)
[2020-04-15 12:02] LABS: POTASSIUM 4.2 mmol/L (3.5-5.1)
[2020-04-15 12:05] LABS: ALBUMIN 2.8 g/dl (3.4-5.0); BLOOD UREA NITROGEN 23.3 mg/dL (7-18); CALCIUM 8.5 mg/dL (8.5-10.1)
[2020-04-15 12:06] LABS: MAGNESIUM 2.1 mg/dL (1.8-2.4)
[2020-04-15 12:09] LABS: BILIRUBIN,TOTAL 0.2 mg/dL (0.2-1); CREATININE 0.9 mg/dL (0.55-1.3); TOT PROT 5.8 g/dl (6.4-8.2)
[2020-04-15] MEDS: SODIUM CHLORIDE 1,000 ML IV SCH ×2 (12:12→15:11)
[2020-04-15] MEDS ORDERED: oxyCODONE HCL 5 MG TABLET PO PRN (12:34)
[2020-04-15] MEDS ORDERED: PIPERACILLIN/TAZOBACTAM 3.375 GM VIAL IVPB ONE (18:42)
[2020-04-15] MEDS ORDERED: DEXTROSE 5%-WATER - 50 ML IVPB ONE (18:42)
[2020-04-15] MEDS: ATORVASTATIN CA 10 MG TABLET (FP) PO SCH (21:53)
[2020-04-15] MEDS: MONTELUKAST NA 10 MG TABLET PO SCH (21:53)
[2020-04-16] MEDS ORDERED: PIPERACILLIN/TAZOBACTAM 3.375 GM VIAL IVPB ONE ×3 (00:54→17:03)
[2020-04-16] MEDS ORDERED: DEXTROSE 5%-WATER - 50 ML IVPB ONE ×3 (00:54→17:03)
[2020-04-16] MEDS: oxyCODONE HCL 5 MG TABLET PO PRN ×2 (01:33→19:14)
[2020-04-16] MEDS: PIPERACILLIN/TAZOB 3.375 GM 3.375 GM in DEXTROSE 5%-WATER - 50 ML IVPB SCH ×3 (01:35→17:10)
[2020-04-16] MEDS: SODIUM CHLORIDE 1,000 ML IV SCH ×3 (07:22→21:57)
[2020-04-16] MEDS: TAMSULOSIN HCL 0.4 MG CAP PO SCH (08:50)
[2020-04-16] MEDS: AMINO ACIDS/PROTEIN HYDROLYS 30 ML LIQUID.PKT PO SCH ×2 (08:52→17:10)
[2020-04-16 09:03] LABS: BASO % 0.5 % (0-2.0); HEMATOCRIT 29.9 % (35.4-49); HEMOGLOBIN 9.5 GM/dL (11.7-16.9); LYMPH % 39.9 % (8-40); MCH 30.8 pg (25.7-33.7); MEAN CELL VOLUME 96.3 fl (80-96); MEAN PLT VOLUME 8.1 fl (7.5-11.1); NEUT % 38.6 % (42.8-82.8); PLATELET COUNT 151 K/MM3 (134-434); RDW 16.8 % (11.9-15.9); WHITE BLOOD COUNT 3.8 K/mm3 (4.0-10.0)
[2020-04-16] MEDS: MULTIVITAMINS (DAILY MVI) TABLET (FP) PO SCH (09:07)
[2020-04-16] MEDS: BUDESONIDE/FORMETEROL FUMARATE 160/4.5 mcg INHALER IH SCH ×2 (09:07→21:56)
[2020-04-16 09:26] LABS: POTASSIUM 4.2 mmol/L (3.5-5.1)
[2020-04-16 09:34] LABS: ALBUMIN 2.8 g/dl (3.4-5.0); BLOOD UREA NITROGEN 16.1 mg/dL (7-18); CALCIUM 8.7 mg/dL (8.5-10.1)
[2020-04-16 09:35] LABS: CREATININE 0.7 mg/dL (0.55-1.3)
[2020-04-16 09:37] LABS: BILIRUBIN,TOTAL 0.2 mg/dL (0.2-1); TOT PROT 5.6 g/dl (6.4-8.2)
[2020-04-16] MEDS: ASCORBIC ACID 250 MG TABLET (FP) PO SCH ×2 (10:20→21:57)
[2020-04-16] MEDS ORDERED: IPRATROPIUM IN SCH (11:15)
[2020-04-16] MEDS ORDERED: ALBUTEROL SULFATE IN SCH (11:15)
[2020-04-16] MEDS ORDERED: TIOTROPIUM BROMIDE 2.5 MCG (SPIRIVA) RESPIMAT INHALER IH SCH ×2 (11:15)
[2020-04-16] MEDS: GABAPENTIN 100 MG CAPSULE PO SCH (14:08)
[2020-04-16] MEDS ORDERED: PT OWN MED DRAWER 7, Y5N ONE (21:49)
[2020-04-16] MEDS: MONTELUKAST NA 10 MG TABLET PO SCH (21:57)
[2020-04-16] MEDS: ATORVASTATIN CA 10 MG TABLET (FP) PO SCH (21:57)
[2020-04-17] MEDS ORDERED: PIPERACILLIN/TAZOBACTAM 3.375 GM VIAL IVPB ONE ×2 (00:48→09:34)
[2020-04-17] MEDS ORDERED: DEXTROSE 5%-WATER - 50 ML IVPB ONE ×3 (00:48→14:54)
[2020-04-17] MEDS: PIPERACILLIN/TAZOB 3.375 GM 3.375 GM in DEXTROSE 5%-WATER - 50 ML IVPB SCH ×2 (01:52→09:53)
[2020-04-17 09:09] LABS: BASO % 0.5 % (0-2.0); EOS % 9.4 % (0-4.5); HEMATOCRIT 33.1 % (35.4-49); HEMOGLOBIN 10.7 GM/dL (11.7-16.9); LYMPH % 36.5 % (8-40); MCH 31.4 pg (25.7-33.7); MCHC 32.2 g/dl (32.0-35.9); MEAN CELL VOLUME 97.3 fl (80-96); MEAN PLT VOLUME 8.6 fl (7.5-11.1); MONO % 9.6 % (3.8-10.2); PLATELET COUNT 158 K/MM3 (134-434); RDW 16.9 % (11.9-15.9); WHITE BLOOD COUNT 3.6 K/mm3 (4.0-10.0)
[2020-04-17] MEDS ORDERED: PT OWN MED DRAWER 7, Y5N ONE ×2 (09:34→22:22)
[2020-04-17 09:42] LABS: ALBUMIN 2.7 g/dl (3.4-5.0); CALCIUM 9.1 mg/dL (8.5-10.1)
[2020-04-17 09:44] LABS: BLOOD UREA NITROGEN 13.8 mg/dL (7-18)
[2020-04-17 09:47] LABS: BILIRUBIN,TOTAL 0.3 mg/dL (0.2-1); CREATININE 0.7 mg/dL (0.55-1.3)
[2020-04-17] MEDS: AMINO ACIDS/PROTEIN HYDROLYS 30 ML LIQUID.PKT PO SCH ×2 (09:54→17:59)
[2020-04-17] MEDS: TAMSULOSIN HCL 0.4 MG CAP PO SCH (09:54)
[2020-04-17] MEDS: ASPIRIN COATED 81 MG TABLET.EC PO SCH (09:55)
[2020-04-17] MEDS: MULTIVITAMINS (DAILY MVI) TABLET (FP) PO SCH (09:55)
[2020-04-17] MEDS: ASCORBIC ACID 250 MG TABLET (FP) PO SCH ×2 (09:55→22:29)
[2020-04-17] MEDS: GABAPENTIN 100 MG CAPSULE PO SCH (09:55)
[2020-04-17] MEDS: BUDESONIDE/FORMETEROL FUMARATE 160/4.5 mcg INHALER IH SCH ×2 (09:56→22:29)
[2020-04-17] MEDS: SODIUM CHLORIDE 1,000 ML IV SCH (12:44)
[2020-04-17] MEDS ORDERED: cefTRIAXone SODIUM 1 GM VIAL ONE (14:54)
[2020-04-17] MEDS: CEFTRIAXONE 1 GM in DEXTROSE 5%-WATER - 50 ML IVPB SCH (15:14)
[2020-04-17] MEDS: oxyCODONE HCL 5 MG TABLET PO PRN ×2 (17:58→22:29)
[2020-04-17] MEDS: ATORVASTATIN CA 10 MG TABLET (FP) PO SCH (22:28)
[2020-04-17] MEDS: MONTELUKAST NA 10 MG TABLET PO SCH (22:28)
[2020-04-18] MEDS: SODIUM CHLORIDE 1,000 ML IV SCH ×2 (01:34→13:00)
[2020-04-18] MEDS: oxyCODONE HCL 5 MG TABLET PO PRN ×2 (02:04→23:41)
[2020-04-18] MEDS: AMINO ACIDS/PROTEIN HYDROLYS 30 ML LIQUID.PKT PO SCH ×2 (08:50→16:35)
[2020-04-18] MEDS ORDERED: cefTRIAXone SODIUM 1 GM VIAL ONE (09:28)
[2020-04-18] MEDS ORDERED: PT OWN MED DRAWER 7, Y5N ONE ×2 (09:28→21:04)
[2020-04-18] MEDS ORDERED: DEXTROSE 5%-WATER - 50 ML IVPB ONE (09:28)
[2020-04-18] MEDS: ASCORBIC ACID 250 MG TABLET (FP) PO SCH ×2 (09:32→21:21)
[2020-04-18] MEDS: ASPIRIN COATED 81 MG TABLET.EC PO SCH (09:32)
[2020-04-18] MEDS: TAMSULOSIN HCL 0.4 MG CAP PO SCH (09:32)
[2020-04-18] MEDS: MULTIVITAMINS (DAILY MVI) TABLET (FP) PO SCH (09:32)
[2020-04-18] MEDS: BUDESONIDE/FORMETEROL FUMARATE 160/4.5 mcg INHALER IH SCH ×2 (09:33→21:21)
[2020-04-18] MEDS: GABAPENTIN 100 MG CAPSULE PO SCH (09:33)
[2020-04-18] MEDS: CEFTRIAXONE 1 GM in DEXTROSE 5%-WATER - 50 ML IVPB SCH (09:33)
[2020-04-18 09:58] LABS: POTASSIUM 4.2 mmol/L (3.5-5.1)
[2020-04-18 10:01] LABS: ALBUMIN 2.9 g/dl (3.4-5.0); BLOOD UREA NITROGEN 17.5 mg/dL (7-18); CALCIUM 8.9 mg/dL (8.5-10.1)
[2020-04-18 10:02] LABS: MAGNESIUM 1.9 mg/dL (1.8-2.4)
[2020-04-18 10:03] LABS: BASO % 0.6 % (0-2.0); EOS % 6.6 % (0-4.5); HEMATOCRIT 34.6 % (35.4-49); LYMPH % 33.7 % (8-40); MCH 30.9 pg (25.7-33.7); MCHC 31.7 g/dl (32.0-35.9); MEAN CELL VOLUME 97.4 fl (80-96); MEAN PLT VOLUME 8.4 fl (7.5-11.1); MONO % 10.3 % (3.8-10.2); NEUT % 48.8 % (42.8-82.8); PLATELET COUNT 170 K/MM3 (134-434); RBC 3.55 M/mm3 (4.00-5.60); WHITE BLOOD COUNT 5.2 K/mm3 (4.0-10.0)
[2020-04-18 10:06] LABS: BILIRUBIN,TOTAL 0.2 mg/dL (0.2-1); CREATININE 0.7 mg/dL (0.55-1.3); TOT PROT 6.1 g/dl (6.4-8.2)
[2020-04-18] MEDS ORDERED: DOCUSATE SODIUM 100 MG CAPSULE (FP) PO PRN (12:00)
[2020-04-18] MEDS ORDERED: MAGNESIUM HYDROX 2400MG/30ML ORAL SUSPENSION 30 ML CUP PO ONE (12:01)
[2020-04-18] MEDS: ATORVASTATIN CA 10 MG TABLET (FP) PO SCH (21:21)
[2020-04-18] MEDS: MONTELUKAST NA 10 MG TABLET PO SCH (21:21)
[2020-04-19] MEDS: SODIUM CHLORIDE 1,000 ML IV SCH ×2 (01:56→15:09)
[2020-04-19] MEDS: AMINO ACIDS/PROTEIN HYDROLYS 30 ML LIQUID.PKT PO SCH ×2 (08:32→19:05)
[2020-04-19] MEDS: oxyCODONE HCL 5 MG TABLET PO PRN (08:32)
[2020-04-19] MEDS: TAMSULOSIN HCL 0.4 MG CAP PO SCH (08:33)
[2020-04-19] MEDS ORDERED: cefTRIAXone SODIUM 1 GM VIAL ONE (10:23)
[2020-04-19] MEDS ORDERED: DEXTROSE 5%-WATER - 50 ML IVPB ONE (10:23)
[2020-04-19] MEDS ORDERED: PT OWN MED DRAWER 7, Y5N ONE ×3 (10:23→23:28)
[2020-04-19] MEDS: CEFTRIAXONE 1 GM in DEXTROSE 5%-WATER - 50 ML IVPB SCH (10:30)
[2020-04-19] MEDS: MULTIVITAMINS (DAILY MVI) TABLET (FP) PO SCH (10:31)
[2020-04-19] MEDS: GABAPENTIN 100 MG CAPSULE PO SCH (10:31)
[2020-04-19] MEDS: BUDESONIDE/FORMETEROL FUMARATE 160/4.5 mcg INHALER IH SCH ×2 (10:32→21:36)
[2020-04-19] MEDS: ASPIRIN COATED 81 MG TABLET.EC PO SCH (10:32)
[2020-04-19] MEDS: ASCORBIC ACID 250 MG TABLET (FP) PO SCH ×2 (10:32→21:35)
[2020-04-19] MEDS ORDERED: oxyCODONE HCL 5 MG TABLET PO PRN (19:18)
[2020-04-19] MEDS: PRIMIDONE 50 MG TABLET PO SCH (21:35)
[2020-04-19] MEDS: MONTELUKAST NA 10 MG TABLET PO SCH (21:35)
[2020-04-19] MEDS: ATORVASTATIN CA 10 MG TABLET (FP) PO SCH (21:35)
[2020-04-20] MEDS: SODIUM CHLORIDE 1,000 ML IV SCH ×2 (02:46→15:10)
[2020-04-20 08:25] LABS: BASO % 0.4 % (0-2.0); EOS % 7.3 % (0-4.5); HEMOGLOBIN 10.8 GM/dL (11.7-16.9); LYMPH % 34.3 % (8-40); MCH 30.7 pg (25.7-33.7); MCHC 31.9 g/dl (32.0-35.9); MEAN CELL VOLUME 96.2 fl (80-96); MEAN PLT VOLUME 8.3 fl (7.5-11.1); MONO % 10.4 % (3.8-10.2); NEUT % 47.6 % (42.8-82.8); PLATELET COUNT 179 K/MM3 (134-434); RBC 3.53 M/mm3 (4.00-5.60); RDW 16.9 % (11.9-15.9); WHITE BLOOD COUNT 3.9 K/mm3 (4.0-10.0)
[2020-04-20] MEDS ORDERED: PT OWN MED DRAWER 7, Y5N ONE ×3 (09:50→21:20)
[2020-04-20] MEDS: AMINO ACIDS/PROTEIN HYDROLYS 30 ML LIQUID.PKT PO SCH ×2 (09:55→18:34)
[2020-04-20] MEDS: TAMSULOSIN HCL 0.4 MG CAP PO SCH ×2 (09:55→11:28)
[2020-04-20] MEDS: ASPIRIN COATED 81 MG TABLET.EC PO SCH (09:55)
[2020-04-20] MEDS: GABAPENTIN 100 MG CAPSULE PO SCH (09:56)
[2020-04-20] MEDS: DOXYCYCLINE HYCLATE 100 MG CAPSULE PO SCH ×2 (09:56→18:34)
[2020-04-20] MEDS: ASCORBIC ACID 250 MG TABLET (FP) PO SCH ×2 (09:56→21:58)
[2020-04-20] MEDS: PRIMIDONE 50 MG TABLET PO SCH (09:56)
[2020-04-20] MEDS: MULTIVITAMINS (DAILY MVI) TABLET (FP) PO SCH (09:56)
[2020-04-20] MEDS: BUDESONIDE/FORMETEROL FUMARATE 160/4.5 mcg INHALER IH SCH ×2 (09:57→21:58)
[2020-04-20] MEDS: ATORVASTATIN CA 10 MG TABLET (FP) PO SCH (21:57)
[2020-04-20] MEDS: MONTELUKAST NA 10 MG TABLET PO SCH (21:57)
[2020-04-21] MEDS: SODIUM CHLORIDE 1,000 ML IV SCH (02:16)
[2020-04-21 09:02] LABS: BASO % 0.8 % (0-2.0); EOS % 5.9 % (0-4.5); HEMATOCRIT 33.5 % (35.4-49); HEMOGLOBIN 10.7 GM/dL (11.7-16.9); LYMPH % 34.5 % (8-40); MCH 30.8 pg (25.7-33.7); MCHC 32.1 g/dl (32.0-35.9); MEAN CELL VOLUME 95.8 fl (80-96); MEAN PLT VOLUME 8.6 fl (7.5-11.1); MONO % 7.4 % (3.8-10.2); NEUT % 51.4 % (42.8-82.8); PLATELET COUNT 213 K/MM3 (134-434); RBC 3.49 M/mm3 (4.00-5.60); RDW 16.9 % (11.9-15.9)
[2020-04-21 09:19] LABS: POTASSIUM 4.1 mmol/L (3.5-5.1)
[2020-04-21 09:24] LABS: BLOOD UREA NITROGEN 14.8 mg/dL (7-18); CALCIUM 9.5 mg/dL (8.5-10.1)
[2020-04-21] MEDS ORDERED: PT OWN MED DRAWER 7, Y5N ONE (09:24)
[2020-04-21 09:27] LABS: CREATININE 0.6 mg/dL (0.55-1.3)
[2020-04-21 09:29] LABS: BILIRUBIN,TOTAL 0.5 mg/dL (0.2-1); TOT PROT 6.7 g/dl (6.4-8.2)
[2020-04-21] MEDS: AMINO ACIDS/PROTEIN HYDROLYS 30 ML LIQUID.PKT PO SCH ×2 (09:37→18:25)
[2020-04-21] MEDS: ASPIRIN COATED 81 MG TABLET.EC PO SCH (09:42)
[2020-04-21] MEDS: TAMSULOSIN HCL 0.4 MG CAP PO SCH (09:43)
[2020-04-21] MEDS: PRIMIDONE 50 MG TABLET PO SCH (09:43)
[2020-04-21] MEDS: GABAPENTIN 100 MG CAPSULE PO SCH (09:44)
[2020-04-21] MEDS: MULTIVITAMINS (DAILY MVI) TABLET (FP) PO SCH (09:44)
[2020-04-21] MEDS: DOXYCYCLINE HYCLATE 100 MG CAPSULE PO SCH ×2 (09:44→18:25)
[2020-04-21] MEDS: BUDESONIDE/FORMETEROL FUMARATE 160/4.5 mcg INHALER IH SCH ×2 (09:46→21:38)
[2020-04-21] MEDS: ASCORBIC ACID 250 MG TABLET (FP) PO SCH ×2 (09:46→21:37)
[2020-04-21] MEDS: MONTELUKAST NA 10 MG TABLET PO SCH (21:37)
[2020-04-21] MEDS: ATORVASTATIN CA 10 MG TABLET (FP) PO SCH (21:38)
[2020-04-22] MEDS: AMINO ACIDS/PROTEIN HYDROLYS 30 ML LIQUID.PKT PO SCH (08:36)
[2020-04-22] MEDS: TAMSULOSIN HCL 0.4 MG CAP PO SCH (08:36)
[2020-04-22] MEDS ORDERED: PT OWN MED DRAWER 7, Y5N ONE (09:15)
[2020-04-22] MEDS: ASPIRIN COATED 81 MG TABLET.EC PO SCH (09:16)
[2020-04-22] MEDS: PRIMIDONE 50 MG TABLET PO SCH (09:16)
[2020-04-22] MEDS: ASCORBIC ACID 250 MG TABLET (FP) PO SCH (09:16)
[2020-04-22] MEDS: MULTIVITAMINS (DAILY MVI) TABLET (FP) PO SCH (09:16)
[2020-04-22] MEDS: DOXYCYCLINE HYCLATE 100 MG CAPSULE PO SCH (09:17)
[2020-04-22] MEDS: GABAPENTIN 100 MG CAPSULE PO SCH (09:17)
[2020-04-22] MEDS: BUDESONIDE/FORMETEROL FUMARATE 160/4.5 mcg INHALER IH SCH (09:17)
[2020-04-22 13:02] VITALS: BP 134/85; PULSE 116; TEMP 98.8
[2020-04-23] MEDS ORDERED: MUPIROCIN 2% TOPICAL OINTMENT 22 GM TUBE TP SCH (10:00)
== END 2020-04-22 13:46 | disposition home or self-care (01) | DRG 256 ==
LOC: JER 17:11 → JERBED 18:41 → J6WEST-2 04-13 09:31 → J5S 04-15 18:01 → UNDODISIN 04-21 16:22 → J5S 04-21 20:28
PROVIDERS: ADMIT Internal Medicine; ATTEND Nurse Practitioner Acute Care
PROC: 0QBN0ZX Excision of Right Metatarsal, Open Approach, Diagnostic (ICD-10-PCS; 2020-04-14)
PROC: 0Y6X0Z0 Detachment at Right 5th Toe, Complete, Open Approach (ICD-10-PCS; principal; 2020-04-14 09:00)
DX: E11.52 Type 2 diabetes mellitus with diabetic peripheral angiopathy with gangrene (principal); I96 Gangrene, not elsewhere classified; E11.42 Type 2 diabetes mellitus with diabetic polyneuropathy; J44.9 Chronic obstructive pulmonary disease, unspecified; I10 Essential (primary) hypertension; L97.519 Non-pressure chronic ulcer of other part of right foot with unspecified severity; N40.0 Benign prostatic hyperplasia without lower urinary tract symptoms; L97.522 Non-pressure chronic ulcer of other part of left foot with fat layer exposed; E11.621 Type 2 diabetes mellitus with foot ulcer; R33.8 Other retention of urine; A49.02 Methicillin resistant Staphylococcus aureus infection, unspecified site; I71.2 Thoracic aortic aneurysm, without rupture; Z86.718 Personal history of other venous thrombosis and embolism; Z85.038 Personal history of other malignant neoplasm of large intestine; Z99.81 Dependence on supplemental oxygen
CPT/HCPCS: 36415; 71045-TC-FY; 73630-TC-RT-FY; 80053; 80061; 83036; 83721; 83735; 84100; 85025; 85027; 85610; 85730; 86850; 86900; 86901; 87070; 87075; 87186; 87205; 88305-TC; 88311-TC; 93005; 93010; 93306-TC; 94760; 97116-GP; 97162-GP; 99285-25; C9803; G0008; J1644; Q2036; U0003